=== PATIENT | male | born 1955 | race Caucasian/White ===

== ENCOUNTER → 2017-06-19 08:24 | Outpatient (CLI) | payer MEDICAID, SELFPAY ==
--- NOTE | 2017-06-17 08:45 | LES_PTH ---
PATIENT: KATHY MEEK LOC: [facility] U#:[id number] AGE/SX: 69/M ROOM: RE06/19/[address]: Dr. Shakir Orozco MD : [id number] BED: DIS: SPEC #: [id number] RECD: 06/19/17 10:25 STATUS: UMA EVERARDO #: [id number] MATTY: 06/17/17 08:[address]: Shakir Orozco DEPT: SURGICAL PATHOLOGY RECD BY: Cesar Fiore Tissues: Skin of forearm, NOS Procedures: Surgery Specimen Level IV HEADER OPERATION: Excision of left forearm, skin lesion PRE-OP DIAGNOSIS: Neoplasm of uncertain behavior of skin of forearm, D48.5 TISSUE SUBMITTED: Left forearm lesion MICROSCOPIC DIAGNOSIS Left forearm lesion, excisional biopsy: Invasive well differentiated squamous cell carcinoma, keratoacanthomatous type, completely excised in the planes of sections examined. Perineural invasion is not seen. Actinic keratosis and solar elastosis. SJ:ishaan 06/20/17 COMMENT Case has been reviewed in consultation with Dr. Hull who concurs with the above diagnosis. IDC:AM MICROSCOPIC DESCRIPTION Slides are reviewed. GROSS DESCRIPTION Received in fixative is one container labeled with the patient's name and designated left forearm lesion. The specimen consists of a piece of santiago-white skin measuring 2.5 x 2 cm and 0.6 cm in thickness. The skin surface shows an indurated lesion occupying the entire surface. The specimen is inked, serially sectioned and submitted entirely in two cassettes. The tips of the ellipse are inked blue and submitted in cassette #1. / ALTAF:ishaan 06/19/17 TC:0 CPT: 15702
== END ==
PROVIDERS: Visit Provider Surgery
DX: D48.5 Neoplasm of uncertain behavior of skin (principal)
CPT/HCPCS: 88305

== ENCOUNTER 2018-01-15 09:25 | Inpatient (IN) | payer OTHER, SELFPAY ==
[2018-01-15] VITALS (37 sets, daily range): BP systolic 102–166; BP diastolic 43–94; PULSE 101–160; RESP 12–42; TEMP 36.5–39.3; O2SAT 87–100; BMI 30.4; BMI 29.7
--- NOTE | 2018-01-15 09:36 | EKG12_ITS ---
Test Reason : Blood Pressure : / mmHG Vent. Rate : 163 BPM Atrial Rate : 234 BPM P-R Int : 000 ms QRS Dur : 070 ms QT Int : 300 ms P-R-T Axes : 000 098 057 degrees QTc Int : 494 ms Supraventricular tachycardia Nonspecific ST abnormality Poor R wave progression Abnormal ECG Confirmed by RAY HARRISON, CARMENCITA ([id number]), assistant editor JAISON SEBASTIAN ([id number]) on 01/18/2018 1:45:40 PM Referred By: YESENIA Confirmed By:CARMENCITA BELL MD
--- NOTE | 2018-01-15 09:42 | ED.DCSUM_ITS ---
- ER Visit Summary Date of Service: 01/15/18 Chief Complaint: Nausea, vomiting, weakness History of Present Illness: The patient is a 62 M with a 4 or 5-day history of nausea and dry heaves. He reports having some head congestion with minimal cough. He is been taking Afrin. He reports subjective fever and chills. Patient states he had multiple falls at home due to generalized weakness. He denies known history of COPD. He has been a longtime smoker. He has a history of hypertension and high cholesterol. Physical Examination: Blood pressure is 102/44, temperature 101, heart rate 129, respiratory rate 42, pulse ox 87% on room air. Patient is sitting upright in bed. He is very weak transferring from wheelchair to bed. Head neck examination was moist mucous membranes. Heart is tachycardic. Lung sounds with mild expiratory wheezes. He is tachypneic. Abdomen is soft nontender. Neuro exam reveals no focal deficits, but he does have generalized weakness. Test Results: EKG is sinus tach at 163. Portal chest x-ray shows a large left- sided infiltrate. CBC was a white count of 15.7 with 85% neutrophils. Platelet count is 137,000. Chemistry studies reveal a sodium of 128 and potassium 3.2. BUN is 23 and creatinine is 1.53. LFTs are significant for an AST of 207, direct bili 0.56, total bili 1.20. Lipase is normal. Troponin is 0.613. Lactate is elevated at 3.1. Emergency Department Course and Treatment: Patient is given IV fluids and Tylenol for fever. He was given a DuoNeb treatment. Following this he had improved air movement throughout, but wheezes were noted significantly. Repeat vital signs include a temperature of 102.8 orally, heart rate 132, respiratory rate 32, pulse ox 90% on 6 L nasal cannula. 2 additional albuterol aerosols were given. With the aerosols heart rate did go up at 160, but is now back down to 130s. Respiratory rate is in the mid to upper 30s and pulse ox is 92% on simple mask. Patient has been given Rocephin and Zithromax. 30 cc/kg IV fluid bolus has been ordered. Patient will be admitted to the ICU. Treatment Plan: [] Disposition: Admit Impression: 1. Pneumonia 2. Sepsis This note was generated with [employer] dictation software. It may contain incorrect words, spelling, and punctuation that were not noted in review of the chart prior to signing ED Disposition - Plan for ED Patient: Chief Complaint: General Illness Referrals: NOT,DEFINED [NON-STAFF] -
--- NOTE | 2018-01-15 09:45 | RAD_ITS ---
STUDY: X-RAY CHEST REASON FOR EXAM: Male, 62 years old. Fever, cough and dehydration. TECHNIQUE: AP upright portable single view. COMPARISON: No prior chest imaging available. FINDINGS: EKG wires and oxygen tubing project over the chest mildly appearing underlying details. Lungs appear fairly well ventilated mild elevation right diaphragm. However, near complete opacification is noted of the left mid and basal lung with sparing of the upper lobe above the aortic knob. Right lung appears well ventilated and clear except minimal hazy ill-defined opacities in the right lung base most suggestive subsegmental atelectasis with elevated right diaphragm. Heart is obscured by above left lung opacities left mediastinum and left hilar obscured by above. Right mediastinum appears within normal limits. Moderate increased right hilar density noted due to mild rotation Normal visualized right pulmonary arteries given rotation. Moderate aortic knob calcification. Descending thoracic aorta is obscured by above. Normal visualized thoracic spine. Normal visualized ribs, clavicles and shoulders. There is no demonstrated abnormality of the visualized soft tissue structures of the upper abdomen. No subdiaphragmatic free air seen grossly. RAD/Chest 1 View (Portable) IMPRESSION: Near complete opacification left lung machuca sparing only the upper lobe at the level of the aortic knob and above. Differential considerations include pleural fluid, atelectasis/scarring, pneumonia or underlying mass. Clinical correlation follow-up recommended. Results discussed with Attending Physician 01/15/2018 approximate 1235 hours. If clinically indicated, recommend follow-up chest study after treatment to demonstrate complete clearing if clinically indicated. Electronically Signed: Montrell Cardenas, at 12:39 EDT Tel , Service support ,
[2018-01-15] MEDS: Ipratropium/Albuterol Sulfate 3 ML AMPUL.NEB INHALATION ×4 (09:47→22:29)
[2018-01-15] MEDS: 0.9% Normal Saline 1,000 ML 150 ML IV ×2 (10:02→21:00)
[2018-01-15] MEDS: Acetaminophen 500 MG Tablet 1000 MG PO (10:02)
[2018-01-15] MEDS: Albuterol 2.5 MG/3 ML VIAL.NEB. INHALATION ×2 (10:03)
[2018-01-15 10:04] LABS: Hematocrit 44.9 % (40-54); Hemoglobin 16.3 g/dl (13.0-16.5); Mean Corp Hgb Conc 36.3 g/gl (32-36); Mean Corpuscular Volume 85.4 fL (80-94); Mean Platelet Vol. 11.5 fl (6.2-12.0); Platelet Count 137 K/mm3 (150-450); RBC Distribution Width CV 12.7 % (11.6-14.6); RBC Distribution Width SD 39.8 fl (35.1-43.9); Red Blood Count 5.26 M/mm3 (4.6-6.2); White Blood Count 15.7 K/mm3 (4.4-11.0)
[2018-01-15 10:05] LABS: Differential Indicated MANUAL DIFF; POSITIVE COUNT YES; POSITIVE DIFFERENTIAL YES; POSITIVE MORPHOLOGY YES
[2018-01-15] MEDS: Ceftriaxone 1 GM/50 ML BAG IV (10:16)
[2018-01-15 10:22] LABS: Lymphocyte 5 % (19-41); Monocyte 8 % (0-10); Neutrophil-Band 2 % (0-5); Neutrophil-Segmented 85 % (47-70); Total Cells Counted 100 (MANUAL DIFF)
[2018-01-15 10:23] LABS: Platelet Estimate SLT (ADEQ); Red Cell Morphology NORM C+C NORMAL (NORM C&C); Vacuolated Cells 1+
[2018-01-15 10:24] LABS: Absolute Lymphocyte Count 0.79 X10^3/ul (0.83-4.51); Absolute Neutrophil Count 13.7 X10^3/uL (2.0-7.7)
[2018-01-15 10:26] LABS: AST(SGOT) 207 U/L (15-37); Alanine Aminotransfer ALT/SGPT 46 U/L (16-61); Albumin, Serum 2.6 g/dL (3.2-5.0); Alkaline Phosphatase 67 U/L (45-117); Anion Gap 13 (5-15); BUN 23 mg/dL (7-18); Bilirubin, Direct 0.56 mg/dL (0.00-0.30); Calcium,Total 8.3 mg/dL (8.5-10.1); Chloride 90 mmol/L (98-107); Creatinine, Serum 1.53 mg/dL (0.70-1.30); EST Glomerular Filtration Rate 49 mL/min (>60); Est Glom Filt Rate - Afr Amer 59 mL/min (>60); Estimated Creatinine Clearance 47.81 ml/min; Glucose 152 mg/dL (74-106); Lactic Acid 3.1 mmol/L (0.4-2.0); Lipase 94 U/L (73-393); Potassium 3.2 mmol/L (3.5-5.1); Protein, Total 7.6 g/dL (6.4-8.2); Sodium Level 128 mmol/L (136-145)
--- NOTE | 2018-01-15 10:26 | ED.RN ---
LACTIC 3.1 AND TROP 0.613 CALLED FROM THE LAB. DR PATTERSON AWARE
[2018-01-15] MEDS: MethylPREDNISolone 125 MG/2 ML Vial IV (10:59)
[2018-01-15 11:05] LABS: Allen Test POS; Base Excess -2 mmol/L (-2 to +2); Bicarbonate 21.2 mmol/L (22-26); Blood Gas Specimen Type ART; O2 Delivery Device Nasal Can; PO2 51 mmHG (75-100); SITE L Radial; SO2 90 % (95-99); Time Given 1050; Total Carbon Dioxide 22 mmol/L; pCO2 26.7 mmHg (35-45); pH 7.51 (7.35-7.45)
--- NOTE | 2018-01-15 11:25 | CON.PCM_ITS ---
Reason for Consult Date of Consultation: 01/15/18 Reason for Consultation: Respiratory failure History of Present Illness: The patient is a 62-year-old male, with a history as outlined below, who presented to the emergency department on January 15 with complaints of nausea and generalized weakness. The patient does have an extensive smoking history of 2 packs/day but does not utilize supplemental oxygen at his baseline. He is not currently on any inhalers at his baseline. The patient reports that he has not had any issues with emesis or diarrhea. He denies the presence of abdominal pain at the present time. 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 He does report the presence of shortness of breath along with fevers and chills. He also reportedly fell yesterday. He currently denies the presence of a cough. He denies a history of venous thromboembolic disease or underlying cardiac disease. On presentation to the emergency department, the patient was noted to be febrile, tachycardic, tachypneic and hypoxic. Laboratory evaluation revealed elevated white blood cell count. Chemistry profile revealed a sodium of 128, chloride of 90, potassium of 3.2 and evidence of acute kidney injury with a creatinine of 1.53. Serum lactate was elevated to 3.1. AST was increased to 207. Troponin was increased to 0.613. Lipase was within normal limits at 94. The patient received supplemental IV fluids along with antibiotics. He was subsequently admitted to the medical intensive care unit for ongoing management. Past Medical History Past Medical History (Chronic Problems): Chronic Problems (Last Reviewed 06/17/17 @ 09:09 by Antionette Lua) HLD (hyperlipidemia) (Chronic) Hypertension (Chronic) Medical History: Medical History (Last Reviewed 06/17/17 @ 09:09 by Antionette Lua) Hypertension (Chronic) I10 Erectile dysfunction (Acute) N52.9 Diabetes type 2, controlled (Acute) E11.9 Testicular hypofunction (Acute) E29.1 Allergies No Known Allergies Allergy (Verified 01/15/18 09:30) Home Medications: Ambulatory Orders Medication Instructions Recorded atorvastatin 40 mg tablet 40 mg PO QDAY 06/05/17 citalopram 40 mg tablet 40 mg PO QDAY tab 06/05/17 coenzyme Q10 100 mg capsule 100 mg PO QDAY 06/05/17 metoprolol tartrate 100 mg tablet 150 mg PO BID 06/05/17 omega-3 fatty acids 1,000 mg 1,000 mg PO QDAY 06/05/17 capsule Gabapentin [Neurontin] 100 mg PO DAILY 01/15/18 Smoking Status: Current every day smoker - *Family History Maternal Family History: Family History (Last Reviewed 06/17/17 @ 09:09 by Antionette Lua) Sister Hypertension Brother Hypertension History Items: No pertinent history Paternal Family History: Family History (Last Reviewed 06/17/17 @ 09:09 by Antionette Lua) Sister Hypertension Brother Hypertension History Items: No pertinent history Review of Systems Constitutional: Reports: Chills, Fever, Malaise, Weakness Eyes: Denies: Blurred vision, Double vision Cardiovascular: Denies: Chest Pain, Palpitations Respiratory: Reports: Shortness of Breath, Wheezing Gastrointestinal: Reports: Nausea. Denies: Abdominal Pain, Diarrhea, Vomiting Genitourinary: Denies: Dysuria Musculoskeletal: Denies: Joint Pain, Joint Tenderness Skin: Denies: Rash, Wounds Neurological: Reports: Balance problems Psychiatric: Denies: Anxiety, Depression, Homicidal Ideations, Suicidal Ideations Hematologic/ Lymphatic: Denies: Easy Bruising, Easy Bleeding, Hx of blood clot Patient Problems: Active and Suspected Problems (Last Reviewed 06/17/17 @ 09:09 by Antionette Lua) Severe sepsis (Acute) PNA (pneumonia) (Acute) COPD (chronic obstructive pulmonary disease) (Acute) BRENDA (acute kidney injury) (Acute) NSTEMI (non-ST elevated myocardial infarction) (Acute) Objective: The patient's most recent lab work, culture data and imaging studies have all been personally reviewed. - Physical Exam General: Alert, Cooperative, - - Mildly distressed wearing a nonrebreather HEENT: Atraumatic, PERRLA, Normocephalic Oral: Dry Mucosa Neck: Supple, No Nodes, Trachea Midline Lungs: No rhonchi, No rales, Diminished, Short of Breath, Wheezes Cardiovascular: Normal S1, Normal S2, No murmurs, Irregular Rate, Tachycardic Abdomen: Bowel Sounds Present, Soft, Non Tender Extremities: No clubbing, No cyanosis, No edema Skin: No breakdown Musculoskeletal: No Tenderness to Palpation of Joints or Extremities, No Muscle Wasting Lymphatic: No Cervical, Supraclavicular, or Inguinal Adenopathy Neurological: Neuro grossly intact Psych/Mental Status: Normal Affect, Appropriate Vital Signs Temp Pulse Resp BP Pulse Ox 102.6 F H 130 H 31 H 151/64 H 94 01/15/18 10:27 01/15/18 11:03 01/15/18 11:03 01/15/18 11:03 01/15/18 11:03 Oxygen Flow Rate (L/min) 15 Oxygen Delivery Method Non-Rebreather Weight: 200 lb Body Mass Index (BMI) 30.4 Laboratory Tests Past 24 Hrs 01/15/18 01/15/18 01/15/18 09:45 09:45 09:45 WBC 15.7 H RBC 5.26 Hgb 16.3 Hct 44.9 MCV 85.4 MCH 31.0 MCHC 36.3 H RDW 12.7 RDW Differential 39.8 Plt Count 137 L MPV 11.5 Neut % (Auto) Not Reportable Absolute Neuts (auto) 13.7 H Absolute Lymphs (auto) 0.79 L Total Counted 100 Neutrophils % (Manual) 85 H Band Neutrophils % 2 Lymphocytes % (Manual) 5 L Monocytes % (Manual) 8 Differential Comment 1+ Diff Path Review May foll Platelet Estimate SLT RBC Morphology NORM C+C Specimen Type Sample Site pH Bicarbonate Actual POC Total CO2 Base Excess O2 Saturation ABG pCO2 ABG pO2 Jaylen Test O2 Delivery Device Liter Flow Blood Gas Notified Whom Blood Gas Notified Time Sodium 128 L Potassium 3.2 L Chloride 90 L Carbon Dioxide 25.0 Anion Gap 13 BUN 23 H Creatinine 1.53 H Estim Creat Clear Calc 47.81 Est GFR (MDRD) Af Amer 59 L Est GFR (MDRD) Non-Af 49 L BUN/Creatinine Ratio 15.0 Glucose 152 H Lactic Acid 3.1 H Calcium 8.3 L Total Bilirubin 1.20 H Direct Bilirubin 0.56 H AST 207 H ALT 46 Alkaline Phosphatase 67 Troponin I 0.613 H* Total Protein 7.6 Albumin 2.6 L Globulin 5.0 H Lipase 94 01/15/18 11:00 WBC RBC Hgb Hct MCV MCH MCHC RDW RDW Differential Plt Count MPV Neut % (Auto) Absolute Neuts (auto) Absolute Lymphs (auto) Total Counted Neutrophils % (Manual) Band Neutrophils % Lymphocytes % (Manual) Monocytes % (Manual) Differential Comment Diff Path Review Platelet Estimate RBC Morphology Specimen Type ART Sample Site L Radial pH 7.51 H Bicarbonate Actual 21.2 L POC Total CO2 22 Base Excess -2 O2 Saturation 90 L ABG pCO2 26.7 L ABG pO2 51 L Jaylen Test POS O2 Delivery Device Nasal Can Liter Flow 6.0 Blood Gas Notified Whom ED MD Blood Gas Notified Time 1050 Sodium Potassium Chloride Carbon Dioxide Anion Gap BUN Creatinine Estim Creat Clear Calc Est GFR (MDRD) Af Amer Est GFR (MDRD) Non-Af BUN/Creatinine Ratio Glucose Lactic Acid Calcium Total Bilirubin Direct Bilirubin AST ALT Alkaline Phosphatase Troponin I Total Protein Albumin Globulin Lipase Clinical Impression(s) from Imaging Studies Chest X-Ray 01/15/18 09:45 IMPRESSION: Near complete opacification left lung machuca sparing only the upper lobe at the level of the aortic knob and above. Differential considerations include pleural fluid, atelectasis/scarring, pneumonia or underlying mass. Clinical correlation follow-up recommended. Results discussed with Attending Physician 01/15/2018 approximate 1235 hours. If clinically indicated, recommend follow-up chest study after treatment to demonstrate complete clearing if clinically indicated. Electronically Signed: Montrell Cardenas, at 12:39 EDT Tel , Service support , Assessment/Plan Active and Suspected Problems (Last Reviewed 06/17/17 @ 09:09 by Antionette Lua) Severe sepsis (Acute) PNA (pneumonia) (Acute) COPD (chronic obstructive pulmonary disease) (Acute) BRENDA (acute kidney injury) (Acute) NSTEMI (non-ST elevated myocardial infarction) (Acute) RECOMMENDATIONS: 1. Obtain EKG and trend troponins 2. Obtain echocardiogram 3. Given abnormality noted in left mid lung field on chest imaging, recommend noncontrasted chest CT 4. Continue supplemental IV fluid hydration. Recheck serum lactate level. 5. Given tenuous respiratory status, broaden antibiotics to include Zosyn. Check MRSA screen and if positive start vancomycin. 6. Check strep and urine Legionella antigens. Obtain and send sputum for culture. Check respiratory viral panel. 7. Potassium repletion. Check magnesium and phosphorus levels as well. 8. Patient to remain n.p.o. for now. Start Accu-Cheks and sliding scale insulin coverage. 9. Continue scheduled bronchodilators and IV steroids. IMPRESSIONS: 1. Acute hypoxic respiratory failure secondary to severe community-acquired pneumonia leading to presumptive COPD exacerbation While the patient does have an extensive smoking history, he has never had pulmonary function testing done to confirm or refute a diagnosis of COPD. However, he does have an extreme amount of wheezing noted on examination. In addition, he has radiographic abnormalities that involve his left mid and lower lung machuca. Given the abnormal appearance and triangular-shaped atelectasis noted in his left mid lung field, and going to pursue obtaining a CT chest for further evaluation. In the interim, the patient's antibiotics have been broadened to include Zosyn. MRSA screen will be checked and if positive he will be started on vancomycin. He will be continued on scheduled bronchodilators and IV steroids. I have also recommended that he be placed on BiPAP empirically with a pressure support of 14/8 centimeters of water with humidification as a starting point. We will plan to check strep and urine Legionella antigens, along with a full respiratory viral panel. If the patient does develop a productive cough, sputum can be sent for culture. 2. Severe sepsis secondary to community-acquired pneumonia The patient is currently receiving his 30 cc/kg ideal body weight fluid bolus. He is currently hemodynamically stable. Recommend following up with a recheck of his lactate. Continue broad-spectrum antibiotics as noted above. 3. History of tobacco dependence The patient does have an extensive smoking history and we are currently working under the assumption that he has obstructive lung disease. However, smoking cessation is strongly advisable. Nicotine replacement therapy can be offered while he is admitted to the hospital. The patient should ideally follow up in the pulmonary medicine clinic so that baseline PFTs can be obtained. 4. Sinus arrhythmia/troponin elevation The patient appears to be experiencing a sinus arrhythmia, potentially multifocal atrial tachycardia. He is not in atrial fibrillation at the current time. Recommend repleting potassium to greater than 4. Check serum magnesium level. Continue to trend troponins and obtain echocardiogram. 5. Hyponatremia/hypochloremia/hypokalemia Likely secondary to intravascular volume depletion. The patient is currently being volume resuscitated. Electrolyte repletion is underway. 6. Acute kidney injury Likely prerenal in etiology. Anticipate improvement with volume expansion. Continue to monitor urine output. No current indication for renal replacement therapy. 7. Hypertension/hyperlipidemia/neuropathy Complicates care, management, recovery and prognosis. TIME: 45 minutes of critical care time, independent of procedures, was spent addressing the patient's acute hypoxic respiratory failure, severe sepsis secondary to community-acquired pneumonia, tobacco dependency, sinus arrhythmia, troponin elevation, hypokalemia, acute kidney injury, review of all data and collaboration with the care team. ([id number]) Code Visit 9xxxx: [id number] Critical care first hour
--- NOTE | 2018-01-15 12:04 | PCM.HP.STD ---
Problem List (1) Severe sepsis Status: Acute (2) PNA (pneumonia) Status: Acute Qualifiers: Laterality: left Lung location: lower lobe of lung (3) COPD (chronic obstructive pulmonary disease) Status: Acute (4) NSTEMI (non-ST elevated myocardial infarction) Status: Acute (5) BRENDA (acute kidney injury) Status: Acute (6) HLD (hyperlipidemia) Status: Chronic (7) Hypertension Status: Chronic History of Present Illness Date of Admission: 01/15/18 Chief Complaint: SOB The patient is a 62 year old M with a heavy smoking hx, no formal dx of copd/asthma, no sick contacts, hx htn, hld, who presents to the ER with c/o SOB x 3 days. Pt states he started feeling unwell after working under his RV. He started becoming progressively SOB and developed fevers and chills. He became more and more unsteady on his feet, falling chest first onto a coffee table yesterday. He was very weak today and came to the ER. He only has a rare cough with no sputum production. He had fevers and chills at home. He is incontinent of urine x 2 days. He is tremulous. He was hypoxic at 87% requiring up to NRB supplementation to maintain good sats. He was running a fever as well 102.8 and had pulse into the 160s with elevated troponin. He denies a hx of heart dz or CHF. [] Past Medical History Past Medical History (Chronic Problems): Chronic Problems (Last Reviewed 06/17/17 @ 09:09 by Antionette Lua) HLD (hyperlipidemia) (Chronic) Hypertension (Chronic) Medical History: Medical History (Last Reviewed 06/17/17 @ 09:09 by Antionette Lua) Hypertension (Chronic) I10 Erectile dysfunction (Acute) N52.9 Diabetes type 2, controlled (Acute) E11.9 Testicular hypofunction (Acute) E29.1 Allergies No Known Allergies Allergy (Verified 01/15/18 09:30) Home Medications: Ambulatory Orders Medication Instructions Recorded atorvastatin 40 mg tablet 40 mg PO QDAY 06/05/17 citalopram 40 mg tablet 40 mg PO QDAY tab 06/05/17 coenzyme Q10 100 mg capsule 100 mg PO QDAY 06/05/17 metoprolol tartrate 100 mg tablet 150 mg PO BID 06/05/17 omega-3 fatty acids 1,000 mg 1,000 mg PO QDAY 06/05/17 capsule Gabapentin [Neurontin] 100 mg PO DAILY 01/15/18 Surgical History: - - hernia Psychiatric History: No pertinent psych hx Lives: Spouse/ Significant Other Smoking Status: Heavy Smoker (>10/day) Tobacco Use: Cigarettes Alcohol: Occasional Drugs: None - *Family History Maternal Family History: Family History (Last Reviewed 06/17/17 @ 09:09 by Antionette Lua) Sister Hypertension Brother Hypertension History Items: No pertinent history Paternal Family History: Family History (Last Reviewed 06/17/17 @ 09:09 by Antionette Lua) Sister Hypertension Brother Hypertension History Items: No pertinent history Review of Systems Constitutional: Reports: Chills, Fever, Weakness. Denies: Weight Change HEENT: Denies: Head Aches, Sinus Congestion, Sinus Drainage Cardiovascular: Reports: Chest Pain - left shoulder area 2/2 fall. Denies: Palpitations Respiratory: Reports: Cough, Shortness of Breath, Shortness of breath at rest, Shortness of breath upon exertion. Denies: Sputum production Gastrointestinal: Denies: Abdominal Pain, Nausea, Vomiting Genitourinary: Reports: Incontinence. Denies: Dysuria Musculoskeletal: Denies: Joint Pain, Joint Tenderness Skin: Denies: Rash, Wounds Neurological: Denies: Numbness, Tingling, Focal weakness Psychiatric: Denies: Anxiety, Depression, Homicidal Ideations, Suicidal Ideations Hematologic/ Lymphatic: Denies: Easy Bruising, Easy Bleeding VTE Information - Inpt Only VTE Present on Admission: No VTE Mechan Device Prophylaxis: None VTE Pharm Prophylaxis ordered?: Yes Patient Problems: Active and Suspected Problems (Last Reviewed 06/17/17 @ 09:09 by Antionette Lua) Severe sepsis (Acute) PNA (pneumonia) (Acute) COPD (chronic obstructive pulmonary disease) (Acute) BRENDA (acute kidney injury) (Acute) NSTEMI (non-ST elevated myocardial infarction) (Acute) - Physical Exam General: Alert, Oriented x3, Cooperative, - - tremulous HEENT: Atraumatic, PERRLA, EOMI, Normocephalic Neck: Supple, No JVD, Negative Carotid Bruits Lungs: Wheezes - left>R Cardiovascular: Irregular Rate, Tachycardic Abdomen: Bowel Sounds Present, Soft, Non Tender Extremities: No edema, Capillary Refill Less than 3 Seconds Skin: No rashes, No breakdown Musculoskeletal: No Tenderness to Palpation of Joints or Extremities Neurological: Cranial nerves II-XII grossly intact Psych/Mental Status: Normal Affect, Appropriate Vital Signs Temp Pulse Resp BP Pulse Ox 102.6 F H 130 H 31 H 151/64 H 94 01/15/18 10:27 01/15/18 11:03 01/15/18 11:03 01/15/18 11:03 01/15/18 11:03 Oxygen Flow Rate (L/min) 15 Oxygen Delivery Method Non-Rebreather Weight: 200 lb Body Mass Index (BMI) 30.4 Laboratory Tests Past 24 Hrs 01/15/18 01/15/18 01/15/18 09:45 09:45 09:45 WBC 15.7 H RBC 5.26 Hgb 16.3 Hct 44.9 MCV 85.4 MCH 31.0 MCHC 36.3 H RDW 12.7 RDW Differential 39.8 Plt Count 137 L MPV 11.5 Neut % (Auto) Not Reportable Absolute Neuts (auto) 13.7 H Absolute Lymphs (auto) 0.79 L Total Counted 100 Neutrophils % (Manual) 85 H Band Neutrophils % 2 Lymphocytes % (Manual) 5 L Monocytes % (Manual) 8 Differential Comment 1+ Diff Path Review May foll Platelet Estimate SLT RBC Morphology NORM C+C Specimen Type Sample Site pH Bicarbonate Actual POC Total CO2 Base Excess O2 Saturation ABG pCO2 ABG pO2 Jaylen Test O2 Delivery Device Liter Flow Blood Gas Notified Whom Blood Gas Notified Time Sodium 128 L Potassium 3.2 L Chloride 90 L Carbon Dioxide 25.0 Anion Gap 13 BUN 23 H Creatinine 1.53 H Estim Creat Clear Calc 47.81 Est GFR (MDRD) Af Amer 59 L Est GFR (MDRD) Non-Af 49 L BUN/Creatinine Ratio 15.0 Glucose 152 H Lactic Acid 3.1 H Calcium 8.3 L Total Bilirubin 1.20 H Direct Bilirubin 0.56 H AST 207 H ALT 46 Alkaline Phosphatase 67 Troponin I 0.613 H* Total Protein 7.6 Albumin 2.6 L Globulin 5.0 H Lipase 94 01/15/18 11:00 WBC RBC Hgb Hct MCV MCH MCHC RDW RDW Differential Plt Count MPV Neut % (Auto) Absolute Neuts (auto) Absolute Lymphs (auto) Total Counted Neutrophils % (Manual) Band Neutrophils % Lymphocytes % (Manual) Monocytes % (Manual) Differential Comment Diff Path Review Platelet Estimate RBC Morphology Specimen Type ART Sample Site L Radial pH 7.51 H Bicarbonate Actual 21.2 L POC Total CO2 22 Base Excess -2 O2 Saturation 90 L ABG pCO2 26.7 L ABG pO2 51 L Jaylen Test POS O2 Delivery Device Nasal Can Liter Flow 6.0 Blood Gas Notified Whom ED Blood Gas Notified Time 1050 Sodium Potassium Chloride Carbon Dioxide Anion Gap BUN Creatinine Estim Creat Clear Calc Est GFR (MDRD) Af Amer Est GFR (MDRD) Non-Af BUN/Creatinine Ratio Glucose Lactic Acid Calcium Total Bilirubin Direct Bilirubin AST ALT Alkaline Phosphatase Troponin I Total Protein Albumin Globulin Lipase Assessment/Plan All Active Problems (Last Reviewed 06/17/17 @ 09:09 by Antionette Lua) Severe sepsis (Acute) PNA (pneumonia) (Acute) COPD (chronic obstructive pulmonary disease) (Acute) BRENDA (acute kidney injury) (Acute) NSTEMI (non-ST elevated myocardial infarction) (Acute) Erectile dysfunction (Acute) Diabetes type 2, controlled (Acute) Testicular hypofunction (Acute) 1. Acute hypoxic respiratory failure 2/2 Acute severe sepsis 2/2 LLL CAP - + fever tmax 102.8, tachy, tachypnea, lactic acidosis, leukocytosis, LLL pna on cxr presumed streptococcaly. Check sputum if able to provide, blood cultures, respiratory panel. Rocephin and Azithromycin. Continue NRB for O2 supplementation and wean as tolerated. pH 7.51, Co2 21.2, pO2 51, pCO2 26.7 2. Suspected underlying COPD with acute exacerbation - steroids + aerosols. 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 No formal dx. 3. NSTEMI - No hx of heart disease. cycle enzymes. Cardiology consulted. Start heparin. Atypical CP (c/w fall onto table). Obtain EKG. Other historical risk factors - htn, hld, smoking, obesity. Rhythm is tachy/irreg. Check Mag and TSH. 4. BRENDA 2/2 sepsis - IV fluids. hyponatremic and hypokalemic. Replete with IV fluids. 5. Urinary incontinence - schwartz for accurate I/O + UA/Cx 6. HTN - restart home meds. 7. HLD - on statin 8. Hyperglycemia - denies hx of DMt2 - check A1C. start sliding scale insulin. 9. Debility with falls likely 2/2 sepsis - ptot. 10. Mild thrombocytopenia - monitor platelets with heparin therapy. DVT ppx: Heparin This patient was seen by Ap Johnson PA-C under the supervision of Doctor Reyes.
--- NOTE | 2018-01-15 12:12 | ECHOCS_ITS ---
Reason For Study: CAD/ASHD Procedure This was a 2D Doppler, Color Flow transthoracic echocardiogram. Technically difficult study, patient on BIPAP. Exam performed portable in ICU/CCU. Left Ventricle Normal LV size. Left ventricular systolic function is normal. The estimated ejection fraction is 60 %. Stage 1 diastolic dysfunction. No regional wall motion abnormalities noted. Right Ventricle Normal RV size. Normal systolic function. Atria The left atrium is mildly enlarged. The right atrium is mildly enlarged. Mitral Valve Normal mitral valve. Tricuspid Valve Normal tricuspid valve. Aortic Valve The aortic valve is not well visualized. Pulmonic Valve Normal pulmonic valve. Great Vessels Normal aortic root. The pulmonary artery is normal size. Normal inferior vena cava. Pericardium/Pleural No pericardial effusion. Medication Diluted definity 3ml given slow IV push to enhance endocardial definition. MMode/2D Measurements & Calculations LVIDd: 4.6 cm IVSd: 1.2 cm LVOT diam: 2.0 cm LVIDs: 2.9 cm LVPWd: 1.1 cm LVOT area: 3.3 cm2 FS: 37.6 % Ao root diam: 3.4 cm LA dimension: 3.6 cm Time Measurements MV dec time: 0.18 sec Doppler Measurements & Calculations MV E max tre: 87.2 cm/sec Lat Peak E' Tre: 9.7 cm/sec Med Peak E' Tre: 10.3 cm/sec MV A max tre: 75.7 cm/sec E/E' lat: 9.0 E/E' med: 8.4 MV E/A: 1.2 MV V2 max: 112.7 cm/sec MV P1/2t max tre: 107.9 cm/sec Ao V2 max: 178.0 cm/sec MV max P.1 mmHg MV P1/2t: 50.6 msec Ao max P.7 mmHg MV V2 mean: 63.7 cm/sec MV dec slope: 623.9 cm/sec2 Ao V2 mean: 105.4 cm/sec MV mean P.9 mmHg MVA(P1/2t): 4.3 cm2 Ao mean P.5 mmHg MV V2 VTI: 23.6 cm Ao V2 VTI: 27.0 cm MVA(VTI): 2.7 cm2 ADE(I,D): 2.3 cm2 ADE(V,D): 2.1 cm2 LV V1 max: 115.3 cm/sec SV(LVOT): 62.5 ml PA V2 max: 121.8 cm/sec LV V1 max P.5 mmHg LV V1 mean P.5 mmHg LV V1 mean: 70.0 cm/sec LV V1 VTI: 19.1 cm Interpretation Summary Normal LV size. Left ventricular systolic function is normal. The estimated ejection fraction is 60 %. Stage 1 diastolic dysfunction. The left atrium is mildly enlarged. The right atrium is mildly enlarged. Contrast injection was performed. Ordering Physician: Namita Reyes Referring Physician: Donny Johnson Performed By: Yuriy Francisco RCS
[2018-01-15 12:25] LABS: International Normalized Ratio 1.1; Prothrombin Time (Protime)PT. 13.8 SECONDS (11.7-14.9)
[2018-01-15 12:26] LABS: Partial Thromboplast Time 33.7 Seconds (24.1-36.2)
[2018-01-15 12:38] LABS: Magnesium 2.9 mg/dL (1.6-2.6)
[2018-01-15 12:40] LABS: Phosphorus 2.3 mg/dL (2.5-4.9)
[2018-01-15 12:40] LABS: Bedside Glucose 267 mg/dL (70-110)
--- NOTE | 2018-01-15 12:44 | CT_ITS ---
STUDY: CT CHEST WITHOUT CONTRAST REASON FOR EXAM: Male, 62 years old. Using pneumonia left lower lobe sepsis RADIATION DOSAGE (If Supplied By Facility): CTDIvol = ( 19.55 ) mGy, DLP = ( 674.08 ) mGycm TECHNIQUE: Transaxial imaging was performed without the administration of intravenous contrast material. Multiplanar coronal and sagittal images were reformatted. Individualized dose optimization techniques were used for this CT. COMPARISON: Chest x-ray January 15, 2018 FINDINGS: There is a pattern of emphysematous change throughout the lungs. There is a large consolidation in the left upper lobe, lingula and to lesser degree the far left lower lobe. There is a trace left effusion with lower lobe atelectasis. There are bronchograms in the dense component within the left hilum. There is mild cardiac enlargement there is calcification of the left anterior descending coronary artery. There are numerous mediastinal lymph nodes. There is AP window lymph node measuring 1.1 cm left to midline paratracheal lymph node measuring 1.5 cm. Prevascular lymph nodes measuring up to 1.1 cm. Subcarinal lymphadenopathy measuring 1.6 cm. Normal hilar regions. The left pulmonary artery appears relatively encased in either consolidation and/or potentially underlying mass. There is partial calcification of the aorta. There are multi-level degenerative changes of the thoracic spine. The liver is enlarged. There is a minimal hiatal hernia. There is a mildly thickened appearance of the left greater than right adrenal gland. The liver appears mildly inhomogeneous which may represent fatty liver infiltration with sparing. There is a vaguely visualized cystic structure measuring 7.[address]/Chest without Contrast IMPRESSION: There is a large amount of consolidation in the left upper lobe and lingula which is centrally dense with an air bronchograms. Although this may represent an infiltrate. An underlying left hilar mass with surrounding consolidated lung should be excluded. Recommend consideration for bronchoscopy. Small left effusion lower lobe atelectasis. Cardiomegaly cardiac artery disease Reactive and/or metastatic lymphadenopathy. Hyperinflated appearance of the right lung overall pattern of underlying chronic obstructive pulmonary disease. Inhomogeneous appearance of the liver which may represent fatty infiltration of the liver with sparing however further evaluation is recommended with an ultrasound or contrasted study of the abdomen and pelvis when possible. Electronically Signed: Mickie Saldivar MD at 15:10 EDT Tel , Service support ,
[2018-01-15] MEDS: Insulin Lispro 100 UNIT/ML INSULN.PEN SC ×2 (12:45→18:44)
[2018-01-15 12:59] LABS: Mucous, Urine 0 SEEN /hpf (<or=2+); Red Blood Cells-Urine 0 SEEN /hpf (0-5)
[2018-01-15 13:00] LABS: Color, Urine Yellow (Yellow); Glucose, Dipstick Normal (Normal); Ketone-Dipstick 50 mg/dl (Negative); Leukocyte Esterase-Dipstick 25 /ul (Negative); Nitrite-Dipstick Negative (Negative); Occult Blood-Urine 250 /ul (Negative); Protein-Dipstick 100 mg/dl (Negative); Urine Bilirubin Dipstick Negative (Negative); Urine Clarity Cloudy (Clear); Urine Urobilinogen 4 mg/dl (Normal)
[2018-01-15 13:08] LABS: Amorphous Sediment 4+; Bacteria 4+ /hpf (None Seen); Fine Granular Cast- Urine 5-10 SEEN /lpf (0-5); Squamous Epithelial Cells - UA 0-5 SEEN /hpf (0-5); White Blood Cells 0-5 SEEN /hpf (0-5)
[2018-01-15 13:13] LABS: Hemoglobin A1c 6.5 % (4.2-6.3)
[2018-01-15 13:16] LABS: Allen Test POS; Base Excess -4 mmol/L (-2 to +2); Bicarbonate 20.4 mmol/L (22-26); Blood Gas Specimen Type ART; O2 Delivery Device NRB Mask; PO2 80 mmHG (75-100); SITE R Radial; SO2 96 % (95-99); Time Given 1313; Total Carbon Dioxide 21 mmol/L; pCO2 31.2 mmHg (35-45); pH 7.42 (7.35-7.45)
[2018-01-15 13:52] LABS: Reflex Lactate? Y
--- NOTE | 2018-01-15 14:44 | CON.PCM_ITS ---
Reason for Consult Date of Consultation: 01/15/18 Reason for Consultation: Abnormal cardiac enzymes History of Present Illness: The patient is a 62-year-old male, with a history of severe obstructive lung disease and possible hypertension , who presented to the emergency department on January 15 with complaints of nausea and generalized weakness. The patient does have an extensive smoking history of 2 packs/day but does not utilize supplemental oxygen at his baseline. He is not currently on any inhalers at his baseline. The patient reports that he has not had any issues with chest pain or paroxysmal nocturnal dyspnea. He denies the presence of abdominal pain at the present time. He does report the presence of shortness of breath along with fevers and chills. He also reportedly fell yesterday. He currently denies the presence of a cough. He denies a history of venous thromboembolic disease or underlying cardiac disease. On presentation to the emergency department, the patient was noted to be febrile, tachycardic, tachypneic and hypoxic. Laboratory evaluation revealed e levated white blood cell count. Chemistry profile revealed a sodium of 128, chloride of 90, potassium of 3.2 and evidence of acute kidney injury with a creatinine of 1.53. Serum lactate was elevated to 3.1. AST was increased to 207. Troponin was increased to 0.613. Lipase was within normal limits at 94. The patient received supplemental IV fluids along with antibiotics. He was subsequently admitted to the medical intensive care unit for ongoing management. Due to the above cardiology was consulted for further evaluation and management. Past Medical History Allergies/Adverse Reactions: Allergies No Known Allergies Allergy (Verified 01/15/18 09:30) Home Medications: Ambulatory Orders Medication Instructions Recorded atorvastatin 40 mg tablet 40 mg PO QDAY 06/05/17 citalopram 40 mg tablet 40 mg PO QDAY tab 06/05/17 coenzyme Q10 100 mg capsule 100 mg PO QDAY 06/05/17 metoprolol tartrate 100 mg tablet 150 mg PO BID 06/05/17 omega-3 fatty acids 1,000 mg 1,000 mg PO QDAY 06/05/17 capsule Gabapentin [Neurontin] 100 mg PO DAILY 01/15/18 Past Medical History (Chronic Problems): Chronic Problems (Last Reviewed 06/17/17 @ 09:09 by Antionette Lua) HLD (hyperlipidemia) (Chronic) Hypertension (Chronic) Surgical History: - - hernia Psychiatric History: No pertinent psych hx - *Family History Maternal Family History: Family History (Last Reviewed 06/17/17 @ 09:09 by Antionette Lua) Sister Hypertension Brother Hypertension History Items: No pertinent history Paternal Family History: Family History (Last Reviewed 06/17/17 @ 09:09 by Antionette Lua) Sister Hypertension Brother Hypertension History Items: No pertinent history Lives: Spouse/ Significant Other Smoking Status: Current every day smoker Tobacco Use: Cigarettes Alcohol: Occasional Drugs: None Review of Systems - Review of Systems General: Denies: Fever, Night Sweats, Fatigue Cardiovascular: Reports: Shortness of Breath, Shortness of Breath at Rest. Denies: Chest Discomfort, Orthopnea, PND, Peripheral Edema, Palpitations, Lightheadedness, Dizziness, Near Syncope, Syncope Respiratory: Denies: Cough, Sputum Production, Hemoptysis Gastrointestinal: Denies: Hematemesis, Hematochezia, Melena Genitourinary: Denies: Dysuria, Hematuria Skin: Denies: Rash Subjectve: Middle-aged man looking older than his stated age in mild respiratory distress Objective: Vital Signs Temp Pulse Resp BP Pulse Ox 102.6 F H 144 H 27 H 151/64 H 99 01/15/18 10:27 01/15/18 13:26 01/15/18 13:30 01/15/18 11:03 01/15/18 13:35 Oxygen Flow Rate (L/min) 15 Oxygen Delivery Method Non-Rebreather Weight: 199 lb 15.983 oz Body Mass Index (BMI) 30.4 General: Awake, Alert, Oriented x 3 HEENT: PERRL, EOMI, Sclera Non Icteric Neck: Supple, Good ROM, No Lymph Node Enlargement Lungs: Clear to auscultation Cardiovascular: Regular Rhythm, Normal S1, Normal S2, No Murmurs, No Rubs, No Gallops Vascular: No Carotid Bruits, Normal Femoral Pulses, Normal Radial Pulses, Normal Dorsalis Pedal Pulse, Normal Posterior Tibial Pulses Abdomen: Bowel Sounds Present, Soft, Non Tender, No HSM, No Organomegaly Extremities: No Cyanosis, No Clubbing, No edema Neurological: No Focal Motor or Sensory Deficit 01/15/18 09:45: WBC 15.7 H, RBC 5.26, Hgb 16.3, Hct 44.9, MCV 85.4, MCH 31.0, MCHC 36.3 H, RDW 12.7, RDW Differential 39.8, Plt Count 137 L, MPV 11.5, Neut % (Auto) Not Reportable, Absolute Neuts (auto) 13.7 H, Total Counted 100, Neutrophils % (Manual) 85 H, Band Neutrophils % 2, Lymphocytes % (Manual) 5 L, Monocytes % (Manual) 8 01/15/18 09:45: Sodium 128 L, Potassium 3.2 L, Chloride 90 L, Carbon Dioxide 25.0, Anion Gap 13, BUN 23 H, Creatinine 1.53 H, Est GFR (MDRD) Af Amer 59 L, Est GFR (MDRD) Non-Af 49 L, BUN/Creatinine Ratio 15.0, Glucose 152 H, Calcium 8.3 L, Total Bilirubin 1.20 H, Direct Bilirubin 0.56 H, Troponin I 0.613 H* 01/15/18 09:45: Lactic Acid 3.1 H 01/15/18 09:45: PT 13.8, INR 1.1, APTT 33.7 01/15/18 09:45: Magnesium 2.9 H 01/15/18 09:45: Hemoglobin A1c 6.5 H 01/15/18 09:45: Phosphorus 2.3 L 01/15/18 11:00: pH 7.51 H, Bicarbonate Actual 21.2 L, POC Total CO2 22, Base Excess -2, O2 Saturation 90 L, ABG pCO2 26.7 L, ABG pO2 51 L, Jaylen Test POS 01/15/18 12:30: Urine Color Yellow, Urine Clarity Cloudy, Urine pH 6.0, Ur Specific [place] 1.020, Urine Protein 100 H, Urine Glucose (UA) Normal, Urine Ketones 50 H, Urine Occult Blood 250 H, Urine Nitrite Negative, Urine Bilirubin Negative, Urine Urobilinogen 4 H, Ur Leukocyte Esterase 25 H, Urine RBC 0 SEEN, Urine WBC 0-5 SEEN 01/15/18 13:05: Lactic Acid 2.0 01/15/18 13:05: Troponin I 0.525 H 01/15/18 13:12: pH 7.42, Bicarbonate Actual 20.4 L, POC Total CO2 21, Base Excess -4 L, O2 Saturation 96, ABG pCO2 31.2 L, ABG pO2 80, Jaylen Test POS Rhythm: EKG: Multifocal atrial tachycardia with a rate of 122 bpm ECHO: Stress Test: Cardiac Cath: PCI: CT Surgery: Holter monitor: EPS: PPM: CXR: Chest CT Scan: Assessment/Plan 1. Abnormal cardiac enzymes Patient is noted to have abnormal cardiac enzymes which is likely secondary to demand ischemia. My recommendation is to continue observing him for now and treat the underlying cause. Depending on the final level of the cardiac enzymes as well as his echocardiographic evaluation further recommendations will be made. * Will schedule an echocardiogram to assess his left ventricular function. 2. Multifocal atrial tachycardia Patient is noted to have multifocal atrial tachycardia which is likely secondary to his pulmonary disease. Once again treating the underlying cause would help elucidate and correct some of this. He is asymptomatic at this particular time anyway. Will recommend treating underlying potassium and magnesium. Thank you for allowing me to participate in the care of your patient. Please don't hesitate to call if any issues arise
[2018-01-15 15:20] LABS: Allen Test POS; Base Excess -3 mmol/L (-2 to +2); Blood Gas Specimen Type ART; EPAP 8; FI02 60; IPAP 12; PO2 107 mmHG (75-100); RR 12; SITE R Radial; SO2 98 % (95-99); Time Given 1516; Total Carbon Dioxide 23 mmol/L; pCO2 36.4 mmHg (35-45); pH 7.39 (7.35-7.45)
[2018-01-15] MEDS: levoFLOXacin IV 750 MG/150 ML BAG 100 MG IV (15:29)
[2018-01-15] MEDS: HEPARIN/D5w 25,000 UNITS 25,000 UNITS/250 ML IV.SOLN. 12 UNITS IV (15:36)
[2018-01-15] MEDS: Heparin Injection (Vial) 5,000 UNIT/ML VIAL IV (15:37)
[2018-01-15 17:16] LABS: Reflex Lactate? Y
[2018-01-15 18:50] LABS: Bedside Glucose 270 mg/dL (70-110)
[2018-01-15 19:07] LABS: M R Staph aureus DNA By PCR Negative (Negative); Probe Check PASS; Specimen Processing Control PASS
[2018-01-15] MEDS: guaiFENesin 1,200 MG Tablet 1200 MG PO (21:37)
[2018-01-15] MEDS: Metoprolol Tartrate 50 MG Tablet PO (21:37)
[2018-01-15] MEDS: Atorvastatin Calcium 40 MG Tablet PO (21:37)
[2018-01-15] MEDS: Aspirin 81 MG TAB.CHEW PO (21:38)
[2018-01-15 21:59] LABS: Partial Thromboplast Time 70.3 Seconds (24.1-36.2)
[2018-01-16] VITALS (42 sets, daily range): BP systolic 112–152; BP diastolic 58–91; PULSE 80–128; RESP 12–32; TEMP 37.6–39.2; O2SAT 90–99
[2018-01-16] MEDS: Insulin Lispro 100 UNIT/ML INSULN.PEN SC ×6 (00:11→21:07)
[2018-01-16 00:26] LABS: Bedside Glucose 235 mg/dL (70-110)
[2018-01-16] MEDS: Ipratropium/Albuterol Sulfate 3 ML AMPUL.NEB INHALATION ×6 (02:15→22:55)
[2018-01-16] MEDS: Acetaminophen 325 MG Tablet 650 MG PO ×4 (03:16→22:59)
[2018-01-16 03:59] LABS: Partial Thromboplast Time 44.5 Seconds (24.1-36.2)
[2018-01-16 04:09] LABS: Cholesterol 60 mg/dL (200); High Density Lipoprotein 14 mg/dL; Triglycerides 99 mg/dL; Very Low Density Lipoprotein 20 mg/dL (5-40)
[2018-01-16] MEDS: 0.9% Normal Saline 1,000 ML 150 ML IV (04:11)
[2018-01-16] MEDS: Heparin Injection (Vial) 5,000 UNIT/ML VIAL IV (04:45)
[2018-01-16 05:11] LABS: Bedside Glucose 195 mg/dL (70-110)
--- NOTE | 2018-01-16 05:55 | EKG12_ITS ---
Test Reason : AM EKG Blood Pressure : / mmHG Vent. Rate : 148 BPM Atrial Rate : 070 BPM P-R Int : 000 ms QRS Dur : 094 ms QT Int : 338 ms P-R-T Axes : 000 080 023 degrees QTc Int : 530 ms Supraventricular tachycardia Poor R wave progression Confirmed by RAY HARRISON, CARMENCITA ([id number]), assistant editor JAISON SEBASTIAN ([id number] on 01/18/2018 2:29:14 PM Referred By: ANDREAS Confirmed By:CARMENCITA BELL MD
--- NOTE | 2018-01-16 06:47 | PCM.PN.HOSP ---
Patient Problems: Active and Suspected Problems (Last Reviewed 06/17/17 @ 09:09 by Antionette Lua) Severe sepsis (Acute) PNA (pneumonia) (Acute) COPD (chronic obstructive pulmonary disease) (Acute) BRENDA (acute kidney injury) (Acute) NSTEMI (non-ST elevated myocardial infarction) (Acute) Subjective: Patient overnight clinically improved and off BiPAP now with plan for diet start as well as transition off heparin drip to chemoprophylaxis subcu only which was discussed with patient. Patient states as though his respiratory status has improved since initial presentation with less shortness of breath. Given ongoing increased respiratory rate and accessory muscle usage discussed with ICU staff and patient will remain in the ICU today with possible transition tomorrow if continues to improve. Patient transition to the day prior from IV Zosyn to Levaquin given positive Legionella antigen. [place] Patient denies fevers, chills, nausea, emesis, abdominal pain, chest pain. Objective: Physical Examination: General: awake, alert, oriented x 3 and cooperative, seated upright in the ICU bed in no apparent distress, off BiPAP but still some accessory muscle usage and increased respiratory rate. Skin: normal color, turgor, no icterus, cyanosis. HEENT: AT/NC, EOMI, PERRLA, proved less dry MM. Lungs: Diffusely coarse, diminished L sided, rales, wheezing still noted, improved but still increased work of breathing, increased RR and some accessory muscle usage, off BIPAP currently. Heart: Mildly tachycardic with regular rhythm; no gallop, rub audible. Abdomen: soft, obese, NTTP, ND, normal BS. Extremities: no cyanosis, clubbing, BL LE ankle mild edema. Neurological: patient awake, alert, oriented x 3; cognitive function intact; pupils equally reactive to light and accomodation; cranial nerves II-XII grossly normal, moving all 4 extremities, no focal deficits, strength severely globally decreased secondary to acute presentation. Psychiatric: affect appears less ill, less fatigued, no acute evidence of depressive or anxiety feelings. Vitals/I&O's: Vital Signs Temp Pulse Resp BP Pulse Ox 100.8 F H 90 32 H 139/58 H 90 01/16/18 06:00 01/16/18 06:00 01/16/18 06:00 01/16/18 06:00 01/16/18 06:00 Oxygen Flow Rate (L/min) 5 Oxygen Delivery Method Nasal Cannula Weight: 207 lb 14.334 oz Body Mass Index (BMI) 29.7 Intake and Output for Last 24 Hours 01/14/18 01/15/18 01/16/18 23:59 23:59 23:59 Intake Total 3172.3 / 3172.3 2177.8 / 2177.8 Output Total 850 / 850 850 / 850 Balance 2322.3 / 2322.3 1327.8 / 1327.8 Microbiology Past 72 Hours 01/15/18 12:30 Urine Catheter - Catheter Streptococcus pneumoniae Antigen (M - Final 01/15/18 12:30 Urine Catheter - Catheter Legionella Antigen - Final Legionella Antigen Laboratory Results 01/15/18 09:45: WBC 15.7 H, RBC 5.26, Hgb 16.3, Hct 44.9, MCV 85.4, MCH 31.0, MCHC 36.3 H, RDW 12.7, RDW Differential 39.8, Plt Count 137 L, MPV 11.5, Neut % (Auto) Not Reportable, Absolute Neuts (auto) 13.7 H, Absolute Lymphs (auto) 0.79 L, Total Counted 100, Neutrophils % (Manual) 85 H, Band Neutrophils % 2, Lymphocytes % (Manual) 5 L, Monocytes % (Manual) 8, Differential Comment 1+, Diff Path Review August, Platelet Estimate SLT, RBC Morphology NORM C+C 01/15/18 09:45: Sodium 128 L, Potassium 3.2 L, Chloride 90 L, Carbon Dioxide 25.0, Anion Gap 13, BUN 23 H, Creatinine 1.53 H, Estim Creat Clear Calc 47.81, Est GFR (MDRD) Af Amer 59 L, Est GFR (MDRD) Non-Af 49 L, BUN/Creatinine Ratio 15.0, Glucose 152 H, Calcium 8.3 L, Total Bilirubin 1.20 H, Direct Bilirubin 0.56 H, AST 207 H, ALT 46, Alkaline Phosphatase 67, Troponin I 0.613 H*, Total Protein 7.6, Albumin 2.6 L, Globulin 5.0 H, Lipase 94 01/15/18 09:45: Lactic Acid 3.1 H 01/15/18 09:45: PT 13.8, INR 1.1, APTT 33.7 01/15/18 09:45: Magnesium 2.9 H 01/15/18 09:45: Hemoglobin A1c 6.5 H 01/15/18 09:45: Phosphorus 2.3 L 01/15/18 11:00: Specimen Type ART, Sample Site L Radial, pH 7.51 H, Bicarbonate Actual 21.2 L, POC Total CO2 22, Base Excess -2, O2 Saturation 90 L, ABG pCO2 26.7 L, ABG pO2 51 L, Jaylen Test POS, O2 Delivery Device Nasal Can, Liter Flow 6.0, Blood Gas Notified Whom ED , Blood Gas Notified Time 1050 01/15/18 12:30: Urine Color Yellow, Urine Clarity Cloudy, Urine pH 6.0, Ur Specific [place] 1.020, Urine Protein 100 H, Urine Glucose (UA) Normal, Urine Ketones 50 H, Urine Occult Blood 250 H, Urine Nitrite Negative, Urine Bilirubin Negative, Urine Urobilinogen 4 H, Ur Leukocyte Esterase 25 H, Urine RBC 0 SEEN, Urine WBC 0-5 SEEN, Ur Squamous Epith Cells 0-5 SEEN, Amorphous Sediment 4+, Urine Bacteria 4+, Fine Granular Casts 5-10 SEEN, Urine Mucus 0 SEEN 01/15/18 12:36: POC Glucose 267 H 01/15/18 13:05: Lactic Acid 2.0 01/15/18 13:05: Troponin I 0.525 H 01/15/18 13:12: Specimen Type ART, Sample Site R Radial, pH 7.42, Bicarbonate Actual 20.4 L, POC Total CO2 21, Base Excess -4 L, O2 Saturation 96, ABG pCO2 31.2 L, ABG pO2 80, Jaylen Test POS, O2 Delivery Device NRB Mask, Liter Flow 15.0, Blood Gas Notified Whom ICU , Blood Gas Notified Time 1313 01/15/18 15:15: Specimen Type ART, Sample Site R Radial, pH 7.39, Bicarbonate Actual 22.0, POC Total CO2 23, Base Excess -3 L, O2 Saturation 98, O2 % 60, ABG pCO2 36.4, ABG pO2 107 H, Jaylen Test POS, Respiration Rate 12, O2 Delivery Device Bi / C PAP, EPAP 8, IPAP 12, Blood Gas Notified Whom ICU , Blood Gas Notified Time 1516 01/15/18 16:25: MRSA (PCR) Negative 01/15/18 16:30: Troponin I 0.313 H 01/15/18 18:42: POC Glucose 270 H 01/15/18 18:53: Troponin I 0.252 H 01/15/18 21:30: APTT 70.3 H 01/16/18 00:07: POC Glucose 235 H 01/16/18 03:30: Triglycerides 99, Cholesterol 60, LDL Cholesterol 26, VLDL Cholesterol 20, HDL Cholesterol 14 L 01/16/18 03:30: APTT 44.5 H 01/16/18 03:30: WBC Pending, RBC Pending, Hgb Pending, Hct Pending, MCV Pending, MCH Pending, MCHC Pending, RDW Pending, RDW Differential Pending, Plt Count Pending, Neut % (Auto) Pending, Absolute Neuts (auto) Pending, Total Counted Pending 01/16/18 03:30: Sodium Pending, Potassium Pending, Chloride Pending, Carbon Dioxide Pending, Anion Gap Pending, BUN Pending, Creatinine Pending, Est GFR (MDRD) Af Amer Pending, Est GFR (MDRD) Non-Af Pending, BUN/Creatinine Ratio Pending, Glucose Pending, Calcium Pending, Phosphorus Pending, Magnesium Pending, Total Bilirubin Pending, AST Pending, ALT Pending, Alkaline Phosphatase Pending, Total Protein Pending, Albumin Pending 01/16/18 04:51: POC Glucose 195 H Current Medications Acetaminophen (Tylenol) 650 mg PO Q4H PRN PRN PRN Reason: FEVER Last Admin: 01/16/18 03:16 Dose: 650 mg Acetaminophen (Tylenol) 650 mg PO Q6H PRN PRN PRN Reason: Mild Pain (scale 0-3)/T>100.7 Al Hydroxide/Mg Hydroxide (Mylanta Ii) 30 ml PO Q6H PRN PRN PRN Reason: Gastric burning Albuterol Sulfate (Ventolin Aerosols) 2.5 mg INHALATION Q2H PRN PRN PRN Reason: SHORTNESS OF BREATH Albuterol/Ipratropium (Duoneb) 3 ml INHALATION Q4H.RT MARGARET Last Admin: 01/16/18 05:15 Dose: 3 ml Aspirin (Aspirin, Baby) 81 mg PO DAILY@0800 [facility] Last Admin: 01/15/18 21:38 Dose: 81 mg Atorvastatin Calcium (Lipitor) 40 mg PO HS [facility], [facility]1983 Last Admin: 01/15/18 21:37 Dose: 40 mg Citalopram Hydrobromide (Celexa) 40 mg PO DAILY [facility]1983 Last Admin: 01/15/18 15:04 Dose: Not Given [facility]ap[facility]in) [facility] Guaifenesin (Mucinex) 1,200 mg PO BID [facility]1983 Last Admin: 01/15/18 21:37 Dose: 1,200 mg Heparin Sodium (Porcine) (Heparin Na) 5,000 unit SC Q8 [facility], [facility]1983 Sodium Chloride () 1,000 mls @ 150 mls/hr IV .[id number] [facility] Last Admin: 01/16/18 04:11 Dose: 150 mls/hr Sodium Chloride () 250 mls @ 15 mls/hr IV .[id number] PRN PRN Reason: SALINE FLUSH Sodium Chloride () 250 mls @ 15 mls/hr IV .[id number] PRN PRN Reason: SALINE FLUSH Pantoprazole Sodium 40 mg/ (Sodium Chloride) 110 mls @ 330 mls/hr IV Q12 [facility] Last Admin: 01/15/18 21:38 Dose: 330 mls/hr Levofloxacin (Levaquin Iv) 750 mg in 150 mls @ 100 mls/hr IV Q24 [facility] Last Admin: 01/15/18 15:29 Dose: 100 mls/hr Insulin Human Lispro (Humalog Kwikpen (Bkc)) 0 unit SC Q6 [facility], [facility]; Protocol Last Admin: 01/16/18 05:03 Dose: 2 u Magnesium Hydroxide (Milk Of Magnesia) 30 ml PO DAILY PRN PRN PRN Reason: Constipation Methylprednisolone (Solu-Medrol) 40 mg IV Q8 [facility] Last Admin: 01/16/18 05:03 Dose: 40 mg Metoprolol Tartrate (Lopressor (Beta Femi)) 50 mg PO BID [facility] Last Admin: 01/15/18 21:37 Dose: 50 mg Ondansetron HCl (Zofran) 4 mg IV Q8H PRN PRN PRN Reason: NAUSEA Promethazine HCl (Phenergan) 12.5 mg IV Q6H PRN PRN PRN Reason: NAUSEA/VOMITING Sodium Chloride () 5 - 30 ml IV UD PRN PRN Reason: SALINE FLUSH Medical Necessity - Tobacco Use Smoking Status: Current every day smoker Tobacco Use: Cigarettes Assessment/Plan All Active Problems (Last Reviewed 06/17/17 @ 09:09 by Antionette Lua) Severe sepsis (Acute) PNA (pneumonia) (Acute) COPD (chronic obstructive pulmonary disease) (Acute) BRENDA (acute kidney injury) (Acute) NSTEMI (non-ST elevated myocardial infarction) (Acute) Erectile dysfunction (Acute) Diabetes type 2, controlled (Acute) Testicular hypofunction (Acute) The patient is a 62 y/o M w/ PMHx: HTN, HLD, Obesity, Heavy 2 ppd tobacco use history, Suspected underlying Chronic COPD who presents to the [facility] ED on 01/15/18 w/ history of ongoing malaise, weakness and nausea in addition to fevers and chills with dyspnea progressively worsening for the last several days with no market cough and fall the day prior secondary to severity of his weakness. (1) Acute Hypoxic Respiratory Failure secondary to Acute Severe Sepsis secondary to Legionella Pneumonia and Suspected Acute on Chronic COPD Exacerbation: T102.8, heart rate 129, BP 102/44, respiratory rate 42, 87% on room air, CBC with WBC 15.7, hemoglobin 16.3, platelet 137 with left shift, unremarkable coags, requested ED to perform ABG with pH 7.51, bicarb 21.2, O2 saturation 90%, PCO2 26.7, PO2 51 on 6 L nasal cannula, CMP with sodium 128, potassium 3.2, chloride 90, BUN/Cr 23/1.53, glucose 152, lactic acid 3.1, T bili 1.2, D bili 0.56, AST/ALT 207/46, troponin 0.613, lipase 94, blood cultures obtained per ED and pending chest x-ray with near complete opacification left lung field sparing only the upper lobe at the level of the aortic knob and above.. Will admit to ICU, ABG pending, place on BIPAP and repeat ABG in 1 hour, transition to oxygen supplementation as able, continue IV solumedrol, continue ATC duonebs, PRN albuterol, maintained on IV Levaquin, HOB, IS parameters w/ pending sputum cultures, + legionella urine antigen, negative strep antigen, pending respiratory viral panel. Bld cx x [address] chest w/ large amount consolidation left upper lobe and lingula which is centrally dense with an air bronchogram possibly representing an infiltrate although an underlying left hilar mass the surrounding consolidation lung cannot be excluded with recommended bronchoscopy, small left effusion lower lobe atelectasis, cardiomegaly with cardiac artery disease, reactive and or metastatic lymphadenopathy, hyperinflated appearance right lung overall pattern of underlying chronic obstructive pulmonary disease, fatty infiltration of the liver with sparing. Discussed with Pulmonary and noted planned bronchoscopy outpatient. (2) Acute NSTEMI, Type II, Secondary to Demand Ischemia w/ Acute presentation: EKG in ED w/ sinus tachycardia, CXR w/ notable L sided PNA. Trop elevated, 0.613. Will maintain on a monitored bed, continued serial cardiac enzymes w/ improved trend. EKGs unchanged. Mag level obtained. Heparin drip initiated upon presentation given unclear trending, decreased, will discontinue 01/16/18 and transition to chemoprophylaxis only. Continue medical management w/ asa, BB, statin w/ AM FLP. Cardiology consulted. ASA, NG, morphine. ECHO obtained w/ normal LV size, normal LV systolic function, EF 60%, stage I diastolic dysfunction, mildly enlarged LA, mildly enlarged RA. (3) Acute kidney injury: Secondary to acute presentation, sepsis, pneumonia, COPD exacerbation, and NSTEMI. Admission BUN/Cr 23/1.53, prior baseline creatinine noted to be 0.9. Hydrating, holding nephrotoxic medications, trending BMP. 01/16/18 BUN/Cr 19/1.26, improving. (4) Hyperglycemia with New Onset Diabetes mellitus type II: Admission glucose 152, HgbA1c obtained and elevated 6.5% consistent with Diabetes. Will hold on oral additions given current presentation, will need upon discharge, given improvement initiate ADA diet, accu checks w/ ISS. Nutrition consulted for education and teaching. (5) Hyponatremia, Hypovolemic: Admission Na 128, likely hypovolemic, secondary to acute presentation, aggressively hydrating, trend BMP. 01/16/18 Na pending. (6) Hypokalemia: Admission K+ 3.2, supplementation given, trending. 01/16/18 K 3.2, supplemented additional w/ phos IV. Repeat in AM. (7) Tobacco Abuse: Encouraged cessation, inpatient consultation per RT, NR if desired. (8) Hypertension: Continue home regimen including metoprolol with hold parameters given acute presentation. (9) Hyperlipidemia: Continue home statin regimen. AM FLP w/ TG 99, TChol 60, LDL 26, VLDL 20, HDL 14. (10) Obesity: Weight loss and lifestyle changes encouraged, nutrition consulted for education and teaching. (11) Anxiety and Depression: Continue home citalopram regimen. (12) GERD: Change to oral PPI. (13) DVT Prophylaxis: SCDs, heparin drip-->chemoprophylaxis only given decreased enzyme trending. Code Visit Inpatient E&M: 81936 Subs Hosp L3
--- NOTE | 2018-01-16 06:53 | PN_ITS ---
Patient Problems: Active and Suspected Problems (Last Reviewed 06/17/17 @ 09:09 by Antionette Lua) Severe sepsis (Acute) PNA (pneumonia) (Acute) COPD (chronic obstructive pulmonary disease) (Acute) BRENDA (acute kidney injury) (Acute) NSTEMI (non-ST elevated myocardial infarction) (Acute) Subjective: Patient overnight clinically improved and off BiPAP now with plan for diet start as well as transition off heparin drip to chemoprophylaxis subcu only which was discussed with patient. Patient states as though his respiratory status has improved since initial presentation with less shortness of breath. Given ongoing increased respiratory rate and accessory muscle usage discussed with ICU staff and patient will remain in the ICU today with possible transition tomorrow if continues to improve. Patient transition to the day prior from IV Zosyn to Levaquin given positive Legionella antigen. [place] Patient denies fevers, chills, nausea, emesis, abdominal pain, chest pain. Objective: Physical Examination: General: awake, alert, oriented x 3 and cooperative, seated upright in the ICU bed in no apparent distress, off BiPAP but still some accessory muscle usage and increased respiratory rate. Skin: normal color, turgor, no icterus, cyanosis. HEENT: AT/NC, EOMI, PERRLA, proved less dry MM. Lungs: Diffusely coarse, diminished L sided, rales, wheezing still noted, improved but still increased work of breathing, increased RR and some accessory muscle usage, off BIPAP currently. Heart: Mildly tachycardic with regular rhythm; no gallop, rub audible. Abdomen: soft, obese, NTTP, ND, normal BS. Extremities: no cyanosis, clubbing, BL LE ankle mild edema. Neurological: patient awake, alert, oriented x 3; cognitive function intact; pupils equally reactive to light and accomodation; cranial nerves II-XII grossly normal, moving all 4 extremities, no focal deficits, strength severely globally decreased secondary to acute presentation. Psychiatric: affect appears less ill, less fatigued, no acute evidence of depressive or anxiety feelings. Vitals/I&O's: Vital Signs Temp Pulse Resp BP Pulse Ox 100.8 F H 90 32 H 139/58 H 90 01/16/18 06:00 01/16/18 06:00 01/16/18 06:00 01/16/18 06:00 01/16/18 06:00 Oxygen Flow Rate (L/min) 5 Oxygen Delivery Method Nasal Cannula Weight: 207 lb 14.334 oz Body Mass Index (BMI) 29.7 Intake and Output for Last 24 Hours 01/14/18 01/15/18 01/16/18 23:59 23:59 23:59 Intake Total 3172.3 / 3172.3 2177.8 / 2177.8 Output Total 850 / 850 850 / 850 Balance 2322.3 / 2322.3 1327.8 / 1327.8 Microbiology Past 72 Hours 01/15/18 12:30 Urine Catheter - Catheter Streptococcus pneumoniae Antigen (M - Final 01/15/18 12:30 Urine Catheter - Catheter Legionella Antigen - Final Legionella Antigen Laboratory Results 01/15/18 09:45: WBC 15.7 H, RBC 5.26, Hgb 16.3, Hct 44.9, MCV 85.4, MCH 31.0, MCHC 36.3 H, RDW 12.7, RDW Differential 39.8, Plt Count 137 L, MPV 11.5, Neut % (Auto) Not Reportable, Absolute Neuts (auto) 13.7 H, Absolute Lymphs (auto) 0.79 L, Total Counted 100, Neutrophils % (Manual) 85 H, Band Neutrophils % 2, Lymphocytes % (Manual) 5 L, Monocytes % (Manual) 8, Differential Comment 1+, Diff Path Review August, Platelet Estimate SLT, RBC Morphology NORM C+C 01/15/18 09:45: Sodium 128 L, Potassium 3.2 L, Chloride 90 L, Carbon Dioxide 25.0, Anion Gap 13, BUN 23 H, Creatinine 1.53 H, Estim Creat Clear Calc 47.81, Est GFR (MDRD) Af Amer 59 L, Est GFR (MDRD) Non-Af 49 L, BUN/Creatinine Ratio 15.0, Glucose 152 H, Calcium 8.3 L, Total Bilirubin 1.20 H, Direct Bilirubin 0.56 H, AST 207 H, ALT 46, Alkaline Phosphatase 67, Troponin I 0.613 H*, Total Protein 7.6, Albumin 2.6 L, Globulin 5.0 H, Lipase 94 01/15/18 09:45: Lactic Acid 3.1 H 01/15/18 09:45: PT 13.8, INR 1.1, APTT 33.7 01/15/18 09:45: Magnesium 2.9 H 01/15/18 09:45: Hemoglobin A1c 6.5 H 01/15/18 09:45: Phosphorus 2.3 L 01/15/18 11:00: Specimen Type ART, Sample Site L Radial, pH 7.51 H, Bicarbonate Actual 21.2 L, POC Total CO2 22, Base Excess -2, O2 Saturation 90 L, ABG pCO2 26.7 L, ABG pO2 51 L, Jaylen Test POS, O2 Delivery Device Nasal Can, Liter Flow 6.0, Blood Gas Notified Whom ED , Blood Gas Notified Time 1050 01/15/18 12:30: Urine Color Yellow, Urine Clarity Cloudy, Urine pH 6.0, Ur Specific [place] 1.020, Urine Protein 100 H, Urine Glucose (UA) Normal, Urine Ketones 50 H, Urine Occult Blood 250 H, Urine Nitrite Negative, Urine Bilirubin Negative, Urine Urobilinogen 4 H, Ur Leukocyte Esterase 25 H, Urine RBC 0 SEEN, Urine WBC 0-5 SEEN, Ur Squamous Epith Cells 0-5 SEEN, Amorphous Sediment 4+, Urine Bacteria 4+, Fine Granular Casts 5-10 SEEN, Urine Mucus 0 SEEN 01/15/18 12:36: POC Glucose 267 H 01/15/18 13:05: Lactic Acid 2.0 01/15/18 13:05: Troponin I 0.525 H 01/15/18 13:12: Specimen Type ART, Sample Site R Radial, pH 7.42, Bicarbonate Actual 20.4 L, POC Total CO2 21, Base Excess -4 L, O2 Saturation 96, ABG pCO2 31.2 L, ABG pO2 80, Jaylen Test POS, O2 Delivery Device NRB Mask, Liter Flow 15.0, Blood Gas Notified Whom ICU , Blood Gas Notified Time 1313 01/15/18 15:15: Specimen Type ART, Sample Site R Radial, pH 7.39, Bicarbonate Actual 22.0, POC Total CO2 23, Base Excess -3 L, O2 Saturation 98, O2 % 60, ABG pCO2 36.4, ABG pO2 107 H, Jaylen Test POS, Respiration Rate 12, O2 Delivery Device Bi / C PAP, EPAP 8, IPAP 12, Blood Gas Notified Whom ICU , Blood Gas Notified Time 1516 01/15/18 16:25: MRSA (PCR) Negative 01/15/18 16:30: Troponin I 0.313 H 01/15/18 18:42: POC Glucose 270 H 01/15/18 18:53: Troponin I 0.252 H 01/15/18 21:30: APTT 70.3 H 01/16/18 00:07: POC Glucose 235 H 01/16/18 03:30: Triglycerides 99, Cholesterol 60, LDL Cholesterol 26, VLDL Cholesterol 20, HDL Cholesterol 14 L 01/16/18 03:30: APTT 44.5 H 01/16/18 03:30: WBC Pending, RBC Pending, Hgb Pending, Hct Pending, MCV Pending, MCH Pending, MCHC Pending, RDW Pending, RDW Differential Pending, Plt Count Pending, Neut % (Auto) Pending, Absolute Neuts (auto) Pending, Total Counted Pending 01/16/18 03:30: Sodium Pending, Potassium Pending, Chloride Pending, Carbon Dioxide Pending, Anion Gap Pending, BUN Pending, Creatinine Pending, Est GFR (MDRD) Af Amer Pending, Est GFR (MDRD) Non-Af Pending, BUN/Creatinine Ratio Pending, Glucose Pending, Calcium Pending, Phosphorus Pending, Magnesium Pending, Total Bilirubin Pending, AST Pending, ALT Pending, Alkaline Phosphatase Pending, Total Protein Pending, Albumin Pending 01/16/18 04:51: POC Glucose 195 H Current Medications Acetaminophen (Tylenol) 650 mg PO Q4H PRN PRN PRN Reason: FEVER Last Admin: 01/16/18 03:16 Dose: 650 mg Acetaminophen (Tylenol) 650 mg PO Q6H PRN PRN PRN Reason: Mild Pain (scale 0-3)/T>100.7 Al Hydroxide/Mg Hydroxide (Mylanta Ii) 30 ml PO Q6H PRN PRN PRN Reason: Gastric burning Albuterol Sulfate (Ventolin Aerosols) 2.5 mg INHALATION Q2H PRN PRN PRN Reason: SHORTNESS OF BREATH Albuterol/Ipratropium (Duoneb) 3 ml INHALATION Q4H.RT MARGARET Last Admin: 01/16/18 05:15 Dose: 3 ml Aspirin (Aspirin, Baby) 81 mg PO DAILY@0800 [facility] Last Admin: 01/15/18 21:38 Dose: 81 mg Atorvastatin Calcium (Lipitor) 40 mg PO HS [facility] Last Admin: 01/15/18 21:37 Dose: 40 mg Citalopram Hydrobromide (Celexa) 40 mg PO DAILY [facility] Last Admin: 01/15/18 15:04 Dose: Not Given [facility] Guaifenesin (Mucinex) 1,200 mg PO BID [facility] Last Admin: 01/15/18 21:37 Dose: 1,200 mg Heparin Sodium (Porcine) (Heparin Na) 5,000 unit SC Q8 [facility] Sodium Chloride () 1,000 mls @ 150 mls/hr IV .[id number] [facility] Last Admin: 01/16/18 04:11 Dose: 150 mls/hr Sodium Chloride () 250 mls @ 15 mls/hr IV .[id number] PRN PRN Reason: SALINE FLUSH Sodium Chloride () 250 mls @ 15 mls/hr IV .[id number] PRN PRN Reason: SALINE FLUSH Pantoprazole Sodium 40 mg/ (Sodium Chloride) 110 mls @ 330 mls/hr IV Q12 [facility] Last Admin: 01/15/18 21:38 Dose: 330 mls/hr Levofloxacin (Levaquin Iv) 750 mg in 150 mls @ 100 mls/hr IV Q24 [facility] Last Admin: 01/15/18 15:29 Dose: 100 mls/hr Insulin Human Lispro (Humalog Kwikpen (Bkc)) 0 unit SC Q6 [facility]; Protocol Last Admin: 01/16/18 05:03 Dose: 2 u Magnesium Hydroxide (Milk Of Magnesia) 30 ml PO DAILY PRN PRN PRN Reason: Constipation Methylprednisolone (Solu-Medrol) 40 mg IV Q8 [facility] Last Admin: 01/16/18 05:03 Dose: 40 mg Metoprolol Tartrate (Lopressor (Beta Femi)) 50 mg PO BID [facility] Last Admin: 01/15/18 21:37 Dose: 50 mg Ondansetron HCl (Zofran) 4 mg IV Q8H PRN PRN PRN Reason: NAUSEA Promethazine HCl (Phenergan) 12.5 mg IV Q6H PRN PRN PRN Reason: NAUSEA/VOMITING Sodium Chloride () 5 - 30 ml IV UD PRN PRN Reason: SALINE FLUSH Medical Necessity - Tobacco Use Smoking Status: Current every day smoker Tobacco Use: Cigarettes Assessment/Plan All Active Problems (Last Reviewed 06/17/17 @ 09:09 by Antionette Lua) Severe sepsis (Acute) PNA (pneumonia) (Acute) COPD (chronic obstructive pulmonary disease) (Acute) BRENDA (acute kidney injury) (Acute) NSTEMI (non-ST elevated myocardial infarction) (Acute) Erectile dysfunction (Acute) Diabetes type 2, controlled (Acute) Testicular hypofunction (Acute) The patient is a 62 y/o M w/ PMHx: HTN, HLD, Obesity, Heavy 2 ppd tobacco use history, Suspected underlying Chronic COPD who presents to the [facility] ED on 01/15/18 w/ history of ongoing malaise, weakness and nausea in addition to fevers and chills with dyspnea progressively worsening for the last several days with no market cough and fall the day prior secondary to severity of his weakness. (1) Acute Hypoxic Respiratory Failure secondary to Acute Severe Sepsis secondary to Legionella Pneumonia and Suspected Acute on Chronic COPD Exacerbation: T102.8, heart rate 129, BP 102/44, respiratory rate 42, 87% on room air, CBC with WBC 15.7, hemoglobin 16.3, platelet 137 with left shift, unremarkable coags, requested ED to perform ABG with pH 7.51, bicarb 21.2, O2 saturation 90%, PCO2 26.7, PO2 51 on 6 L nasal cannula, CMP with sodium 128, potassium 3.2, chloride 90, BUN/Cr 23/1.53, glucose 152, lactic acid 3.1, T bili 1.2, D bili 0.56, AST/ALT 207/46, troponin 0.613, lipase 94, blood cultures obtained per ED and pending chest x-ray with near complete opacification left lung field sparing only the upper lobe at the level of the aortic knob and above.. Will admit to ICU, ABG pending, place on BIPAP and repeat ABG in 1 hour, transition to oxygen supplementation as able, continue IV solumedrol, continue ATC duonebs, PRN albuterol, maintained on IV Levaquin, HOB, IS parameters w/ pending sputum cultures, + legionella urine antigen, negative strep antigen, pending respiratory viral panel. Bld cx x [address] CT chest w/ large amount consolidation left upper lobe and lingula which is centrally dense with an air bronchogram possibly representing an infiltrate although an underlying left hilar mass the surrounding consolidation lung cannot be excluded with recommended bronchoscopy, small left effusion lower lobe atelectasis, cardiomegaly with cardiac artery disease, reactive and or metastatic lymphadenopathy, hyperinflated appearance right lung overall pattern of underlying chronic obstructive pulmonary disease, fatty infiltration of the liver with sparing. Discussed with Pulmonary and noted planned bronchoscopy outpatient. (2) Acute NSTEMI, Type II, Secondary to Demand Ischemia w/ Acute presentation: EKG in ED w/ sinus tachycardia, CXR w/ notable L sided PNA. Trop elevated, 0.613. Will maintain on a monitored bed, continued serial cardiac enzymes w/ imp roved trend. EKGs unchanged. Mag level obtained. Heparin drip initiated upon presentation given unclear trending, decreased, will discontinue 01/16/18 and transition to chemoprophylaxis only. Continue medical management w/ asa, BB, statin w/ AM FLP. Cardiology consulted. ASA, NG, morphine. ECHO obtained w/ normal LV size, normal LV systolic function, EF 60%, stage I diastolic dysfunction, mildly enlarged LA, mildly enlarged RA. (3) Acute kidney injury: Secondary to acute presentation, sepsis, pneumonia, COPD exacerbation, and NSTEMI. Admission BUN/Cr 23/1.53, prior baseline creatinine noted to be 0.9. Hydrating, holding nephrotoxic medications, trending BMP. 01/16/18 BUN/Cr 19/1.26, improving. (4) Hyperglycemia with New Onset Diabetes mellitus type II: Admission glucose 152, HgbA1c obtained and elevated 6.5% consistent with Diabetes. Will hold on oral additions given current presentation, will need upon discharge, given improvement initiate ADA diet, accu checks w/ ISS. Nutrition consulted for education and teaching. (5) Hyponatremia, Hypovolemic: Admission Na 128, likely hypovolemic, secondary to acute presentation, aggressively hydrating, trend BMP. 01/16/18 Na pending. (6) Hypokalemia: Admission K+ 3.2, supplementation given, trending. 01/16/18 K 3.2, supplemented additional w/ phos IV. Repeat in AM. (7) Tobacco Abuse: Encouraged cessation, inpatient consultation per RT, NR if desired. (8) Hypertension: Continue home regimen including metoprolol with hold parameters given acute presentation. (9) Hyperlipidemia: Continue home statin regimen. AM FLP w/ TG 99, TChol 60, LDL 26, VLDL 20, HDL 14. (10) Obesity: Weight loss and lifestyle changes encouraged, nutrition consulted for education and teaching. (11) Anxiety and Depression: Continue home citalopram regimen. (12) GERD: Change to oral PPI. (13) DVT Prophylaxis: SCDs, heparin drip-->chemoprophylaxis only given decreased enzyme trending. Code Visit Inpatient E&M: 10731 Subs Hosp L3
--- NOTE | 2018-01-16 06:57 | PCM.PN.INT ---
Subjective: The patient was seen and examined at the bedside this morning. Events from the last 24 hours have been reviewed. The patient is currently febrile with a T-max over the last 24 hours of 102.8 ?F. The patient did require the transient utilization of BiPAP yesterday. However, as of this morning, he is currently maintaining appropriate oxygen saturations on 4-5 L/min via nasal cannula. His tachycardia has improved. Nevertheless, the patient remains tachypneic. He does report ongoing shortness of breath. Objective: The patient's most recent lab work, culture data and imaging studies have all been personally reviewed. CT chest without contrast obtained yesterday revealed bilateral emphysematous changes along with evidence of consolidation in the left upper lobe and lingula with corresponding groundglass changes extending into the left lower lobe. There was extensive mediastinal lymphadenopathy noted. It was noted that the left pulmonary artery was encased in either consolidation or a possible underlying lung mass. Urine Legionella antigen was noted to be positive. Streptococcus antigen was negative. Blood and urine cultures are pending. Expectorated sputum culture is pending. Respiratory viral panel is pending. Surface echocardiogram revealed normal LV size and function with evidence of stage I diastolic dysfunction. General: Alert, Cooperative, - - Resting comfortably in bed but still appears to be in mild respiratory distress. HEENT: Atraumatic, PERRLA, Normocephalic Oral: Dry Mucosa Neck: Supple, No Nodes, Trachea Midline Lungs: - - Diminished air movement bilaterally with extensive rales noted throughout the left hemithorax and profound expiratory wheezing bilaterally. The patient remains tachypneic. Cardiovascular: Normal S1, Normal S2, No murmurs, Tachycardic Abdomen: Bowel Sounds Present, Soft, Non Tender Extremities: No clubbing, No cyanosis, No edema Skin: No breakdown Musculoskeletal: No Tenderness to Palpation of Joints or Extremities, No Muscle Wasting Lymphatic: No Cervical, Supraclavicular, or Inguinal Adenopathy Neurological: Cranial nerves II-XII grossly intact, Neuro grossly intact Psych/Mental Status: Normal Affect, Appropriate Vital Signs Temp Pulse Resp BP Pulse Ox 100.8 F H 90 32 H 139/58 H 90 01/16/18 06:00 01/16/18 06:00 01/16/18 06:00 01/16/18 06:00 01/16/18 06:00 Oxygen Flow Rate (L/min) 5 Oxygen Delivery Method Nasal Cannula Weight: 207 lb 14.334 oz Body Mass Index (BMI) 29.7 Intake and Output for Last 24 Hours 01/14/18 01/15/18 01/16/18 23:59 23:59 23:59 Intake Total 3172.3 / 3172.3 2177.8 / 2177.8 Output Total 850 / 850 850 / 850 Balance 2322.3 / 2322.3 1327.8 / 1327.8 Labs (Last 48 Hours) 01/15/18 01/15/18 01/15/18 09:45 09:45 09:45 WBC 15.7 H RBC 5.26 Hgb 16.3 Hct 44.9 MCV 85.4 MCH 31.0 MCHC 36.3 H RDW 12.7 RDW Differential 39.8 Plt Count 137 L MPV 11.5 Neut % (Auto) Not Reportable Absolute Neuts (auto) 13.7 H Absolute Lymphs (auto) 0.79 L Total Counted 100 Neutrophils % (Manual) 85 H Band Neutrophils % 2 Lymphocytes % (Manual) 5 L Monocytes % (Manual) 8 Differential Comment 1+ Diff Path Review May foll Platelet Estimate SLT RBC Morphology NORM C+C PT INR APTT Specimen Type Sample Site pH Bicarbonate Actual POC Total CO2 Base Excess O2 Saturation O2 % ABG pCO2 ABG pO2 Jaylen Test Respiration Rate O2 Delivery Device Liter Flow EPAP IPAP Blood Gas Notified Whom Blood Gas Notified Time Sodium 128 L Potassium 3.2 L Chloride 90 L Carbon Dioxide 25.0 Anion Gap 13 BUN 23 H Creatinine 1.53 H Estim Creat Clear Calc 47.81 Est GFR (MDRD) Af Amer 59 L Est GFR (MDRD) Non-Af 49 L BUN/Creatinine Ratio 15.0 Glucose 152 H Hemoglobin A1c Lactic Acid 3.1 H Calcium 8.3 L Phosphorus Magnesium Total Bilirubin 1.20 H Direct Bilirubin 0.56 H AST 207 H ALT 46 Alkaline Phosphatase 67 Troponin I 0.613 H* Total Protein 7.6 Albumin 2.6 L Globulin 5.0 H Triglycerides Cholesterol LDL Cholesterol VLDL Cholesterol HDL Cholesterol Lipase 94 Urine Color Urine Clarity Urine pH Ur Specific [place] Urine Protein Urine Glucose (UA) Urine Ketones Urine Occult Blood Urine Nitrite Urine Bilirubin Urine Urobilinogen Ur Leukocyte Esterase Urine RBC Urine WBC Ur Squamous Epith Cells Amorphous Sediment Urine Bacteria Fine Granular Casts Urine Mucus MRSA (PCR) POC Glucose 01/15/18 01/15/18 01/15/18 09:45 09:45 09:45 WBC RBC Hgb Hct MCV MCH MCHC RDW RDW Differential Plt Count MPV Neut % (Auto) Absolute Neuts (auto) Absolute Lymphs (auto) Total Counted Neutrophils % (Manual) Band Neutrophils % Lymphocytes % (Manual) Monocytes % (Manual) Differential Comment Diff Path Review Platelet Estimate RBC Morphology PT 13.8 INR 1.1 APTT 33.7 Specimen Type Sample Site pH Bicarbonate Actual POC Total CO2 Base Excess O2 Saturation O2 % ABG pCO2 ABG pO2 Jaylen Test Respiration Rate O2 Delivery Device Liter Flow EPAP IPAP Blood Gas Notified Whom Blood Gas Notified Time Sodium Potassium Chloride Carbon Dioxide Anion Gap BUN Creatinine Estim Creat Clear Calc Est GFR (MDRD) Af Amer Est GFR (MDRD) Non-Af BUN/Creatinine Ratio Glucose Hemoglobin A1c 6.5 H Lactic Acid Calcium Phosphorus Magnesium 2.9 H Total Bilirubin Direct Bilirubin AST ALT Alkaline Phosphatase Troponin I Total Protein Albumin Globulin Triglycerides Cholesterol LDL Cholesterol VLDL Cholesterol HDL Cholesterol Lipase Urine Color Urine Clarity Urine pH Ur Specific [place] Urine Protein Urine Glucose (UA) Urine Ketones Urine Occult Blood Urine Nitrite Urine Bilirubin Urine Urobilinogen Ur Leukocyte Esterase Urine RBC Urine WBC Ur Squamous Epith Cells Amorphous Sediment Urine Bacteria Fine Granular Casts Urine Mucus MRSA (PCR) POC Glucose 01/15/18 01/15/18 01/15/18 09:45 11:00 12:30 WBC RBC Hgb Hct MCV MCH MCHC RDW RDW Differential Plt Count MPV Neut % (Auto) Absolute Neuts (auto) Absolute Lymphs (auto) Total Counted Neutrophils % (Manual) Band Neutrophils % Lymphocytes % (Manual) Monocytes % (Manual) Differential Comment Diff Path Review Platelet Estimate RBC Morphology PT INR APTT Specimen Type ART Sample Site L Radial pH 7.51 H Bicarbonate Actual 21.2 L POC Total CO2 22 Base Excess -2 O2 Saturation 90 L O2 % ABG pCO2 26.7 L ABG pO2 51 L Jaylen Test POS Respiration Rate O2 Delivery Device Nasal Can Liter Flow 6.0 EPAP IPAP Blood Gas Notified Whom ED MD Blood Gas Notified Time 1050 Sodium Potassium Chloride Carbon Dioxide Anion Gap BUN Creatinine Estim Creat Clear Calc Est GFR (MDRD) Af Amer Est GFR (MDRD) Non-Af BUN/Creatinine Ratio Glucose Hemoglobin A1c Lactic Acid Calcium Phosphorus 2.3 L Magnesium Total Bilirubin Direct Bilirubin AST ALT Alkaline Phosphatase Troponin I Total Protein Albumin Globulin Triglycerides Cholesterol LDL Cholesterol VLDL Cholesterol HDL Cholesterol Lipase Urine Color Yellow Urine Clarity Cloudy Urine pH 6.0 Ur Specific [place] 1.020 Urine Protein 100 H Urine Glucose (UA) Normal Urine Ketones 50 H Urine Occult Blood 250 H Urine Nitrite Negative Urine Bilirubin Negative Urine Urobilinogen 4 H Ur Leukocyte Esterase 25 H Urine RBC 0 SEEN Urine WBC 0-5 SEEN Ur Squamous Epith Cells 0-5 SEEN Amorphous Sediment 4+ Urine Bacteria 4+ Fine Granular Casts 5-10 SEEN Urine Mucus 0 SEEN MRSA (PCR) POC Glucose 01/15/18 01/15/18 01/15/18 12:36 13:05 13:05 WBC RBC Hgb Hct MCV MCH MCHC RDW RDW Differential Plt Count MPV Neut % (Auto) Absolute Neuts (auto) Absolute Lymphs (auto) Total Counted Neutrophils % (Manual) Band Neutrophils % Lymphocytes % (Manual) Monocytes % (Manual) Differential Comment Diff Path Review Platelet Estimate RBC Morphology PT INR APTT Specimen Type Sample Site pH Bicarbonate Actual POC Total CO2 Base Excess O2 Saturation O2 % ABG pCO2 ABG pO2 Jaylen Test Respiration Rate O2 Delivery Device Liter Flow EPAP IPAP Blood Gas Notified Whom Blood Gas Notified Time Sodium Potassium Chloride Carbon Dioxide Anion Gap BUN Creatinine Estim Creat Clear Calc Est GFR (MDRD) Af Amer Est GFR (MDRD) Non-Af BUN/Creatinine Ratio Glucose Hemoglobin A1c Lactic Acid 2.0 Calcium Phosphorus Magnesium Total Bilirubin Direct Bilirubin AST ALT Alkaline Phosphatase Troponin I 0.525 H Total Protein Albumin Globulin Triglycerides Cholesterol LDL Cholesterol VLDL Cholesterol HDL Cholesterol Lipase Urine Color Urine Clarity Urine pH Ur Specific [place] Urine Protein Urine Glucose (UA) Urine Ketones Urine Occult Blood Urine Nitrite Urine Bilirubin Urine Urobilinogen Ur Leukocyte Esterase Urine RBC Urine WBC Ur Squamous Epith Cells Amorphous Sediment Urine Bacteria Fine Granular Casts Urine Mucus MRSA (PCR) POC Glucose 267 H 01/15/18 01/15/18 01/15/18 13:12 15:15 16:25 WBC RBC Hgb Hct MCV MCH MCHC RDW RDW Differential Plt Count MPV Neut % (Auto) Absolute Neuts (auto) Absolute Lymphs (auto) Total Counted Neutrophils % (Manual) Band Neutrophils % Lymphocytes % (Manual) Monocytes % (Manual) Differential Comment Diff Path Review Platelet Estimate RBC Morphology PT INR APTT Specimen Type ART ART Sample Site R Radial R Radial pH 7.42 7.39 Bicarbonate Actual 20.4 L 22.0 POC Total CO2 21 23 Base Excess -4 L -3 L O2 Saturation 96 98 O2 % 60 ABG pCO2 31.2 L 36.4 ABG pO2 80 107 H Jaylen Test POS POS Respiration Rate 12 O2 Delivery Device NRB Mask Bi / C PAP Liter Flow 15.0 EPAP 8 IPAP 12 Blood Gas Notified Whom ICU MD ICU MD Blood Gas Notified Time 1313 1516 Sodium Potassium Chloride Carbon Dioxide Anion Gap BUN Creatinine Estim Creat Clear Calc Est GFR (MDRD) Af Amer Est GFR (MDRD) Non-Af BUN/Creatinine Ratio Glucose Hemoglobin A1c Lactic Acid Calcium Phosphorus Magnesium Total Bilirubin Direct Bilirubin AST ALT Alkaline Phosphatase Troponin I Total Protein Albumin Globulin Triglycerides Cholesterol LDL Cholesterol VLDL Cholesterol HDL Cholesterol Lipase Urine Color Urine Clarity Urine pH Ur Specific [place] Urine Protein Urine Glucose (UA) Urine Ketones Urine Occult Blood Urine Nitrite Urine Bilirubin Urine Urobilinogen Ur Leukocyte Esterase Urine RBC Urine WBC Ur Squamous Epith Cells Amorphous Sediment Urine Bacteria Fine Granular Casts Urine Mucus MRSA (PCR) Negative POC Glucose 01/15/18 01/15/18 01/15/18 16:30 18:42 18:53 WBC RBC Hgb Hct MCV MCH MCHC RDW RDW Differential Plt Count MPV Neut % (Auto) Absolute Neuts (auto) Absolute Lymphs (auto) Total Counted Neutrophils % (Manual) Band Neutrophils % Lymphocytes % (Manual) Monocytes % (Manual) Differential Comment Diff Path Review Platelet Estimate RBC Morphology PT INR APTT Specimen Type Sample Site pH Bicarbonate Actual POC Total CO2 Base Excess O2 Saturation O2 % ABG pCO2 ABG pO2 Jaylen Test Respiration Rate O2 Delivery Device Liter Flow EPAP IPAP Blood Gas Notified Whom Blood Gas Notified Time Sodium Potassium Chloride Carbon Dioxide Anion Gap BUN Creatinine Estim Creat Clear Calc Est GFR (MDRD) Af Amer Est GFR (MDRD) Non-Af BUN/Creatinine Ratio Glucose Hemoglobin A1c Lactic Acid Calcium Phosphorus Magnesium Total Bilirubin Direct Bilirubin AST ALT Alkaline Phosphatase Troponin I 0.313 H 0.252 H Total Protein Albumin Globulin Triglycerides Cholesterol LDL Cholesterol VLDL Cholesterol HDL Cholesterol Lipase Urine Color Urine Clarity Urine pH Ur Specific [place] Urine Protein Urine Glucose (UA) Urine Ketones Urine Occult Blood Urine Nitrite Urine Bilirubin Urine Urobilinogen Ur Leukocyte Esterase Urine RBC Urine WBC Ur Squamous Epith Cells Amorphous Sediment Urine Bacteria Fine Granular Casts Urine Mucus MRSA (PCR) POC Glucose 270 H 01/15/18 01/16/18 01/16/18 21:30 00:07 03:30 WBC RBC Hgb Hct MCV MCH MCHC RDW RDW Differential Plt Count MPV Neut % (Auto) Absolute Neuts (auto) Absolute Lymphs (auto) Total Counted Neutrophils % (Manual) Band Neutrophils % Lymphocytes % (Manual) Monocytes % (Manual) Differential Comment Diff Path Review Platelet Estimate RBC Morphology PT INR APTT 70.3 H Specimen Type Sample Site pH Bicarbonate Actual POC Total CO2 Base Excess O2 Saturation O2 % ABG pCO2 ABG pO2 Jaylen Test Respiration Rate O2 Delivery Device Liter Flow EPAP IPAP Blood Gas Notified Whom Blood Gas Notified Time Sodium Potassium Chloride Carbon Dioxide Anion Gap BUN Creatinine Estim Creat Clear Calc Est GFR (MDRD) Af Amer Est GFR (MDRD) Non-Af BUN/Creatinine Ratio Glucose Hemoglobin A1c Lactic Acid Calcium Phosphorus Magnesium Total Bilirubin Direct Bilirubin AST ALT Alkaline Phosphatase Troponin I Total Protein Albumin Globulin Triglycerides 99 Cholesterol 60 LDL Cholesterol 26 VLDL Cholesterol 20 HDL Cholesterol 14 L Lipase Urine Color Urine Clarity Urine pH Ur Specific [place] Urine Protein Urine Glucose (UA) Urine Ketones Urine Occult Blood Urine Nitrite Urine Bilirubin Urine Urobilinogen Ur Leukocyte Esterase Urine RBC Urine WBC Ur Squamous Epith Cells Amorphous Sediment Urine Bacteria Fine Granular Casts Urine Mucus MRSA (PCR) POC Glucose 235 H 01/16/18 01/16/18 01/16/18 03:30 03:30 03:30 WBC Pending RBC Pending Hgb Pending Hct Pending MCV Pending MCH Pending MCHC Pending RDW Pending RDW Differential Pending Plt Count Pending MPV Neut % (Auto) Pending Absolute Neuts (auto) Pending Absolute Lymphs (auto) Total Counted Pending Neutrophils % (Manual) Band Neutrophils % Lymphocytes % (Manual) Monocytes % (Manual) Differential Comment Diff Path Review Platelet Estimate RBC Morphology PT INR APTT 44.5 H Specimen Type Sample Site pH Bicarbonate Actual POC Total CO2 Base Excess O2 Saturation O2 % ABG pCO2 ABG pO2 Jaylen Test Respiration Rate O2 Delivery Device Liter Flow EPAP IPAP Blood Gas Notified Whom Blood Gas Notified Time Sodium Pending Potassium Pending Chloride Pending Carbon Dioxide Pending Anion Gap Pending BUN Pending Creatinine Pending Estim Creat Clear Calc Est GFR (MDRD) Af Amer Pending Est GFR (MDRD) Non-Af Pending BUN/Creatinine Ratio Pending Glucose Pending Hemoglobin A1c Lactic Acid Calcium Pending Phosphorus Pending Magnesium Pending Total Bilirubin Pending Direct Bilirubin AST Pending ALT Pending Alkaline Phosphatase Pending Troponin I Total Protein Pending Albumin Pending Globulin Triglycerides Cholesterol LDL Cholesterol VLDL Cholesterol HDL Cholesterol Lipase Urine Color Urine Clarity Urine pH Ur Specific [place] Urine Protein Urine Glucose (UA) Urine Ketones Urine Occult Blood Urine Nitrite Urine Bilirubin Urine Urobilinogen Ur Leukocyte Esterase Urine RBC Urine WBC Ur Squamous Epith Cells Amorphous Sediment Urine Bacteria Fine Granular Casts Urine Mucus MRSA (PCR) POC Glucose 01/16/18 04:51 WBC RBC Hgb Hct MCV MCH MCHC RDW RDW Differential Plt Count MPV Neut % (Auto) Absolute Neuts (auto) Absolute Lymphs (auto) Total Counted Neutrophils % (Manual) Band Neutrophils % Lymphocytes % (Manual) Monocytes % (Manual) Differential Comment Diff Path Review Platelet Estimate RBC Morphology PT INR APTT Specimen Type Sample Site pH Bicarbonate Actual POC Total CO2 Base Excess O2 Saturation O2 % ABG pCO2 ABG pO2 Jaylen Test Respiration Rate O2 Delivery Device Liter Flow EPAP IPAP Blood Gas Notified Whom Blood Gas Notified Time Sodium Potassium Chloride Carbon Dioxide Anion Gap BUN Creatinine Estim Creat Clear Calc Est GFR (MDRD) Af Amer Est GFR (MDRD) Non-Af BUN/Creatinine Ratio Glucose Hemoglobin A1c Lactic Acid Calcium Phosphorus Magnesium Total Bilirubin Direct Bilirubin AST ALT Alkaline Phosphatase Troponin I Total Protein Albumin Globulin Triglycerides Cholesterol LDL Cholesterol VLDL Cholesterol HDL Cholesterol Lipase Urine Color Urine Clarity Urine pH Ur Specific [place] Urine Protein Urine Glucose (UA) Urine Ketones Urine Occult Blood Urine Nitrite Urine Bilirubin Urine Urobilinogen Ur Leukocyte Esterase Urine RBC Urine WBC Ur Squamous Epith Cells Amorphous Sediment Urine Bacteria Fine Granular Casts Urine Mucus MRSA (PCR) POC Glucose 195 H Microbiology 01/15/18 12:30 Urine Catheter - Catheter Streptococcus pneumoniae Antigen (M - Final 01/15/18 12:30 Urine Catheter - Catheter Legionella Antigen - Final Legionella Antigen Clinical Impression(s) from Imaging Studies Chest X-Ray 01/15/18 09:45 IMPRESSION: Near complete opacification left lung mach[place] sparing only the upper lobe at the level of the aortic knob and above. Differential considerations include pleural fluid, atelectasis/scarring, pneumonia or underlying mass. Clinical correlation follow-up recommended. Results discussed with Attending Physician 01/15/2018 approximate 1235 hours. If clinically indicated, recommend follow-up chest study after treatment to demonstrate complete clearing if clinically indicated. Electronically Signed: Montrell Cardenas, at 12:39 EDT Tel , Service support , Chest CT 01/15/18 12:44 IMPRESSION: There is a large amount of consolidation in the left upper lobe and lingula which is centrally dense with an air bronchograms. Although this may represent an infiltrate. An underlying left hilar mass with surrounding consolidated lung should be excluded. Recommend consideration for bronchoscopy. Small left effusion lower lobe atelectasis. Cardiomegaly cardiac artery disease Reactive and/or metastatic lymphadenopathy. Hyperinflated appearance of the right lung overall pattern of underlying chronic obstructive pulmonary disease. Inhomogeneous appearance of the liver which may represent fatty infiltration of the liver with sparing however further evaluation is recommended with an ultrasound or contrasted study of the abdomen and pelvis when possible. Electronically Signed: Mickie Saldivar MD at 15:10 EDT Tel , Service support , Medical Necessity - Tobacco Use Smoking Status: Current every day smoker Tobacco Use: Cigarettes Assessment/Plan All Active Problems (Last Reviewed 06/17/17 @ 09:09 by Antionette Lua) Severe sepsis (Acute) PNA (pneumonia) (Acute) COPD (chronic obstructive pulmonary disease) (Acute) BRENDA (acute kidney injury) (Acute) NSTEMI (non-ST elevated myocardial infarction) (Acute) Erectile dysfunction (Acute) Diabetes type 2, controlled (Acute) Testicular hypofunction (Acute) RECOMMENDATIONS: 1. Antibiotics have been de-escalated and targeted to address the patient's Legionella pneumonia. 2. Continue scheduled bronchodilators along with IV steroids. 3. Continue Accu-Cheks and sliding scale insulin coverage. 4. Discontinue supplemental IV fluids, once the patient is tolerating p.o. intake. 5. The patient will need to have a repeat CT chest completed in 6-8 weeks. There is no indication for bronchoscopy at this time. IMPRESSIONS: 1. Acute hypoxic respiratory failure secondary to severe Legionella pneumonia leading to presumptive COPD exacerbation While the patient does have an extensive smoking history, he has never had pulmonary function testing done to confirm or refute a diagnosis of COPD. However, he does have an extreme amount of wheezing noted on examination. The patient CT chest did reveal significant left upper and lingula consolidation with groundglass extending into the left lower lobe. There was also extensive mediastinal lymphadenopathy with possible encasement of the left pulmonary artery by consolidation and/or lung mass. The patient's Legionella antigen was noted to be positive. He is currently on treatment with appropriate antibiotics, along with scheduled bronchodilators and IV steroids. The patient will need to follow-up in the pulmonary medicine clinic so that a repeat CT chest can be completed in 6-8 weeks for further evaluation of the patient's left hilum. If there is concern for an underlying lung mass, will proceed with setting the patient up for bronchoscopy and specifically EBUS. However, at this time, he will be treated with antibiotics. BiPAP can be utilized as needed. 2. Severe sepsis secondary to Legionella pneumonia The patient has been adequately volume resuscitated and is currently hemodynamically stable. Supplemental IV fluids can be discontinued once the patient is tolerating p.o. intake. Continue Levaquin accordingly. 3. History of tobacco dependence The patient does have an extensive smoking history and we are currently working under the assumption that he has obstructive lung disease. However, smoking cessation is strongly advisable. Nicotine replacement therapy can be offered while he is admitted to the hospital. The patient should ideally follow up in the pulmonary medicine clinic so that baseline PFTs can be obtained. 4. Sinus arrhythmia/troponin elevation/heart failure with preserved ejection fraction The patient appears to be experiencing a sinus arrhythmia, potentially multifocal atrial tachycardia. He is not in atrial fibrillation at the current time. Recommend repleting potassium to greater than 4. The patient's echocardiogram did reveal evidence of stage I diastolic dysfunction with preserved ejection fraction. 5. Hypokalemia/hypophosphatemia Electrolyte repletion is underway. Recheck levels in the morning. 6. Acute kidney injury Improved. Likely prerenal in etiology. Anticipate improvement with volume expansion. Continue to monitor urine output. No current indication for renal replacement therapy. 7. Hypertension/hyperlipidemia/neuropathy Complicates care, management, recovery and prognosis. Okay to continue home medications from my perspective. This note was generated with [employer] software. It may contain incorrect words, spelling, and punctuation that were not noted in checking the note before signing. Code Visit Inpatient E&M: 61738 [facility]
[2018-01-16 07:05] LABS: ALB/GLOB Ratio 0.6 RATIO (0.9-2.4); AST(SGOT) 157 U/L (15-37); Alanine Aminotransfer ALT/SGPT 48 U/L (16-61); Albumin, Serum 2.1 g/dL (3.2-5.0); Alkaline Phosphatase 58 U/L (45-117); Anion Gap 12 (5-15); BUN 19 mg/dL (7-18); BUN/Creat Ratio 15.1 RATIO (10-20); Calcium,Total 6.9 mg/dL (8.5-10.1); Chloride 101 mmol/L (98-107); Creatinine, Serum 1.26 mg/dL (0.70-1.30); EST Glomerular Filtration Rate 61 mL/min (>60); Est Glom Filt Rate - Afr Amer 74 mL/min (>60); Estimated Creatinine Clearance 58.06 ml/min; Globulin 3.7 g/dL (2.2-4.2); Glucose 188 mg/dL (74-106); Magnesium 2.6 mg/dL (1.6-2.6); Phosphorus 1.7 mg/dL (2.5-4.9); Potassium 3.2 mmol/L (3.5-5.1); Protein, Total 5.8 g/dL (6.4-8.2); Sodium Level 135 mmol/L (136-145)
[2018-01-16 07:23] LABS: Hematocrit 41.4 % (40-54); Hemoglobin 14.4 g/dl (13.0-16.5); Mean Corp Hgb Conc 34.8 g/gl (32-36); Mean Corpuscular Hgb 30.5 pg (27.0-32.0); Mean Corpuscular Volume 87.7 fL (80-94); Mean Platelet Vol. 11.8 fl (6.2-12.0); Platelet Count 131 K/mm3 (150-450); RBC Distribution Width CV 13.2 % (11.6-14.6); RBC Distribution Width SD 42.7 fl (35.1-43.9); Red Blood Count 4.72 M/mm3 (4.6-6.2); White Blood Count 22.2 K/mm3 (4.4-11.0)
[2018-01-16 07:24] LABS: Differential Indicated MANUAL DIFF; POSITIVE COUNT NO; POSITIVE DIFFERENTIAL NO; POSITIVE MORPHOLOGY YES
[2018-01-16] MEDS: Gabapentin 100 MG Capsule PO (07:46)
[2018-01-16] MEDS: Aspirin 81 MG TAB.CHEW PO (07:46)
[2018-01-16 07:54] LABS: Lymphocyte 1 % (19-41); Neutrophil-Band 12 % (0-5); Neutrophil-Segmented 87 % (47-70); Total Cells Counted 100 (MANUAL DIFF)
[2018-01-16 07:55] LABS: Platelet Estimate ADEQUATE (ADEQ); Red Cell Morphology NORM C+C NORMAL (NORM C&C)
[2018-01-16 07:56] LABS: Absolute Lymphocyte Count 0.22 X10^3/ul (0.83-4.51); Absolute Neutrophil Count 21.9 X10^3/uL (2.0-7.7); Lymphocyte # 0.22 X10^3/ul (4.0)
[2018-01-16 08:05] LABS: Bedside Glucose 192 mg/dL (70-110)
--- NOTE | 2018-01-16 08:14 | PCM.PN.CARD ---
Subjectve: Patient seen and evaluated. Appears to be doing fair this morning. Objective: Vital Signs Temp Pulse Resp BP Pulse Ox 101 F H 108 H 32 H 141/69 H 93 01/16/18 08:00 01/16/18 08:00 01/16/18 08:00 01/16/18 08:00 01/16/18 08:00 Oxygen Flow Rate (L/min) 5 Oxygen Delivery Method Nasal Cannula Weight: 207 lb 14.334 oz Body Mass Index (BMI) 29.7 Intake and Output for Last 24 Hours 01/14/18 01/15/18 01/16/18 23:59 23:59 23:59 Intake Total 3172.3 / 3172.3 2177.8 / 2177.8 Output Total 850 / 850 850 / 850 Balance 2322.3 / 2322.3 1327.8 / 1327.8 General: Awake, Alert, Oriented x 3, Ill Appearing HEENT: PERRL, EOMI, Sclera Non Icteric Neck: Supple, Good ROM, No Lymph Node Enlargement Lungs: Clear to auscultation Cardiovascular: Regular Rhythm, Normal S1, Normal S2, No Murmurs, No Rubs, No Gallops Vascular: No Carotid Bruits, Normal Femoral Pulses, Normal Radial Pulses, Normal Dorsalis Pedal Pulse, Normal Posterior Tibial Pulses Abdomen: Bowel Sounds Present, Soft, Non Tender, No HSM, No Organomegaly Extremities: No Cyanosis, No Clubbing, No edema Neurological: No Focal Motor or Sensory Deficit 01/15/18 09:45: WBC 15.7 H, RBC 5.26, Hgb 16.3, Hct 44.9, MCV 85.4, MCH 31.0, MCHC 36.3 H, RDW 12.7, RDW Differential 39.8, Plt Count 137 L, MPV 11.5, Neut % (Auto) Not Reportable, Absolute Neuts (auto) 13.7 H, Total Counted 100, Neutrophils % (Manual) 85 H, Band Neutrophils % 2, Lymphocytes % (Manual) 5 L, Monocytes % (Manual) 8 01/15/18 09:45: Sodium 128 L, Potassium 3.2 L, Chloride 90 L, Carbon Dioxide 25.0, Anion Gap 13, BUN 23 H, Creatinine 1.53 H, Est GFR (MDRD) Af Amer 59 L, Est GFR (MDRD) Non-Af 49 L, BUN/Creatinine Ratio 15.0, Glucose 152 H, Calcium 8.3 L, Total Bilirubin 1.20 H, Direct Bilirubin 0.56 H, Troponin I 0.613 H* 01/15/18 09:45: Lactic Acid 3.1 H 01/15/18 09:45: PT 13.8, INR 1.1, APTT 33.7 01/15/18 09:45: Magnesium 2.9 H 01/15/18 09:45: Hemoglobin A1c 6.5 H 01/15/18 09:45: Phosphorus 2.3 L 01/15/18 11:00: pH 7.51 H, Bicarbonate Actual 21.2 L, POC Total CO2 22, Base Excess -2, O2 Saturation 90 L, ABG pCO2 26.7 L, ABG pO2 51 L, Jaylen Test POS 01/15/18 12:30: Urine Color Yellow, Urine Clarity Cloudy, Urine pH 6.0, Ur Specific [place] 1.020, Urine Protein 100 H, Urine Glucose (UA) Normal, Urine Ketones 50 H, Urine Occult Blood 250 H, Urine Nitrite Negative, Urine Bilirubin Negative, Urine Urobilinogen 4 H, Ur Leukocyte Esterase 25 H, Urine RBC 0 SEEN, Urine WBC 0-5 SEEN 01/15/18 13:05: Lactic Acid 2.0 01/15/18 13:05: Troponin I 0.525 H 01/15/18 13:12: pH 7.42, Bicarbonate Actual 20.4 L, POC Total CO2 21, Base Excess -4 L, O2 Saturation 96, ABG pCO2 31.2 L, ABG pO2 80, Jaylen Test POS 01/15/18 15:15: pH 7.39, Bicarbonate Actual 22.0, POC Total CO2 23, Base Excess -3 L, O2 Saturation 98, ABG pCO2 36.4, ABG pO2 107 H, Jaylen Test POS 01/15/18 16:30: Troponin I 0.313 H 01/15/18 18:53: Troponin I 0.252 H 01/15/18 21:30: APTT 70.3 H 01/16/18 03:30: Triglycerides 99, Cholesterol 60, LDL Cholesterol 26, VLDL Cholesterol 20, HDL Cholesterol 14 L 01/16/18 03:30: APTT 44.5 H 01/16/18 03:30: WBC 22.2 H, RBC 4.72, Hgb 14.4, Hct 41.4, MCV 87.7, MCH 30.5, MCHC 34.8, RDW 13.2, RDW Differential 42.7, Plt Count 131 L, MPV 11.8, Neut % (Auto) Not Reportable, Absolute Neuts (auto) 21.9 H, Total Counted 100, Neutrophils % (Manual) 87 H, Band Neutrophils % 12 H, Lymphocytes % (Manual) 1 L 01/16/18 03:30: Sodium 135 L, Potassium 3.2 L, Chloride 101, Carbon Dioxide 22.0, Anion Gap 12, BUN 19 H, Creatinine 1.26, Est GFR (MDRD) Af Amer 74, Est GFR (MDRD) Non-Af 61, BUN/Creatinine Ratio 15.1, Glucose 188 H, Calcium 6.9 L, Phosphorus 1.7 L, Magnesium 2.6, Total Bilirubin 0.70 Rhythm: EKG: ECHO: Stress Test: Cardiac Cath: PCI: CT Surgery: Holter monitor: EPS: PPM: CXR: Chest CT Scan: Medical Necessity - Tobacco Use Smoking Status: Current every day smoker Tobacco Use: Cigarettes Assessment/Plan 1. Abnormal cardiac enzymes Patient is noted to have abnormal cardiac enzymes which is likely secondary to demand ischemia. My recommendation is to continue observing him for now and treat the underlying cause. Depending on the final level of the cardiac enzymes as well as his echocardiographic evaluation further recommendations will be made. Echocardiogram demonstrated preserved left ventricular systolic function. I would recommend discontinuing the continuous heparin Will start Plavix 75 mg once a day Lipid-lowering 2. Multifocal atrial tachycardia Patient is noted to have multifocal atrial tachycardia which is likely secondary to his pulmonary disease. Once again treating the underlying cause would help elucidate and correct some of this. He is asymptomatic at this particular time anyway. Will recommend treating underlying potassium and magnesium. Will recommend resuming his beta-salinas. He was on a very high dose of beta-salinas but I will suggest that we restart him at 100 mg of metoprolol twice a day. Thank you for allowing me to participate in the care of your patient. Please don't hesitate to call if any issues arise
--- NOTE | 2018-01-16 08:17 | PN.CARD_ITS ---
Subjectve: Patient seen and evaluated. Appears to be doing fair this morning. Objective: Vital Signs Temp Pulse Resp BP Pulse Ox 101 F H 108 H 32 H 141/69 H 93 01/16/18 08:00 01/16/18 08:00 01/16/18 08:00 01/16/18 08:00 01/16/18 08:00 Oxygen Flow Rate (L/min) 5 Oxygen Delivery Method Nasal Cannula Weight: 207 lb 14.334 oz Body Mass Index (BMI) 29.7 Intake and Output for Last 24 Hours 01/14/18 01/15/18 01/16/18 23:59 23:59 23:59 Intake Total 3172.3 / 3172.3 2177.8 / 2177.8 Output Total 850 / 850 850 / 850 Balance 2322.3 / 2322.3 1327.8 / 1327.8 General: Awake, Alert, Oriented x 3, Ill Appearing HEENT: PERRL, EOMI, Sclera Non Icteric Neck: Supple, Good ROM, No Lymph Node Enlargement Lungs: Clear to auscultation Cardiovascular: Regular Rhythm, Normal S1, Normal S2, No Murmurs, No Rubs, No Gallops Vascular: No Carotid Bruits, Normal Femoral Pulses, Normal Radial Pulses, Normal Dorsalis Pedal Pulse, Normal Posterior Tibial Pulses Abdomen: Bowel Sounds Present, Soft, Non Tender, No HSM, No Organomegaly Extremities: No Cyanosis, No Clubbing, No edema Neurological: No Focal Motor or Sensory Deficit 01/15/18 09:45: WBC 15.7 H, RBC 5.26, Hgb 16.3, Hct 44.9, MCV 85.4, MCH 31.0, MCHC 36.3 H, RDW 12.7, RDW Differential 39.8, Plt Count 137 L, MPV 11.5, Neut % (Auto) Not Reportable, Absolute Neuts (auto) 13.7 H, Total Counted 100, Neutrophils % (Manual) 85 H, Band Neutrophils % 2, Lymphocytes % (Manual) 5 L, Monocytes % (Manual) 8 01/15/18 09:45: Sodium 128 L, Potassium 3.2 L, Chloride 90 L, Carbon Dioxide 25.0, Anion Gap 13, BUN 23 H, Creatinine 1.53 H, Est GFR (MDRD) Af Amer 59 L, Est GFR (MDRD) Non-Af 49 L, BUN/Creatinine Ratio 15.0, Glucose 152 H, Calcium 8.3 L, Total Bilirubin 1.20 H, Direct Bilirubin 0.56 H, Troponin I 0.613 H* 01/15/18 09:45: Lactic Acid 3.1 H 01/15/18 09:45: PT 13.8, INR 1.1, APTT 33.7 01/15/18 09:45: Magnesium 2.9 H 01/15/18 09:45: Hemoglobin A1c 6.5 H 01/15/18 09:45: Phosphorus 2.3 L 01/15/18 11:00: pH 7.51 H, Bicarbonate Actual 21.2 L, POC Total CO2 22, Base Excess -2, O2 Saturation 90 L, ABG pCO2 26.7 L, ABG pO2 51 L, Jaylen Test POS 01/15/18 12:30: Urine Color Yellow, Urine Clarity Cloudy, Urine pH 6.0, Ur Specific [place] 1.020, Urine Protein 100 H, Urine Glucose (UA) Normal, Urine Ketones 50 H, Urine Occult Blood 250 H, Urine Nitrite Negative, Urine Bilirubin Negative, Urine Urobilinogen 4 H, Ur Leukocyte Esterase 25 H, Urine RBC 0 SEEN, Urine WBC 0-5 SEEN 01/15/18 13:05: Lactic Acid 2.0 01/15/18 13:05: Troponin I 0.525 H 01/15/18 13:12: pH 7.42, Bicarbonate Actual 20.4 L, POC Total CO2 21, Base Excess -4 L, O2 Saturation 96, ABG pCO2 31.2 L, ABG pO2 80, Jaylen Test POS 01/15/18 15:15: pH 7.39, Bicarbonate Actual 22.0, POC Total CO2 23, Base Excess -3 L, O2 Saturation 98, ABG pCO2 36.4, ABG pO2 107 H, Jaylen Test POS 01/15/18 16:30: Troponin I 0.313 H 01/15/18 18:53: Troponin I 0.252 H 01/15/18 21:30: APTT 70.3 H 01/16/18 03:30: Triglycerides 99, Cholesterol 60, LDL Cholesterol 26, VLDL Cholesterol 20, HDL Cholesterol 14 L 01/16/18 03:30: APTT 44.5 H 01/16/18 03:30: WBC 22.2 H, RBC 4.72, Hgb 14.4, Hct 41.4, MCV 87.7, MCH 30.5, MCHC 34.8, RDW 13.2, RDW Differential 42.7, Plt Count 131 L, MPV 11.8, Neut % (Auto) Not Reportable, Absolute Neuts (auto) 21.9 H, Total Counted 100, Neutrophils % (Manual) 87 H, Band Neutrophils % 12 H, Lymphocytes % (Manual) 1 L 01/16/18 03:30: Sodium 135 L, Potassium 3.2 L, Chloride 101, Carbon Dioxide 22.0, Anion Gap 12, BUN 19 H, Creatinine 1.26, Est GFR (MDRD) Af Amer 74, Est GFR (MDRD) Non-Af 61, BUN/Creatinine Ratio 15.1, Glucose 188 H, Calcium 6.9 L, Phosphorus 1.7 L, Magnesium 2.6, Total Bilirubin 0.70 Rhythm: EKG: ECHO: Stress Test: Cardiac Cath: PCI: CT Surgery: Holter monitor: EPS: PPM: CXR: Chest CT Scan: Medical Necessity - Tobacco Use Smoking Status: Current every day smoker Tobacco Use: Cigarettes Assessment/Plan 1. Abnormal cardiac enzymes Patient is noted to have abnormal cardiac enzymes which is likely secondary to demand ischemia. My recommendation is to continue observing him for now and treat the underlying cause. Depending on the final level of the cardiac enzymes as well as his echocardiographic evaluation further recommendations will be made. * Echocardiogram demonstrated preserved left ventricular systolic function. * I would recommend discontinuing the continuous heparin * Will start Plavix 75 mg once a day * Lipid-lowering 2. Multifocal atrial tachycardia Patient is noted to have multifocal atrial tachycardia which is likely secondary to his pulmonary disease. Once again treating the underlying cause would help elucidate and correct some of this. He is asymptomatic at this particular time anyway. Will recommend treating underlying potassium and magnesium. * Will recommend resuming his beta-salinas. He was on a very high dose of beta- [place] but I will suggest that we restart him at 100 mg of metoprolol twice a day. Thank you for allowing me to participate in the care of your patient. Please don't hesitate to call if any issues arise
--- NOTE | 2018-01-16 09:16 | CASEMGMT ---
RN CM Assessment PCP: Dr. Johnson Specialists: Will f/u with Dr. Walton on dc Pharmacy: [facility] Prescription coverage: yes Living Arrangements: with DME: none Social Work Consult: no Intro role of CM to patient and his in room. States he was very independent, drives or can have family drive him if needed. PT/OT evaluations pending. DC PLAN: undetermined
[2018-01-16] MEDS: levoFLOXacin IV 750 MG/150 ML BAG 100 MG IV (10:00)
[2018-01-16] MEDS: guaiFENesin 1,200 MG Tablet 1200 MG PO ×2 (10:00→21:09)
[2018-01-16] MEDS: Citalopram 40 MG TABLET PO (10:00)
[2018-01-16] MEDS: Pantoprazole Sodium 20 MG Tablet PO ×2 (10:00→21:09)
[2018-01-16] MEDS: Metoprolol Tartrate 100 MG Tablet PO ×2 (10:00→21:08)
--- NOTE | 2018-01-16 10:17 | CON.PCM_ITS ---
Reason for Consult: legionella Consulted by: Dr. Reyes History of Present Illness: The patient is a 62 year old M who presented 01/15 with 4-5 days of not feeling well, c/o severe fatigue, weakness, falls at home, SOB, dry cough. He took off work 01/10 and 01/11. Developed fever and chills, some nausea. Taken to ED by family, given ceftriaxone/azithro/solumedrol, legionella was (+), admitted to icu on levaquin. Did not require pressors or intubation. Febrile on admit to 102.8. Denies any unusual water exposures, no hot tubs, saunas, travel, hotels, humidifiers, etc. Full ROS performed and neg except as noted above. - Medical History Past Medical History (Chronic Problems): Chronic Problems (Last Reviewed 06/17/17 @ 09:09 by Antionette Lua) HLD (hyperlipidemia) (Chronic) Hypertension (Chronic) Allergies/Adverse Reactions: Allergies No Known Allergies Allergy (Verified 01/15/18 09:30) Home Medications: Ambulatory Orders Medication Instructions Recorded atorvastatin 40 mg tablet 40 mg PO QDAY 06/05/17 citalopram 40 mg tablet 40 mg PO QDAY tab 06/05/17 coenzyme Q10 100 mg capsule 100 mg PO QDAY 06/05/17 metoprolol tartrate 100 mg tablet 150 mg PO BID 06/05/17 omega-3 fatty acids 1,000 mg 1,000 mg PO QDAY 06/05/17 capsule Gabapentin [Neurontin] 100 mg PO DAILY 01/15/18 - Social History Tobacco Use: cigarettes Vital Signs Temp Pulse Resp BP Pulse Ox 101 F H 128 H 32 H 146/85 H 93 01/16/18 08:00 01/16/18 10:00 01/16/18 08:00 01/16/18 10:00 01/16/18 08:00 Oxygen Flow Rate (L/min) 5 Oxygen Delivery Method Nasal Cannula Weight: 94.3 kg Body Mass Index (BMI) 29.7 Microbiology Past 72 Hours 01/15/18 12:55 Respiratory Panel (PCR) - Final Mucosa - Nose 01/15/18 21:50 Gram Stain - Final Sputum, Expectorated/Coughed 01/15/18 12:30 Streptococcus pneumoniae Antigen (M - Final Urine Catheter - Catheter 01/15/18 12:30 Legionella Antigen - Final Urine Catheter - Catheter Legionella Antigen Laboratory Tests Past 24 Hrs 01/15/18 01/15/18 01/15/18 09:45 09:45 09:45 WBC RBC Hgb Hct MCV MCH MCHC RDW RDW Differential Plt Count MPV Neut % (Auto) Absolute Neuts (auto) 13.7 H Absolute Lymphs (auto) 0.79 L Total Counted 100 Neutrophils % (Manual) 85 H Band Neutrophils % 2 Lymphocytes % (Manual) 5 L Monocytes % (Manual) 8 Differential Comment 1+ Diff Path Review May foll Platelet Estimate SLT RBC Morphology NORM C+C PT INR APTT Specimen Type Sample Site pH Bicarbonate Actual POC Total CO2 Base Excess O2 Saturation O2 % ABG pCO2 ABG pO2 Jaylen Test Respiration Rate O2 Delivery Device Liter Flow EPAP IPAP Blood Gas Notified Whom Blood Gas Notified Time Sodium 128 L Potassium 3.2 L Chloride 90 L Carbon Dioxide 25.0 Anion Gap 13 BUN 23 H Creatinine 1.53 H Estim Creat Clear Calc 47.81 Est GFR (MDRD) Af Amer 59 L Est GFR (MDRD) Non-Af 49 L BUN/Creatinine Ratio 15.0 Glucose 152 H Hemoglobin A1c Lactic Acid 3.1 H Calcium 8.3 L Phosphorus Magnesium Total Bilirubin 1.20 H Direct Bilirubin 0.56 H AST 207 H ALT 46 Alkaline Phosphatase 67 Troponin I 0.613 H* Total Protein 7.6 Albumin 2.6 L Globulin 5.0 H Albumin/Globulin Ratio Triglycerides Cholesterol LDL Cholesterol VLDL Cholesterol HDL Cholesterol Lipase 94 Urine Color Urine Clarity Urine pH Ur Specific [place] Urine Protein Urine Glucose (UA) Urine Ketones Urine Occult Blood Urine Nitrite Urine Bilirubin Urine Urobilinogen Ur Leukocyte Esterase Urine RBC Urine WBC Ur Squamous Epith Cells Amorphous Sediment Urine Bacteria Fine Granular Casts Urine Mucus MRSA (PCR) 01/15/18 01/15/18 01/15/18 09:45 09:45 09:45 WBC RBC Hgb Hct MCV MCH MCHC RDW RDW Differential Plt Count MPV Neut % (Auto) Absolute Neuts (auto) Absolute Lymphs (auto) Total Counted Neutrophils % (Manual) Band Neutrophils % Lymphocytes % (Manual) Monocytes % (Manual) Differential Comment Diff Path Review Platelet Estimate RBC Morphology PT 13.8 INR 1.1 APTT 33.7 Specimen Type Sample Site pH Bicarbonate Actual POC Total CO2 Base Excess O2 Saturation O2 % ABG pCO2 ABG pO2 Jaylen Test Respiration Rate O2 Delivery Device Liter Flow EPAP IPAP Blood Gas Notified Whom Blood Gas Notified Time Sodium Potassium Chloride Carbon Dioxide Anion Gap BUN Creatinine Estim Creat Clear Calc Est GFR (MDRD) Af Amer Est GFR (MDRD) Non-Af BUN/Creatinine Ratio Glucose Hemoglobin A1c 6.5 H Lactic Acid Calcium Phosphorus Magnesium 2.9 H Total Bilirubin Direct Bilirubin AST ALT Alkaline Phosphatase Troponin I Total Protein Albumin Globulin Albumin/Globulin Ratio Triglycerides Cholesterol LDL Cholesterol VLDL Cholesterol HDL Cholesterol Lipase Urine Color Urine Clarity Urine pH Ur Specific [place] Urine Protein Urine Glucose (UA) Urine Ketones Urine Occult Blood Urine Nitrite Urine Bilirubin Urine Urobilinogen Ur Leukocyte Esterase Urine RBC Urine WBC Ur Squamous Epith Cells Amorphous Sediment Urine Bacteria Fine Granular Casts Urine Mucus MRSA (PCR) 01/15/18 01/15/18 01/15/18 09:45 11:00 12:30 WBC RBC Hgb Hct MCV MCH MCHC RDW RDW Differential Plt Count MPV Neut % (Auto) Absolute Neuts (auto) Absolute Lymphs (auto) Total Counted Neutrophils % (Manual) Band Neutrophils % Lymphocytes % (Manual) Monocytes % (Manual) Differential Comment Diff Path Review Platelet Estimate RBC Morphology PT INR APTT Specimen Type ART Sample Site L Radial pH 7.51 H Bicarbonate Actual 21.2 L POC Total CO2 22 Base Excess -2 O2 Saturation 90 L O2 % ABG pCO2 26.7 L ABG pO2 51 L Jaylen Test POS Respiration Rate O2 Delivery Device Nasal Can Liter Flow 6.0 EPAP IPAP Blood Gas Notified Whom ED MD Blood Gas Notified Time 1050 Sodium Potassium Chloride Carbon Dioxide Anion Gap BUN Creatinine Estim Creat Clear Calc Est GFR (MDRD) Af Amer Est GFR (MDRD) Non-Af BUN/Creatinine Ratio Glucose Hemoglobin A1c Lactic Acid Calcium Phosphorus 2.3 L Magnesium Total Bilirubin Direct Bilirubin AST ALT Alkaline Phosphatase Troponin I Total Protein Albumin Globulin Albumin/Globulin Ratio Triglycerides Cholesterol LDL Cholesterol VLDL Cholesterol HDL Cholesterol Lipase Urine Color Yellow Urine Clarity Cloudy Urine pH 6.0 Ur Specific [place] 1.020 Urine Protein 100 H Urine Glucose (UA) Normal Urine Ketones 50 H Urine Occult Blood 250 H Urine Nitrite Negative Urine Bilirubin Negative Urine Urobilinogen 4 H Ur Leukocyte Esterase 25 H Urine RBC 0 SEEN Urine WBC 0-5 SEEN Ur Squamous Epith Cells 0-5 SEEN Amorphous Sediment 4+ Urine Bacteria 4+ Fine Granular Casts 5-10 SEEN Urine Mucus 0 SEEN MRSA (PCR) 01/15/18 01/15/18 01/15/18 13:05 13:05 13:12 WBC RBC Hgb Hct MCV MCH MCHC RDW RDW Differential Plt Count MPV Neut % (Auto) Absolute Neuts (auto) Absolute Lymphs (auto) Total Counted Neutrophils % (Manual) Band Neutrophils % Lymphocytes % (Manual) Monocytes % (Manual) Differential Comment Diff Path Review Platelet Estimate RBC Morphology PT INR APTT Specimen Type ART Sample Site R Radial pH 7.42 Bicarbonate Actual 20.4 L POC Total CO2 21 Base Excess -4 L O2 Saturation 96 O2 % ABG pCO2 31.2 L ABG pO2 80 Jaylen Test POS Respiration Rate O2 Delivery Device NRB Mask Liter Flow 15.0 EPAP IPAP Blood Gas Notified Whom ICU MD Blood Gas Notified Time 1313 Sodium Potassium Chloride Carbon Dioxide Anion Gap BUN Creatinine Estim Creat Clear Calc Est GFR (MDRD) Af Amer Est GFR (MDRD) Non-Af BUN/Creatinine Ratio Glucose Hemoglobin A1c Lactic Acid 2.0 Calcium Phosphorus Magnesium Total Bilirubin Direct Bilirubin AST ALT Alkaline Phosphatase Troponin I 0.525 H Total Protein Albumin Globulin Albumin/Globulin Ratio Triglycerides Cholesterol LDL Cholesterol VLDL Cholesterol HDL Cholesterol Lipase Urine Color Urine Clarity Urine pH Ur Specific [place] Urine Protein Urine Glucose (UA) Urine Ketones Urine Occult Blood Urine Nitrite Urine Bilirubin Urine Urobilinogen Ur Leukocyte Esterase Urine RBC Urine WBC Ur Squamous Epith Cells Amorphous Sediment Urine Bacteria Fine Granular Casts Urine Mucus MRSA (PCR) 01/15/18 01/15/18 01/15/18 15:15 16:25 16:30 WBC RBC Hgb Hct MCV MCH MCHC RDW RDW Differential Plt Count MPV Neut % (Auto) Absolute Neuts (auto) Absolute Lymphs (auto) Total Counted Neutrophils % (Manual) Band Neutrophils % Lymphocytes % (Manual) Monocytes % (Manual) Differential Comment Diff Path Review Platelet Estimate RBC Morphology PT INR APTT Specimen Type ART Sample Site R Radial pH 7.39 Bicarbonate Actual 22.0 POC Total CO2 23 Base Excess -3 L O2 Saturation 98 O2 % 60 ABG pCO2 36.4 ABG pO2 107 H Jaylen Test POS Respiration Rate 12 O2 Delivery Device Bi / C PAP Liter Flow EPAP 8 IPAP 12 Blood Gas Notified Whom ICU MD Blood Gas Notified Time 1516 Sodium Potassium Chloride Carbon Dioxide Anion Gap BUN Creatinine Estim Creat Clear Calc Est GFR (MDRD) Af Amer Est GFR (MDRD) Non-Af BUN/Creatinine Ratio Glucose Hemoglobin A1c Lactic Acid Calcium Phosphorus Magnesium Total Bilirubin Direct Bilirubin AST ALT Alkaline Phosphatase Troponin I 0.313 H Total Protein Albumin Globulin Albumin/Globulin Ratio Triglycerides Cholesterol LDL Cholesterol VLDL Cholesterol HDL Cholesterol Lipase Urine Color Urine Clarity Urine pH Ur Specific [place] Urine Protein Urine Glucose (UA) Urine Ketones Urine Occult Blood Urine Nitrite Urine Bilirubin Urine Urobilinogen Ur Leukocyte Esterase Urine RBC Urine WBC Ur Squamous Epith Cells Amorphous Sediment Urine Bacteria Fine Granular Casts Urine Mucus MRSA (PCR) Negative 01/15/18 01/15/18 01/16/18 18:53 21:30 03:30 WBC RBC Hgb Hct MCV MCH MCHC RDW RDW Differential Plt Count MPV Neut % (Auto) Absolute Neuts (auto) Absolute Lymphs (auto) Total Counted Neutrophils % (Manual) Band Neutrophils % Lymphocytes % (Manual) Monocytes % (Manual) Differential Comment Diff Path Review Platelet Estimate RBC Morphology PT INR APTT 70.3 H Specimen Type Sample Site pH Bicarbonate Actual POC Total CO2 Base Excess O2 Saturation O2 % ABG pCO2 ABG pO2 Jaylen Test Respiration Rate O2 Delivery Device Liter Flow EPAP IPAP Blood Gas Notified Whom Blood Gas Notified Time Sodium Potassium Chloride Carbon Dioxide Anion Gap BUN Creatinine Estim Creat Clear Calc Est GFR (MDRD) Af Amer Est GFR (MDRD) Non-Af BUN/Creatinine Ratio Glucose Hemoglobin A1c Lactic Acid Calcium Phosphorus Magnesium Total Bilirubin Direct Bilirubin AST ALT Alkaline Phosphatase Troponin I 0.252 H Total Protein Albumin Globulin Albumin/Globulin Ratio Triglycerides 99 Cholesterol 60 LDL Cholesterol 26 VLDL Cholesterol 20 HDL Cholesterol 14 L Lipase Urine Color Urine Clarity Urine pH Ur Specific [place] Urine Protein Urine Glucose (UA) Urine Ketones Urine Occult Blood Urine Nitrite Urine Bilirubin Urine Urobilinogen Ur Leukocyte Esterase Urine RBC Urine WBC Ur Squamous Epith Cells Amorphous Sediment Urine Bacteria Fine Granular Casts Urine Mucus MRSA (PCR) 01/16/18 01/16/18 01/16/18 03:30 03:30 03:30 WBC 22.2 H RBC 4.72 Hgb 14.4 Hct 41.4 MCV 87.7 MCH 30.5 MCHC 34.8 RDW 13.2 RDW Differential 42.7 Plt Count 131 L MPV 11.8 Neut % (Auto) Not Reportable Absolute Neuts (auto) 21.9 H Absolute Lymphs (auto) 0.22 L Total Counted 100 Neutrophils % (Manual) 87 H Band Neutrophils % 12 H Lymphocytes % (Manual) 1 L Monocytes % (Manual) Differential Comment Diff Path Review Platelet Estimate ADEQUATE RBC Morphology NORM C+C PT INR APTT 44.5 H Specimen Type Sample Site pH Bicarbonate Actual POC Total CO2 Base Excess O2 Saturation O2 % ABG pCO2 ABG pO2 Jaylen Test Respiration Rate O2 Delivery Device Liter Flow EPAP IPAP Blood Gas Notified Whom Blood Gas Notified Time Sodium 135 L Potassium 3.2 L Chloride 101 Carbon Dioxide 22.0 Anion Gap 12 BUN 19 H Creatinine 1.26 Estim Creat Clear Calc 58.06 Est GFR (MDRD) Af Amer 74 Est GFR (MDRD) Non-Af 61 BUN/Creatinine Ratio 15.1 Glucose 188 H Hemoglobin A1c Lactic Acid Calcium 6.9 L Phosphorus 1.7 L Magnesium 2.6 Total Bilirubin 0.70 Direct Bilirubin AST 157 H ALT 48 Alkaline Phosphatase 58 Troponin I Total Protein 5.8 L Albumin 2.1 L Globulin 3.7 Albumin/Globulin Ratio 0.6 L Triglycerides Cholesterol LDL Cholesterol VLDL Cholesterol HDL Cholesterol Lipase Urine Color Urine Clarity Urine pH Ur Specific [place] Urine Protein Urine Glucose (UA) Urine Ketones Urine Occult Blood Urine Nitrite Urine Bilirubin Urine Urobilinogen Ur Leukocyte Esterase Urine RBC Urine WBC Ur Squamous Epith Cells Amorphous Sediment Urine Bacteria Fine Granular Casts Urine Mucus MRSA (PCR) - Other Studies Radiology: [] reviewed Other Studies: [] Route of nutrition/ use of supplements: [] Nutritional Intake: [] IV Site: [] Reyes Catheter: [] - Physical Exam General: Alert, Oriented x3, Cooperative, No apparent distress HEENT: Atraumatic, PERRLA, EOMI Neck: Supple, No Nodes Lungs: Diminished Cardiovascular: Tachycardic Abdomen: Soft, Non Tender, Non-Distended Extremities: No edema Skin: No rashes IV Site: Peripheral, without redness Musculoskeletal: No Tenderness to Palpation of Joints or Extremities Neurological: Cranial nerves II-XII grossly intact - Assessment/Plan Antibiotics: [] Assessment/Plan: [] Active and Suspected Problems (Last Reviewed 06/17/17 @ 09:09 by Antionette Lua) Severe sepsis (Acute) PNA (pneumonia) (Acute) COPD (chronic obstructive pulmonary disease) (Acute) BRENDA (acute kidney injury) (Acute) NSTEMI (non-ST elevated myocardial infarction) (Acute) severe sepsis due to legionella pneumonia - associated with falls, nausea, and hyponatremia. On levaquin, fever improved. Lactate improved. Cr improved. Na improved. Wbc worse, but he was given solumedrol. CT showed ? mass, will need outpt follow-up once pneumonia resolves. Will follow, thank you.
[2018-01-16 11:55] LABS: Bedside Glucose 276 mg/dL (70-110)
[2018-01-16] MEDS: Heparin Injection (Vial) 5,000 UNIT/ML VIAL 5000 UNIT SC ×2 (13:44→21:07)
[2018-01-16 17:00] LABS: Bedside Glucose 223 mg/dL (70-110)
[2018-01-16] MEDS: Atorvastatin Calcium 40 MG Tablet PO (21:08)
[2018-01-16 21:31] LABS: Bedside Glucose 252 mg/dL (70-110)
[2018-01-17] VITALS (74 sets, daily range): BP systolic 77–228; BP diastolic 44–164; PULSE 77–184; RESP 12–31; TEMP 36.9–39; O2SAT 45–99
[2018-01-17] MEDS: Ipratropium/Albuterol Sulfate 3 ML AMPUL.NEB INHALATION ×2 (02:52→06:44)
[2018-01-17] MEDS: Heparin Injection (Vial) 5,000 UNIT/ML VIAL 5000 UNIT SC ×3 (05:08→21:14)
[2018-01-17 05:16] LABS: Allen Test POS; Base Excess -1 mmol/L (-2 to +2); Bicarbonate 22.6 mmol/L (22-26); Blood Gas Specimen Type ART; O2 Delivery Device Nasal Can; PO2 48 mmHG (75-100); SITE R Radial; SO2 87 % (95-99); Time Given 505; Total Carbon Dioxide 24 mmol/L; pCO2 30.5 mmHg (35-45); pH 7.48 (7.35-7.45)
[2018-01-17 05:33] LABS: ALB/GLOB Ratio 0.5 RATIO (0.9-2.4); AST(SGOT) 118 U/L (15-37); Alanine Aminotransfer ALT/SGPT 52 U/L (16-61); Alkaline Phosphatase 65 U/L (45-117); Anion Gap 9 (5-15); BUN 23 mg/dL (7-18); BUN/Creat Ratio 18.3 RATIO (10-20); Chloride 99 mmol/L (98-107); Creatinine, Serum 1.26 mg/dL (0.70-1.30); EST Glomerular Filtration Rate 61 mL/min (>60); Est Glom Filt Rate - Afr Amer 74 mL/min (>60); Estimated Creatinine Clearance 58.06 ml/min; Glucose 188 mg/dL (74-106); Magnesium 2.4 mg/dL (1.6-2.6); Phosphorus 2.2 mg/dL (2.5-4.9); Potassium 3.1 mmol/L (3.5-5.1); Sodium Level 134 mmol/L (136-145)
[2018-01-17 06:02] LABS: Hematocrit 37.6 % (40-54); Hemoglobin 13.3 g/dl (13.0-16.5); Mean Corp Hgb Conc 35.4 g/gl (32-36); Mean Corpuscular Hgb 30.4 pg (27.0-32.0); Mean Corpuscular Volume 85.8 fL (80-94); Mean Platelet Vol. 11.5 fl (6.2-12.0); Platelet Count 205 K/mm3 (150-450); RBC Distribution Width CV 13.3 % (11.6-14.6); RBC Distribution Width SD 41.3 fl (35.1-43.9); Red Blood Count 4.38 M/mm3 (4.6-6.2); White Blood Count 25.2 K/mm3 (4.4-11.0)
[2018-01-17 06:03] LABS: Differential Indicated MANUAL DIFF; POSITIVE COUNT YES; POSITIVE DIFFERENTIAL YES; POSITIVE MORPHOLOGY YES
[2018-01-17] MEDS: Acetaminophen 325 MG Tablet 650 MG PO (06:18)
[2018-01-17 06:31] LABS: Bedside Glucose 184 mg/dL (70-110)
--- NOTE | 2018-01-17 06:38 | PCM.PN.HOSP ---
Patient Problems: Active and Suspected Problems (Last Reviewed 06/17/17 @ 09:09 by Antionette Lua) Severe sepsis (Acute) PNA (pneumonia) (Acute) COPD (chronic obstructive pulmonary disease) (Acute) BRENDA (acute kidney injury) (Acute) NSTEMI (non-ST elevated myocardial infarction) (Acute) Subjective: The patient is a 62 y/o M w/ PMHx: HTN, HLD, Obesity, Heavy 2 ppd tobacco use history, Suspected underlying Chronic COPD who presents to the [facility] ED on 01/15/18 w/ history of ongoing malaise, weakness and nausea in addition to fevers and chills with dyspnea progressively worsening for the last several days with no market cough and fall the day prior secondary to severity of his weakness. ED T102.8, heart rate 129, BP 102/44, respiratory rate 42, 87% on room air, CBC with WBC 15.7, hemoglobin 16.3, platelet 137 with left shift, unremarkable coags, requested ED to perform ABG with pH 7.51, bicarb 21.2, O2 saturation 90%, PCO2 26.7, PO2 51 on 6 L nasal cannula, CMP with sodium 128, potassium 3.2, chloride 90, BUN/Cr 23/1.53, glucose 152, lactic acid 3.1, T bili 1.2, D bili 0.56, AST/ALT 207/46, troponin 0.613, lipase 94, blood cultures obtained per ED and pending chest x-ray with near complete opacification left lung field sparing only the upper lobe at the level of the aortic knob and above.. Admitted to ICU, placed on BIPAP, still intermittent BIPAP needs and q HS, continued on IV solumedrol, continue ATC duonebs, PRN albuterol, maintained on IV Levaquin secondary to Legionella antigen +, [place] of town with well water otherwise no atypical H20 sources, HOB, IS parameters w/ pending sputum cultures, + legionella urine antigen, negative strep antigen, negative respiratory viral panel. Bld cx x 2 obtained in the ED pending. CT chest w/ large amount consolidation left upper lobe and lingula which is centrally dense with an air bronchogram possibly representing an infiltrate although an underlying left hilar mass the surrounding consolidation lung cannot be excluded with recommended bronchoscopy, small left effusion lower lobe atelectasis, cardiomegaly with cardiac artery disease, reactive and or metastatic lymphadenopathy, hyperinflated appearance right lung overall pattern of underlying chronic obstructive pulmonary disease, fatty infiltration of the liver with sparing. Discussed with Pulmonary and noted planned bronchoscopy outpatient. ID consulted and also following. 01/16/10 ongoing increased fevers, increased work of breathing, accessory muscle usage, conversational dyspnea, discussed w/ patient and ICU staff, at this time would benefit from intubation. ICU intention to discuss with spouse, repeat CXR similar w/ persistent L lung infiltrate without improvement, also consideration for broadening of his abx regimen from levaquin-->levaquin, zosyn and vanc but will defer to ICU physician. EKG in ED w/ sinus tachycardia, CXR w/ notable L sided PNA. Trop elevated, 0.613. Will maintain on a monitored bed, serial enzymes trended down, EKGs unchanged. Mag level obtained. Heparin drip initiated upon presentation given unclear trending, decreased enzymes, discontinued 01/16/18 and transition to chemoprophylaxis only. Continue medical management w/ asa, added plavix per Cardiology recommendation, continued BB (reduced dose from his home prior), statin w/ AM FLP w/ TG 99, TChol 60, LDL 26, VLDL 20, HDL 14. ECHO obtained w/ normal LV size, normal LV systolic function, EF 60%, stage I diastolic dysfunction, mildly enlarged LA, mildly enlarged RA. 01/17/18 Cardiology consideration of addition Cardizem; however, suspect would improve merely with intubation, will continue to evaluate and if remains elevated despite intubation, may necessitate agent addition, if hypotension may need to consider amiodarone short-term. FULL CODE. Patient with ongoing now increased work of breathing, increased respiratory rate, more fatigued appearance as well as ongoing tachycardia although had been on decreased beta-femi from his home regimen prior in addition to elevated temperatures. Discussed with pulmonary medicine and concern for ability to continue given worsening fatigue. Discussed intubation with patient and he is amenable. 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 Per nursing staff patient more confused overnight as well. Patient with fevers, chills, dyspnea. No nausea, emesis, abdominal pain, chest pain. Objective: Physical Examination: General: awake, alert, oriented x 3, appropriate, was confused overnight per staff, cooperative, seated upright in the ICU bed, increased work of breathing, increased RR, more fatigued appearance. Skin: normal color, turgor, no icterus, cyanosis. HEENT: AT/NC, EOMI, PERRLA, mildly dry MM. Lungs: Improved from initial but still diffusely diminished, > L sided, coarse, rales, wheezing inspiratory and expiratory, increased work of breathing, accessory muscle usage evidence, respiratory distress evident. Heart: Ongoing tachycardic, increased with regular rhythm; no gallop, rub audible. Abdomen: soft, obese, NTTP, appears mildly to moderately distended, decreased BS. Extremities: no cyanosis, clubbing, BL LE ankle mild edema. Neurological: patient awake, alert, oriented x 3; cognitive function intact; pupils equally reactive to light and accomodation; cranial nerves II-XII grossly normal, moving all 4 extremities, no focal deficits, strength severely globally decreased secondary to acute presentation. Psychiatric: affect appears more fatigued, no acute evidence of depressive or anxiety feelings. Vitals/I&O's: Vital Signs Temp Pulse Resp BP Pulse Ox 101.9 F H 104 H 31 H 157/91 H 45 01/17/18 06:00 01/17/18 06:00 01/17/18 06:00 01/17/18 06:00 01/17/18 06:00 Oxygen Flow Rate (L/min) 5 Oxygen Delivery Method Bi-pap Weight: 205 lb 4.006 oz Body Mass Index (BMI) 29.7 Intake and Output for Last 24 Hours 01/15/18 01/16/18 01/17/18 23:59 23:59 23:59 Intake Total 3172.3 / 3172.3 4593.8 / 4593.8 100 / 100 Output Total 850 / 850 2150 / 2150 450 / 450 Balance 2322.3 / 2322.3 2443.8 / 2443.8 -350 / -350 Microbiology Past 72 Hours 01/15/18 12:30 Urine Catheter - Catheter Urine Culture - Preliminary Culture exhibits no growth. 01/15/18 12:55 Mucosa - Nose Respiratory Panel (PCR) - Final 01/15/18 21:50 Sputum, Expectorated/Coughed Gram Stain - Final 01/15/18 12:30 Urine Catheter - Catheter Streptococcus pneumoniae Antigen (M - Final 01/15/18 12:30 Urine Catheter - Catheter Legionella Antigen - Final Legionella Antigen Laboratory Results 01/16/18 03:30: WBC 22.2 H, RBC 4.72, Hgb 14.4, Hct 41.4, MCV 87.7, MCH 30.5, MCHC 34.8, RDW 13.2, RDW Differential 42.7, Plt Count 131 L, MPV 11.8, Neut % (Auto) Not Reportable, Absolute Neuts (auto) 21.9 H, Absolute Lymphs (auto) 0.22 L, Total Counted 100, Neutrophils % (Manual) 87 H, Band Neutrophils % 12 H, Lymphocytes % (Manual) 1 L, Platelet Estimate ADEQUATE, RBC Morphology NORM C+C 01/16/18 03:30: Sodium 135 L, Potassium 3.2 L, Chloride 101, Carbon Dioxide 22.0, Anion Gap 12, BUN 19 H, Creatinine 1.26, Estim Creat Clear Calc 58.06, Est GFR (MDRD) Af Amer 74, Est GFR (MDRD) Non-Af 61, BUN/Creatinine Ratio 15.1, Glucose 188 H, Calcium 6.9 L, Phosphorus 1.7 L, Magnesium 2.6, Total Bilirubin 0.70, AST 157 H, ALT 48, Alkaline Phosphatase 58, Total Protein 5.8 L, Albumin 2.1 L, Globulin 3.7, Albumin/Globulin Ratio 0.6 L 01/16/18 07:43: POC Glucose 192 H 01/16/18 11:44: POC Glucose 276 H 01/16/18 16:46: POC Glucose 223 H 01/16/18 21:06: POC Glucose 252 H 01/17/18 05:00: WBC 25.2 H, RBC 4.38 L, Hgb 13.3, Hct 37.6 L, MCV 85.8, MCH 30.4, MCHC 35.4, RDW 13.3, RDW Differential 41.3, Plt Count 205, MPV 11.5, Neut % (Auto) Not Reportable, Absolute Neuts (auto) Not Reportable, Total Counted Pending 01/17/18 05:00: Sodium 134 L, Potassium 3.1 L, Chloride 99, Carbon Dioxide 26.0, Anion Gap 9, BUN 23 H, Creatinine 1.26, Estim Creat Clear Calc 58.06, Est GFR (MDRD) Af Amer 74, Est GFR (MDRD) Non-Af 61, BUN/Creatinine Ratio 18.3, Glucose 188 H, Calcium 8.0 L, Phosphorus 2.2 L, Magnesium 2.4, Total Bilirubin 0.80, AST 118 H, ALT 52, Alkaline Phosphatase 65, Total Protein 6.0 L, Albumin 2.0 L, Globulin 4.0, Albumin/Globulin Ratio 0.5 L 01/17/18 05:12: Specimen Type ART, Sample Site R Radial, pH 7.48 H, Bicarbonate Actual 22.6, POC Total CO2 24, Base Excess -1, O2 Saturation 87 L, ABG pCO2 30.5 L, ABG pO2 48 L, Jaylen Test POS, O2 Delivery Device Nasal Can, Liter Flow 5.0, Blood Gas Notified Whom ICU MD, Blood Gas Notified Time 505 01/17/18 06:16: POC Glucose 184 H Current Medications Acetaminophen (Tylenol) 650 mg PO Q4H PRN PRN PRN Reason: FEVER Last Admin: 01/17/18 06:18 Dose: 650 mg Al Hydroxide/Mg Hydroxide (Mylanta Ii) 30 ml PO Q6H PRN PRN PRN Reason: Gastric burning Albuterol Sulfate (Ventolin Aerosols) 2.5 mg INHALATION Q2H PRN PRN PRN Reason: SHORTNESS OF BREATH Albuterol/Ipratropium (Duoneb) 3 ml INHALATION Q4H.RT [facility] Last Admin: 01/17/18 02:52 Dose: 3 ml Aspirin (Aspirin, Baby) 81 mg PO DAILY@0800 [facility] Last Admin: 01/16/18 07:46 Dose: 81 mg Atorvastatin Calcium (Lipitor) 40 mg PO HS [facility] Last Admin: 01/16/18 21:08 Dose: 40 mg Chlorhexidine Gluconate () 1 each TOPICAL DAILY [facility] Citalopram Hydrobromide (Celexa) 40 mg PO DAILY [facility] Last Admin: 01/16/18 10:00 Dose: 40 mg Clopidogrel Bisulfate (Plavix) 75 mg PO DAILY [facility] Gabapentin (Neurontin) 100 mg PO DAILYCM [facility] Last Admin: 01/16/18 07:46 Dose: 100 mg Guaifenesin (Mucinex) 1,200 mg PO BID [facility] Last Admin: 01/16/18 21:09 Dose: 1,200 mg Heparin Sodium (Porcine) (Heparin Na) 5,000 unit SC Q8 [facility] Last Admin: 01/17/18 05:08 Dose: 5,000 unit Sodium Chloride () 250 mls @ 15 mls/hr IV .[id number] PRN PRN Reason: SALINE FLUSH Sodium Chloride () 250 mls @ 15 mls/hr IV .[id number] PRN PRN Reason: SALINE FLUSH Levofloxacin (Levaquin Iv) 750 mg in 150 mls @ 100 mls/hr IV Q24 [facility] Last Admin: 01/16/18 10:00 Dose: 100 mls/hr Insulin Human Lispro (Humalog Kwikpen (Bkc)) 0 unit SC ACHS [facility]; Protocol Last Admin: 01/16/18 21:07 Dose: 3 u Magnesium Hydroxide (Milk Of Magnesia) 30 ml PO DAILY PRN PRN PRN Reason: Constipation Methylprednisolone (Solu-Medrol) 40 mg IV Q8 [facility] Last Admin: 01/17/18 05:08 Dose: 40 mg Metoprolol Tartrate (Lopressor (Beta Femi)) 100 mg PO BID [facility] Last Admin: 01/16/18 21:08 Dose: 100 mg Nutritional Formula (Lactose Free) (Ensure Clear) 120 ml PO 4X/DAY [facility] Last Admin: 01/16/18 21:06 Dose: 120 ml Ondansetron HCl (Zofran) 4 mg IV Q8H PRN PRN PRN Reason: NAUSEA Pantoprazole Sodium (Protonix) 20 mg PO BID [facility] Last Admin: 01/16/18 21:09 Dose: 20 mg Promethazine HCl (Phenergan) 12.5 mg IV Q6H PRN PRN PRN Reason: NAUSEA/VOMITING Sodium Chloride () 5 - 30 ml IV UD PRN PRN Reason: SALINE FLUSH Medical Necessity - Tobacco Use Smoking Status: Current every day smoker Tobacco Use: Cigarettes Assessment/Plan All Active Problems (Last Reviewed 06/17/17 @ 09:09 by Antionette Lua) Severe sepsis (Acute) PNA (pneumonia) (Acute) COPD (chronic obstructive pulmonary disease) (Acute) BRENDA (acute kidney injury) (Acute) NSTEMI (non-ST elevated myocardial infarction) (Acute) Erectile dysfunction (Acute) Diabetes type 2, controlled (Acute) Testicular hypofunction (Acute) The patient is a 62 y/o M w/ PMHx: HTN, HLD, Obesity, Heavy 2 ppd tobacco use history, Suspected underlying Chronic COPD who presents to the [facility] ED on 01/15/18 w/ history of ongoing malaise, weakness and nausea in addition to fevers and chills with dyspnea progressively worsening for the last several days with no market cough and fall the day prior secondary to severity of his weakness. (1) Acute Hypoxic Respiratory Failure secondary to Acute Severe Sepsis secondary to Legionella Pneumonia and Suspected Acute on Chronic COPD Exacerbation: T102.8, heart rate 129, BP 102/44, respiratory rate 42, 87% on room air, CBC with WBC 15.7, hemoglobin 16.3, platelet 137 with left shift, unremarkable coags, requested ED to perform ABG with pH 7.51, bicarb 21.2, O2 saturation 90%, PCO2 26.7, PO2 51 on 6 L nasal cannula, CMP with sodium 128, potassium 3.2, chloride 90, BUN/Cr 23/1.53, glucose 152, lactic acid 3.1, T bili 1.2, D bili 0.56, AST/ALT 207/46, troponin 0.613, lipase 94, blood cultures obtained per ED and pending chest x-ray with near complete opacification left lung field sparing only the upper lobe at the level of the aortic knob and above.. Admitted to ICU, placed on BIPAP, still intermittent BIPAP needs and q HS, continued on IV solumedrol, continue ATC duonebs, PRN albuterol, maintained on IV Levaquin secondary to Legionella antigen +, [place] of town [place] well water otherwise no atypical H20 sources, HOB, IS parameters w/ pending sputum cultures, + legionella urine antigen, negative strep antigen, negative respiratory viral panel. Bld cx x 2 obtained in the ED pending. CT chest w/ large amount consolidation left upper lobe and lingula which is centrally dense with an air bronchogram possibly representing an infiltrate although an underlying left hilar mass the surrounding consolidation lung cannot be excluded with recommended bronchoscopy, small left effusion lower lobe atelectasis, cardiomegaly with cardiac artery disease, reactive and or metastatic lymphadenopathy, hyperinflated appearance right lung overall pattern of underlying chronic obstructive pulmonary disease, fatty infiltration of the liver with sparing. Discussed with Pulmonary and noted planned bronchoscopy outpatient. ID consulted and also following. 01/16/10 ongoing increased fevers, increased work of breathing, accessory muscle usage, conversational dyspnea, discussed w/ patient and ICU staff, at this time would benefit from intubation. ICU intention to discuss with spouse, repeat CXR similar w/ persistent L lung infiltrate without improvement, also consideration for broadening of his abx regimen from levaquin-->levaquin, zosyn and vanc but will defer to ICU physician. (2) Acute NSTEMI, Type II, Secondary to Demand Ischemia w/ Acute presentation w/ Multifocal Atrial Tachycardia: EKG in ED w/ sinus tachycardia, CXR w/ notable L sided PNA. Trop elevated, 0.613. Will maintain on a monitored bed, serial enzymes trended down, EKGs unchanged. Mag level obtained. Heparin drip initiated upon presentation given unclear trending, decreased enzymes, discontinued 01/16/18 and transition to chemoprophylaxis only. Continue medical management w/ asa, added plavix per Cardiology recommendation, continued BB (reduced dose from his home prior), statin w/ AM FLP w/ TG 99, TChol 60, LDL 26, VLDL 20, HDL 14. ECHO obtained w/ normal LV size, normal LV systolic function, EF 60%, stage I diastolic dysfunction, mildly enlarged LA, mildly enlarged RA. 01/17/18 Cardiology consideration of addition Cardizem; however, suspect would improve merely with intubation, will continue to evaluate and if remains elevated despite intubation, may necessitate agent addition, if hypotension may need to consider amiodarone short-term. (3) Acute kidney injury: Secondary to acute presentation, sepsis, pneumonia, COPD exacerbation, and NSTEMI. Admission BUN/Cr 23/1.53, prior baseline creatinine noted to be 0.9. Hydrating, holding nephrotoxic medications, trending BMP. 01/16/18 BUN/Cr 19/1.26-->01/17 BUN/Cr 23/1.26, improving. (4) Hyperglycemia with New Onset Diabetes mellitus type II: Admission glucose 152, HgbA1c obtained and elevated 6.5% consistent with Diabetes. Will hold on oral additions given current presentation, will need upon discharge, given improvement initiate ADA diet, accu checks w/ ISS. Nutrition consulted for education and teaching. (5) Hyponatremia, Hypovolemic: Admission Na 128, likely hypovolemic, secondary to acute presentation, aggressively hydrating, trend BMP. 01/17/18 Na 134. (6) Hypokalemia: Admission K+ 3.2, supplementation given, trending. 01/16/18 K 3.2, supplemented additional w/ phos IV. 01/17/18 K 3.1, Phos 2.2, additional supplementation administered. (7) Tobacco Abuse: Encouraged cessation, inpatient consultation per RT, NR if desired. (8) Hypertension: Continue home regimen including metoprolol with hold parameters given acute presentation. (9) Hyperlipidemia: Continue home statin regimen. AM FLP w/ TG 99, TChol 60, LDL 26, VLDL 20, HDL 14. (10) Obesity: Weight loss and lifestyle changes encouraged, nutrition consulted for education and teaching. (11) Anxiety and Depression: Continue home citalopram regimen. (12) GERD: PPI. (13) DVT Prophylaxis: SCDs, heparin. (14) CODE status: Remains full code status. Confirmed again is HCPOA. Discussed need for intubation and patient amenable. Also amenable to discussion of his status and intubation need with his spouse. Pulmonary also discussed intubation with him and conveyed that given his underlying pulmonary disease it is always a possibility than extubation may be difficult. Advanced Care Planning Face to Face Time: 16 minutes. Code Visit Inpatient E&M: 08809 Subs Hosp L3 Procedures: 98682 Advncd Care Plan 30 Min
[2018-01-17 06:39] LABS: Lymphocyte 1 % (19-41); Monocyte 1 % (0-10); Neutrophil-Band 11 % (0-5); Neutrophil-Segmented 87 % (47-70); Red Cell Morphology NORM C+C NORMAL (NORM C&C); Total Cells Counted 100 (MANUAL DIFF)
[2018-01-17 06:40] LABS: Platelet Estimate ADEQUATE (ADEQ); Platelet Morphology LARGE
[2018-01-17 06:41] LABS: Absolute Lymphocyte Count 0.25 X10^3/ul (0.83-4.51); Absolute Neutrophil Count 24.7 X10^3/uL (2.0-7.7)
--- NOTE | 2018-01-17 06:43 | PN_ITS ---
Patient Problems: Active and Suspected Problems (Last Reviewed 06/17/17 @ 09:09 by Antionette Lua) Severe sepsis (Acute) PNA (pneumonia) (Acute) COPD (chronic obstructive pulmonary disease) (Acute) BRENDA (acute kidney injury) (Acute) NSTEMI (non-ST elevated myocardial infarction) (Acute) Subjective: The patient is a 62 y/o M w/ PMHx: HTN, HLD, Obesity, Heavy 2 ppd tobacco use history, Suspected underlying Chronic COPD who presents to the [facility] ED on 01/15/18 w/ history of ongoing malaise, weakness and nausea in addition to fevers and chills with dyspnea progressively worsening for the last several days with no market cough and fall the day prior secondary to severity of his weakness. ED T102.8, heart rate 129, BP 102/44, respiratory rate 42, 87% on room air, CBC with WBC 15.7, hemoglobin 16.3, platelet 137 with left shift, unremarkable coags, requested ED to perform ABG with pH 7.51, bicarb 21.2, O2 saturation 90%, PCO2 26.7, PO2 51 on 6 L nasal cannula, CMP with sodium 128, potassium 3.2, chloride 90, BUN/Cr 23/1.53, glucose 152, lactic acid 3.1, T bili 1.2, D bili 0.56, AST/ALT 207/46, troponin 0.613, lipase 94, blood cultures obtained per ED and pending chest x-ray with near complete opacification left lung field sparing only the upper lobe at the level of the aortic knob and above.. Admitted to ICU, placed on BIPAP, still intermittent BIPAP needs and q HS, continued on IV solumedrol, continue ATC duonebs, PRN albuterol, maintained on IV Levaquin secondary to Legionella antigen +, [place] of town [place] water otherwise no atypical H20 sources, HOB, IS parameters w/ pending sputum cultures, + legionella urine antigen, negative strep antigen, negative respiratory viral panel. Bld cx x 2 obtained in the ED pending. CT chest w/ large amount consolidation left upper lobe and lingula which is centrally dense with an air bronchogram possibly representing an infiltrate although an underlying left hilar mass the surrounding consolidation lung cannot be excluded with recommended bronchoscopy, small left effusion lower lobe atelectasis, cardiomegaly with cardiac artery disease, reactive and or metastatic lymphadenopathy, hyperinflated appearance right lung overall pattern of underlying chronic obstructive pulmonary disease, fatty infiltration of the liver with sparing. Discussed with Pulmonary and noted planned bronchoscopy outpatient. ID consulted and also following. 01/16/10 ongoing increased fevers, increased work of breathing, accessory muscle usage, conversational dyspnea, discussed w/ patient and ICU staff, at this time would benefit from intubation. ICU intention to discuss with spouse, repeat CXR similar w/ persistent L lung infiltrate without improvement, also consideration for broadening of his abx regimen from levaquin-->levaquin, zosyn and vanc but will defer to ICU physician. EKG in ED w/ sinus tachycardia, CXR w/ notable L sided PNA. Trop elevated, 0.613. Will maintain on a monitored bed, serial enzymes trended down, EKGs unchanged. Mag level obtained. Heparin drip initiated upon presentation given unclear trending, decreased enzymes, discontinued 01/16/18 and transition to chemoprophylaxis only. Continue medical management w/ asa, added plavix per Cardiology recommendation, continued BB (reduced dose from his home prior), statin w/ AM FLP w/ TG 99, TChol 60, LDL 26, VLDL 20, HDL 14. ECHO obtained w/ normal LV size, normal LV systolic function, EF 60%, stage I diastolic dysfunction, mildly enlarged LA, mildly enlarged RA. 01/17/18 Cardiology consideration of addition Cardizem; however, suspect would improve merely with intubation, will continue to evaluate and if remains elevated despite intubation, may necessitate agent addition, if hypotension may need to consider amiodarone short-term. FULL CODE. Patient with ongoing now increased work of breathing, increased respiratory rate, more fatigued appearance as well as ongoing tachycardia although had been on decreased beta-femi from his home regimen prior in addition to elevated temperatures. Discussed with pulmonary medicine and concern for ability to continue given worsening fatigue. Discussed intubation with patient and he is amenable. 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 Per nursing staff patient more confused overnight as well. Patient with fevers, chills, dyspnea. No nausea, emesis, abdominal pain, chest pain. Objective: Physical Examination: General: awake, alert, oriented x 3, appropriate, was confused overnight per sta ff, cooperative, seated upright in the ICU bed, increased work of breathing, increased RR, more fatigued appearance. Skin: normal color, turgor, no icterus, cyanosis. HEENT: AT/NC, EOMI, PERRLA, mildly dry MM. Lungs: Improved from initial but still diffusely diminished, > L sided, coarse, rales, wheezing inspiratory and expiratory, increased work of breathing, accessory muscle usage evidence, respiratory distress evident. Heart: Ongoing tachycardic, increased with regular rhythm; no gallop, rub audible. Abdomen: soft, obese, NTTP, appears mildly to moderately distended, decreased BS. Extremities: no cyanosis, clubbing, BL LE ankle mild edema. Neurological: patient awake, alert, oriented x 3; cognitive function intact; pupils equally reactive to light and accomodation; cranial nerves II-XII grossly normal, moving all 4 extremities, no focal deficits, strength severely globally decreased secondary to acute presentation. Psychiatric: affect appears more fatigued, no acute evidence of depressive or anxiety feelings. Vitals/I&O's: Vital Signs Temp Pulse Resp BP Pulse Ox 101.9 F H 104 H 31 H 157/91 H 45 01/17/18 06:00 01/17/18 06:00 01/17/18 06:00 01/17/18 06:00 01/17/18 06:00 Oxygen Flow Rate (L/min) 5 Oxygen Delivery Method Bi-pap Weight: 205 lb 4.006 oz Body Mass Index (BMI) 29.7 Intake and Output for Last 24 Hours 01/15/18 01/16/18 01/17/18 23:59 23:59 23:59 Intake Total 3172.3 / 3172.3 4593.8 / 4593.8 100 / 100 Output Total 850 / 850 2150 / 2150 450 / 450 Balance 2322.3 / 2322.3 2443.8 / 2443.8 -350 / -350 Microbiology Past 72 Hours 01/15/18 12:30 Urine Catheter - Catheter Urine Culture - Preliminary Culture exhibits no growth. 01/15/18 12:55 Mucosa - Nose Respiratory Panel (PCR) - Final 01/15/18 21:50 Sputum, Expectorated/Coughed Gram Stain - Final 01/15/18 12:30 Urine Catheter - Catheter Streptococcus pneumoniae Antigen (M - Final 01/15/18 12:30 Urine Catheter - Catheter Legionella Antigen - Final Legionella Antigen Laboratory Results 01/16/18 03:30: WBC 22.2 H, RBC 4.72, Hgb 14.4, Hct 41.4, MCV 87.7, MCH 30.5, MCHC 34.8, RDW 13.2, RDW Differential 42.7, Plt Count 131 L, MPV 11.8, Neut % (Auto) Not Reportable, Absolute Neuts (auto) 21.9 H, Absolute Lymphs (auto) 0.22 L, Total Counted 100, Neutrophils % (Manual) 87 H, Band Neutrophils % 12 H, Lymphocytes % (Manual) 1 L, Platelet Estimate ADEQUATE, RBC Morphology NORM C+C 01/16/18 03:30: Sodium 135 L, Potassium 3.2 L, Chloride 101, Carbon Dioxide 22.0, Anion Gap 12, BUN 19 H, Creatinine 1.26, Estim Creat Clear Calc 58.06, Est GFR (MDRD) Af Amer 74, Est GFR (MDRD) Non-Af 61, BUN/Creatinine Ratio 15.1, Glucose 188 H, Calcium 6.9 L, Phosphorus 1.7 L, Magnesium 2.6, Total Bilirubin 0.70, AST 157 H, ALT 48, Alkaline Phosphatase 58, Total Protein 5.8 L, Albumin 2.1 L, Globulin 3.7, Albumin/Globulin Ratio 0.6 L 01/16/18 07:43: POC Glucose 192 H 01/16/18 11:44: POC Glucose 276 H 01/16/18 16:46: POC Glucose 223 H 01/16/18 21:06: POC Glucose 252 H 01/17/18 05:00: WBC 25.2 H, RBC 4.38 L, Hgb 13.3, Hct 37.6 L, MCV 85.8, MCH 30.4, MCHC 35.4, RDW 13.3, RDW Differential 41.3, Plt Count 205, MPV 11.5, Neut % (Auto) Not Reportable, Absolute Neuts (auto) Not Reportable, Total Counted Pending 01/17/18 05:00: Sodium 134 L, Potassium 3.1 L, Chloride 99, Carbon Dioxide 26.0, Anion Gap 9, BUN 23 H, Creatinine 1.26, Estim Creat Clear Calc 58.06, Est GFR (MDRD) Af Amer 74, Est GFR (MDRD) Non-Af 61, BUN/Creatinine Ratio 18.3, Glucose 188 H, Calcium 8.0 L, Phosphorus 2.2 L, Magnesium 2.4, Total Bilirubin 0.80, AST 118 H, ALT 52, Alkaline Phosphatase 65, Total Protein 6.0 L, Albumin 2.0 L, Globulin 4.0, Albumin/Globulin Ratio 0.5 L 01/17/18 05:12: Specimen Type ART, Sample Site R Radial, pH 7.48 H, Bicarbonate Actual 22.6, POC Total CO2 24, Base Excess -1, O2 Saturation 87 L, ABG pCO2 30.5 L, ABG pO2 48 L, Jaylen Test POS, O2 Delivery Device Nasal Can, Liter Flow 5.0, Blood Gas Notified Whom ICU MD, Blood Gas Notified Time 505 01/17/18 06:16: POC Glucose 184 H Current Medications Acetaminophen (Tylenol) 650 mg PO Q4H PRN PRN PRN Reason: FEVER Last Admin: 01/17/18 06:18 Dose: 650 mg Al Hydroxide/Mg Hydroxide (Mylanta Ii) 30 ml PO Q6H PRN PRN PRN Reason: Gastric burning Albuterol Sulfate (Ventolin Aerosols) 2.5 mg INHALATION Q2H PRN PRN PRN Reason: SHORTNESS OF BREATH Albuterol/Ipratropium (Duoneb) 3 ml INHALATION Q4H.RT [facility] Last Admin: 01/17/18 02:52 Dose: 3 ml Aspirin (Aspirin, Baby) 81 mg PO DAILY@0800 [facility] Last Admin: 01/16/18 07:46 Dose: 81 mg Atorvastatin Calcium (Lipitor) 40 mg PO HS [facility] Last Admin: 01/16/18 21:08 Dose: 40 mg Chlorhexidine Gluconate () 1 each TOPICAL DAILY [facility] Citalopram Hydrobromide (Celexa) 40 mg PO DAILY [facility] Last Admin: 01/16/18 10:00 Dose: 40 mg Clopidogrel Bisulfate (Plavix) 75 mg PO DAILY [facility] Gabapentin (Neurontin) 100 mg PO DAILYCM [facility] Last Admin: 01/16/18 07:46 Dose: 100 mg Guaifenesin (Mucinex) 1,200 mg PO BID [facility] Last Admin: 01/16/18 21:09 Dose: 1,200 mg Heparin Sodium (Porcine) (Heparin Na) 5,000 unit SC Q8 [facility] Last Admin: 01/17/18 05:08 Dose: 5,000 unit Sodium Chloride () 250 mls @ 15 mls/hr IV .[id number] PRN PRN Reason: SALINE FLUSH Sodium Chloride () 250 mls @ 15 mls/hr IV .[id number] PRN PRN Reason: SALINE FLUSH Levofloxacin (Levaquin Iv) 750 mg in 150 mls @ 100 mls/hr IV Q24 [facility] Last Admin: 01/16/18 10:00 Dose: 100 mls/hr Insulin Human Lispro (Humalog Kwikpen (Bkc)) 0 unit SC ACHS [facility]; Protocol Last Admin: 01/16/18 21:07 Dose: 3 u Magnesium Hydroxide (Milk Of Magnesia) 30 ml PO DAILY PRN PRN PRN Reason: Constipation Methylprednisolone (Solu-Medrol) 40 mg IV Q8 [facility] Last Admin: 01/17/18 05:08 Dose: 40 mg Metoprolol Tartrate (Lopressor (Beta Femi)) 100 mg PO BID [facility] Last Admin: 01/16/18 21:08 Dose: 100 mg Nutritional Formula (Lactose Free) (Ensure Clear) 120 ml PO 4X/DAY [facility] Last Admin: 01/16/18 21:06 Dose: 120 ml Ondansetron HCl (Zofran) 4 mg IV Q8H PRN PRN PRN Reason: NAUSEA Pantoprazole Sodium (Protonix) 20 mg PO BID [facility] Last Admin: 01/16/18 21:09 Dose: 20 mg Promethazine HCl (Phenergan) 12.5 mg IV Q6H PRN PRN PRN Reason: NAUSEA/VOMITING Sodium Chloride () 5 - 30 ml IV UD PRN PRN Reason: SALINE FLUSH Medical Necessity - Tobacco Use Smoking Status: Current every day smoker Tobacco Use: Cigarettes Assessment/Plan All Active Problems (Last Reviewed 06/17/17 @ 09:09 by Antionette Lua) Severe sepsis (Acute) PNA (pneumonia) (Acute) COPD (chronic obstructive pulmonary disease) (Acute) BRENDA (acute kidney injury) (Acute) NSTEMI (non-ST elevated myocardial infarction) (Acute) Erectile dysfunction (Acute) Diabetes type 2, controlled (Acute) Testicular hypofunction (Acute) The patient is a 62 y/o M w/ PMHx: HTN, HLD, Obesity, Heavy 2 ppd tobacco use history, Suspected underlying Chronic COPD who presents to the [facility] ED on 01/15/18 w/ history of ongoing malaise, weakness and nausea in addition to fevers and chills with dyspnea progressively worsening for the last several days with no market cough and fall the day prior secondary to severity of his weakness. (1) Acute Hypoxic Respiratory Failure secondary to Acute Severe Sepsis secondary to Legionella Pneumonia and Suspected Acute on Chronic COPD Exacerbation: T102.8, heart rate 129, BP 102/44, respiratory rate 42, 87% on room air, CBC with WBC 15.7, hemoglobin 16.3, platelet 137 with left shift, unremarkable coags, requested ED to perform ABG with pH 7.51, bicarb 21.2, O2 saturation 90%, PCO2 26.7, PO2 51 on 6 L nasal cannula, CMP with sodium 128, potassium 3.2, chloride 90, BUN/Cr 23/1.53, glucose 152, lactic acid 3.1, T bili 1.2, D bili 0.56, AST/ALT 207/46, troponin 0.613, lipase 94, blood cultures obtained per ED and pending chest x-ray with near complete opacification left lung field sparing only the upper lobe at the level of the aortic knob and above.. Admitted to ICU, placed on BIPAP, still intermittent BIPAP needs and q HS, continued on IV solumedrol, continue ATC duonebs, PRN albuterol, maintained on IV Levaquin secondary to Legionella antigen +, [place] of [place] water otherwise no atypical H20 sources, HOB, IS parameters w/ pending sputum cultures, + legionella urine antigen, negative strep antigen, negative respiratory viral panel. Bld cx x 2 obtained in the ED pending. CT chest w/ large amount consolidation left upper lobe and lingula which is centrally dense with an air bronchogram possibly representing an infiltrate although an underlying left hilar mass the surrounding consolidation lung cannot be excluded with recommended bronchoscopy, small left effusion lower lobe atelectasis, cardiomegaly with cardiac artery disease, reactive and or metastatic lymphade nopathy, hyperinflated appearance right lung overall pattern of underlying chronic obstructive pulmonary disease, fatty infiltration of the liver with sparing. Discussed with Pulmonary and noted planned bronchoscopy outpatient. ID consulted and also following. 01/16/10 ongoing increased fevers, increased work of breathing, accessory muscle usage, conversational dyspnea, discussed w/ patient and ICU staff, at this time would benefit from intubation. ICU intention to discuss with spouse, repeat CXR similar w/ persistent L lung infiltrate without improvement, also consideration for broadening of his abx regimen from levaquin-->levaquin, zosyn and vanc but will defer to ICU physician. (2) Acute NSTEMI, Type II, Secondary to Demand Ischemia w/ Acute presentation w/ Multifocal Atrial Tachycardia: EKG in ED w/ sinus tachycardia, CXR w/ notable L sided PNA. Trop elevated, 0.613. Will maintain on a monitored bed, serial enzymes trended down, EKGs unchanged. Mag level obtained. Heparin drip initiated upon presentation given unclear trending, decreased enzymes, discontinued 01/16/18 and transition to chemoprophylaxis only. Continue medical management w/ asa, added plavix per Cardiology recommendation, continued BB (reduced dose from his home prior), statin w/ AM FLP w/ TG 99, TChol 60, LDL 26, VLDL 20, HDL 14. ECHO obtained w/ normal LV size, normal LV systolic function, EF 60%, stage I d iastolic dysfunction, mildly enlarged LA, mildly enlarged RA. 01/17/18 Cardiology consideration of addition Cardizem; however, suspect would improve merely with intubation, will continue to evaluate and if remains elevated despite intubation, may necessitate agent addition, if hypotension may need to consider amiodarone short-term. (3) Acute kidney injury: Secondary to acute presentation, sepsis, pneumonia, COPD exacerbation, and NSTEMI. Admission BUN/Cr 23/1.53, prior baseline creatinine noted to be 0.9. Hydrating, holding nephrotoxic medications, trending BMP. 01/16/18 BUN/Cr 19/1.26-->01/17 BUN/Cr 23/1.26, improving. (4) Hyperglycemia with New Onset Diabetes mellitus type II: Admission glucose 152, HgbA1c obtained and elevated 6.5% consistent with Diabetes. Will hold on oral additions given current presentation, will need upon discharge, given improvement initiate ADA diet, accu checks w/ ISS. Nutrition consulted for education and teaching. (5) Hyponatremia, Hypovolemic: Admission Na 128, likely hypovolemic, secondary to acute presentation, aggressively hydrating, trend BMP. 01/17/18 Na 134. (6) Hypokalemia: Admission K+ 3.2, supplementation given, trending. 01/16/18 K 3.2, supplemented additional w/ phos IV. 01/17/18 K 3.1, Phos 2.2, additional supplementation administered. (7) Tobacco Abuse: Encouraged cessation, inpatient consultation per RT, NR if desired. (8) Hypertension: Continue home regimen including metoprolol with hold parameters given acute presentation. (9) Hyperlipidemia: Continue home statin regimen. AM FLP w/ TG 99, TChol 60, LDL 26, VLDL 20, HDL 14. (10) Obesity: Weight loss and lifestyle changes encouraged, nutrition consulted for education and teaching. (11) Anxiety and Depression: Continue home citalopram regimen. (12) GERD: PPI. (13) DVT Prophylaxis: SCDs, heparin. (14) CODE status: Remains full code status. Confirmed again is HCPOA. Discussed need for intubation and patient amenable. Also amenable to discussion of his status and intubation need with his spouse. Pulmonary also discussed intubation with him and conveyed that given his underlying pulmonary disease it is always a possibility than extubation may be difficult. Advanced Care Planning Face to Face Time: 16 minutes. Code Visit Inpatient E&M: 78950 Subs Hosp L3 Procedures: 92670 Advncd Care Plan 30 Min
--- NOTE | 2018-01-17 06:53 | RAD_ITS ---
STUDY: X-RAY CHEST REASON FOR EXAM: Male, 62 years old. Short of breath TECHNIQUE: Single AP portable view of the chest. COMPARISON: Chest x-ray and chest CT January 15, 2018 FINDINGS: Cardiac monitoring leads are present. There remains pulmonary parenchymal infiltrate in association with the superior segment of the left lower lobe and the inferior aspect of the left upper lobe similar to that seen previously. No progression or improvement. There is no demonstrated pleural abnormality. Normal size heart. Normal mediastinum and ora. Normal visualized pulmonary arteries. Mild atherosclerosis of the aortic arch noted. Normal visualized thoracic spine. Normal visualized ribs, clavicles, and shoulders. There is no demonstrated abnormality of the visualized soft tissue structures of the upper abdomen. RAD/Chest 1 View (Portable) IMPRESSION: Persistent left lung infiltrate no change or improvement. Follow-up to clearing recommended. Electronically Signed: Karen Howard MD at 8:16 EDT , Service support ,
--- NOTE | 2018-01-17 06:58 | PCM.PN.INT ---
Subjective: The patient was seen and examined at the bedside this morning. Events from the last 24 hours have been reviewed. The patient is currently febrile with a T-max overnight of 102.5 ?F. The patient remains tachycardic and tachypneic. Repeat arterial blood gas from this morning revealed significant hypoxia on 5 L/min with a PO2 of 48. The patient continues to report resting dyspnea but denies the presence of a cough. He is currently overall net +4.4 L for the admission. Nursing staff did report that the patient was experiencing delirium overnight. Objective: The patient's most recent lab work, culture data and imaging studies have all been personally reviewed. CT chest without contrast obtained yesterday revealed bilateral emphysematous changes along with evidence of consolidation in the left upper lobe and lingula with corresponding groundglass changes extending into the left lower lobe. There was extensive mediastinal lymphadenopathy noted. It was noted that the left pulmonary artery was encased in either consolidation or a possible underlying lung mass. Urine Legionella antigen was noted to be positive. Streptococcus antigen was negative. Blood and urine cultures are pending. Expectorated sputum culture is pending. Respiratory viral panel is pending. Surface echocardiogram revealed normal LV size and function with evidence of stage I diastolic dysfunction. General: - - The patient is currently alert and appropriately interactive. He is quite ill in appearance. HEENT: Atraumatic, PERRLA, Normocephalic Oral: Dry Mucosa Neck: Supple, No Nodes, Trachea Midline Lungs: - - Globally diminished air movement bilaterally with associated rales and expiratory wheezes. The patient remains tachypneic and has difficulty in speaking in complete sentences. Cardiovascular: Normal S1, Normal S2, No murmurs, Tachycardic, - Abdomen: Bowel Sounds Present, Soft, Non Tender Extremities: No clubbing, No cyanosis, No edema Skin: No breakdown Musculoskeletal: No Tenderness to Palpation of Joints or Extremities Lymphatic: No Cervical, Supraclavicular, or Inguinal Adenopathy Neurological: - - No focal neurological deficits. Vital Signs Temp Pulse Resp BP Pulse Ox 101.9 F H 108 H 27 H 157/91 H 92 01/17/18 06:00 01/17/18 06:44 01/17/18 06:44 01/17/18 06:00 01/17/18 06:48 Oxygen Flow Rate (L/min) 6 Oxygen Delivery Method Nasal Cannula Weight: 205 lb 4.006 oz Body Mass Index (BMI) 29.7 Intake and Output for Last 24 Hours 01/15/18 01/16/18 01/17/18 23:59 23:59 23:59 Intake Total 3172.3 / 3172.3 4593.8 / 4593.8 100 / 100 Output Total 850 / 850 2150 / 2150 450 / 450 Balance 2322.3 / 2322.3 2443.8 / 2443.8 -350 / -350 Labs (Last 48 Hours) 01/15/18 01/15/18 01/15/18 09:45 09:45 09:45 WBC 15.7 H RBC 5.26 Hgb 16.3 Hct 44.9 MCV 85.4 MCH 31.0 MCHC 36.3 H RDW 12.7 RDW Differential 39.8 Plt Count 137 L MPV 11.5 Neut % (Auto) Not Reportable Absolute Neuts (auto) 13.7 H Absolute Lymphs (auto) 0.79 L Total Counted 100 Neutrophils % (Manual) 85 H Band Neutrophils % 2 Lymphocytes % (Manual) 5 L Monocytes % (Manual) 8 Differential Comment 1+ Diff Path Review May foll Platelet Estimate SLT Plt Morphology Comment RBC Morphology NORM C+C PT INR APTT Specimen Type Sample Site pH Bicarbonate Actual POC Total CO2 Base Excess O2 Saturation O2 % ABG pCO2 ABG pO2 Jaylen Test Respiration Rate O2 Delivery Device Liter Flow EPAP IPAP Blood Gas Notified Whom Blood Gas Notified Time Sodium 128 L Potassium 3.2 L Chloride 90 L Carbon Dioxide 25.0 Anion Gap 13 BUN 23 H Creatinine 1.53 H Estim Creat Clear Calc 47.81 Est GFR (MDRD) Af Amer 59 L Est GFR (MDRD) Non-Af 49 L BUN/Creatinine Ratio 15.0 Glucose 152 H Hemoglobin A1c Lactic Acid 3.1 H Calcium 8.3 L Phosphorus Magnesium Total Bilirubin 1.20 H Direct Bilirubin 0.56 H AST 207 H ALT 46 Alkaline Phosphatase 67 Troponin I 0.613 H* Total Protein 7.6 Albumin 2.6 L Globulin 5.0 H Albumin/Globulin Ratio Triglycerides Cholesterol LDL Cholesterol VLDL Cholesterol HDL Cholesterol Lipase 94 Urine Color Urine Clarity Urine pH Ur Specific [place] Urine Protein Urine Glucose (UA) Urine Ketones Urine Occult Blood Urine Nitrite Urine Bilirubin Urine Urobilinogen Ur Leukocyte Esterase Urine RBC Urine WBC Ur Squamous Epith Cells Amorphous Sediment Urine Bacteria Fine Granular Casts Urine Mucus MRSA (PCR) POC Glucose 01/15/18 01/15/18 01/15/18 09:45 09:45 09:45 WBC RBC Hgb Hct MCV MCH MCHC RDW RDW Differential Plt Count MPV Neut % (Auto) Absolute Neuts (auto) Absolute Lymphs (auto) Total Counted Neutrophils % (Manual) Band Neutrophils % Lymphocytes % (Manual) Monocytes % (Manual) Differential Comment Diff Path Review Platelet Estimate Plt Morphology Comment RBC Morphology PT 13.8 INR 1.1 APTT 33.7 Specimen Type Sample Site pH Bicarbonate Actual POC Total CO2 Base Excess O2 Saturation O2 % ABG pCO2 ABG pO2 Jaylen Test Respiration Rate O2 Delivery Device Liter Flow EPAP IPAP Blood Gas Notified Whom Blood Gas Notified Time Sodium Potassium Chloride Carbon Dioxide Anion Gap BUN Creatinine Estim Creat Clear Calc Est GFR (MDRD) Af Amer Est GFR (MDRD) Non-Af BUN/Creatinine Ratio Glucose Hemoglobin A1c 6.5 H Lactic Acid Calcium Phosphorus Magnesium 2.9 H Total Bilirubin Direct Bilirubin AST ALT Alkaline Phosphatase Troponin I Total Protein Albumin Globulin Albumin/Globulin Ratio Triglycerides Cholesterol LDL Cholesterol VLDL Cholesterol HDL Cholesterol Lipase Urine Color Urine Clarity Urine pH Ur Specific [place] Urine Protein Urine Glucose (UA) Urine Ketones Urine Occult Blood Urine Nitrite Urine Bilirubin Urine Urobilinogen Ur Leukocyte Esterase Urine RBC Urine WBC Ur Squamous Epith Cells Amorphous Sediment Urine Bacteria Fine Granular Casts Urine Mucus MRSA (PCR) POC Glucose 01/15/18 01/15/18 01/15/18 09:45 11:00 12:30 WBC RBC Hgb Hct MCV MCH MCHC RDW RDW Differential Plt Count MPV Neut % (Auto) Absolute Neuts (auto) Absolute Lymphs (auto) Total Counted Neutrophils % (Manual) Band Neutrophils % Lymphocytes % (Manual) Monocytes % (Manual) Differential Comment Diff Path Review Platelet Estimate Plt Morphology Comment RBC Morphology PT INR APTT Specimen Type ART Sample Site L Radial pH 7.51 H Bicarbonate Actual 21.2 L POC Total CO2 22 Base Excess -2 O2 Saturation 90 L O2 % ABG pCO2 26.7 L ABG pO2 51 L Jaylen Test POS Respiration Rate O2 Delivery Device Nasal Can Liter Flow 6.0 EPAP IPAP Blood Gas Notified Whom ED MD Blood Gas Notified Time 1050 Sodium Potassium Chloride Carbon Dioxide Anion Gap BUN Creatinine Estim Creat Clear Calc Est GFR (MDRD) Af Amer Est GFR (MDRD) Non-Af BUN/Creatinine Ratio Glucose Hemoglobin A1c Lactic Acid Calcium Phosphorus 2.3 L Magnesium Total Bilirubin Direct Bilirubin AST ALT Alkaline Phosphatase Troponin I Total Protein Albumin Globulin Albumin/Globulin Ratio Triglycerides Cholesterol LDL Cholesterol VLDL Cholesterol HDL Cholesterol Lipase Urine Color Yellow Urine Clarity Cloudy Urine pH 6.0 Ur Specific [place] 1.020 Urine Protein 100 H Urine Glucose (UA) Normal Urine Ketones 50 H Urine Occult Blood 250 H Urine Nitrite Negative Urine Bilirubin Negative Urine Urobilinogen 4 H Ur Leukocyte Esterase 25 H Urine RBC 0 SEEN Urine WBC 0-5 SEEN Ur Squamous Epith Cells 0-5 SEEN Amorphous Sediment 4+ Urine Bacteria 4+ Fine Granular Casts 5-10 SEEN Urine Mucus 0 SEEN MRSA (PCR) POC Glucose 01/15/18 01/15/18 01/15/18 12:36 13:05 13:05 WBC RBC Hgb Hct MCV MCH MCHC RDW RDW Differential Plt Count MPV Neut % (Auto) Absolute Neuts (auto) Absolute Lymphs (auto) Total Counted Neutrophils % (Manual) Band Neutrophils % Lymphocytes % (Manual) Monocytes % (Manual) Differential Comment Diff Path Review Platelet Estimate Plt Morphology Comment RBC Morphology PT INR APTT Specimen Type Sample Site pH Bicarbonate Actual POC Total CO2 Base Excess O2 Saturation O2 % ABG pCO2 ABG pO2 Jaylen Test Respiration Rate O2 Delivery Device Liter Flow EPAP IPAP Blood Gas Notified Whom Blood Gas Notified Time Sodium Potassium Chloride Carbon Dioxide Anion Gap BUN Creatinine Estim Creat Clear Calc Est GFR (MDRD) Af Amer Est GFR (MDRD) Non-Af BUN/Creatinine Ratio Glucose Hemoglobin A1c Lactic Acid 2.0 Calcium Phosphorus Magnesium Total Bilirubin Direct Bilirubin AST ALT Alkaline Phosphatase Troponin I 0.525 H Total Protein Albumin Globulin Albumin/Globulin Ratio Triglycerides Cholesterol LDL Cholesterol VLDL Cholesterol HDL Cholesterol Lipase Urine Color Urine Clarity Urine pH Ur Specific [place] Urine Protein Urine Glucose (UA) Urine Ketones Urine Occult Blood Urine Nitrite Urine Bilirubin Urine Urobilinogen Ur Leukocyte Esterase Urine RBC Urine WBC Ur Squamous Epith Cells Amorphous Sediment Urine Bacteria Fine Granular Casts Urine Mucus MRSA (PCR) POC Glucose 267 H 01/15/18 01/15/18 01/15/18 13:12 15:15 16:25 WBC RBC Hgb Hct MCV MCH MCHC RDW RDW Differential Plt Count MPV Neut % (Auto) Absolute Neuts (auto) Absolute Lymphs (auto) Total Counted Neutrophils % (Manual) Band Neutrophils % Lymphocytes % (Manual) Monocytes % (Manual) Differential Comment Diff Path Review Platelet Estimate Plt Morphology Comment RBC Morphology PT INR APTT Specimen Type ART ART Sample Site R Radial R Radial pH 7.42 7.39 Bicarbonate Actual 20.4 L 22.0 POC Total CO2 21 23 Base Excess -4 L -3 L O2 Saturation 96 98 O2 % 60 ABG pCO2 31.2 L 36.4 ABG pO2 80 107 H Jaylen Test POS POS Respiration Rate 12 O2 Delivery Device NRB Mask Bi / C PAP Liter Flow 15.0 EPAP 8 IPAP 12 Blood Gas Notified Whom ICU MD ICU MD Blood Gas Notified Time 1313 1516 Sodium Potassium Chloride Carbon Dioxide Anion Gap BUN Creatinine Estim Creat Clear Calc Est GFR (MDRD) Af Amer Est GFR (MDRD) Non-Af BUN/Creatinine Ratio Glucose Hemoglobin A1c Lactic Acid Calcium Phosphorus Magnesium Total Bilirubin Direct Bilirubin AST ALT Alkaline Phosphatase Troponin I Total Protein Albumin Globulin Albumin/Globulin Ratio Triglycerides Cholesterol LDL Cholesterol VLDL Cholesterol HDL Cholesterol Lipase Urine Color Urine Clarity Urine pH Ur Specific [place] Urine Protein Urine Glucose (UA) Urine Ketones Urine Occult Blood Urine Nitrite Urine Bilirubin Urine Urobilinogen Ur Leukocyte Esterase Urine RBC Urine WBC Ur Squamous Epith Cells Amorphous Sediment Urine Bacteria Fine Granular Casts Urine Mucus MRSA (PCR) Negative POC Glucose 01/15/18 01/15/18 01/15/18 16:30 18:42 18:53 WBC RBC Hgb Hct MCV MCH MCHC RDW RDW Differential Plt Count MPV Neut % (Auto) Absolute Neuts (auto) Absolute Lymphs (auto) Total Counted Neutrophils % (Manual) Band Neutrophils % Lymphocytes % (Manual) Monocytes % (Manual) Differential Comment Diff Path Review Platelet Estimate Plt Morphology Comment RBC Morphology PT INR APTT Specimen Type Sample Site pH Bicarbonate Actual POC Total CO2 Base Excess O2 Saturation O2 % ABG pCO2 ABG pO2 Jaylen Test Respiration Rate O2 Delivery Device Liter Flow EPAP IPAP Blood Gas Notified Whom Blood Gas Notified Time Sodium Potassium Chloride Carbon Dioxide Anion Gap BUN Creatinine Estim Creat Clear Calc Est GFR (MDRD) Af Amer Est GFR (MDRD) Non-Af BUN/Creatinine Ratio Glucose Hemoglobin A1c Lactic Acid Calcium Phosphorus Magnesium Total Bilirubin Direct Bilirubin AST ALT Alkaline Phosphatase Troponin I 0.313 H 0.252 H Total Protein Albumin Globulin Albumin/Globulin Ratio Triglycerides Cholesterol LDL Cholesterol VLDL Cholesterol HDL Cholesterol Lipase Urine Color Urine Clarity Urine pH Ur Specific [place] Urine Protein Urine Glucose (UA) Urine Ketones Urine Occult Blood Urine Nitrite Urine Bilirubin Urine Urobilinogen Ur Leukocyte Esterase Urine RBC Urine WBC Ur Squamous Epith Cells Amorphous Sediment Urine Bacteria Fine Granular Casts Urine Mucus MRSA (PCR) POC Glucose 270 H 01/15/18 01/16/18 01/16/18 21:30 00:07 03:30 WBC RBC Hgb Hct MCV MCH MCHC RDW RDW Differential Plt Count MPV Neut % (Auto) Absolute Neuts (auto) Absolute Lymphs (auto) Total Counted Neutrophils % (Manual) Band Neutrophils % Lymphocytes % (Manual) Monocytes % (Manual) Differential Comment Diff Path Review Platelet Estimate Plt Morphology Comment RBC Morphology PT INR APTT 70.3 H Specimen Type Sample Site pH Bicarbonate Actual POC Total CO2 Base Excess O2 Saturation O2 % ABG pCO2 ABG pO2 Jaylen Test Respiration Rate O2 Delivery Device Liter Flow EPAP IPAP Blood Gas Notified Whom Blood Gas Notified Time Sodium Potassium Chloride Carbon Dioxide Anion Gap BUN Creatinine Estim Creat Clear Calc Est GFR (MDRD) Af Amer Est GFR (MDRD) Non-Af BUN/Creatinine Ratio Glucose Hemoglobin A1c Lactic Acid Calcium Phosphorus Magnesium Total Bilirubin Direct Bilirubin AST ALT Alkaline Phosphatase Troponin I Total Protein Albumin Globulin Albumin/Globulin Ratio Triglycerides 99 Cholesterol 60 LDL Cholesterol 26 VLDL Cholesterol 20 HDL Cholesterol 14 L Lipase Urine Color Urine Clarity Urine pH Ur Specific [place] Urine Protein Urine Glucose (UA) Urine Ketones Urine Occult Blood Urine Nitrite Urine Bilirubin Urine Urobilinogen Ur Leukocyte Esterase Urine RBC Urine WBC Ur Squamous Epith Cells Amorphous Sediment Urine Bacteria Fine Granular Casts Urine Mucus MRSA (PCR) POC Glucose 235 H 01/16/18 01/16/18 01/16/18 03:30 03:30 03:30 WBC 22.2 H RBC 4.72 Hgb 14.4 Hct 41.4 MCV 87.7 MCH 30.5 MCHC 34.8 RDW 13.2 RDW Differential 42.7 Plt Count 131 L MPV 11.8 Neut % (Auto) Not Reportable Absolute Neuts (auto) 21.9 H Absolute Lymphs (auto) 0.22 L Total Counted 100 Neutrophils % (Manual) 87 H Band Neutrophils % 12 H Lymphocytes % (Manual) 1 L Monocytes % (Manual) Differential Comment Diff Path Review Platelet Estimate ADEQUATE Plt Morphology Comment RBC Morphology NORM C+C PT INR APTT 44.5 H Specimen Type Sample Site pH Bicarbonate Actual POC Total CO2 Base Excess O2 Saturation O2 % ABG pCO2 ABG pO2 Jaylen Test Respiration Rate O2 Delivery Device Liter Flow EPAP IPAP Blood Gas Notified Whom Blood Gas Notified Time Sodium 135 L Potassium 3.2 L Chloride 101 Carbon Dioxide 22.0 Anion Gap 12 BUN 19 H Creatinine 1.26 Estim Creat Clear Calc 58.06 Est GFR (MDRD) Af Amer 74 Est GFR (MDRD) Non-Af 61 BUN/Creatinine Ratio 15.1 Glucose 188 H Hemoglobin A1c Lactic Acid Calcium 6.9 L Phosphorus 1.7 L Magnesium 2.6 Total Bilirubin 0.70 Direct Bilirubin AST 157 H ALT 48 Alkaline Phosphatase 58 Troponin I Total Protein 5.8 L Albumin 2.1 L Globulin 3.7 Albumin/Globulin Ratio 0.6 L Triglycerides Cholesterol LDL Cholesterol VLDL Cholesterol HDL Cholesterol Lipase Urine Color Urine Clarity Urine pH Ur Specific [place] Urine Protein Urine Glucose (UA) Urine Ketones Urine Occult Blood Urine Nitrite Urine Bilirubin Urine Urobilinogen Ur Leukocyte Esterase Urine RBC Urine WBC Ur Squamous Epith Cells Amorphous Sediment Urine Bacteria Fine Granular Casts Urine Mucus MRSA (PCR) POC Glucose 01/16/18 01/16/18 01/16/18 04:51 07:43 11:44 WBC RBC Hgb Hct MCV MCH MCHC RDW RDW Differential Plt Count MPV Neut % (Auto) Absolute Neuts (auto) Absolute Lymphs (auto) Total Counted Neutrophils % (Manual) Band Neutrophils % Lymphocytes % (Manual) Monocytes % (Manual) Differential Comment Diff Path Review Platelet Estimate Plt Morphology Comment RBC Morphology PT INR APTT Specimen Type Sample Site pH Bicarbonate Actual POC Total CO2 Base Excess O2 Saturation O2 % ABG pCO2 ABG pO2 Jaylen Test Respiration Rate O2 Delivery Device Liter Flow EPAP IPAP Blood Gas Notified Whom Blood Gas Notified Time Sodium Potassium Chloride Carbon Dioxide Anion Gap BUN Creatinine Estim Creat Clear Calc Est GFR (MDRD) Af Amer Est GFR (MDRD) Non-Af BUN/Creatinine Ratio Glucose Hemoglobin A1c Lactic Acid Calcium Phosphorus Magnesium Total Bilirubin Direct Bilirubin AST ALT Alkaline Phosphatase Troponin I Total Protein Albumin Globulin Albumin/Globulin Ratio Triglycerides Cholesterol LDL Cholesterol VLDL Cholesterol HDL Cholesterol Lipase Urine Color Urine Clarity Urine pH Ur Specific [place] Urine Protein Urine Glucose (UA) Urine Ketones Urine Occult Blood Urine Nitrite Urine Bilirubin Urine Urobilinogen Ur Leukocyte Esterase Urine RBC Urine WBC Ur Squamous Epith Cells Amorphous Sediment Urine Bacteria Fine Granular Casts Urine Mucus MRSA (PCR) POC Glucose 195 H 192 H 276 H 01/16/18 01/16/18 01/17/18 16:46 21:06 05:00 WBC 25.2 H RBC 4.38 L Hgb 13.3 Hct 37.6 L MCV 85.8 MCH 30.4 MCHC 35.4 RDW 13.3 RDW Differential 41.3 Plt Count 205 MPV 11.5 Neut % (Auto) Not Reportable Absolute Neuts (auto) 24.7 H Absolute Lymphs (auto) 0.25 L Total Counted 100 Neutrophils % (Manual) 87 H Band Neutrophils % 11 H Lymphocytes % (Manual) 1 L Monocytes % (Manual) 1 Differential Comment Diff Path Review May foll Platelet Estimate ADEQUATE Plt Morphology Comment LARGE RBC Morphology NORM C+C PT INR APTT Specimen Type Sample Site pH Bicarbonate Actual POC Total CO2 Base Excess O2 Saturation O2 % ABG pCO2 ABG pO2 Jaylen Test Respiration Rate O2 Delivery Device Liter Flow EPAP IPAP Blood Gas Notified Whom Blood Gas Notified Time Sodium Potassium Chloride Carbon Dioxide Anion Gap BUN Creatinine Estim Creat Clear Calc Est GFR (MDRD) Af Amer Est GFR (MDRD) Non-Af BUN/Creatinine Ratio Glucose Hemoglobin A1c Lactic Acid Calcium Phosphorus Magnesium Total Bilirubin Direct Bilirubin AST ALT Alkaline Phosphatase Troponin I Total Protein Albumin Globulin Albumin/Globulin Ratio Triglycerides Cholesterol LDL Cholesterol VLDL Cholesterol HDL Cholesterol Lipase Urine Color Urine Clarity Urine pH Ur Specific [place] Urine Protein Urine Glucose (UA) Urine Ketones Urine Occult Blood Urine Nitrite Urine Bilirubin Urine Urobilinogen Ur Leukocyte Esterase Urine RBC Urine WBC Ur Squamous Epith Cells Amorphous Sediment Urine Bacteria Fine Granular Casts Urine Mucus MRSA (PCR) POC Glucose 223 H 252 H 01/17/18 01/17/18 01/17/18 05:00 05:12 06:16 WBC RBC Hgb Hct MCV MCH MCHC RDW RDW Differential Plt Count MPV Neut % (Auto) Absolute Neuts (auto) Absolute Lymphs (auto) Total Counted Neutrophils % (Manual) Band Neutrophils % Lymphocytes % (Manual) Monocytes % (Manual) Differential Comment Diff Path Review Platelet Estimate Plt Morphology Comment RBC Morphology PT INR APTT Specimen Type ART Sample Site R Radial pH 7.48 H Bicarbonate Actual 22.6 POC Total CO2 24 Base Excess -1 O2 Saturation 87 L O2 % ABG pCO2 30.5 L ABG pO2 48 L Jaylen Test POS Respiration Rate O2 Delivery Device Nasal Can Liter Flow 5.0 EPAP IPAP Blood Gas Notified Whom ICU MD Blood Gas Notified Time 505 Sodium 134 L Potassium 3.1 L Chloride 99 Carbon Dioxide 26.0 Anion Gap 9 BUN 23 H Creatinine 1.26 Estim Creat Clear Calc 58.06 Est GFR (MDRD) Af Amer 74 Est GFR (MDRD) Non-Af 61 BUN/Creatinine Ratio 18.3 Glucose 188 H Hemoglobin A1c Lactic Acid Calcium 8.0 L Phosphorus 2.2 L Magnesium 2.4 Total Bilirubin 0.80 Direct Bilirubin AST 118 H ALT 52 Alkaline Phosphatase 65 Troponin I Total Protein 6.0 L Albumin 2.0 L Globulin 4.0 Albumin/Globulin Ratio 0.5 L Triglycerides Cholesterol LDL Cholesterol VLDL Cholesterol HDL Cholesterol Lipase Urine Color Urine Clarity Urine pH Ur Specific [place] Urine Protein Urine Glucose (UA) Urine Ketones Urine Occult Blood Urine Nitrite Urine Bilirubin Urine Urobilinogen Ur Leukocyte Esterase Urine RBC Urine WBC Ur Squamous Epith Cells Amorphous Sediment Urine Bacteria Fine Granular Casts Urine Mucus MRSA (PCR) POC Glucose 184 H Microbiology 01/15/18 12:30 Urine Catheter - Catheter Urine Culture - Preliminary Culture exhibits no growth. 01/15/18 12:55 Mucosa - Nose Respiratory Panel (PCR) - Final 01/15/18 21:50 Sputum, Expectorated/Coughed Gram Stain - Final 01/15/18 12:30 Urine Catheter - Catheter Streptococcus pneumoniae Antigen (M - Final 01/15/18 12:30 Urine Catheter - Catheter Legionella Antigen - Final Legionella Antigen Clinical Impression(s) from Imaging Studies Chest X-Ray 01/15/18 09:45 IMPRESSION: Near complete opacification left lung [place] sparing only the upper lobe at the level of the aortic knob and above. Differential considerations include pleural fluid, atelectasis/scarring, pneumonia or underlying mass. Clinical correlation follow-up recommended. Results discussed with Attending Physician 01/15/2018 approximate 1235 hours. If clinically indicated, recommend follow-up chest study after treatment to demonstrate complete clearing if clinically indicated. Electronically Signed: Montrell Cardenas, at 12:39 EDT Tel , Service support , Chest CT 01/15/18 12:44 IMPRESSION: There is a large amount of consolidation in the left upper lobe and lingula which is centrally dense with an air bronchograms. Although this may represent an infiltrate. An underlying left hilar mass with surrounding consolidated lung should be excluded. Recommend consideration for bronchoscopy. Small left effusion lower lobe atelectasis. Cardiomegaly cardiac artery disease Reactive and/or metastatic lymphadenopathy. Hyperinflated appearance of the right lung overall pattern of underlying chronic obstructive pulmonary disease. Inhomogeneous appearance of the liver which may represent fatty infiltration of the liver with sparing however further evaluation is recommended with an ultrasound or contrasted study of the abdomen and pelvis when possible. Electronically Signed: Mickie Saldivar MD at 15:10 EDT Tel , Service support , Medical Necessity - Tobacco Use Smoking Status: Current every day smoker Tobacco Use: Cigarettes Assessment/Plan All Active Problems (Last Reviewed 06/17/17 @ 09:09 by Antionette Lua) Severe sepsis (Acute) PNA (pneumonia) (Acute) COPD (chronic obstructive pulmonary disease) (Acute) BRENDA (acute kidney injury) (Acute) NSTEMI (non-ST elevated myocardial infarction) (Acute) Erectile dysfunction (Acute) Diabetes type 2, controlled (Acute) Testicular hypofunction (Acute) RECOMMENDATIONS: 1. Continue antibiotics per ID recommendations. Consider broadening, given worsening fever curve. 2. Obtain repeat blood cultures and plain film chest x-ray. 3. We will make patient n.p.o. once again given tenuous respiratory status. 4. Aggressive electrolyte repletion as ordered. 5. Continue scheduled bronchodilators along with IV steroids. 6. Continue Accu-Cheks and sliding scale insulin coverage. 7. The patient will need to have a repeat CT chest completed in 6-8 weeks. There is no indication for bronchoscopy at this time. IMPRESSIONS: 1. Acute hypoxic respiratory failure secondary to severe Legionella pneumonia leading to presumptive COPD exacerbation While the patient does have an extensive smoking history, he has never had pulmonary function testing done to confirm or refute a diagnosis of COPD. However, he does have an extreme amount of wheezing noted on examination. The patient CT chest did reveal significant left upper and lingula consolidation with groundglass extending into the left lower lobe. There was also extensive mediastinal lymphadenopathy with possible encasement of the left pulmonary artery by consolidation and/or lung mass. The patient's Legionella antigen was noted to be positive. He is currently on treatment with appropriate antibiotics, along with scheduled bronchodilators and IV steroids. Despite all of the aforementioned, the patient's respiratory status has continued to decline. I did speak with both the patient and his family at length this morning regarding the possible need for intubation, which they are agreeable to. Will discuss with infectious diseases about the possibility of broadening the patient's antibiotics, given his overall fever curve. The patient will need to follow-up in the pulmonary medicine clinic so that a repeat CT chest can be completed in 6-8 weeks for further evaluation of the patient's left hilum. If there is concern for an underlying lung mass, will proceed with setting the patient up for bronchoscopy and specifically EBUS. However, at this time, he will be treated with antibiotics. 2. Severe sepsis secondary to Legionella pneumonia The patient has been adequately volume resuscitated and is currently hemodynamically stable. The patient is currently on Levaquin, but has had high-grade fevers overnight. Will discuss with infectious diseases regarding the need to broaden his antibiotics at this time. Recommend repeating blood cultures at this time as well. 3. History of tobacco dependence The patient does have an extensive smoking history and we are currently working under the assumption that he has obstructive lung disease. However, smoking cessation is strongly advisable. Nicotine replacement therapy can be offered while he is admitted to the hospital. The patient should ideally follow up in the pulmonary medicine clinic so that baseline PFTs can be obtained. 4. Sinus arrhythmia/troponin elevation/heart failure with preserved ejection fraction The patient appears to be experiencing a sinus arrhythmia, potentially multifocal atrial tachycardia. He is not in atrial fibrillation at the current time. Recommend repleting potassium to greater than 4. The patient's echocardiogram did reveal evidence of stage I diastolic dysfunction with preserved ejection fraction. 5. Hypokalemia/hypophosphatemia Electrolyte repletion is underway. Recheck levels in the morning. 6. Acute kidney injury Improved. Likely prerenal in etiology. Anticipate improvement with volume expansion. Continue to monitor urine output. No current indication for renal replacement therapy. 7. Hypertension/hyperlipidemia/neuropathy Complicates care, management, recovery and prognosis. Okay to continue home medications from my perspective. UPDATE: The patient continued to have increased work of breathing over the morning hours. I therefore recommended to the patient and his family to proceed with elective intubation over concerns for impending respiratory failure. They are in agreement. I did discuss the case with the infectious disease specialist, who is in agreement to broaden the patient's antibiotics. However, prior to doing so, I would first like to proceed with a bedside bronchoscopy for airway evaluation and to obtain a bronchoalveolar lavage from the patient's lingula. Following this, his antibiotics can be broadened accordingly. BEDSIDE INTUBATION NOTE: The patient was placed in appropriate sniffing position. He was premedicated with 4 mg of IV Versed. Following this, the patient received 20 mg of etomidate, which I personally self administered. He was preoxygenated via bag valve mask with PEEP valve in place. An oral airway was also placed. After achieving appropriate preoxygenation status, video laryngoscopy was performed and a #8 endotracheal tube was placed without complication. TIME: 80 minutes of critical care time, independent of procedures, was spent addressing the patient's acute hypoxemic respiratory failure, Legionella pneumonia, severe sepsis, history of tobacco dependence, sinus arrhythmia, troponin elevation, electrolyte disturbances, acute kidney injury, review of all data and collaboration with the care team. ([id number], [id number]) Code Visit Procedures: 66353 Critial Care Addl 30 Min 9xxxx: [id number] Critical care first hour
--- NOTE | 2018-01-17 07:04 | CPS ---
Patient placed on HFNC.
[2018-01-17 08:11] LABS: BNP,B-Type NATRIURETIC PEPTIDE 318.6 pg/mL (0-100)
[2018-01-17] MEDS: Insulin Lispro 100 UNIT/ML INSULN.PEN SC ×3 (08:16→17:02)
--- NOTE | 2018-01-17 08:29 | PN.CARD_ITS ---
Subjectve: Patient was seen and evaluated. Appears to be in some respiratory distress. Still tachycardic through the night with occasional bursts of supraventricular tachyarrhythmia Objective: Vital Signs Temp Pulse Resp BP Pulse Ox 101.2 F H 140 H 30 H 136/92 H 89 01/17/18 08:00 01/17/18 08:00 01/17/18 08:00 01/17/18 08:00 01/17/18 08:00 Oxygen Flow Rate (L/min) 6 Oxygen Delivery Method Nasal Cannula Weight: 205 lb 4.006 oz Body Mass Index (BMI) 29.7 Intake and Output for Last 24 Hours 01/15/18 01/16/18 01/17/18 23:59 23:59 23:59 Intake Total 3172.3 / 3172.3 4593.8 / 4593.8 100 / 100 Output Total 850 / 850 2150 / 2150 450 / 450 Balance 2322.3 / 2322.3 2443.8 / 2443.8 -350 / -350 General: Awake, Alert, Oriented x 3 HEENT: PERRL, EOMI, Sclera Non Icteric Neck: Supple, Good ROM, No Lymph Node Enlargement Lungs: Clear to auscultation Cardiovascular: Regular Rhythm, Normal S1, Normal S2, No Murmurs, No Rubs, No Gallops Vascular: No Carotid Bruits, Normal Femoral Pulses, Normal Radial Pulses, Normal Dorsalis Pedal Pulse, Normal Posterior Tibial Pulses Abdomen: Bowel Sounds Present, Soft, Non Tender, No HSM, No Organomegaly Extremities: No Cyanosis, No Clubbing, No edema Neurological: No Focal Motor or Sensory Deficit 01/17/18 05:00: WBC 25.2 H, RBC 4.38 L, Hgb 13.3, Hct 37.6 L, MCV 85.8, MCH 30.4, MCHC 35.4, RDW 13.3, RDW Differential 41.3, Plt Count 205, MPV 11.5, Neut % (Auto) Not Reportable, Absolute Neuts (auto) 24.7 H, Total Counted 100, Neutrophils % (Manual) 87 H, Band Neutrophils % 11 H, Lymphocytes % (Manual) 1 L , Monocytes % (Manual) 1 01/17/18 05:00: Sodium 134 L, Potassium 3.1 L, Chloride 99, Carbon Dioxide 26.0, Anion Gap 9, BUN 23 H, Creatinine 1.26, Est GFR (MDRD) Af Amer 74, Est GFR (MDRD) Non-Af 61, BUN/Creatinine Ratio 18.3, Glucose 188 H, Calcium 8.0 L, Phosphorus 2.2 L, Magnesium 2.4, Total Bilirubin 0.80 01/17/18 05:00: Troponin I 0.114 H 01/17/18 05:00: B-Natriuretic Peptide 318.6 H 01/17/18 05:12: pH 7.48 H, Bicarbonate Actual 22.6, POC Total CO2 24, Base Excess -1, O2 Saturation 87 L, ABG pCO2 30.5 L, ABG pO2 48 L, Jaylen Test POS Rhythm: EKG: ECHO: Stress Test: Cardiac Cath: PCI: CT Surgery: Holter monitor: EPS: PPM: CXR: Chest CT Scan: Medical Necessity - Tobacco Use Smoking Status: Current every day smoker Tobacco Use: Cigarettes Assessment/Plan 1. Abnormal cardiac enzymes Patient is noted to have abnormal cardiac enzymes which is likely secondary to demand ischemia. My recommendation is to continue observing him for now and treat the underlying cause. Depending on the final level of the cardiac enzymes as well as his echocardiographic evaluation further recommendations will be made. * Echocardiogram demonstrated preserved left ventricular systolic function. * I would recommend discontinuing the continuous heparin * Will start Plavix 75 mg once a day * Lipid-lowering 2. Multifocal atrial tachycardia Patient is noted to have multifocal atrial tachycardia which is likely secondary to his pulmonary disease. Once again treating the underlying cause would help elucidate and correct some of this. He is asymptomatic at this particular time anyway. Will recommend treating underlying potassium and magnesium. * Will recommend resuming his beta-salinas. He was on a very high dose of beta- [place] but I will suggest that we restart him at 100 mg of metoprolol twice a day. * Will recommend adding Cardizem 120 mg a day. * * If patient is intubated and cannot take p.o. then will start Cardizem IV. Thank you for allowing me to participate in the care of your patient. Please don't hesitate to call if any issues arise
[2018-01-17 09:11] LABS: Pathologist Review Reviewed
[2018-01-17] MEDS: Midazolam 2 MG/2 ML Syringe 4 MG IV (09:58)
--- NOTE | 2018-01-17 09:58 | NURSING ---
0958-4mg versed given by Vanessa, RN 0959-20mg Etomidate given by Dr. Walton 1001-bagging per RT, SPO2 70% and increasing. Dr. Walton at bedside 1005-additional 2mg versed gi 1005-#8ETT, 22 at lip, Positive color change, bilat breath sounds. PT biting down on tube 1006-100mg succinylcholine given by Vanessa per Dr. Walton 1008-RT securing tube. Propofol drip initiated at 10mcg/kg/min 1012-OGT inserted by Kristen RN 1013-Radiology called for stat CXR 1014-Fentanyl drip initiated at 50 mcg/hr
[2018-01-17] MEDS: Etomidate 20 MG/10 ML Vial IV (09:59)
[2018-01-17] MEDS: Midazolam 2 MG/2 ML Syringe IV (10:05)
[2018-01-17] MEDS: Succinylcholine Chloride 200 MG/10 ML Vial 100 MG IV (10:06)
[2018-01-17] MEDS: Propofol 10MG/Ml 1,000 MG/100 ML Bottle 2.793 MG CONT INF (10:08)
[2018-01-17] MEDS: fentaNYL drip 100 ML 5 MCG IV ×2 (10:14→19:22)
--- NOTE | 2018-01-17 10:14 | RAD_ITS ---
STUDY: X-RAY CHEST 11:03 AM REASON FOR EXAM: Male, 62 years old. ET, OG PLACEMENT TECHNIQUE: Single AP portable view of the chest. COMPARISON: January 17, 2018 at 8:15 AM FINDINGS: Cardiac monitoring leads remain. In the interval since prior study there is been placement of a GI tube which extends through the gastroesophageal junction enters into the region of the fundus the stomach and terminates in the region of the body of the stomach. Persistent pulmonary parenchymal opacity occupies approximately three quarters of the left lung. There is no demonstrated pleural abnormality. Heart size appears stable. Normal mediastinum and ora. Normal visualized pulmonary arteries. Normal visualized aortic arch and descending thoracic aorta. There are diffuse degenerative changes of the visualized thoracic spine. Normal visualized ribs, clavicles, and shoulders. There is no demonstrated abnormality of the visualized soft tissue structures of the upper abdomen. RAD/Chest 1 View (Portable) IMPRESSION: In the interval since prior study there is been placement of a GI tube which extends through the gastroesophageal junction enters into the region of the fundus the stomach and terminates in the region of the body of the stomach. Unchanged left lung opacity. Electronically Signed: Karen Howard MD at 11:18 EDT , Service support ,
[2018-01-17] MEDS: CHLORHEXIDINE GLUC 2% CLOTH 1 EACH TOWELETTE TOPICAL (10:25)
--- NOTE | 2018-01-17 10:37 | CASEMGMT ---
Copies of POA and LW are on the paper chart. SAL Wagner, GEAR HOBBER SET UP OPERATOR
--- NOTE | 2018-01-17 10:50 | PCM.PN.ID ---
Patient Problems: Active and Suspected Problems (Last Reviewed 06/17/17 @ 09:09 by Antionette Lua) Severe sepsis (Acute) PNA (pneumonia) (Acute) COPD (chronic obstructive pulmonary disease) (Acute) BRENDA (acute kidney injury) (Acute) NSTEMI (non-ST elevated myocardial infarction) (Acute) Subjective: Ongoing fever and resp difficulty, intubation planned for this AM. Denies abd pain. No sputum. - Physical Exam General: Alert, Cooperative Lungs: Diminished Cardiovascular: Tachycardic Abdomen: Soft, Non Tender, Non-Distended Skin: No rashes Vital Signs Temp Pulse Resp BP Pulse Ox 101.2 F H 184 H 16 136/92 H 93 01/17/18 08:00 01/17/18 10:20 01/17/18 10:20 01/17/18 08:00 01/17/18 10:20 Oxygen Flow Rate (L/min) 6 Oxygen Delivery Method Nasal Cannula Weight: 93.1 kg Body Mass Index (BMI) 29.7 Intake and Output for Last 24 Hours 01/15/18 01/16/18 01/17/18 23:59 23:59 23:59 Intake Total 3172.3 / 3172.3 4593.8 / 4593.8 100 / 100 Output Total 850 / 850 2150 / 2150 450 / 450 Balance 2322.3 / 2322.3 2443.8 / 2443.8 -350 / -350 Microbiology Past 72 Hours 01/15/18 21:50 Gram Stain - Final Sputum, Expectorated/Coughed Respiratory Culture - Preliminary Appears to be normal respiratory harry. Further studies to follow. 01/15/18 09:46 Blood Culture - Preliminary Blood Culture (Wb) - Left Hand No growth in 48 hours. 01/15/18 09:45 Blood Culture - Preliminary Blood Culture (Wb) - Anticubital Right No growth in 48 hours. 01/15/18 12:30 Urine Culture - Final Urine Catheter - Catheter Culture exhibits no growth. 01/15/18 12:55 Respiratory Panel (PCR) - Final Mucosa - Nose 01/15/18 12:30 Streptococcus pneumoniae Antigen (M - Final Urine Catheter - Catheter 01/15/18 12:30 Legionella Antigen - Final Urine Catheter - Catheter Legionella Antigen Laboratory Tests Past 24 Hrs 01/15/18 01/17/18 01/17/18 09:45 05:00 05:00 WBC 25.2 H RBC 4.38 L Hgb 13.3 Hct 37.6 L MCV 85.8 MCH 30.4 MCHC 35.4 RDW 13.3 RDW Differential 41.3 Plt Count 205 MPV 11.5 Neut % (Auto) Not Reportable Absolute Neuts (auto) 24.7 H Absolute Lymphs (auto) 0.25 L Total Counted 100 Neutrophils % (Manual) 87 H Band Neutrophils % 11 H Lymphocytes % (Manual) 1 L Monocytes % (Manual) 1 Diff Path Review Reviewed May foll Platelet Estimate ADEQUATE Plt Morphology Comment LARGE RBC Morphology NORM C+C Specimen Type Sample Site pH Bicarbonate Actual POC Total CO2 Base Excess O2 Saturation ABG pCO2 ABG pO2 Jaylen Test O2 Delivery Device Liter Flow Blood Gas Notified Whom Blood Gas Notified Time Sodium 134 L Potassium 3.1 L Chloride 99 Carbon Dioxide 26.0 Anion Gap 9 BUN 23 H Creatinine 1.26 Estim Creat Clear Calc 58.06 Est GFR (MDRD) Af Amer 74 Est GFR (MDRD) Non-Af 61 BUN/Creatinine Ratio 18.3 Glucose 188 H Calcium 8.0 L Phosphorus 2.2 L Magnesium 2.4 Total Bilirubin 0.80 AST 118 H ALT 52 Alkaline Phosphatase 65 Troponin I B-Natriuretic Peptide Total Protein 6.0 L Albumin 2.0 L Globulin 4.0 Albumin/Globulin Ratio 0.5 L 01/17/18 01/17/18 01/17/18 05:00 05:00 05:12 WBC RBC Hgb Hct MCV MCH MCHC RDW RDW Differential Plt Count MPV Neut % (Auto) Absolute Neuts (auto) Absolute Lymphs (auto) Total Counted Neutrophils % (Manual) Band Neutrophils % Lymphocytes % (Manual) Monocytes % (Manual) Diff Path Review Platelet Estimate Plt Morphology Comment RBC Morphology Specimen Type ART Sample Site R Radial pH 7.48 H Bicarbonate Actual 22.6 POC Total CO2 24 Base Excess -1 O2 Saturation 87 L ABG pCO2 30.5 L ABG pO2 48 L Jaylen Test POS O2 Delivery Device Nasal Can Liter Flow 5.0 Blood Gas Notified Whom ICU MD Blood Gas Notified Time 505 Sodium Potassium Chloride Carbon Dioxide Anion Gap BUN Creatinine Estim Creat Clear Calc Est GFR (MDRD) Af Amer Est GFR (MDRD) Non-Af BUN/Creatinine Ratio Glucose Calcium Phosphorus Magnesium Total Bilirubin AST ALT Alkaline Phosphatase Troponin I 0.114 H B-Natriuretic Peptide 318.6 H Total Protein Albumin Globulin Albumin/Globulin Ratio POC Glucose 01/17/18 01/16/18 01/16/18 06:16 21:06 16:46 POC Glucose 184 H 252 H 223 H 01/16/18 11:44 POC Glucose 276 H Medical Necessity - Tobacco Use Smoking Status: Current every day smoker Tobacco Use: Cigarettes Route of nutrition/ use of supplements: [] Nutritional Intake: [] IV Site: [] Reyes Catheter: [] - Assessment/Plan Antibiotics: [] Assessment/Plan: [] Active and Suspected Problems (Last Reviewed 06/17/17 @ 09:09 by Antionette Lua) Severe sepsis (Acute) PNA (pneumonia) (Acute) COPD (chronic obstructive pulmonary disease) (Acute) BRENDA (acute kidney injury) (Acute) NSTEMI (non-ST elevated myocardial infarction) (Acute) severe sepsis due to legionella pneumonia - associated with falls, nausea, and hyponatremia. On levaquin, fever persists. Lactate improved. Cr improved. Na improved. Wbc remains elevated, but he was given solumedrol. CT showed ? mass. Due to worsening respiratory status and continued fever, intubation today, would recommend bronch and then add zosyn. Will follow, d/w Dr. Walton and Dr. Reyes.
[2018-01-17] MEDS: levoFLOXacin IV 750 MG/150 ML BAG 100 MG IV (11:06)
[2018-01-17] MEDS: 0.9% NaCl IVPB Med Flush (250 mL) 15 ML IV ×2 (11:07→16:57)
[2018-01-17] MEDS: 0.9% NaCl Peripheral Flush Adult/Peds IV ×2 (11:08→20:17)
[2018-01-17 11:41] LABS: Base Excess -1 mmol/L (-2 to +2); Bicarbonate 24.2 mmol/L (22-26); Blood Gas Specimen Type ART; FI02 100; Mode A-C; O2 Delivery Device Vent; PEEP 5; PO2 78 mmHG (75-100); RR 16; SITE L Radial; SO2 95 % (95-99); Time Given 1128; Total Carbon Dioxide 25 mmol/L; Vt 500; pCO2 39.9 mmHg (35-45); pH 7.39 (7.35-7.45)
[2018-01-17 12:15] LABS: Bedside Glucose 223 mg/dL (70-110)
--- NOTE | 2018-01-17 14:05 | CPS ---
ETT repositioned during bedside bronchoscopy with Dr Walton.
--- NOTE | 2018-01-17 14:08 | OP.ENDO_ITS ---
Patient Name: Emerson Otoole Procedure Date: 01/17/2018 1:34 PM Date of : 1955 Age: 62 Procedure: Bronchoscopy Indications: Left upper lobe bacterial pneumonia Providers: Naresh Walton MD Medicines: Propofol and Fentanyl Drips Complications: No immediate complications Procedure: Pre-Anesthesia Assessment: - [place] Protocol: - Pre-procedure Verification: Prior to the procedure, the patient's identity was verified by full name and date of . The patient's identity was verified on all pertinent medical records. Also prior to the procedure, a History and Physical was performed, and patient medications, allergies and sensitivities were reviewed. The patient's tolerance of previous anesthesia was reviewed. The risks and benefits of the procedure and the sedation options and risks were discussed with the patient's . All questions were answered and informed consent was obtained. - Time-Out: Prior to the start of the procedure, the patient's identification, proposed procedure, accurate signed consent, correctly labeled images and records, and need for prophylactic antibiotics were verified by the physician and the nurse in the procedure room. - A History and Physical has been performed. The patient's medications, allergies and sensitivities have been reviewed. - The patient is unable to give consent secondary to the patient's altered mental status. The risks and benefits of the procedure and the sedation options and risks were discussed with the patient's spouse. All questions were answered and informed consent was obtained. After I obtained informed consent, the scope was passed under direct vision. Throughout the procedure, the patient's blood pressure, pulse, and oxygen saturations were monitored continuously. The bronchoscope was introduced through the mouth, via the endotracheal tube and advanced to the tracheobronchial tree. The procedure was accomplished without difficulty. The patient tolerated the procedure well. Findings: The nasopharynx/oropharynx appears normal. The larynx appears normal. The vocal cords appear normal. The subglottic space is normal. The trachea is of normal caliber. The dheeraj is sharp. The tracheobronchial tree of the right lung was examined to at least the first subsegmental level. Bronchial mucosa and anatomy in the right lung are normal; there are no endobronchial lesions, and no secretions. Left Lung Abnormalities: Tenacious, thick secretions were found throughout the left tracheobronchial tree. BAL was performed in the lingula of the lung and sent for cell count and bacterial culture. The return was cellular and mucoid. Impression: - Left upper lobe bacterial pneumonia - The airway examination of the right lung was normal. - Tenacious, thick secretions were found throughout the tracheobronchial tree. - Bronchoalveolar lavage was performed. Recommendation: - Await culture results. Procedure Code(s): --- Professional --- 68871, Bronchoscopy, rigid or flexible, including fluoroscopic guidance, when performed; with bronchial alveolar lavage Diagnosis Code(s): --- Professional --- J15.9, Unspecified bacterial pneumonia R09.89, Other specified symptoms and signs involving the circulatory and respiratory systems CPT copyright 2017 [employer]. All rights reserved. The codes documented in this report are preliminary and upon efficiency expert review may be revised to meet current compliance requirements. DO Naresh Arceo MD 01/17/2018 2:08:14 PM This report has been signed electronically. Number of Addenda: 0 Note Initiated On: 01/17/2018 1:34 PM
[2018-01-17] MEDS: Acetaminophen 650 MG/20 ML UDC GT (14:36)
[2018-01-17] MEDS: Famotidine 20 MG Tablet GT ×2 (14:36→21:14)
[2018-01-17] MEDS: Metoprolol Tartrate 50 MG Tablet GT (14:38)
[2018-01-17] MEDS: Ipratropium 0.5 MG/2.5 ML SOLUTION INHALATION (15:31)
[2018-01-17 17:16] LABS: Bedside Glucose 226 mg/dL (70-110)
--- NOTE | 2018-01-17 17:29 | EKG12_ITS ---
Test Reason : ST Blood Pressure : / mmHG Vent. Rate : 122 BPM Atrial Rate : 122 BPM P-R Int : 142 ms QRS Dur : 094 ms QT Int : 384 ms P-R-T Axes : 060 078 036 degrees QTc Int : 547 ms Sinus tachycardia with Premature supraventricular complexes and with occasional Premature ventricular complexes Nonspecific ST abnormality Poor R wave progression Abnormal ECG Confirmed by RAY HARRISON, CARMENCITA ([id number]), online content editor JAISON SEBASTIAN ([id number]) on 01/18/2018 2:31:49 PM Referred By: ANDREAS Confirmed By:CARMENCITA BELL MD
[2018-01-17] MEDS: Propofol 10MG/Ml 1,000 MG/100 ML Bottle 16.758 MG CONT INF (18:05)
--- NOTE | 2018-01-17 19:11 | EKG12_ITS ---
Test Reason : Blood Pressure : / mmHG Vent. Rate : 082 BPM Atrial Rate : 082 BPM P-R Int : 162 ms QRS Dur : 088 ms QT Int : 388 ms P-R-T Axes : 062 074 047 degrees QTc Int : 453 ms Normal sinus rhythm Poor R wave progression Confirmed by RAY HARRISON, CARMENCITA ([id number]), video effects editor JAISON SEBASTIAN ([id number]) on 01/25/2018 12:03:12 PM Referred By: REBECCA Confirmed By:CARMENCITA BELL MD
--- NOTE | 2018-01-17 19:20 | NURSING ---
Converted to NSR during shift report. Resting comfortably, HR 81 and regular, BP 104/62 A-line, Pulse ox 96%, and afebrile. EKG ordered for change in rhythm.
[2018-01-17] MEDS: Chlorhexidine 15 ML PO (20:18)
[2018-01-17] MEDS: Atorvastatin Calcium 40 MG Tablet GT (21:14)
[2018-01-17] MEDS: Piperacil/Tazobactam 3.375 GM/50 ML ML IV (21:15)
[2018-01-17 21:16] LABS: Bedside Glucose 219 mg/dL (70-110)
--- NOTE | 2018-01-17 23:15 | NURSING ---
Called lab to discuss the status of the specimen from the bronchoscopy and the cancelled orders by Je Sims in lab. There is no record of a call to the floor to report the status of the clotted specimen. Cultures were run, as ordered, but have not resulted as of yet.
[2018-01-18] VITALS (45 sets, daily range): BP systolic 94–149; BP diastolic 52–78; PULSE 71–90; RESP 16–24; TEMP 36.9–37.8; O2SAT 90–96
[2018-01-18] MEDS: Insulin Lispro 100 UNIT/ML INSULN.PEN SC ×5 (00:27→23:48)
[2018-01-18 00:46] LABS: Bedside Glucose 230 mg/dL (70-110)
[2018-01-18] MEDS: CHLORHEXIDINE GLUC 2% CLOTH 1 EACH TOWELETTE TOPICAL (03:52)
[2018-01-18 04:15] LABS: Absolute Lymphocyte Count 1.26 X10^3/ul (0.83-4.51); Absolute Neutrophil Count 28.1 X10^3/uL (2.0-7.7); Basophil# 0.02 X10^3/uL; Basophil% 0.1 % (0-1); Differential Indicated SCAN CRITERIA MET; Hematocrit 36.7 % (40-54); Hemoglobin 12.7 g/dl (13.0-16.5); Lymphocyte # 1.26 X10^3/ul (4.0); Lymphocyte % 4.2 % (19-41); Mean Corp Hgb Conc 34.6 g/gl (32-36); Mean Corpuscular Hgb 30.4 pg (27.0-32.0); Mean Corpuscular Volume 87.8 fL (80-94); Mean Platelet Vol. 10.8 fl (6.2-12.0); Monocyte# 0.43 X10^3/uL; Monocyte% 1.4 % (0-10); Neutrophil # 28.12 X10^3/uL (2.7-7.7); Neutrophil % 93.9 % (47-70); POSITIVE COUNT NO; POSITIVE DIFFERENTIAL YES; POSITIVE MORPHOLOGY NO; Platelet Count 246 K/mm3 (150-450); RBC Distribution Width SD 44.8 fl (35.1-43.9); Red Blood Count 4.18 M/mm3 (4.6-6.2); White Blood Count 29.9 K/mm3 (4.4-11.0)
[2018-01-18 04:22] LABS: ALB/GLOB Ratio 0.4 RATIO (0.9-2.4); AST(SGOT) 73 U/L (15-37); Alanine Aminotransfer ALT/SGPT 51 U/L (16-61); Albumin, Serum 1.7 g/dL (3.2-5.0); Alkaline Phosphatase 61 U/L (45-117); Anion Gap 8 (5-15); BUN 31 mg/dL (7-18); BUN/Creat Ratio 28.2 RATIO (10-20); Calcium,Total 8.1 mg/dL (8.5-10.1); Chloride 105 mmol/L (98-107); EST Glomerular Filtration Rate 72 mL/min (>60); Est Glom Filt Rate - Afr Amer 87 mL/min (>60); Globulin 3.9 g/dL (2.2-4.2); Glucose 202 mg/dL (74-106); Magnesium 2.6 mg/dL (1.6-2.6); Phosphorus 2.6 mg/dL (2.5-4.9); Protein, Total 5.6 g/dL (6.4-8.2); Sodium Level 140 mmol/L (136-145)
[2018-01-18] MEDS: fentaNYL drip 100 ML 5 MCG IV ×2 (05:58→16:54)
[2018-01-18] MEDS: Propofol 10MG/Ml 1,000 MG/100 ML Bottle 16.758 MG CONT INF ×3 (05:58→22:22)
[2018-01-18] MEDS: Piperacil/Tazobactam 3.375 GM/50 ML ML IV ×3 (06:03→21:13)
[2018-01-18] MEDS: Heparin Injection (Vial) 5,000 UNIT/ML VIAL 5000 UNIT SC ×3 (06:04→21:14)
[2018-01-18 06:06] LABS: Bedside Glucose 175 mg/dL (70-110)
[2018-01-18] MEDS: 0.9% NaCl Peripheral Flush Adult/Peds IV ×2 (06:08→21:16)
[2018-01-18] MEDS: Ipratropium 0.5 MG/2.5 ML SOLUTION INHALATION ×5 (06:45→22:32)
--- NOTE | 2018-01-18 06:47 | PCM.PN.INT ---
Subjective: The patient was seen and examined at the bedside this morning. Events from the last 24 hours have been reviewed. The patient currently has a low-grade fever. However, the patient's overall fever curve is improving. The patient remains hemodynamically stable. The patient did undergo a bedside bronchoscopy yesterday with a bronchial alveolar lavage obtained from the patient's lingula. Thick, tenacious secretions were noted throughout the left tracheobronchial tree. Once the patient's bronchoscopy was completed, Zosyn was added to his antibiotic regimen. Following the patient's intubation yesterday his heart rates remain significantly elevated. A repeat EKG obtained last evening revealed atrial flutter. The patient was subsequently started on amiodarone and has since converted to normal sinus rhythm. His heart rates are now within normal limits. Objective: The patient's most recent lab work, culture data and imaging studies have all been personally reviewed. CT chest without contrast obtained yesterday revealed bilateral emphysematous changes along with evidence of consolidation in the left upper lobe and lingula with corresponding groundglass changes extending into the left lower lobe. There was extensive mediastinal lymphadenopathy noted. It was noted that the left pulmonary artery was encased in either consolidation or a possible underlying lung mass. Urine Legionella antigen was noted to be positive. Streptococcus antigen was negative. Blood and urine cultures have shown no growth to date. Respiratory cultures are pending. Surface echocardiogram revealed normal LV size and function with evidence of stage I diastolic dysfunction. General: - - Intubated, sedated and mechanically ventilated. Currently tolerating AC VC+ without distinct hernia noted. Plateau pressures are acceptable. HEENT: Atraumatic, PERRLA, Normocephalic Oral: No Gingival or Mucosal Lesions/ Ulcerations, - - Endotracheal and OG tubes in place. Neck: Supple, No Nodes, Trachea Midline Lungs: - - Significantly reduced air exchange throughout the left hemithorax, unchanged from previous. No appreciable wheezes, rales or rhonchi. Cardiovascular: Regular rate, Regular Rhythm, Normal S1, Normal S2, No murmurs Abdomen: Bowel Sounds Present, Soft, Non Tender Extremities: No clubbing, No cyanosis, No edema Skin: No breakdown Musculoskeletal: No Tenderness to Palpation of Joints or Extremities, No Muscle Wasting Lymphatic: No Cervical, Supraclavicular, or Inguinal Adenopathy Neurological: - - No focal neurological deficits. Patient is currently sedated with a RASS of -1. Vital Signs Temp Pulse Resp BP Pulse Ox 99.9 F H 90 24 H 139/73 H 95 01/18/18 06:00 01/18/18 06:00 01/18/18 06:00 01/18/18 06:00 01/18/18 06:00 Oxygen Flow Rate (L/min) 7 Oxygen Delivery Method Mechanical Ventilator Weight: 207 lb 7.28 oz Body Mass Index (BMI) 29.7 Intake and Output for Last 24 Hours 01/16/18 01/17/18 01/18/18 23:59 23:59 23:59 Intake Total 4593.8 / 4593.8 1686 / 1686 734.6 / 734.6 Output Total 2150 / 2150 1175 / 1175 925 / 925 Balance 2443.8 / 2443.8 511 / 511 -190.4 / -190.4 Labs (Last 48 Hours) 01/15/18 01/16/18 01/16/18 09:45 03:30 03:30 WBC 22.2 H RBC 4.72 Hgb 14.4 Hct 41.4 MCV 87.7 MCH 30.5 MCHC 34.8 RDW 13.2 RDW Differential 42.7 Plt Count 131 L MPV 11.8 Immature Gran % (Auto) Neut % (Auto) Not Reportable Lymph % (Auto) Cherry % (Auto) Eos % (Auto) Baso % (Auto) Absolute Neuts (auto) 21.9 H Absolute Lymphs (auto) 0.22 L Total Counted 100 Neutrophils % (Manual) 87 H Band Neutrophils % 12 H Lymphocytes % (Manual) 1 L Monocytes % (Manual) Diff Path Review Reviewed Platelet Estimate ADEQUATE Plt Morphology Comment RBC Morphology NORM C+C Specimen Type Sample Site pH Bicarbonate Actual POC Total CO2 Base Excess O2 Saturation O2 % ABG pCO2 ABG pO2 Jaylen Test Respiration Rate O2 Delivery Device Liter Flow Minute Volume Vent Mode Tidal Volume POC PEEP Blood Gas Notified Whom Blood Gas Notified Time Sodium 135 L Potassium 3.2 L Chloride 101 Carbon Dioxide 22.0 Anion Gap 12 BUN 19 H Creatinine 1.26 Estim Creat Clear Calc 58.06 Est GFR (MDRD) Af Amer 74 Est GFR (MDRD) Non-Af 61 BUN/Creatinine Ratio 15.1 Glucose 188 H Calcium 6.9 L Phosphorus 1.7 L Magnesium 2.6 Total Bilirubin 0.70 AST 157 H ALT 48 Alkaline Phosphatase 58 Troponin I B-Natriuretic Peptide Total Protein 5.8 L Albumin 2.1 L Globulin 3.7 Albumin/Globulin Ratio 0.6 L Fluid Source Fluid Color Fluid Appearance Fluid WBC Fluid RBC Fluid Tot Cell Count Fld Polynuclear WBCs # Fld Polynuclear WBCs % Fluid Mononuclear WBCs Fld Mononuclear WBCs % Fluid Neutrophils Fluid Lymphocytes Fluid Monocytes Fluid Plasma Cells Fluid Macrophages Fld Mesothelial Cells Fluid Other Cells Fl Pathologist Comment Fluid Comment 2 POC Glucose 01/16/18 01/16/18 01/16/18 07:43 11:44 16:46 WBC RBC Hgb Hct MCV MCH MCHC RDW RDW Differential Plt Count MPV Immature Gran % (Auto) Neut % (Auto) Lymph % (Auto) Cherry % (Auto) Eos % (Auto) Baso % (Auto) Absolute Neuts (auto) Absolute Lymphs (auto) Total Counted Neutrophils % (Manual) Band Neutrophils % Lymphocytes % (Manual) Monocytes % (Manual) Diff Path Review Platelet Estimate Plt Morphology Comment RBC Morphology Specimen Type Sample Site pH Bicarbonate Actual POC Total CO2 Base Excess O2 Saturation O2 % ABG pCO2 ABG pO2 Jaylen Test Respiration Rate O2 Delivery Device Liter Flow Minute Volume Vent Mode Tidal Volume POC PEEP Blood Gas Notified Whom Blood Gas Notified Time Sodium Potassium Chloride Carbon Dioxide Anion Gap BUN Creatinine Estim Creat Clear Calc Est GFR (MDRD) Af Amer Est GFR (MDRD) Non-Af BUN/Creatinine Ratio Glucose Calcium Phosphorus Magnesium Total Bilirubin AST ALT Alkaline Phosphatase Troponin I B-Natriuretic Peptide Total Protein Albumin Globulin Albumin/Globulin Ratio Fluid Source Fluid Color Fluid Appearance Fluid WBC Fluid RBC Fluid Tot Cell Count Fld Polynuclear WBCs # Fld Polynuclear WBCs % Fluid Mononuclear WBCs Fld Mononuclear WBCs % Fluid Neutrophils Fluid Lymphocytes Fluid Monocytes Fluid Plasma Cells Fluid Macrophages Fld Mesothelial Cells Fluid Other Cells Fl Pathologist Comment Fluid Comment 2 POC Glucose 192 H 276 H 223 H 01/16/18 01/17/18 01/17/18 21:06 05:00 05:00 WBC 25.2 H RBC 4.38 L Hgb 13.3 Hct 37.6 L MCV 85.8 MCH 30.4 MCHC 35.4 RDW 13.3 RDW Differential 41.3 Plt Count 205 MPV 11.5 Immature Gran % (Auto) Neut % (Auto) Not Reportable Lymph % (Auto) Cherry % (Auto) Eos % (Auto) Baso % (Auto) Absolute Neuts (auto) 24.7 H Absolute Lymphs (auto) 0.25 L Total Counted 100 Neutrophils % (Manual) 87 H Band Neutrophils % 11 H Lymphocytes % (Manual) 1 L Monocytes % (Manual) 1 Diff Path Review May foll Platelet Estimate ADEQUATE Plt Morphology Comment LARGE RBC Morphology NORM C+C Specimen Type Sample Site pH Bicarbonate Actual POC Total CO2 Base Excess O2 Saturation O2 % ABG pCO2 ABG pO2 Jaylen Test Respiration Rate O2 Delivery Device Liter Flow Minute Volume Vent Mode Tidal Volume POC PEEP Blood Gas Notified Whom Blood Gas Notified Time Sodium 134 L Potassium 3.1 L Chloride 99 Carbon Dioxide 26.0 Anion Gap 9 BUN 23 H Creatinine 1.26 Estim Creat Clear Calc 58.06 Est GFR (MDRD) Af Amer 74 Est GFR (MDRD) Non-Af 61 BUN/Creatinine Ratio 18.3 Glucose 188 H Calcium 8.0 L Phosphorus 2.2 L Magnesium 2.4 Total Bilirubin 0.80 AST 118 H ALT 52 Alkaline Phosphatase 65 Troponin I B-Natriuretic Peptide Total Protein 6.0 L Albumin 2.0 L Globulin 4.0 Albumin/Globulin Ratio 0.5 L Fluid Source Fluid Color Fluid Appearance Fluid WBC Fluid RBC Fluid Tot Cell Count Fld Polynuclear WBCs # Fld Polynuclear WBCs % Fluid Mononuclear WBCs Fld Mononuclear WBCs % Fluid Neutrophils Fluid Lymphocytes Fluid Monocytes Fluid Plasma Cells Fluid Macrophages Fld Mesothelial Cells Fluid Other Cells Fl Pathologist Comment Fluid Comment 2 POC Glucose 252 H 01/17/18 01/17/18 01/17/18 05:00 05:00 05:12 WBC RBC Hgb Hct MCV MCH MCHC RDW RDW Differential Plt Count MPV Immature Gran % (Auto) Neut % (Auto) Lymph % (Auto) Cherry % (Auto) Eos % (Auto) Baso % (Auto) Absolute Neuts (auto) Absolute Lymphs (auto) Total Counted Neutrophils % (Manual) Band Neutrophils % Lymphocytes % (Manual) Monocytes % (Manual) Diff Path Review Platelet Estimate Plt Morphology Comment RBC Morphology Specimen Type ART Sample Site R Radial pH 7.48 H Bicarbonate Actual 22.6 POC Total CO2 24 Base Excess -1 O2 Saturation 87 L O2 % ABG pCO2 30.5 L ABG pO2 48 L Jaylen Test POS Respiration Rate O2 Delivery Device Nasal Can Liter Flow 5.0 Minute Volume Vent Mode Tidal Volume POC PEEP Blood Gas Notified Whom ICU MD Blood Gas Notified Time 505 Sodium Potassium Chloride Carbon Dioxide Anion Gap BUN Creatinine Estim Creat Clear Calc Est GFR (MDRD) Af Amer Est GFR (MDRD) Non-Af BUN/Creatinine Ratio Glucose Calcium Phosphorus Magnesium Total Bilirubin AST ALT Alkaline Phosphatase Troponin I 0.114 H B-Natriuretic Peptide 318.6 H Total Protein Albumin Globulin Albumin/Globulin Ratio Fluid Source Fluid Color Fluid Appearance Fluid WBC Fluid RBC Fluid Tot Cell Count Fld Polynuclear WBCs # Fld Polynuclear WBCs % Fluid Mononuclear WBCs Fld Mononuclear WBCs % Fluid Neutrophils Fluid Lymphocytes Fluid Monocytes Fluid Plasma Cells Fluid Macrophages Fld Mesothelial Cells Fluid Other Cells Fl Pathologist Comment Fluid Comment 2 POC Glucose 01/17/18 01/17/18 01/17/18 06:16 11:36 12:12 WBC RBC Hgb Hct MCV MCH MCHC RDW RDW Differential Plt Count MPV Immature Gran % (Auto) Neut % (Auto) Lymph % (Auto) Cherry % (Auto) Eos % (Auto) Baso % (Auto) Absolute Neuts (auto) Absolute Lymphs (auto) Total Counted Neutrophils % (Manual) Band Neutrophils % Lymphocytes % (Manual) Monocytes % (Manual) Diff Path Review Platelet Estimate Plt Morphology Comment RBC Morphology Specimen Type ART Sample Site L Radial pH 7.39 Bicarbonate Actual 24.2 POC Total CO2 25 Base Excess -1 O2 Saturation 95 O2 % 100 ABG pCO2 39.9 ABG pO2 78 Jaylen Test NA Respiration Rate 16 O2 Delivery Device Vent Liter Flow Minute Volume 13.00 Vent Mode A-C Tidal Volume 500 POC PEEP 5 Blood Gas Notified Whom ICU MD Blood Gas Notified Time 1128 Sodium Potassium Chloride Carbon Dioxide Anion Gap BUN Creatinine Estim Creat Clear Calc Est GFR (MDRD) Af Amer Est GFR (MDRD) Non-Af BUN/Creatinine Ratio Glucose Calcium Phosphorus Magnesium Total Bilirubin AST ALT Alkaline Phosphatase Troponin I B-Natriuretic Peptide Total Protein Albumin Globulin Albumin/Globulin Ratio Fluid Source Fluid Color Fluid Appearance Fluid WBC Fluid RBC Fluid Tot Cell Count Fld Polynuclear WBCs # Fld Polynuclear WBCs % Fluid Mononuclear WBCs Fld Mononuclear WBCs % Fluid Neutrophils Fluid Lymphocytes Fluid Monocytes Fluid Plasma Cells Fluid Macrophages Fld Mesothelial Cells Fluid Other Cells Fl Pathologist Comment Fluid Comment 2 POC Glucose 184 H 223 H 01/17/18 01/17/18 01/17/18 17:01 21:10 Unknown WBC RBC Hgb Hct MCV MCH MCHC RDW RDW Differential Plt Count MPV Immature Gran % (Auto) Neut % (Auto) Lymph % (Auto) Cherry % (Auto) Eos % (Auto) Baso % (Auto) Absolute Neuts (auto) Absolute Lymphs (auto) Total Counted Neutrophils % (Manual) Band Neutrophils % Lymphocytes % (Manual) Monocytes % (Manual) Diff Path Review Platelet Estimate Plt Morphology Comment RBC Morphology Specimen Type Sample Site pH Bicarbonate Actual POC Total CO2 Base Excess O2 Saturation O2 % ABG pCO2 ABG pO2 Jaylen Test Respiration Rate O2 Delivery Device Liter Flow Minute Volume Vent Mode Tidal Volume POC PEEP Blood Gas Notified Whom Blood Gas Notified Time Sodium Potassium Chloride Carbon Dioxide Anion Gap BUN Creatinine Estim Creat Clear Calc Est GFR (MDRD) Af Amer Est GFR (MDRD) Non-Af BUN/Creatinine Ratio Glucose Calcium Phosphorus Magnesium Total Bilirubin AST ALT Alkaline Phosphatase Troponin I B-Natriuretic Peptide Total Protein Albumin Globulin Albumin/Globulin Ratio Fluid Source Cancelled Fluid Color Cancelled Fluid Appearance Cancelled Fluid WBC Cancelled Fluid RBC Cancelled Fluid Tot Cell Count Cancelled Fld Polynuclear WBCs # Cancelled Fld Polynuclear WBCs % Cancelled Fluid Mononuclear WBCs Cancelled Fld Mononuclear WBCs % Cancelled Fluid Neutrophils Cancelled Fluid Lymphocytes Cancelled Fluid Monocytes Cancelled Fluid Plasma Cells Cancelled Fluid Macrophages Cancelled Fld Mesothelial Cells Cancelled Fluid Other Cells Cancelled Fl Pathologist Comment Cancelled Fluid Comment 2 Cancelled POC Glucose 226 H 219 H 01/18/18 01/18/18 01/18/18 00:17 04:00 04:00 WBC 29.9 H RBC 4.18 L Hgb 12.7 L Hct 36.7 L MCV 87.8 MCH 30.4 MCHC 34.6 RDW 14.0 RDW Differential 44.8 H Plt Count 246 MPV 10.8 Immature Gran % (Auto) 0.400 Neut % (Auto) 93.9 H Lymph % (Auto) 4.2 L Cherry % (Auto) 1.4 Eos % (Auto) 0.0 Baso % (Auto) 0.1 Absolute Neuts (auto) 28.1 H Absolute Lymphs (auto) 1.26 Total Counted Not Reportable Neutrophils % (Manual) Band Neutrophils % Lymphocytes % (Manual) Monocytes % (Manual) Diff Path Review Platelet Estimate Plt Morphology Comment RBC Morphology Specimen Type Sample Site pH Bicarbonate Actual POC Total CO2 Base Excess O2 Saturation O2 % ABG pCO2 ABG pO2 Jaylen Test Respiration Rate O2 Delivery Device Liter Flow Minute Volume Vent Mode Tidal Volume POC PEEP Blood Gas Notified Whom Blood Gas Notified Time Sodium 140 Potassium 4.0 Chloride 105 Carbon Dioxide 27.0 Anion Gap 8 BUN 31 H Creatinine 1.10 Estim Creat Clear Calc 66.50 Est GFR (MDRD) Af Amer 87 Est GFR (MDRD) Non-Af 72 BUN/Creatinine Ratio 28.2 H Glucose 202 H Calcium 8.1 L Phosphorus 2.6 Magnesium 2.6 Total Bilirubin 0.70 AST 73 H ALT 51 Alkaline Phosphatase 61 Troponin I B-Natriuretic Peptide Total Protein 5.6 L Albumin 1.7 L Globulin 3.9 Albumin/Globulin Ratio 0.4 L Fluid Source Fluid Color Fluid Appearance Fluid WBC Fluid RBC Fluid Tot Cell Count Fld Polynuclear WBCs # Fld Polynuclear WBCs % Fluid Mononuclear WBCs Fld Mononuclear WBCs % Fluid Neutrophils Fluid Lymphocytes Fluid Monocytes Fluid Plasma Cells Fluid Macrophages Fld Mesothelial Cells Fluid Other Cells Fl Pathologist Comment Fluid Comment 2 POC Glucose 230 H 01/18/18 06:01 WBC RBC Hgb Hct MCV MCH MCHC RDW RDW Differential Plt Count MPV Immature Gran % (Auto) Neut % (Auto) Lymph % (Auto) Cherry % (Auto) Eos % (Auto) Baso % (Auto) Absolute Neuts (auto) Absolute Lymphs (auto) Total Counted Neutrophils % (Manual) Band Neutrophils % Lymphocytes % (Manual) Monocytes % (Manual) Diff Path Review Platelet Estimate Plt Morphology Comment RBC Morphology Specimen Type Sample Site pH Bicarbonate Actual POC Total CO2 Base Excess O2 Saturation O2 % ABG pCO2 ABG pO2 Jaylen Test Respiration Rate O2 Delivery Device Liter Flow Minute Volume Vent Mode Tidal Volume POC PEEP Blood Gas Notified Whom Blood Gas Notified Time Sodium Potassium Chloride Carbon Dioxide Anion Gap BUN Creatinine Estim Creat Clear Calc Est GFR (MDRD) Af Amer Est GFR (MDRD) Non-Af BUN/Creatinine Ratio Glucose Calcium Phosphorus Magnesium Total Bilirubin AST ALT Alkaline Phosphatase Troponin I B-Natriuretic Peptide Total Protein Albumin Globulin Albumin/Globulin Ratio Fluid Source Fluid Color Fluid Appearance Fluid WBC Fluid RBC Fluid Tot Cell Count Fld Polynuclear WBCs # Fld Polynuclear WBCs % Fluid Mononuclear WBCs Fld Mononuclear WBCs % Fluid Neutrophils Fluid Lymphocytes Fluid Monocytes Fluid Plasma Cells Fluid Macrophages Fld Mesothelial Cells Fluid Other Cells Fl Pathologist Comment Fluid Comment 2 POC Glucose 175 H Microbiology 01/15/18 21:50 Sputum, Expectorated/Coughed Gram Stain - Final 01/15/18 21:50 Sputum, Expectorated/Coughed Respiratory Culture - Preliminary Appears to be normal respiratory harry. Further studies to follow. 01/15/18 09:46 Blood Culture (Wb) - Left Hand Blood Culture - Preliminary No growth in 48 hours. 01/15/18 09:45 Blood Culture (Wb) - Anticubital Right Blood Culture - Preliminary No growth in 48 hours. 01/15/18 12:30 Urine Catheter - Catheter Urine Culture - Final Culture exhibits no growth. 01/15/18 12:55 Mucosa - Nose Respiratory Panel (PCR) - Final Clinical Impression(s) from Imaging Studies Chest X-Ray 01/15/18 09:45 IMPRESSION: Near complete opacification left lung machuca sparing only the upper lobe at the level of the aortic knob and above. Differential considerations include pleural fluid, atelectasis/scarring, pneumonia or underlying mass. Clinical correlation follow-up recommended. Results discussed with Attending Physician 01/15/2018 approximate 1235 hours. If clinically indicated, recommend follow-up chest study after treatment to demonstrate complete clearing if clinically indicated. Electronically Signed: Montrell Cardenas at 12:39 EDT Tel , Service support , Chest CT 01/15/18 12:44 IMPRESSION: There is a large amount of consolidation in the left upper lobe and lingula which is centrally dense with an air bronchograms. Although this may represent an infiltrate. An underlying left hilar mass with surrounding consolidated lung should be excluded. Recommend consideration for bronchoscopy. Small left effusion lower lobe atelectasis. Cardiomegaly cardiac artery disease Reactive and/or metastatic lymphadenopathy. Hyperinflated appearance of the right lung overall pattern of underlying chronic obstructive pulmonary disease. Inhomogeneous appearance of the liver which may represent fatty infiltration of the liver with sparing however further evaluation is recommended with an ultrasound or contrasted study of the abdomen and pelvis when possible. Electronically Signed: Mickie Saldivar MD at 15:10 EDT Tel , Service support , Chest X-Ray 10/10/18 06:53 IMPRESSION: Persistent left lung infiltrate no change or improvement. Follow-up to clearing recommended. Electronically Signed: Karen Howard MD at 8:16 EDT , Service support , Chest X-Ray 01/17/18 10:14 IMPRESSION: In the interval since prior study there is been placement of a GI tube which extends through the gastroesophageal junction enters into the region of the fundus the stomach and terminates in the region of the body of the stomach. Unchanged left lung opacity. Electronically Signed: Karen Howard MD at 11:18 EDT , Service support , Medical Necessity - Tobacco Use Smoking Status: Current every day smoker Tobacco Use: Cigarettes Assessment/Plan All Active Problems (Last Reviewed 06/17/17 @ 09:09 by Antionette Lua) Severe sepsis (Acute) PNA (pneumonia) (Acute) COPD (chronic obstructive pulmonary disease) (Acute) BRENDA (acute kidney injury) (Acute) NSTEMI (non-ST elevated myocardial infarction) (Acute) Erectile dysfunction (Acute) Diabetes type 2, controlled (Acute) Testicular hypofunction (Acute) RECOMMENDATIONS: 1. Continue antibiotics per ID recommendations. 2. Wean FiO2 to maintain oxygen saturations above 90%. 3. Continue amiodarone. 4. Start tube feeds today. 5. Continue scheduled bronchodilators along with IV steroids. 6. Continue Accu-Cheks and sliding scale insulin coverage. 7. Change duo nebs to Atrovent aerosols. 8. The patient will need to have a repeat CT chest completed in 6-8 weeks. There is no indication for bronchoscopy at this time. IMPRESSIONS: 1. Acute hypoxic respiratory failure secondary to severe Legionella pneumonia leading to presumptive COPD exacerbation While the patient does have an extensive smoking history, he has never had pulmonary function testing done to confirm or refute a diagnosis of COPD. However, he does have an extreme amount of wheezing noted on examination. The patient CT chest did reveal significant left upper and lingula consolidation with groundglass extending into the left lower lobe. There was also extensive mediastinal lymphadenopathy with possible encasement of the left pulmonary artery by consolidation and/or lung mass. The patient's Legionella antigen was noted to be positive. He is currently on treatment with appropriate antibiotics, along with scheduled bronchodilators and IV steroids. Despite all of the aforementioned, the patient's respiratory status continued to decline and he was subsequently intubated on January 17. A post intubation bronchoscopy was also performed. Antibiotics will be continued, pending finalized culture results. Wean FiO2 as tolerated to maintain an oxygen saturation at or above 90%. The patient will need to follow-up in the pulmonary medicine clinic so that a repeat CT chest can be completed in 6-8 weeks for further evaluation of the patient's left hilum. If there is concern for an underlying lung mass, will proceed with setting the patient up for bronchoscopy and specifically EBUS. However, at this time, he will be treated with antibiotics. 2. Severe sepsis secondary to Legionella pneumonia The patient has been adequately volume resuscitated and is currently hemodynamically stable. The patient is currently on Levaquin and Zosyn, pending finalized BAL culture results. Fever curve is improving. 3. Atrial fibrillation/flutter The patient was noted to be in atrial flutter with an elevated heart rate on January 17. He was placed on amiodarone and subsequently converted back to normal sinus rhythm. 4. History of tobacco dependence The patient does have an extensive smoking history and we are currently working under the assumption that he has obstructive lung disease. However, smoking cessation is strongly advisable. Nicotine replacement therapy can be offered while he is admitted to the hospital. The patient should ideally follow up in the pulmonary medicine clinic so that baseline PFTs can be obtained. 5. Troponin elevation/heart failure with preserved ejection fraction The patient's echocardiogram did reveal evidence of stage I diastolic dysfunction with preserved ejection fraction. Troponin elevation is likely secondary to demand ischemia in the setting of #1/2. 6. Acute kidney injury Improved. Likely prerenal in etiology. Anticipate improvement with volume expansion. Continue to monitor urine output. No current indication for renal replacement therapy. 7. Hypertension/hyperlipidemia/neuropathy Complicates care, management, recovery and prognosis. Okay to continue home medications from my perspective. TIME: 40 minutes of critical care time, independent of procedures, was spent addressing the patient's acute hypoxemic respiratory failure, Legionella pneumonia, severe sepsis, history of tobacco dependence, sinus arrhythmia, troponin elevation, electrolyte disturbances, acute kidney injury, review of all data and collaboration with the care team. ([id number]) Code Visit [id number]: [id number] Critical care first hour
--- NOTE | 2018-01-18 06:56 | RAD_ITS ---
STUDY: X-RAY CHEST REASON FOR EXAM: Male, 62 years old. SOB, ETT POSITIONING CONFIRMATION TECHNIQUE: Single AP portable view of the chest. COMPARISON: January 17, 2018 chest x-ray and chest CT January 15, 2018 FINDINGS: There is a GI tube that extends to the mid body of the stomach. There appears to be an endotracheal tube present. It is high in position above the thoracic inlet. It could be advanced by approximately 8 cm. There is now complete opacity of left hemithorax. No significant air bronchograms. It does appear that there is an abruption of the left mainstem bronchus which may be filled with debris. Cannot exclude an underlying pleural effusion on the left. No evidence of a right-sided effusion. The heart is shifted to the left. The right heart border is stable. The left heart border cannot be discerned. The aortic arch is obscured. There are diffuse degenerative changes of the visualized thoracic spine. Normal visualized ribs, clavicles, and shoulders. There is no demonstrated abnormality of the visualized soft tissue structures of the upper abdomen. RAD/Chest 1 View (Portable) IMPRESSION: The endotracheal tube is high in position. It should be advanced by approximately 8 cm. The left hemithorax is now completely opacified. N.B. : The above information has been verbally conveyed by Karen Howard MD to Nurse Kevin Mckeon NP, on 01/18/2018 08:39:15 (ET). Electronically Signed: Karen Howard MD at 8:26 EDT , Service support ,
--- NOTE | 2018-01-18 07:18 | PN.CARD_ITS ---
Subjectve: Patient seen and evaluated. Events of yesterday noted. Objective: Vital Signs Temp Pulse Resp BP Pulse Ox 100.1 F H 85 21 H 119/64 93 01/18/18 07:00 01/18/18 07:00 01/18/18 07:00 01/18/18 07:00 01/18/18 07:00 Oxygen Flow Rate (L/min) 7 Oxygen Delivery Method Mechanical Ventilator Weight: 207 lb 7.28 oz Body Mass Index (BMI) 29.7 Intake and Output for Last 24 Hours 01/16/18 01/17/18 01/18/18 23:59 23:59 23:59 Intake Total 4593.8 / 4593.8 1686 / 1686 734.6 / 734.6 Output Total 2150 / 2150 1175 / 1175 925 / 925 Balance 2443.8 / 2443.8 511 / 511 -190.4 / -190.4 General: Ill Appearing, Non-Cooperative HEENT: PERRL, EOMI, Sclera Non Icteric Neck: Supple, Good ROM, No Lymph Node Enlargement Lungs: Clear to auscultation Cardiovascular: Regular Rhythm, Normal S1, Normal S2, No Murmurs, No Rubs, No Gallops Vascular: No Carotid Bruits, Normal Femoral Pulses, Normal Radial Pulses, Normal Dorsalis Pedal Pulse, Normal Posterior Tibial Pulses Abdomen: Bowel Sounds Present, Soft, Non Tender, No HSM, No Organomegaly Extremities: No Cyanosis, No Clubbing, No edema Neurological: No Focal Motor or Sensory Deficit 01/17/18 05:00: Troponin I 0.114 H 01/17/18 05:00: B-Natriuretic Peptide 318.6 H 01/17/18 11:36: pH 7.39, Bicarbonate Actual 24.2, POC Total CO2 25, Base Excess -1, O2 Saturation 95, ABG pCO2 39.9, ABG pO2 78, Jaylen Test NA 01/18/18 04:00: WBC 29.9 H, RBC 4.18 L, Hgb 12.7 L, Hct 36.7 L, MCV 87.8, MCH 30.4, MCHC 34.6, RDW 14.0, RDW Differential 44.8 H, Plt Count 246, MPV 10.8, Immature Gran % (Auto) 0.400, Neut % (Auto) 93.9 H, Lymph % (Auto) 4.2 L, [place] % (Auto) 1.4, Eos % (Auto) 0.0, Baso % (Auto) 0.1, Absolute Neuts (auto) 28.1 H, Total Counted Not Reportable 01/18/18 04:00: Sodium 140, Potassium 4.0, Chloride 105, Carbon Dioxide 27.0, Anion Gap 8, BUN 31 H, Creatinine 1.10, Est GFR (MDRD) Af Amer 87, Est GFR (MDRD) Non-Af 72, BUN/Creatinine Ratio 28.2 H, Glucose 202 H, Calcium 8.1 L, Phosphorus 2.6, Magnesium 2.6, Total Bilirubin 0.70 Rhythm: EKG: ECHO: Stress Test: Cardiac Cath: PCI: CT Surgery: Holter monitor: EPS: PPM: CXR: Chest CT Scan: Medical Necessity - Tobacco Use Smoking Status: Current every day smoker Tobacco Use: Cigarettes Assessment/Plan 1. Abnormal cardiac enzymes Patient is noted to have abnormal cardiac enzymes which is likely secondary to demand ischemia. My recommendation is to continue observing him for now and treat the underlying cause. Depending on the final level of the cardiac enzymes as well as his echocardiographic evaluation further recommendations will be made. * Echocardiogram demonstrated preserved left ventricular systolic function. * I would recommend discontinuing the continuous heparin * Will start Plavix 75 mg once a day * Lipid-lowering 2. Cardiac dysrhythmias Patient is noted to have multifocal atrial tachycardia which is likely secondary to his pulmonary disease. Once again treating the underlying cause would help elucidate and correct some of this. He is asymptomatic at this particular time anyway. Was noted yesterday to be in a regular tachycardia. It turned out to be atrial flutter with a 2 1. It responded to intravenous amiodarone and he is continuing on intravenous amiodarone for now. We will keep on the IV amiodarone while he is intubated. Thank you for allowing me to participate in the care of your patient. Please don't hesitate to call if any issues arise
--- NOTE | 2018-01-18 08:29 | PCM.PN.HOSP ---
Patient Problems: Active and Suspected Problems (Last Reviewed 06/17/17 @ 09:09 by Antionette Lua) Severe sepsis (Acute) PNA (pneumonia) (Acute) COPD (chronic obstructive pulmonary disease) (Acute) BRENDA (acute kidney injury) (Acute) NSTEMI (non-ST elevated myocardial infarction) (Acute) Subjective: Patient seen and examined. Remains intubated on mechanical ventilator. On fentanyl and propofol. In normal sinus rhythm, on amiodarone IV drip. Patient alert, opens eyes to commands Vitals/I&O's: Vital Signs Temp Pulse Resp BP Pulse Ox 100.1 F H 79 21 H 119/64 93 01/18/18 07:00 01/18/18 08:00 01/18/18 07:00 01/18/18 07:00 01/18/18 07:00 Oxygen Flow Rate (L/min) 7 Oxygen Delivery Method Mechanical Ventilator Weight: 94.1 kg Body Mass Index (BMI) 29.7 Intake and Output for Last 24 Hours 01/16/18 01/17/18 01/18/18 23:59 23:59 23:59 Intake Total 4593.8 / 4593.8 1686 / 1686 734.6 / 734.6 Output Total 2150 / 2150 1175 / 1175 925 / 925 Balance 2443.8 / 2443.8 511 / 511 -190.4 / -190.4 General: Alert, Cooperative, No apparent distress, - - Intubated, on mechanical ventilator, easily arousable, HEENT: Atraumatic, PERRLA, EOMI, Normocephalic Oral: Moist Mucosa Neck: Supple, No JVD, Negative Carotid Bruits Lungs: Clear to auscultation - Anteriorly, Normal air movement Cardiovascular: Regular rate, Regular Rhythm, Normal S1, Normal S2, No murmurs Abdomen: Bowel Sounds Present, Soft, Non Tender, Non-Distended, No Hepato-splenomegaly, Hypoactive Bowel Sounds Extremities: No edema, Capillary Refill Less than 3 Seconds Skin: No rashes, No breakdown Musculoskeletal: No Tenderness to Palpation of Joints or Extremities Lymphatic: No Cervical, Supraclavicular, or Inguinal Adenopathy Neurological: Cranial nerves II-XII grossly intact Psych/Mental Status: Normal Affect, Appropriate Microbiology Past 72 Hours 01/15/18 21:50 Sputum, Expectorated/Coughed Gram Stain - Final 01/15/18 21:50 Sputum, Expectorated/Coughed Respiratory Culture - Preliminary Appears to be normal respiratory harry. Further studies to follow. 01/15/18 09:46 Blood Culture (Wb) - Left Hand Blood Culture - Preliminary No growth in 48 hours. 01/15/18 09:45 Blood Culture (Wb) - Anticubital Right Blood Culture - Preliminary No growth in 48 hours. 01/15/18 12:30 Urine Catheter - Catheter Urine Culture - Final Culture exhibits no growth. 01/15/18 12:55 Mucosa - Nose Respiratory Panel (PCR) - Final 01/15/18 12:30 Urine Catheter - Catheter Streptococcus pneumoniae Antigen (M - Final 01/15/18 12:30 Urine Catheter - Catheter Legionella Antigen - Final Legionella Antigen Laboratory Results 01/15/18 09:45: Diff Path Review Reviewed 01/17/18 11:36: Specimen Type ART, Sample Site L Radial, pH 7.39, Bicarbonate Actual 24.2, POC Total CO2 25, Base Excess -1, O2 Saturation 95, O2 % 100, ABG pCO2 39.9, ABG pO2 78, Jaylen Test NA, Respiration Rate 16, O2 Delivery Device Vent, Minute Volume 13.00, Vent Mode A-C, Tidal Volume 500, POC PEEP 5, Blood Gas Notified Whom ICU MD, Blood Gas Notified Time 1128 01/17/18 12:12: POC Glucose 223 H 01/17/18 17:01: POC Glucose 226 H 01/17/18 21:10: POC Glucose 219 H 01/17/18 : Fluid Source Cancelled, Fluid Color Cancelled, Fluid Appearance Cancelled, Fluid WBC Cancelled, Fluid RBC Cancelled, Fluid Tot Cell Count Cancelled, Fld Polynuclear WBCs # Cancelled, Fld Polynuclear WBCs % Cancelled, Fluid Mononuclear WBCs Cancelled, Fld Mononuclear WBCs % Cancelled, Fluid Neutrophils Cancelled, Fluid Lymphocytes Cancelled, Fluid Monocytes Cancelled, Fluid Plasma Cells Cancelled, Fluid Macrophages Cancelled, Fld Mesothelial Cells Cancelled, Fluid Other Cells Cancelled, Fl Pathologist Comment Cancelled, Fluid Comment 2 Cancelled 01/18/18 00:17: POC Glucose 230 H 01/18/18 04:00: WBC 29.9 H, RBC 4.18 L, Hgb 12.7 L, Hct 36.7 L, MCV 87.8, MCH 30.4, MCHC 34.6, RDW 14.0, RDW Differential 44.8 H, Plt Count 246, MPV 10.8, Immature Gran % (Auto) 0.400, Neut % (Auto) 93.9 H, Lymph % (Auto) 4.2 L, [place] % (Auto) 1.4, Eos % (Auto) 0.0, Baso % (Auto) 0.1, Absolute Neuts (auto) 28.1 H, Absolute Lymphs (auto) 1.26, Total Counted Not Reportable 01/18/18 04:00: Sodium 140, Potassium 4.0, Chloride 105, Carbon Dioxide 27.0, Anion Gap 8, BUN 31 H, Creatinine 1.10, Estim Creat Clear Calc 66.50, Est GFR (MDRD) Af Amer 87, Est GFR (MDRD) Non-Af 72, BUN/Creatinine Ratio 28.2 H, Glucose 202 H, Calcium 8.1 L, Phosphorus 2.6, Magnesium 2.6, Total Bilirubin 0.70, AST 73 H, ALT 51, Alkaline Phosphatase 61, Total Protein 5.6 L, Albumin 1.7 L, Globulin 3.9, Albumin/Globulin Ratio 0.4 L 01/18/18 06:01: POC Glucose 175 H Current Medications Acetaminophen (Tylenol Liquid) 650 mg GT Q4H PRN PRN PRN Reason: FEVER Last Admin: 01/17/18 14:36 Dose: 650 mg Al Hydroxide/Mg Hydroxide (Mylanta Ii) 30 ml GT Q6H PRN PRN PRN Reason: Gastric burning Albuterol Sulfate (Ventolin Aerosols) 2.5 mg INHALATION Q2H PRN PRN PRN Reason: SHORTNESS OF BREATH Aspirin (Aspirin, Baby) 81 mg GT DAILY@0800 [facility] Atorvastatin Calcium (Lipitor) 40 mg GT HS [facility] Last Admin: 01/17/18 21:14 Dose: 40 mg Chlorhexidine Gluconate () 1 each TOPICAL DAILY [facility] Last Admin: 01/18/18 03:52 Dose: 1 each Chlorhexidine Gluconate () 15 ml PO BID [facility] Last Admin: 01/17/18 20:18 Dose: 15 ml Citalopram Hydrobromide (Celexa) 40 mg GT DAILY [facility] Clopidogrel Bisulfate (Plavix) 75 mg GT DAILY [facility] Famotidine (Pepcid) 20 mg GT BID [facility] Last Admin: 01/17/18 21:14 Dose: 20 mg [facility]) [facility] Heparin Sodium (Porcine) (Heparin Na) 5,000 unit SC Q8 [facility] Last Admin: 01/18/18 06:04 Dose: 5,000 unit Sodium Chloride () 250 mls @ 15 mls/hr IV .[id number] PRN PRN Reason: SALINE FLUSH Last Admin: 01/17/18 16:57 Dose: 15 mls/hr Sodium Chloride () 250 mls @ 15 mls/hr IV .[id number] PRN PRN Reason: SALINE FLUSH Levofloxacin (Levaquin Iv) 750 mg in 150 mls @ 100 mls/hr IV Q24 [facility] Last Admin: 01/17/18 11:06 Dose: 100 mls/hr Fentanyl () 100 mls @ 5 mls/hr IV .Q20H [facility]; Protocol Last Admin: 01/18/18 05:58 Dose: 5 mls/hr Propofol (Diprivan) 1,000 mg in 100 mls @ 16.758 mls/hr CONT INF .Q5H59M [facility]; Protocol Last Admin: 01/18/18 05:58 Dose: 16.758 mls/hr Piperacillin Sod/Tazobactam Sod (Zosyn) 3.375 gm in 50 mls @ 12.5 mls/hr IV Q8 [facility] Last Admin: 01/18/18 06:03 Dose: 12.5 mls/hr Amiodarone HCl 360 mg/ (Dextrose) 200 mls @ 16.67 mls/hr CONT INF .Q12H1M [facility] Stop: 01/18/18 18:59 Last Admin: 01/18/18 01:01 Dose: 16.67 mls/hr Insulin Human Lispro (Humalog Kwikpen (Bkc)) 0 unit SC Q6 [facility]; Protocol Last Admin: 01/18/18 06:03 Dose: 1 units Ipratropium [place] (Atrovent) 0.5 mg INHALATION Q4H.RT [facility] Last Admin: 01/17/18 15:31 Dose: 0.5 mg Magnesium Hydroxide (Milk Of Magnesia) 30 ml GT DAILY PRN PRN PRN Reason: Constipation Methylprednisolone (Solu-Medrol) 40 mg IV Q8 [facility] Last Admin: 01/18/18 06:03 Dose: 40 mg Ondansetron HCl (Zofran) 4 mg IV Q8H PRN PRN PRN Reason: NAUSEA Promethazine HCl (Phenergan) 12.5 mg IV Q6H PRN PRN PRN Reason: NAUSEA/VOMITING Sodium Chloride () 5 - 30 ml IV UD PRN PRN Reason: SALINE FLUSH Last Admin: 01/18/18 06:08 Dose: 10 ml Medical Necessity - Tobacco Use Smoking Status: Current every day smoker Tobacco Use: Cigarettes Assessment/Plan All Active Problems (Last Reviewed 06/17/17 @ 09:09 by Antionette Lua) Severe sepsis (Acute) PNA (pneumonia) (Acute) COPD (chronic obstructive pulmonary disease) (Acute) BRENDA (acute kidney injury) (Acute) NSTEMI (non-ST elevated myocardial infarction) (Acute) Erectile dysfunction (Acute) Diabetes type 2, controlled (Acute) Testicular hypofunction (Acute) 67-year-old male with past medical history of hypertension, hyperlipidemia, obesity, chronic nicotine dependency, suspect underlying COPD admitted on 01/15/2018 with fever, chills, worsening weakness. Managed in ICU initially on BiPAP and finally intubated. 1. Acute hypoxic respiratory failure secondary to acute severe sepsis secondary to Legionella pneumonia/acute on chronic COPD exacerbation, remains intubated 2. Severe sepsis secondary to Legionella pneumonia, WBCs count slightly worsening, on IV Zosyn and Levaquin 3. Acute on chronic COPD exacerbation, remains intubated, on IV Solu-Medrol, IV antibiotics, scheduled breathing treatments 4. Acute NSTEMI, type II secondary to demand ischemia, on aspirin, statin, Plavix 5. Episode of Atrial flutter, converted, now in normal sinus rhythm, remains on amiodarone drip, cardiology consulted and following 6. BRENDA secondary to severe sepsis/dehydration, improving, creatinine currently at 1.1 from 1.53, will continue to monitor strict I's and O 7. Type II DM, blood sugars fairly controlled, on Lantus as well as insulin sliding scale with Accu-Cheks 8. Acute hypovolemic hyponatremia, resolved with hydration, trend BMP 9. Hypokalemia, resolved 10. Chronic nicotine dependency, on nicotine patch 11. Hypertension, controlled, on any medications, will continue to monitor 12. Hyperlipidemia, on statin 13. Anxiety/depression, on citalopram 14. Obesity, BMI 31.5, would address weight loss and lifestyle changes when patient improves and prior to discharge 15. DVT prophylaxis -heparin subcu 16. GI prophylaxis -on famotidine Code Visit Inpatient E&M: [id number] [facility] Hosp L3
--- NOTE | 2018-01-18 08:40 | RAD_ITS ---
STUDY: X-RAY CHEST REASON FOR EXAM: Male, 62 years old. Endotracheal tube placement. TECHNIQUE: AP upright portable single view. COMPARISON: None. FINDINGS: Endotracheal tube appears slightly lower in position just above the mid clavicular level with the inferior tip approximate 9 cm above the inferior dheeraj. Increased rounded lucency is associated with the endotracheal tube posterior and inferior to the mandible suggesting increased air within the larynx region. Since last chest study same date 01/18/2018 at 0739 hours, moderate improved aeration is seen in the left upper lobe but partial opacification is again seen throughout the remaining left lung with minimal air bronchograms seen in the left hilar region also suggesting improved aeration. Right lung, bones and mediastinum appear relatively unchanged with right lung base medial heterogeneous opacity again seen, may represent atelectasis or pneumonia. Heart shadow is obscured by left lung opacification. No change feeding tube identified where comparable. No large gross pneumothorax suggested. No subdiaphragmatic free air seen grossly. RAD/Chest 1 View (Portable) IMPRESSION: Endotracheal tube appears slightly lower in position with the inferior tip just above the midclavicular level which should be repositions and rechecked radiographically. Increased air within the larynx region. Clinical correlation recommended. Moderate improved aeration left upper lobe. No change right lung base medial heterogeneous opacity, may represent atelectasis or pneumonia. Electronically Signed: Montrell Cardenas, at 10:41 EDT Tel , Service support ,
--- NOTE | 2018-01-18 09:20 | CASEMGMT ---
SW participated in ICU rounds this morning, pt's , brother and sister in law present. Pt remains on the ventilator at this time. SW spoke w/family after rounds, offered support. SW also asked to bring the LW/POA forms back in, as half of the pages were not copied. She will do so. SW remains available for support to family. SAL Wagner, [employer]
[2018-01-18] MEDS: levoFLOXacin IV 750 MG/150 ML BAG 100 MG IV (09:22)
[2018-01-18] MEDS: Chlorhexidine 15 ML PO ×2 (09:23→21:14)
[2018-01-18] MEDS: Aspirin 81 MG TAB.CHEW GT (09:23)
[2018-01-18] MEDS: Gabapentin 100 MG Capsule GT (09:23)
[2018-01-18] MEDS: Citalopram 40 MG TABLET GT (09:24)
[2018-01-18] MEDS: Clopidogrel Bisulfate 75 MG Tablet GT (09:24)
[2018-01-18] MEDS: Famotidine 20 MG Tablet GT ×2 (09:24→21:14)
[2018-01-18] MEDS: Polyethylene Glycol 3350 17 GM PACKET GT ×2 (09:30→21:13)
[2018-01-18] MEDS: Senna/Docusate Sodium 1 Tablet 2 TABLET GT ×2 (09:30→21:13)
[2018-01-18 10:12] LABS: Pathologist Review Reviewed
--- NOTE | 2018-01-18 10:30 | PCM.PN.ID ---
Patient Problems: Active and Suspected Problems (Last Reviewed 06/17/17 @ 09:09 by Antionette Lua) Severe sepsis (Acute) PNA (pneumonia) (Acute) COPD (chronic obstructive pulmonary disease) (Acute) BRENDA (acute kidney injury) (Acute) NSTEMI (non-ST elevated myocardial infarction) (Acute) Subjective: Bronch done, zosyn added, fever resolved. On vent. - Physical Exam General: No apparent distress Lungs: Diminished Cardiovascular: Regular rate, Regular Rhythm Abdomen: Soft, Non Tender, Non-Distended Skin: No rashes Vital Signs Temp Pulse Resp BP Pulse Ox 99.5 F H 88 21 H 130/68 H 92 01/18/18 09:30 01/18/18 09:30 01/18/18 09:30 01/18/18 09:30 01/18/18 09:30 Oxygen Flow Rate (L/min) 7 Oxygen Delivery Method Mechanical Ventilator Weight: 94.1 kg Body Mass Index (BMI) 29.7 Intake and Output for Last 24 Hours 01/16/18 01/17/18 01/18/18 23:59 23:59 23:59 Intake Total 4593.8 / 4593.8 1686 / 1686 864.6 / 864.6 Output Total 2150 / 2150 1175 / 1175 925 / 925 Balance 2443.8 / 2443.8 511 / 511 -60.4 / -60.4 Microbiology Past 72 Hours 01/17/18 Unknown Gram Stain - Final Bronchial Lavage - Left Middle Lobe 01/15/18 21:50 Gram Stain - Final Sputum, Expectorated/Coughed Respiratory Culture - Final 01/15/18 09:46 Blood Culture - Preliminary Blood Culture (Wb) - Left Hand No growth in 48 hours. 01/15/18 09:45 Blood Culture - Preliminary Blood Culture (Wb) - Anticubital Right No growth in 48 hours. 01/15/18 12:30 Urine Culture - Final Urine Catheter - Catheter Culture exhibits no growth. 01/15/18 12:55 Respiratory Panel (PCR) - Final Mucosa - Nose 01/15/18 12:30 Streptococcus pneumoniae Antigen (M - Final Urine Catheter - Catheter 01/15/18 12:30 Legionella Antigen - Final Urine Catheter - Catheter Legionella Antigen Laboratory Tests Past 24 Hrs 01/17/18 01/17/18 01/17/18 05:00 11:36 Unknown WBC RBC Hgb Hct MCV MCH MCHC RDW RDW Differential Plt Count MPV Immature Gran % (Auto) Neut % (Auto) Lymph % (Auto) [place] % (Auto) Eos % (Auto) Baso % (Auto) Absolute Neuts (auto) Absolute Lymphs (auto) Total Counted Diff Path Review Reviewed Specimen Type ART Sample Site L Radial pH 7.39 Bicarbonate Actual 24.2 POC Total CO2 25 Base Excess -1 O2 Saturation 95 O2 % 100 ABG pCO2 39.9 ABG pO2 78 Jaylen Test NA Respiration Rate 16 O2 Delivery Device Vent Minute Volume 13.00 Vent Mode A-C Tidal Volume 500 POC PEEP 5 Blood Gas Notified Whom ICU MD Blood Gas Notified Time 1128 Sodium Potassium Chloride Carbon Dioxide Anion Gap BUN Creatinine Estim Creat Clear Calc Est GFR (MDRD) Af Amer Est GFR (MDRD) Non-Af BUN/Creatinine Ratio Glucose Calcium Phosphorus Magnesium Total Bilirubin AST ALT Alkaline Phosphatase Total Protein Albumin Globulin Albumin/Globulin Ratio Fluid Source Cancelled Fluid Color Cancelled Fluid Appearance Cancelled Fluid WBC Cancelled Fluid RBC Cancelled Fluid Tot Cell Count Cancelled Fld Polynuclear WBCs # Cancelled Fld Polynuclear WBCs % Cancelled Fluid Mononuclear WBCs Cancelled Fld Mononuclear WBCs % Cancelled Fluid Neutrophils Cancelled Fluid Lymphocytes Cancelled Fluid Monocytes Cancelled Fluid Plasma Cells Cancelled Fluid Macrophages Cancelled Fld Mesothelial Cells Cancelled Fluid Other Cells Cancelled Fl Pathologist Comment Cancelled Fluid Comment 2 Cancelled 01/18/18 01/18/18 04:00 04:00 WBC 29.9 H RBC 4.18 L Hgb 12.7 L Hct 36.7 L MCV 87.8 MCH 30.4 MCHC 34.6 RDW 14.0 RDW Differential 44.8 H Plt Count 246 MPV 10.8 Immature Gran % (Auto) 0.400 Neut % (Auto) 93.9 H Lymph % (Auto) 4.2 L [place] % (Auto) 1.4 Eos % (Auto) 0.0 Baso % (Auto) 0.1 Absolute Neuts (auto) 28.1 H Absolute Lymphs (auto) 1.26 Total Counted Not Reportable Diff Path Review Specimen Type Sample Site pH Bicarbonate Actual POC Total CO2 Base Excess O2 Saturation O2 % ABG pCO2 ABG pO2 Jaylen Test Respiration Rate O2 Delivery Device Minute Volume Vent Mode Tidal Volume POC PEEP Blood Gas Notified Whom Blood Gas Notified Time Sodium 140 Potassium 4.0 Chloride 105 Carbon Dioxide 27.0 Anion Gap 8 BUN 31 H Creatinine 1.10 Estim Creat Clear Calc 66.50 Est GFR (MDRD) Af Amer 87 Est GFR (MDRD) Non-Af 72 BUN/Creatinine Ratio 28.2 H Glucose 202 H Calcium 8.1 L Phosphorus 2.6 Magnesium 2.6 Total Bilirubin 0.70 AST 73 H ALT 51 Alkaline Phosphatase 61 Total Protein 5.6 L Albumin 1.7 L Globulin 3.9 Albumin/Globulin Ratio 0.4 L Fluid Source Fluid Color Fluid Appearance Fluid WBC Fluid RBC Fluid Tot Cell Count Fld Polynuclear WBCs # Fld Polynuclear WBCs % Fluid Mononuclear WBCs Fld Mononuclear WBCs % Fluid Neutrophils Fluid Lymphocytes Fluid Monocytes Fluid Plasma Cells Fluid Macrophages Fld Mesothelial Cells Fluid Other Cells Fl Pathologist Comment Fluid Comment 2 POC Glucose 01/18/18 01/18/18 01/17/18 06:01 00:17 21:10 POC Glucose 175 H 230 H 219 H 01/17/18 01/17/18 17:01 12:12 POC Glucose 226 H 223 H Medical Necessity - Tobacco Use Smoking Status: Current every day smoker Tobacco Use: Cigarettes Route of nutrition/ use of supplements: [] Nutritional Intake: [] IV Site: [] Reyes Catheter: [] - Assessment/Plan Antibiotics: [] Assessment/Plan: [] Active and Suspected Problems (Last Reviewed 06/17/17 @ 09:09 by Antionette Lua) Severe sepsis (Acute) PNA (pneumonia) (Acute) COPD (chronic obstructive pulmonary disease) (Acute) BRENDA (acute kidney injury) (Acute) NSTEMI (non-ST elevated myocardial infarction) (Acute) severe sepsis due to legionella pneumonia - associated with falls, nausea, and hyponatremia. On levaquin, fever persisted, so zosyn added 01/17. Bronch done, cx pending. Fever now resolved. Will follow
[2018-01-18] MEDS: Vital AF 1.2 Cal Liquid 1,000 ML 60 ML GT (12:19)
[2018-01-18 12:31] LABS: Bedside Glucose 202 mg/dL (70-110)
[2018-01-18 18:11] LABS: Bedside Glucose 189 mg/dL (70-110)
[2018-01-18] MEDS: Atorvastatin Calcium 40 MG Tablet GT (21:15)
[2018-01-18 23:56] LABS: Bedside Glucose 229 mg/dL (70-110)
[2018-01-19] VITALS (38 sets, daily range): BP systolic 89–175; BP diastolic 64–94; PULSE 64–94; RESP 15–29; TEMP 36.6–37.1; O2SAT 89–95
[2018-01-19] MEDS: CHLORHEXIDINE GLUC 2% CLOTH 1 EACH TOWELETTE TOPICAL (01:29)
[2018-01-19] MEDS: Ipratropium 0.5 MG/2.5 ML SOLUTION INHALATION ×6 (02:18→23:30)
--- NOTE | 2018-01-19 02:25 | NURSING ---
Pt arrived from ER on O2 3L NC, hospital monitor, and IV infusing. Moved to bed from cart by staff.
[2018-01-19] MEDS: fentaNYL drip 100 ML 5 MCG IV ×2 (03:30→14:07)
--- NOTE | 2018-01-19 05:13 | NURSING ---
Waveform dampened on A-line. Peripheral and A-line BP's do not sync.
[2018-01-19 05:25] LABS: ALB/GLOB Ratio 0.4 RATIO (0.9-2.4); AST(SGOT) 52 U/L (15-37); Alanine Aminotransfer ALT/SGPT 46 U/L (16-61); Albumin, Serum 1.6 g/dL (3.2-5.0); Alkaline Phosphatase 75 U/L (45-117); Anion Gap 7 (5-15); BUN 39 mg/dL (7-18); Calcium,Total 8.1 mg/dL (8.5-10.1); Chloride 105 mmol/L (98-107); Creatinine, Serum 0.97 mg/dL (0.70-1.30); EST Glomerular Filtration Rate 83 mL/min (>60); Est Glom Filt Rate - Afr Amer 100 mL/min (>60); Estimated Creatinine Clearance 75.41 ml/min; Globulin 3.7 g/dL (2.2-4.2); Glucose 247 mg/dL (74-106); Magnesium 2.4 mg/dL (1.6-2.6); Phosphorus 2.7 mg/dL (2.5-4.9); Protein, Total 5.3 g/dL (6.4-8.2); Sodium Level 140 mmol/L (136-145)
[2018-01-19 05:39] LABS: Absolute Neutrophil Count 26.1 X10^3/uL (2.0-7.7); Basophil# 0.05 X10^3/uL; Basophil% 0.2 % (0-1); Differential Indicated SCAN CRITERIA MET; Hematocrit 37.7 % (40-54); Hemoglobin 12.8 g/dl (13.0-16.5); Lymphocyte % 2.8 % (19-41); Mean Corpuscular Hgb 30.3 pg (27.0-32.0); Mean Corpuscular Volume 89.1 fL (80-94); Mean Platelet Vol. 10.9 fl (6.2-12.0); Monocyte# 1.06 X10^3/uL; Monocyte% 3.8 % (0-10); Neutrophil # 26.09 X10^3/uL (2.7-7.7); Neutrophil % 92.3 % (47-70); POSITIVE COUNT NO; POSITIVE DIFFERENTIAL YES; POSITIVE MORPHOLOGY NO; Platelet Count 302 K/mm3 (150-450); RBC Distribution Width CV 14.2 % (11.6-14.6); RBC Distribution Width SD 46.3 fl (35.1-43.9); Red Blood Count 4.23 M/mm3 (4.6-6.2); White Blood Count 28.3 K/mm3 (4.4-11.0)
--- NOTE | 2018-01-19 05:55 | RAD_ITS ---
STUDY: X-RAY CHEST REASON FOR EXAM: Male, 62 years old. Intubated, shortness of breath TECHNIQUE: Single AP portable view of the chest. COMPARISON: 01/18/2018 920 and 0739 hours. FINDINGS: Endotracheal tube tip approximately 8.5 cm superior to the dheeraj. There are superimposed monitor leads. Enteric tube tip not included on the inferior aspect of the image. This however courses over the left upper abdomen. There is slight decrease of opacification with improved aeration in the left upper lobe with linear opacification along the left perihilar parenchyma and left base with obscuration of the left cardiac contour, diaphragm and left costophrenic angle. There is stable thickening of the medial left apex. There are no right pleural effusions. There is compression of right basilar parenchyma, areas of hyperinflation without focal consolidation. Obscured heart. Normal mediastinum and right ora. Normal visualized pulmonary arteries. There is atherosclerotic calcification of the aortic arch with tortuosity. There are diffuse degenerative changes of the visualized thoracic spine. Normal visualized ribs, clavicles, and shoulders. There is no demonstrated abnormality of the visualized soft tissue structures of the upper abdomen. RAD/Chest 1 View (Portable) IMPRESSION: Endotracheal tube tip as above. Slight improvement in aeration involving the left lung with continued opacification particularly along the left base. Continued compression of parenchyma in the right base with areas of hyperinflation. Electronically Signed: Judy Finley MD at 5:34 EDT , Service support ,
[2018-01-19] MEDS: 0.9% NaCl IVPB Med Flush (250 mL) 15 ML IV ×2 (05:58→14:08)
[2018-01-19] MEDS: Heparin Injection (Vial) 5,000 UNIT/ML VIAL 5000 UNIT SC ×3 (05:59→21:18)
[2018-01-19] MEDS: Piperacil/Tazobactam 3.375 GM/50 ML ML IV ×3 (06:03→21:27)
[2018-01-19 06:05] LABS: Bedside Glucose 243 mg/dL (70-110)
[2018-01-19] MEDS: Insulin Lispro 100 UNIT/ML INSULN.PEN SC ×4 (06:05→23:55)
--- NOTE | 2018-01-19 06:25 | PN_ITS ---
Subjective: The patient was seen and examined at the bedside this morning. Events from the last 24 hours have been reviewed. The patient is currently afebrile and hemodynamically stable. The patient's FiO2 requirement has improved over the last 24 hours. He is currently requiring an FiO2 of 50% to maintain appropriate oxygen saturations. The patient is currently overall net +6.1 L for the admission. The patient is alert and following simple commands this morning. Objective: The patient's most recent lab work, culture data and imaging studies have all been personally reviewed. CT chest without contrast obtained yesterday revealed bilateral emphysematous changes along with evidence of consolidation in the left upper lobe and lingula with corresponding groundglass changes extending into the left lower lobe. There was extensive mediastinal lymphadenopathy noted. It was noted that the left pulmonary artery was encased in either consolidation or a possible underlying lung mass. Urine Legionella antigen was noted to be positive. Streptococcus antigen was negative. Blood and urine cultures have shown no growth to date. Respiratory cultures are pending. Surface echocardiogram revealed normal LV size and function with evidence of stage I diastolic dysfunction. General: Alert, Cooperative, - - Remains intubated, sedated and mechanically ventilated. Tolerating assist control mode currently. HEENT: Atraumatic, PERRLA, Normocephalic Oral: No Gingival or Mucosal Lesions/ Ulcerations, - - Endotracheal and OG tubes remain in place. Neck: Supple, No Nodes, Trachea Midline Lungs: - - Improving aeration in the left upper and left mid lung machuca with continued diminished air movement in the left lower lobe. Cardiovascular: Regular rate, Regular Rhythm, Normal S1, Normal S2, No murmurs Abdomen: Bowel Sounds Present, Soft, Non Tender, - - Tolerating tube feeds without issue. Extremities: No clubbing, No cyanosis, No edema Skin: No breakdown Musculoskeletal: No Tenderness to Palpation of Joints or Extremities, No Muscle Wasting Lymphatic: No Cervical, Supraclavicular, or Inguinal Adenopathy Neurological: Neuro grossly intact, - - Remains minimally sedated with a RASS of 0 to +1 Vital Signs Temp Pulse Resp BP Pulse Ox 98.1 F 72 16 101/81 H 95 01/19/18 06:00 01/19/18 06:00 01/19/18 06:00 01/19/18 06:00 01/19/18 06:00 Oxygen Flow Rate (L/min) 7 Oxygen Delivery Method Mechanical Ventilator Weight: 207 lb 3.752 oz Body Mass Index (BMI) 29.7 Intake and Output for Last 24 Hours 01/17/18 01/18/18 01/19/18 23:59 23:59 23:59 Intake Total 1686 / 1686 2418.0 / 2418.0 1025.6 / 1025.6 Output Total 1175 / 1175 2075 / 2075 450 / 450 Balance 511 / 511 343.0 / 343.0 575.6 / 575.6 Labs (Last 48 Hours) 01/15/18 01/17/18 01/17/18 09:45 05:00 05:00 WBC RBC Hgb Hct MCV MCH MCHC RDW RDW Differential Plt Count MPV Immature Gran % (Auto) Neut % (Auto) Lymph % (Auto) [place] % (Auto) Eos % (Auto) Baso % (Auto) Absolute Neuts (auto) 24.7 H Absolute Lymphs (auto) 0.25 L Total Counted 100 Neutrophils % (Manual) 87 H Band Neutrophils % 11 H Lymphocytes % (Manual) 1 L Monocytes % (Manual) 1 Diff Path Review Reviewed Reviewed Platelet Estimate ADEQUATE Plt Morphology Comment LARGE RBC Morphology NORM C+C Specimen Type Sample Site pH Bicarbonate Actual POC Total CO2 Base Excess O2 Saturation O2 % ABG pCO2 ABG pO2 Jaylen Test Respiration Rate O2 Delivery Device Minute Volume Vent Mode Tidal Volume POC PEEP Blood Gas Notified Whom Blood Gas Notified Time Sodium Potassium Chloride Carbon Dioxide Anion Gap BUN Creatinine Estim Creat Clear Calc Est GFR (MDRD) Af Amer Est GFR (MDRD) Non-Af BUN/Creatinine Ratio Glucose Calcium Phosphorus Magnesium Total Bilirubin AST ALT Alkaline Phosphatase Troponin I 0.114 H B-Natriuretic Peptide Total Protein Albumin Globulin Albumin/Globulin Ratio Fluid Source Fluid Color Fluid Appearance Fluid WBC Fluid RBC Fluid Tot Cell Count Fld Polynuclear WBCs # Fld Polynuclear WBCs % Fluid Mononuclear WBCs Fld Mononuclear WBCs % Fluid Neutrophils Fluid Lymphocytes Fluid Monocytes Fluid Plasma Cells Fluid Macrophages Fld Mesothelial Cells Fluid Other Cells Fl Pathologist Comment Fluid Comment 2 POC Glucose 01/17/18 01/17/18 01/17/18 05:00 06:16 11:36 WBC RBC Hgb Hct MCV MCH MCHC RDW RDW Differential Plt Count MPV Immature Gran % (Auto) Neut % (Auto) Lymph % (Auto) [place] % (Auto) Eos % (Auto) Baso % (Auto) Absolute Neuts (auto) Absolute Lymphs (auto) Total Counted Neutrophils % (Manual) Band Neutrophils % Lymphocytes % (Manual) Monocytes % (Manual) Diff Path Review Platelet Estimate Plt Morphology Comment RBC Morphology Specimen Type ART Sample Site L Radial pH 7.39 Bicarbonate Actual 24.2 POC Total CO2 25 Base Excess -1 O2 Saturation 95 O2 % 100 ABG pCO2 39.9 ABG pO2 78 Jaylen Test NA Respiration Rate 16 O2 Delivery Device Vent Minute Volume 13.00 Vent Mode A-C Tidal Volume 500 POC PEEP 5 Blood Gas Notified Whom ICU MD Blood Gas Notified Time 1128 Sodium Potassium Chloride Carbon Dioxide Anion Gap BUN Creatinine Estim Creat Clear Calc Est GFR (MDRD) Af Amer Est GFR (MDRD) Non-Af BUN/Creatinine Ratio Glucose Calcium Phosphorus Magnesium Total Bilirubin AST ALT Alkaline Phosphatase Troponin I B-Natriuretic Peptide 318.6 H Total Protein Albumin Globulin Albumin/Globulin Ratio Fluid Source Fluid Color Fluid Appearance Fluid WBC Fluid RBC Fluid Tot Cell Count Fld Polynuclear WBCs # Fld Polynuclear WBCs % Fluid Mononuclear WBCs Fld Mononuclear WBCs % Fluid Neutrophils Fluid Lymphocytes Fluid Monocytes Fluid Plasma Cells Fluid Macrophages Fld Mesothelial Cells Fluid Other Cells Fl Pathologist Comment Fluid Comment 2 POC Glucose 184 H 01/17/18 01/17/18 01/17/18 12:12 17:01 21:10 WBC RBC Hgb Hct MCV MCH MCHC RDW RDW Differential Plt Count MPV Immature Gran % (Auto) Neut % (Auto) Lymph % (Auto) [place] % (Auto) Eos % (Auto) Baso % (Auto) Absolute Neuts (auto) Absolute Lymphs (auto) Total Counted Neutrophils % (Manual) Band Neutrophils % Lymphocytes % (Manual) Monocytes % (Manual) Diff Path Review Platelet Estimate Plt Morphology Comment RBC Morphology Specimen Type Sample Site pH Bicarbonate Actual POC Total CO2 Base Excess O2 Saturation O2 % ABG pCO2 ABG pO2 Jaylen Test Respiration Rate O2 Delivery Device Minute Volume Vent Mode Tidal Volume POC PEEP Blood Gas Notified Whom Blood Gas Notified Time Sodium Potassium Chloride Carbon Dioxide Anion Gap BUN Creatinine Estim Creat Clear Calc Est GFR (MDRD) Af Amer Est GFR (MDRD) Non-Af BUN/Creatinine Ratio Glucose Calcium Phosphorus Magnesium Total Bilirubin AST ALT Alkaline Phosphatase Troponin I B-Natriuretic Peptide Total Protein Albumin Globulin Albumin/Globulin Ratio Fluid Source Fluid Color Fluid Appearance Fluid WBC Fluid RBC Fluid Tot Cell Count Fld Polynuclear WBCs # Fld Polynuclear WBCs % Fluid Mononuclear WBCs Fld Mononuclear WBCs % Fluid Neutrophils Fluid Lymphocytes Fluid Monocytes Fluid Plasma Cells Fluid Macrophages Fld Mesothelial Cells Fluid Other Cells Fl Pathologist Comment Fluid Comment 2 POC Glucose 223 H 226 H 219 H 01/17/18 01/18/18 01/18/18 Unknown 00:17 04:00 WBC 29.9 H RBC 4.18 L Hgb 12.7 L Hct 36.7 L MCV 87.8 MCH 30.4 MCHC 34.6 RDW 14.0 RDW Differential 44.8 H Plt Count 246 MPV 10.8 Immature Gran % (Auto) 0.400 Neut % (Auto) 93.9 H Lymph % (Auto) 4.2 L [place] % (Auto) 1.4 Eos % (Auto) 0.0 Baso % (Auto) 0.1 Absolute Neuts (auto) 28.1 H Absolute Lymphs (auto) 1.26 Total Counted Not Reportable Neutrophils % (Manual) Band Neutrophils % Lymphocytes % (Manual) Monocytes % (Manual) Diff Path Review Platelet Estimate Plt Morphology Comment RBC Morphology Specimen Type Sample Site pH Bicarbonate Actual POC Total CO2 Base Excess O2 Saturation O2 % ABG pCO2 ABG pO2 Jaylen Test Respiration Rate O2 Delivery Device Minute Volume Vent Mode Tidal Volume POC PEEP Blood Gas Notified Whom Blood Gas Notified Time Sodium Potassium Chloride Carbon Dioxide Anion Gap BUN Creatinine Estim Creat Clear Calc Est GFR (MDRD) Af Amer Est GFR (MDRD) Non-Af BUN/Creatinine Ratio Glucose Calcium Phosphorus Magnesium Total Bilirubin AST ALT Alkaline Phosphatase Troponin I B-Natriuretic Peptide Total Protein Albumin Globulin Albumin/Globulin Ratio Fluid Source Cancelled Fluid Color Cancelled Fluid Appearance Cancelled Fluid WBC Cancelled Fluid RBC Cancelled Fluid Tot Cell Count Cancelled Fld Polynuclear WBCs # Cancelled Fld Polynuclear WBCs % Cancelled Fluid Mononuclear WBCs Cancelled Fld Mononuclear WBCs % Cancelled Fluid Neutrophils Cancelled Fluid Lymphocytes Cancelled Fluid Monocytes Cancelled Fluid Plasma Cells Cancelled Fluid Macrophages Cancelled Fld Mesothelial Cells Cancelled Fluid Other Cells Cancelled Fl Pathologist Comment Cancelled Fluid Comment 2 Cancelled POC Glucose 230 H 01/18/18 01/18/18 01/18/18 04:00 06:01 12:16 WBC RBC Hgb Hct MCV MCH MCHC RDW RDW Differential Plt Count MPV Immature Gran % (Auto) Neut % (Auto) Lymph % (Auto) [place] % (Auto) Eos % (Auto) Baso % (Auto) Absolute Neuts (auto) Absolute Lymphs (auto) Total Counted Neutrophils % (Manual) Band Neutrophils % Lymphocytes % (Manual) Monocytes % (Manual) Diff Path Review Platelet Estimate Plt Morphology Comment RBC Morphology Specimen Type Sample Site pH Bicarbonate Actual POC Total CO2 Base Excess O2 Saturation O2 % ABG pCO2 ABG pO2 Jaylen Test Respiration Rate O2 Delivery Device Minute Volume Vent Mode Tidal Volume POC PEEP Blood Gas Notified Whom Blood Gas Notified Time Sodium 140 Potassium 4.0 Chloride 105 Carbon Dioxide 27.0 Anion Gap 8 BUN 31 H Creatinine 1.10 Estim Creat Clear Calc 66.50 Est GFR (MDRD) Af Amer 87 Est GFR (MDRD) Non-Af 72 BUN/Creatinine Ratio 28.2 H Glucose 202 H Calcium 8.1 L Phosphorus 2.6 Magnesium 2.6 Total Bilirubin 0.70 AST 73 H ALT 51 Alkaline Phosphatase 61 Troponin I B-Natriuretic Peptide Total Protein 5.6 L Albumin 1.7 L Globulin 3.9 Albumin/Globulin Ratio 0.4 L Fluid Source Fluid Color Fluid Appearance Fluid WBC Fluid RBC Fluid Tot Cell Count Fld Polynuclear WBCs # Fld Polynuclear WBCs % Fluid Mononuclear WBCs Fld Mononuclear WBCs % Fluid Neutrophils Fluid Lymphocytes Fluid Monocytes Fluid Plasma Cells Fluid Macrophages Fld Mesothelial Cells Fluid Other Cells Fl Pathologist Comment Fluid Comment 2 POC Glucose 175 H 202 H 01/18/18 01/18/18 01/19/18 18:05 23:44 05:00 WBC 28.3 H RBC 4.23 L Hgb 12.8 L Hct 37.7 L MCV 89.1 MCH 30.3 MCHC 34.0 RDW 14.2 RDW Differential 46.3 H Plt Count 302 MPV 10.9 Immature Gran % (Auto) 0.900 Neut % (Auto) 92.3 H Lymph % (Auto) 2.8 L [place] % (Auto) 3.8 Eos % (Auto) 0.0 Baso % (Auto) 0.2 Absolute Neuts (auto) 26.1 H Absolute Lymphs (auto) 0.80 L Total Counted Not Reportable Neutrophils % (Manual) Band Neutrophils % Lymphocytes % (Manual) Monocytes % (Manual) Diff Path Review Platelet Estimate Plt Morphology Comment RBC Morphology Specimen Type Sample Site pH Bicarbonate Actual POC Total CO2 Base Excess O2 Saturation O2 % ABG pCO2 ABG pO2 Jaylen Test Respiration Rate O2 Delivery Device Minute Volume Vent Mode Tidal Volume POC PEEP Blood Gas Notified Whom Blood Gas Notified Time Sodium Potassium Chloride Carbon Dioxide Anion Gap BUN Creatinine Estim Creat Clear Calc Est GFR (MDRD) Af Amer Est GFR (MDRD) Non-Af BUN/Creatinine Ratio Glucose Calcium Phosphorus Magnesium Total Bilirubin AST ALT Alkaline Phosphatase Troponin I B-Natriuretic Peptide Total Protein Albumin Globulin Albumin/Globulin Ratio Fluid Source Fluid Color Fluid Appearance Fluid WBC Fluid RBC Fluid Tot Cell Count Fld Polynuclear WBCs # Fld Polynuclear WBCs % Fluid Mononuclear WBCs Fld Mononuclear WBCs % Fluid Neutrophils Fluid Lymphocytes Fluid Monocytes Fluid Plasma Cells Fluid Macrophages Fld Mesothelial Cells Fluid Other Cells Fl Pathologist Comment Fluid Comment 2 POC Glucose 189 H 229 H 01/19/18 01/19/18 05:00 06:01 WBC RBC Hgb Hct MCV MCH MCHC RDW RDW Differential Plt Count MPV Immature Gran % (Auto) Neut % (Auto) Lymph % (Auto) [place] % (Auto) Eos % (Auto) Baso % (Auto) Absolute Neuts (auto) Absolute Lymphs (auto) Total Counted Neutrophils % (Manual) Band Neutrophils % Lymphocytes % (Manual) Monocytes % (Manual) Diff Path Review Platelet Estimate Plt Morphology Comment RBC Morphology Specimen Type Sample Site pH Bicarbonate Actual POC Total CO2 Base Excess O2 Saturation O2 % ABG pCO2 ABG pO2 Jaylen Test Respiration Rate O2 Delivery Device Minute Volume Vent Mode Tidal Volume POC PEEP Blood Gas Notified Whom Blood Gas Notified Time Sodium 140 Potassium 4.0 Chloride 105 Carbon Dioxide 28.0 Anion Gap 7 BUN 39 H Creatinine 0.97 Estim Creat Clear Calc 75.41 Est GFR (MDRD) Af Amer 100 Est GFR (MDRD) Non-Af 83 BUN/Creatinine Ratio 40.0 H Glucose 247 H Calcium 8.1 L Phosphorus 2.7 Magnesium 2.4 Total Bilirubin 0.60 AST 52 H ALT 46 Alkaline Phosphatase 75 Troponin I B-Natriuretic Peptide Total Protein 5.3 L Albumin 1.6 L Globulin 3.7 Albumin/Globulin Ratio 0.4 L Fluid Source Fluid Color Fluid Appearance Fluid WBC Fluid RBC Fluid Tot Cell Count Fld Polynuclear WBCs # Fld Polynuclear WBCs % Fluid Mononuclear WBCs Fld Mononuclear WBCs % Fluid Neutrophils Fluid Lymphocytes Fluid Monocytes Fluid Plasma Cells Fluid Macrophages Fld Mesothelial Cells Fluid Other Cells Fl Pathologist Comment Fluid Comment 2 POC Glucose 243 H Microbiology 01/17/18 Unknown Bronchial Lavage - Left Middle Lobe Gram Stain - Final 01/15/18 21:50 Sputum, Expectorated/Coughed Gram Stain - Final 01/15/18 21:50 Sputum, Expectorated/Coughed Respiratory Culture - Final 01/15/18 09:46 Blood Culture (Wb) - Left Hand Blood Culture - Preliminary No growth in 48 hours. 01/15/18 09:45 Blood Culture (Wb) - Anticubital Right Blood Culture - Preliminary No growth in 48 hours. 01/15/18 12:30 Urine Catheter - Catheter Urine Culture - Final Culture exhibits no growth. Clinical Impression(s) from Imaging Studies Chest X-Ray 01/15/18 09:45 IMPRESSION: Near complete opacification left lung machuca sparing only the upper lobe at the level of the aortic knob and above. Differential considerations include pleural fluid, atelectasis/scarring, pneumonia or underlying mass. Clinical correlation follow-up recommended. Results discussed with Attending Physician 01/15/2018 approximate 1235 hours. If clinically indicated, recommend follow-up chest study after treatment to demonstrate complete clearing if clinically indicated. Electronically Signed: Montrell Cardenas at 12:39 EDT Tel , Service support , Chest CT 01/15/18 12:44 IMPRESSION: There is a large amount of consolidation in the left upper lobe and lingula which is centrally dense with an air bronchograms. Although this may represent an infiltrate. An underlying left hilar mass with surrounding consolidated lung should be excluded. Recommend consideration for bronchoscopy. Small left effusion lower lobe atelectasis. Cardiomegaly cardiac artery disease Reactive and/or metastatic lymphadenopathy. Hyperinflated appearance of the right lung overall pattern of underlying chronic obstructive pulmonary disease. Inhomogeneous appearance of the liver which may represent fatty infiltration of the liver with sparing however further evaluation is recommended with an ultrasound or contrasted study of the abdomen and pelvis when possible. Electronically Signed: Mickie Saldivar MD at 15:10 EDT Tel , Service support , Chest X-Ray 01/17/18 06:53 IMPRESSION: Persistent left lung infiltrate no change or improvement. Follow-up to clearing recommended. Electronically Signed: Karen Howard MD at 8:16 EDT , Service support , Chest X-Ray 01/17/18 10:14 IMPRESSION: In the interval since prior study there is been placement of a GI tube which extends through the gastroesophageal junction enters into the region of the fundus the stomach and terminates in the region of the body of the stomach. Unchanged left lung opacity. Electronically Signed: Karen Howard MD at 11:18 EDT , Service support , Chest X-Ray 01/18/18 06:56 IMPRESSION: The endotracheal tube is high in position. It should be advanced by approximately 8 cm. The left hemithorax is now completely opacified. N.B. : The above information has been verbally conveyed by Karen Howard MD to Nurse Kevin Mckeon NP, on 01/18/2018 08:39:15 (ET). Electronically Signed: Karen Howard MD at 8:26 EDT , Service support , ADDENDUM: 01/18/18 [id number] Chest X-Ray 01/18/18 08:40 IMPRESSION: Endotracheal tube appears slightly lower in position with the inferior tip just above the midclavicular level which should be repositions and rechecked radiographically. Increased air within the larynx region. Clinical correlation recommended. Moderate improved aeration left upper lobe. No change right lung base medial heterogeneous opacity, may represent atelectasis or pneumonia. Electronically Signed: Montrell Cardenas at 10:41 EDT Tel , Service support , ADDENDUM: 01/18/18 1107 Chest X-Ray 01/19/18 05:55 IMPRESSION: Endotracheal tube tip as above. Slight improvement in aeration involving the left lung with continued opacification particularly along the left base. Continued compression of parenchyma in the right base with areas of hyperinflation. Electronically Signed: Judy Finley MD at 5:34 EDT , Service support , Medical Necessity - Tobacco Use Smoking Status: Current every day smoker Tobacco Use: Cigarettes Assessment/Plan All Active Problems (Last Reviewed 06/17/17 @ 09:09 by Antionette Lua) Severe sepsis (Acute) PNA (pneumonia) (Acute) COPD (chronic obstructive pulmonary disease) (Acute) BRENDA (acute kidney injury) (Acute) NSTEMI (non-ST elevated myocardial infarction) (Acute) Erectile dysfunction (Acute) Diabetes type 2, controlled (Acute) Testicular hypofunction (Acute) RECOMMENDATIONS: 1. Continue antibiotics per ID recommendations. 2. Wean FiO2/PEEP to maintain oxygen saturations above 90%. 3. Continue amiodarone. 4. Continue tube feeds. 5. Continue scheduled bronchodilators along with IV steroids. 6. Continue Accu-Cheks and sliding scale insulin coverage. Basal insulin regimen can be increased accordingly. 7. Continue scheduled Atrovent. 8. The patient will need to have a repeat CT chest completed in 6-8 weeks. IMPRESSIONS: 1. Acute hypoxic respiratory failure secondary to severe Legionella pneumonia leading to presumptive COPD exacerbation While the patient does have an extensive smoking history, he has never had pulmonary function testing done to confirm or refute a diagnosis of COPD. However, he does have an extreme amount of wheezing noted on examination. The patient CT chest did reveal significant left upper and lingula consolidation with groundglass extending into the left lower lobe. There was also extensive mediastinal lymphadenopathy with possible encasement of the left pulmonary artery by consolidation and/or lung mass. The patient's Legionella antigen was noted to be positive. He is currently on treatment with appropriate antibiotics, along with scheduled bronchodilators and steroids. Despite all of the aforementioned, the patient's respiratory status continued to decline and he was subsequently intubated on January 17. A post intubation bronchoscopy was also performed. Antibiotics will be continued, per infectious diseases recommendations. Wean FiO2 and PEEP as tolerated to maintain an oxygen saturation at or above 90%. The patient will need to follow-up in the pulmonary medicine clinic so that a repeat CT chest can be completed in 6-8 weeks for further evaluation of the patient's left hilum. If there is concern for an underlying lung mass, will proceed with setting the patient up for bronchoscopy and specifically EBUS. However, at this time, he will be treated with antibiotics. 2. Severe sepsis secondary to Legionella pneumonia The patient has been adequately volume resuscitated and is currently hemodynamically stable. The patient is currently on Levaquin and Zosyn, pending finalized BAL culture results. Fever curve has improved. 3. Atrial fibrillation/flutter The patient was noted to be in atrial flutter with an elevated heart rate on January 17. He was placed on amiodarone and subsequently converted back to normal sinus rhythm. 4. History of tobacco dependence The patient does have an extensive smoking history and we are currently working under the assumption that he has obstructive lung disease. However, smoking cessation is strongly advisable. Nicotine replacement therapy can be offered while he is admitted to the hospital. The patient should ideally follow up in the pulmonary medicine clinic so that baseline PFTs can be obtained. 5. Troponin elevation/heart failure with preserved ejection fraction The patient's echocardiogram did reveal evidence of stage I diastolic dysfunction with preserved ejection fraction. Troponin elevation is likely secondary to demand ischemia in the setting of #1/2. 6. Acute kidney injury Improved. Likely prerenal in etiology. Anticipate improvement with volume expansion. Continue to monitor urine output. No current indication for renal replacement therapy. 7. Hypertension/hyperlipidemia/neuropathy Complicates care, management, recovery and prognosis. Okay to continue home medications from my perspective. TIME: 40 minutes of critical care time, independent of procedures, was spent addressing the patient's acute hypoxemic respiratory failure, Legionella pneumonia, severe sepsis, history of tobacco dependence, sinus arrhythmia, troponin elevation, electrolyte disturbances, acute kidney injury, review of all data and collaboration with the care team. ([id number]) Code Visit [id number]: [id number] Critical care first hour
--- NOTE | 2018-01-19 07:05 | PCM.PN.HOSP ---
Patient Problems: Active and Suspected Problems (Last Reviewed 06/17/17 @ 09:09 by Antionette Lua) Severe sepsis (Acute) PNA (pneumonia) (Acute) COPD (chronic obstructive pulmonary disease) (Acute) BRENDA (acute kidney injury) (Acute) NSTEMI (non-ST elevated myocardial infarction) (Acute) Subjective: Patient was seen and examined. Remains intubated on mechanical ventilator. Remains on fentanyl and propofol. FiO2 reduced to 45%, PEEP remains at 10 No acute events overnight. Objective: Physical exam: General: Alert, Cooperative, No apparent distress, - - Intubated, on mechanical ventilator, easily arousable, HEENT: Atraumatic, PERRLA, EOMI, Normocephalic Oral: Moist Mucosa Neck: Supple, No JVD, Negative Carotid Bruits Lungs: Clear to auscultation - Anteriorly, Normal air movement Cardiovascular: Regular rate, Regular Rhythm, Normal S1, Normal S2, No murmurs Abdomen: Bowel Sounds Present, Soft, Non Tender, Non-Distended, No Hepato-splenomegaly, Hypoactive Bowel Sounds Extremities: No edema, Capillary Refill Less than 3 Seconds Skin: No rashes, No breakdown Musculoskeletal: No Tenderness to Palpation of Joints or Extremities Lymphatic: No Cervical, Supraclavicular, or Inguinal Adenopathy Neurological: Cranial nerves II-XII grossly intact Psych/Mental Status: Normal Affect, Appropriate Vitals/I&O's: Vital Signs Temp Pulse Resp BP Pulse Ox 98.1 F 72 16 101/81 H 94 01/19/18 06:00 01/19/18 06:00 01/19/18 06:00 01/19/18 06:00 01/19/18 06:05 Oxygen Flow Rate (L/min) 7 Oxygen Delivery Method Mechanical Ventilator Weight: 94 kg Body Mass Index (BMI) 29.7 Intake and Output for Last 24 Hours 01/17/18 01/18/18 01/19/18 23:59 23:59 23:59 Intake Total 1686 / 1686 2418.0 / 2418.0 1025.6 / 1025.6 Output Total 1175 / 1175 2075 / 2075 450 / 450 Balance 511 / 511 343.0 / 343.0 575.6 / 575.6 Microbiology Past 72 Hours 01/17/18 Unknown Bronchial Lavage - Left Middle Lobe Gram Stain - Final 01/15/18 21:50 Sputum, Expectorated/Coughed Gram Stain - Final 01/15/18 21:50 Sputum, Expectorated/Coughed Respiratory Culture - Final 01/15/18 09:46 Blood Culture (Wb) - Left Hand Blood Culture - Preliminary No growth in 48 hours. 01/15/18 09:45 Blood Culture (Wb) - Anticubital Right Blood Culture - Preliminary No growth in 48 hours. 01/15/18 12:30 Urine Catheter - Catheter Urine Culture - Final Culture exhibits no growth. 01/15/18 12:55 Mucosa - Nose Respiratory Panel (PCR) - Final Laboratory Results 01/17/18 05:00: Diff Path Review Reviewed 01/18/18 12:16: POC Glucose 202 H 01/18/18 18:05: POC Glucose 189 H 01/18/18 23:44: POC Glucose 229 H 01/19/18 05:00: WBC 28.3 H, RBC 4.23 L, Hgb 12.8 L, Hct 37.7 L, MCV 89.1, MCH 30.3, MCHC 34.0, RDW 14.2, RDW Differential 46.3 H, Plt Count 302, MPV 10.9, Immature Gran % (Auto) 0.900, Neut % (Auto) 92.3 H, Lymph % (Auto) 2.8 L, Lap[place] % (Auto) 3.8, Eos % (Auto) 0.0, Baso % (Auto) 0.2, Absolute Neuts (auto) 26.1 H, Absolute Lymphs (auto) 0.80 L, Total Counted Not Reportable 01/19/18 05:00: Sodium 140, Potassium 4.0, Chloride 105, Carbon Dioxide 28.0, Anion Gap 7, BUN 39 H, Creatinine 0.97, Estim Creat Clear Calc 75.41, Est GFR (MDRD) Af Amer 100, Est GFR (MDRD) Non-Af 83, BUN/Creatinine Ratio 40.0 H, Glucose 247 H, Calcium 8.1 L, Phosphorus 2.7, Magnesium 2.4, Total Bilirubin 0.60, AST 52 H, ALT 46, Alkaline Phosphatase 75, Total Protein 5.3 L, Albumin 1.6 L, Globulin 3.7, Albumin/Globulin Ratio 0.4 L 01/19/18 06:01: POC Glucose 243 H Current Medications Acetaminophen (Tylenol Liquid) 650 mg GT Q4H PRN PRN PRN Reason: FEVER Last Admin: 01/17/18 14:36 Dose: 650 mg Al Hydroxide/Mg Hydroxide (Mylanta Ii) 30 ml GT Q6H PRN PRN PRN Reason: Gastric burning Albuterol Sulfate (Ventolin Aerosols) 2.5 mg INHALATION Q2H PRN PRN PRN Reason: SHORTNESS OF BREATH Aspirin (Aspirin, Baby) 81 mg GT DAILY@0800 [facility] Last Admin: 01/18/18 09:23 Dose: 81 mg Atorvastatin Calcium (Lipitor) 40 mg GT HS [facility] Last Admin: 01/18/18 21:15 Dose: 40 mg Chlorhexidine Gluconate () 1 each TOPICAL DAILY [facility] Last Admin: 01/19/18 01:29 Dose: 1 each Chlorhexidine Gluconate () 15 ml PO BID [facility] Last Admin: 01/18/18 21:14 Dose: 15 ml Citalopram Hydrobromide (Celexa) 40 mg GT DAILY [facility] Last Admin: 01/18/18 09:24 Dose: 40 mg Clopidogrel Bisulfate (Plavix) 75 mg GT DAILY [facility] Last Admin: 01/18/18 09:24 Dose: 75 mg Famotidine (Pepcid) 20 mg GT BID [facility] Last Admin: 01/18/18 21:14 Dose: 20 mg [facility] Admin: 01/18/18 09:23 Dose: 100 mg Heparin Sodium (Porcine) (Heparin Na) 5,000 unit SC Q8 [facility] Last Admin: 01/19/18 05:59 Dose: 5,000 unit Sodium Chloride () 250 mls @ 15 mls/hr IV .[id number] PRN PRN Reason: SALINE FLUSH Last Admin: 01/19/18 05:58 Dose: 15 mls/hr Sodium Chloride () 250 mls @ 15 mls/hr IV .[id number] PRN PRN Reason: SALINE FLUSH Levofloxacin (Levaquin Iv) 750 mg in 150 mls @ 100 mls/hr IV Q24 [facility] Last Admin: 01/18/18 09:22 Dose: 100 mls/hr Fentanyl () 100 mls @ 5 mls/hr IV .Q20H [facility]; Protocol Last Admin: 01/19/18 03:30 Dose: 5 mls/hr Propofol (Diprivan) 1,000 mg in 100 mls @ 16.758 mls/hr CONT INF .Q5H59M [facility]; Protocol Last Admin: 01/19/18 05:59 Dose: Not Given Piperacillin Sod/Tazobactam Sod (Zosyn) 3.375 gm in 50 mls @ 12.5 mls/hr IV Q8 [facility] Last Admin: 01/19/18 06:03 Dose: 12.5 mls/hr Amiodarone HCl 360 mg/ (Dextrose) 200 mls @ 16.67 mls/hr CONT INF .Q12H1M [facility] Last Admin: 01/19/18 01:28 Dose: 16.67 mls/hr Enteral Nutritional Formula (Vital Af 1.2 Andrew Liquid) 1,000 mls @ 60 mls/hr GT .[id number] [facility] Last Admin: 01/19/18 03:34 Dose: Not Given Insulin Glargine (Lantus (Bkc)) 10 units SC [facility] Last Admin: 01/19/18 06:05 Dose: 10 u Insulin Human Lispro (Humalog Kwikpen (Bkc)) 0 unit SC Q6 [facility]; Protocol Last Admin: 01/19/18 06:05 Dose: 3 units Ipratropium Troup (Atrovent) 0.5 mg INHALATION Q4H.RT [facility] Last Admin: 01/19/18 06:49 Dose: 0.5 mg Magnesium Hydroxide (Milk Of Magnesia) 30 ml GT DAILY PRN PRN PRN Reason: Constipation Methylprednisolone (Solu-Medrol) 40 mg IV Q8 [facility] Last Admin: 01/19/18 05:59 Dose: 40 mg Ondansetron HCl (Zofran) 4 mg IV Q8H PRN PRN PRN Reason: NAUSEA Polyethylene Glycol (Miralax) 17 gm GT BID [facility] Last Admin: 01/18/18 21:13 Dose: 17 gm Promethazine HCl (Phenergan) 12.5 mg IV Q6H PRN PRN PRN Reason: NAUSEA/VOMITING Senna/Docusate Sodium (Senokot-S, Komal-Colace) 2 tablet GT BID [facility] Last Admin: 01/18/18 21:13 Dose: 2 tablet Sodium Chloride () 5 - 30 ml IV UD PRN PRN Reason: SALINE FLUSH Last Admin: 01/18/18 21:16 Dose: 10 ml Medical Necessity - Tobacco Use Smoking Status: Current every day smoker Tobacco Use: Cigarettes Assessment/Plan All Active Problems (Last Reviewed 06/17/17 @ 09:09 by Antionette Lua) Severe sepsis (Acute) PNA (pneumonia) (Acute) COPD (chronic obstructive pulmonary disease) (Acute) BRENDA (acute kidney injury) (Acute) NSTEMI (non-ST elevated myocardial infarction) (Acute) Erectile dysfunction (Acute) Diabetes type 2, controlled (Acute) Testicular hypofunction (Acute) 67-year-old male with past medical history of hypertension, hyperlipidemia, obesity, chronic nicotine dependency, suspect underlying COPD admitted on 01/15/2018 with fever, chills, worsening weakness. Managed in ICU initially on BiPAP and finally intubated. 1. Acute hypoxic respiratory failure secondary to Legionella pneumonia/acute on chronic COPD exacerbation, remains intubated, oxygen requirements still high but slowly improving. 2. Severe sepsis secondary to Legionella pneumonia, WBCs count very marginally improved, but no fever, will continue on IV Zosyn(day3) and Levaquin(day 5) 3. Acute on chronic COPD exacerbation, remains intubated, on IV Solu-Medrol, IV antibiotics, as well as scheduled breathing treatments, will continue same. 4. Acute NSTEMI, type II secondary to demand ischemia, on aspirin, statin, Plavix 5. Episode of Atrial flutter, converted, in NSR, remains on amiodarone drip, cardiology consulted and following 6. BRENDA secondary to severe sepsis/dehydration, resolved, creatinine is normal now, will continue to monitor strict I's and O 7. Type II DM, blood sugars fairly controlled, on Lantus as well as insulin sliding scale with Accu-Cheks 8. Acute hypovolemic hyponatremia, resolved with hydration 9. Hypokalemia, resolved 10. Chronic nicotine dependency, on nicotine patch 11. Hypertension, controlled, not on any medications, will continue to monitor. 12. Hyperlipidemia, on statin 13. Anxiety/depression, on citalopram 14. Obesity, BMI 31.5, would address weight loss and lifestyle changes when patient improves and prior to discharge 15. DVT prophylaxis -heparin subcu 16. GI prophylaxis -on famotidine Code Visit Inpatient E&M: [id number] [facility] Hosp L3
[2018-01-19] MEDS: Clopidogrel Bisulfate 75 MG Tablet GT (10:23)
[2018-01-19] MEDS: Famotidine 20 MG Tablet GT ×2 (10:23→21:19)
[2018-01-19] MEDS: Senna/Docusate Sodium 1 Tablet 2 TABLET GT ×2 (10:23→21:19)
[2018-01-19] MEDS: Gabapentin 100 MG Capsule GT (10:23)
[2018-01-19] MEDS: Aspirin 81 MG TAB.CHEW GT (10:25)
[2018-01-19] MEDS: Chlorhexidine 15 ML PO ×2 (10:25→21:17)
[2018-01-19] MEDS: Citalopram 40 MG TABLET GT (10:25)
[2018-01-19] MEDS: levoFLOXacin IV 750 MG/150 ML BAG 100 MG IV (10:25)
[2018-01-19] MEDS: Polyethylene Glycol 3350 17 GM PACKET GT ×2 (10:26→21:18)
[2018-01-19] MEDS: Propofol 10MG/Ml 1,000 MG/100 ML Bottle 16.758 MG CONT INF ×2 (12:27→21:27)
[2018-01-19 12:46] LABS: Bedside Glucose 252 mg/dL (70-110)
--- NOTE | 2018-01-19 13:54 | PN.ID_ITS ---
Patient Problems: Active and Suspected Problems (Last Reviewed 06/17/17 @ 09:09 by Antionette Lua) Severe sepsis (Acute) PNA (pneumonia) (Acute) COPD (chronic obstructive pulmonary disease) (Acute) BRENDA (acute kidney injury) (Acute) NSTEMI (non-ST elevated myocardial infarction) (Acute) Subjective: Remains on vent, no fever. - Physical Exam General: No apparent distress Lungs: Diminished Cardiovascular: Regular rate, Regular Rhythm Abdomen: Soft, Non Tender, Non-Distended Skin: No rashes Vital Signs Temp Pulse Resp BP Pulse Ox 98.2 F 72 20 H 150/87 H 92 01/19/18 07:00 01/19/18 13:15 01/19/18 13:15 01/19/18 07:00 01/19/18 13:15 Oxygen Flow Rate (L/min) 7 Oxygen Delivery Method Mechanical Ventilator Weight: 94 kg Body Mass Index (BMI) 29.7 Intake and Output for Last 24 Hours 01/17/18 01/18/18 01/19/18 23:59 23:59 23:59 Intake Total 1686 / 1686 2418.0 / 2418.0 2255.6 / 2255.6 Output Total 1175 / 1175 2075 / 2075 750 / 750 Balance 511 / 511 343.0 / 343.0 1505.6 / 1505.6 Microbiology Past 72 Hours 01/17/18 08:06 Blood Culture - Preliminary Blood Culture (Wb) - Anticubital Left No growth in 48 hours. 01/17/18 07:15 Blood Culture - Preliminary Blood Culture (Wb) - Right Forearm No growth in 48 hours. 01/17/18 Unknown Gram Stain - Final Bronchial Lavage - Left Middle Lobe Respiratory Culture - Preliminary Yeast Like Organism 01/15/18 21:50 Gram Stain - Final Sputum, Expectorated/Coughed Respiratory Culture - Final 01/15/18 09:46 Blood Culture - Preliminary Blood Culture (Wb) - Left Hand No growth in 48 hours. 01/15/18 09:45 Blood Culture - Preliminary Blood Culture (Wb) - Anticubital Right No growth in 48 hours. 01/15/18 12:30 Urine Culture - Final Urine Catheter - Catheter Culture exhibits no growth. Laboratory Tests Past 24 Hrs 01/19/18 01/19/18 05:00 05:00 WBC 28.3 H RBC 4.23 L Hgb 12.8 L Hct 37.7 L MCV 89.1 MCH 30.3 MCHC 34.0 RDW 14.2 RDW Differential 46.3 H Plt Count 302 MPV 10.9 Immature Gran % (Auto) 0.900 Neut % (Auto) 92.3 H Lymph % (Auto) 2.8 L [place] % (Auto) 3.8 Eos % (Auto) 0.0 Baso % (Auto) 0.2 Absolute Neuts (auto) 26.1 H Absolute Lymphs (auto) 0.80 L Total Counted Not Reportable Sodium 140 Potassium 4.0 Chloride 105 Carbon Dioxide 28.0 Anion Gap 7 BUN 39 H Creatinine 0.97 Estim Creat Clear Calc 75.41 Est GFR (MDRD) Af Amer 100 Est GFR (MDRD) Non-Af 83 BUN/Creatinine Ratio 40.0 H Glucose 247 H Calcium 8.1 L Phosphorus 2.7 Magnesium 2.4 Total Bilirubin 0.60 AST 52 H ALT 46 Alkaline Phosphatase 75 Total Protein 5.3 L Albumin 1.6 L Globulin 3.7 Albumin/Globulin Ratio 0.4 L POC Glucose 01/19/18 01/19/18 01/18/18 12:34 06:01 23:44 POC Glucose 252 H 243 H 229 H 01/18/18 18:05 POC Glucose 189 H Medical Necessity - Tobacco Use Smoking Status: Current every day smoker Tobacco Use: Cigarettes Route of nutrition/ use of supplements: [] Nutritional Intake: [] IV Site: [] Reyes Catheter: [] - Assessment/Plan Antibiotics: [] Assessment/Plan: [] Active and Suspected Problems (Last Reviewed 06/17/17 @ 09:09 by Antionette Lua) Severe sepsis (Acute) PNA (pneumonia) (Acute) COPD (chronic obstructive pulmonary disease) (Acute) BRENDA (acute kidney injury) (Acute) NSTEMI (non-ST elevated myocardial infarction) (Acute) severe sepsis due to legionella pneumonia - associated with falls, nausea, and hyponatremia. On levaquin, fever persisted, so zosyn added 01/17. Bronch done, cx neg except for some yeast. Fever now resolved. Will follow
[2018-01-19] MEDS: Vital AF 1.2 Cal Liquid 1,000 ML 60 ML GT (14:41)
--- NOTE | 2018-01-19 14:49 | CPS ---
Girish. helped w/P.T.A's and RN's to get pt onto side of bed, then stand and walk a few steps. No complications or desats noted during this, bilat breath sounds & return TV were confirmed after getting pt back in bed.
--- NOTE | 2018-01-19 17:00 | NURSING ---
educations re chronic illness deferred till acute illness begins to resolve
[2018-01-19 19:01] LABS: Bedside Glucose 277 mg/dL (70-110)
[2018-01-19] MEDS: Atorvastatin Calcium 40 MG Tablet GT (21:20)
[2018-01-20] VITALS (38 sets, daily range): BP systolic 130–164; BP diastolic 68–113; PULSE 69–89; RESP 15–26; TEMP 36.7–36.8; O2SAT 78–93
[2018-01-20 00:06] LABS: Bedside Glucose 284 mg/dL (70-110)
[2018-01-20] MEDS: fentaNYL drip 100 ML 5 MCG IV ×3 (00:16→21:02)
[2018-01-20] MEDS: Ipratropium 0.5 MG/2.5 ML SOLUTION INHALATION ×5 (02:05→19:34)
[2018-01-20] MEDS: Piperacil/Tazobactam 3.375 GM/50 ML ML IV ×3 (05:51→21:07)
[2018-01-20] MEDS: Vital AF 1.2 Cal Liquid 1,000 ML 60 ML GT (05:52)
[2018-01-20] MEDS: CHLORHEXIDINE GLUC 2% CLOTH 1 EACH TOWELETTE TOPICAL (05:52)
[2018-01-20] MEDS: Heparin Injection (Vial) 5,000 UNIT/ML VIAL 5000 UNIT SC ×3 (05:52→21:06)
[2018-01-20] MEDS: Propofol 10MG/Ml 1,000 MG/100 ML Bottle 16.758 MG CONT INF ×2 (05:54→15:01)
[2018-01-20 06:11] LABS: Bedside Glucose 299 mg/dL (70-110)
[2018-01-20] MEDS: Insulin Lispro 100 UNIT/ML INSULN.PEN SC ×3 (06:15→18:49)
[2018-01-20 06:24] LABS: Absolute Lymphocyte Count 1.16 X10^3/ul (0.83-4.51); Absolute Neutrophil Count 18.3 X10^3/uL (2.0-7.7); Basophil# 0.13 X10^3/uL; Basophil% 0.6 % (0-1); Eosinophil# 0.01 X10^3/uL; Hematocrit 36.7 % (40-54); Hemoglobin 12.7 g/dl (13.0-16.5); Lymphocyte # 1.16 X10^3/ul (4.0); Lymphocyte % 5.3 % (19-41); Mean Corp Hgb Conc 34.6 g/gl (32-36); Mean Corpuscular Hgb 30.8 pg (27.0-32.0); Mean Corpuscular Volume 89.1 fL (80-94); Mean Platelet Vol. 10.8 fl (6.2-12.0); Monocyte# 1.14 X10^3/uL; Monocyte% 5.3 % (0-10); Neutrophil # 18.29 X10^3/uL (2.7-7.7); Neutrophil % 84.4 % (47-70); Platelet Count 354 K/mm3 (150-450); RBC Distribution Width CV 13.8 % (11.6-14.6); RBC Distribution Width SD 44.7 fl (35.1-43.9); Red Blood Count 4.12 M/mm3 (4.6-6.2); White Blood Count 21.7 K/mm3 (4.4-11.0)
[2018-01-20 06:35] LABS: POSITIVE COUNT NO; POSITIVE DIFFERENTIAL NO; POSITIVE MORPHOLOGY NO
[2018-01-20 06:36] LABS: ALB/GLOB Ratio 0.4 RATIO (0.9-2.4); AST(SGOT) 40 U/L (15-37); Alanine Aminotransfer ALT/SGPT 44 U/L (16-61); Albumin, Serum 1.6 g/dL (3.2-5.0); Alkaline Phosphatase 85 U/L (45-117); Anion Gap 8 (5-15); BUN 37 mg/dL (7-18); BUN/Creat Ratio 39.1 RATIO (10-20); Calcium,Total 7.9 mg/dL (8.5-10.1); Chloride 103 mmol/L (98-107); Creatinine, Serum 0.95 mg/dL (0.70-1.30); EST Glomerular Filtration Rate 85 mL/min (>60); Est Glom Filt Rate - Afr Amer 103 mL/min (>60); Globulin 3.7 g/dL (2.2-4.2); Glucose 254 mg/dL (74-106); Magnesium 2.1 mg/dL (1.6-2.6); Phosphorus 2.9 mg/dL (2.5-4.9); Potassium 4.1 mmol/L (3.5-5.1); Protein, Total 5.3 g/dL (6.4-8.2); Sodium Level 141 mmol/L (136-145)
[2018-01-20 06:49] LABS: Lymphocyte 4 % (19-41); Monocyte 1 % (0-10); Neutrophil-Band 2 % (0-5); Neutrophil-Segmented 93 % (47-70); Platelet Estimate ADEQUATE (ADEQ); Polychromasia 1+; Red Cell Morphology N CYTIC NORMAL (NORM C&C); Total Cells Counted 100 (MANUAL DIFF)
--- NOTE | 2018-01-20 07:24 | PCM.PN.INT ---
Subjective: The patient was seen and examined at the bedside this morning. Events from the last 24 hours have been reviewed. The patient is currently afebrile, hemodynamically stable and maintaining appropriate oxygen saturations with an FiO2 of 45%. The patient's PEEP remains at 10. No overnight issues were identified by the nursing staff. The patient remains comfortable on mechanical ventilation. White count is now beginning to come down. The patient is currently overall net +8.6 L for the admission. Objective: The patient's most recent lab work, culture data and imaging studies have all been personally reviewed. CT chest without contrast obtained yesterday revealed bilateral emphysematous changes along with evidence of consolidation in the left upper lobe and lingula with corresponding groundglass changes extending into the left lower lobe. There was extensive mediastinal lymphadenopathy noted. It was noted that the left pulmonary artery was encased in either consolidation or a possible underlying lung mass. Urine Legionella antigen was noted to be positive. Streptococcus antigen was negative. Blood and urine cultures have shown no growth to date. Respiratory cultures are pending. Surface echocardiogram revealed normal LV size and function with evidence of stage I diastolic dysfunction. General: - - Remains intubated, sedated and mechanically ventilated. HEENT: Atraumatic, PERRLA, Normocephalic Oral: No Gingival or Mucosal Lesions/ Ulcerations, - - Endotracheal and OG tubes remain in place. Neck: Supple, No Nodes, Trachea Midline Lungs: No rhonchi, No wheeze, Diminished Cardiovascular: Regular rate, Regular Rhythm, Normal S1, Normal S2, No murmurs Abdomen: Bowel Sounds Present, Soft, Non Tender Extremities: No clubbing, No cyanosis, No edema Skin: No breakdown Musculoskeletal: No Tenderness to Palpation of Joints or Extremities, No Muscle Wasting Lymphatic: No Cervical, Supraclavicular, or Inguinal Adenopathy Neurological: - - No focal neurological deficits. Remains appropriately sedated. Vital Signs Temp Pulse Resp BP Pulse Ox 98.2 F 72 16 149/77 H 90 01/20/18 07:00 01/20/18 07:00 01/20/18 07:00 01/20/18 07:00 01/20/18 07:00 Oxygen Flow Rate (L/min) 7 Oxygen Delivery Method Mechanical Ventilator Weight: 210 lb 12.191 oz Body Mass Index (BMI) 29.7 Intake and Output for Last 24 Hours 1001/19/18 01/20/18 23:59 23:59 23:59 Intake Total 2418.0 / 2418.0 4260.6 / 4260.6 886 / 886 Output Total 2075 / 2075 1600 / 1600 500 / 500 Balance 343.0 / 343.0 2660.6 / 2660.6 386 / 386 Labs (Last 48 Hours) 01/17/18 01/18/18 01/18/18 05:00 12:16 18:05 WBC RBC Hgb Hct MCV MCH MCHC RDW RDW Differential Plt Count MPV Immature Gran % (Auto) Neut % (Auto) Lymph % (Auto) Bowman % (Auto) Eos % (Auto) Baso % (Auto) Absolute Neuts (auto) Absolute Lymphs (auto) Total Counted Neutrophils % (Manual) Band Neutrophils % Lymphocytes % (Manual) Monocytes % (Manual) Diff Path Review Reviewed Platelet Estimate RBC Morphology Polychromasia Sodium Potassium Chloride Carbon Dioxide Anion Gap BUN Creatinine Estim Creat Clear Calc Est GFR (MDRD) Af Amer Est GFR (MDRD) Non-Af BUN/Creatinine Ratio Glucose Calcium Phosphorus Magnesium Total Bilirubin AST ALT Alkaline Phosphatase Total Protein Albumin Globulin Albumin/Globulin Ratio POC Glucose 202 H 189 H 01/18/18 01/19/18 01/19/18 23:44 05:00 05:00 WBC 28.3 H RBC 4.23 L Hgb 12.8 L Hct 37.7 L MCV 89.1 MCH 30.3 MCHC 34.0 RDW 14.2 RDW Differential 46.3 H Plt Count 302 MPV 10.9 Immature Gran % (Auto) 0.900 Neut % (Auto) 92.3 H Lymph % (Auto) 2.8 L Bowman % (Auto) 3.8 Eos % (Auto) 0.0 Baso % (Auto) 0.2 Absolute Neuts (auto) 26.1 H Absolute Lymphs (auto) 0.80 L Total Counted Not Reportable Neutrophils % (Manual) Band Neutrophils % Lymphocytes % (Manual) Monocytes % (Manual) Diff Path Review Platelet Estimate RBC Morphology Polychromasia Sodium 140 Potassium 4.0 Chloride 105 Carbon Dioxide 28.0 Anion Gap 7 BUN 39 H Creatinine 0.97 Estim Creat Clear Calc 75.41 Est GFR (MDRD) Af Amer 100 Est GFR (MDRD) Non-Af 83 BUN/Creatinine Ratio 40.0 H Glucose 247 H Calcium 8.1 L Phosphorus 2.7 Magnesium 2.4 Total Bilirubin 0.60 AST 52 H ALT 46 Alkaline Phosphatase 75 Total Protein 5.3 L Albumin 1.6 L Globulin 3.7 Albumin/Globulin Ratio 0.4 L POC Glucose 229 H 01/19/18 01/19/18 01/19/18 06:01 12:34 18:17 WBC RBC Hgb Hct MCV MCH MCHC RDW RDW Differential Plt Count MPV Immature Gran % (Auto) Neut % (Auto) Lymph % (Auto) Bowman % (Auto) Eos % (Auto) Baso % (Auto) Absolute Neuts (auto) Absolute Lymphs (auto) Total Counted Neutrophils % (Manual) Band Neutrophils % Lymphocytes % (Manual) Monocytes % (Manual) Diff Path Review Platelet Estimate RBC Morphology Polychromasia Sodium Potassium Chloride Carbon Dioxide Anion Gap BUN Creatinine Estim Creat Clear Calc Est GFR (MDRD) Af Amer Est GFR (MDRD) Non-Af BUN/Creatinine Ratio Glucose Calcium Phosphorus Magnesium Total Bilirubin AST ALT Alkaline Phosphatase Total Protein Albumin Globulin Albumin/Globulin Ratio POC Glucose 243 H 252 H 277 H 01/19/18 01/20/18 01/20/18 23:51 06:05 06:05 WBC 21.7 H RBC 4.12 L Hgb 12.7 L Hct 36.7 L MCV 89.1 MCH 30.8 MCHC 34.6 RDW 13.8 RDW Differential 44.7 H Plt Count 354 MPV 10.8 Immature Gran % (Auto) 4.400 H Neut % (Auto) 84.4 H Lymph % (Auto) 5.3 L Bowman % (Auto) 5.3 Eos % (Auto) 0.0 Baso % (Auto) 0.6 Absolute Neuts (auto) 18.3 H Absolute Lymphs (auto) 1.16 Total Counted 100 Neutrophils % (Manual) 93 H Band Neutrophils % 2 Lymphocytes % (Manual) 4 L Monocytes % (Manual) 1 Diff Path Review May foll Platelet Estimate ADEQUATE RBC Morphology N CYTIC Polychromasia 1+ Sodium 141 Potassium 4.1 Chloride 103 Carbon Dioxide 30.0 Anion Gap 8 BUN 37 H Creatinine 0.95 Estim Creat Clear Calc 77.00 Est GFR (MDRD) Af Amer 103 Est GFR (MDRD) Non-Af 85 BUN/Creatinine Ratio 39.1 H Glucose 254 H Calcium 7.9 L Phosphorus 2.9 Magnesium 2.1 Total Bilirubin 0.70 AST 40 H ALT 44 Alkaline Phosphatase 85 Total Protein 5.3 L Albumin 1.6 L Globulin 3.7 Albumin/Globulin Ratio 0.4 L POC Glucose 284 H 01/20/18 06:08 WBC RBC Hgb Hct MCV MCH MCHC RDW RDW Differential Plt Count MPV Immature Gran % (Auto) Neut % (Auto) Lymph % (Auto) Bowman % (Auto) Eos % (Auto) Baso % (Auto) Absolute Neuts (auto) Absolute Lymphs (auto) Total Counted Neutrophils % (Manual) Band Neutrophils % Lymphocytes % (Manual) Monocytes % (Manual) Diff Path Review Platelet Estimate RBC Morphology Polychromasia Sodium Potassium Chloride Carbon Dioxide Anion Gap BUN Creatinine Estim Creat Clear Calc Est GFR (MDRD) Af Amer Est GFR (MDRD) Non-Af BUN/Creatinine Ratio Glucose Calcium Phosphorus Magnesium Total Bilirubin AST ALT Alkaline Phosphatase Total Protein Albumin Globulin Albumin/Globulin Ratio POC Glucose 299 H Microbiology 01/17/18 08:06 Blood Culture (Wb) - Anticubital Left Blood Culture - Preliminary No growth in 48 hours. 01/17/18 07:15 Blood Culture (Wb) - Right Forearm Blood Culture - Preliminary No growth in 48 hours. 01/17/18 Unknown Bronchial Lavage - Left Middle Lobe Gram Stain - Final 01/17/18 Unknown Bronchial Lavage - Left Middle Lobe Respiratory Culture - Preliminary Yeast Like Organism 01/15/18 21:50 Sputum, Expectorated/Coughed Gram Stain - Final 01/15/18 21:50 Sputum, Expectorated/Coughed Respiratory Culture - Final Clinical Impression(s) from Imaging Studies Chest X-Ray 01/15/18 09:45 IMPRESSION: Near complete opacification left lung machuca sparing only the upper lobe at the level of the aortic knob and above. Differential considerations include pleural fluid, atelectasis/scarring, pneumonia or underlying mass. Clinical correlation follow-up recommended. Results discussed with Attending Physician 01/15/2018 approximate 1235 hours. If clinically indicated, recommend follow-up chest study after treatment to demonstrate complete clearing if clinically indicated. Electronically Signed: Montrell Cardenas, at 12:39 EDT Tel , Service support , Chest CT 01/15/18 12:44 IMPRESSION: There is a large amount of consolidation in the left upper lobe and lingula which is centrally dense with an air bronchograms. Although this may represent an infiltrate. An underlying left hilar mass with surrounding consolidated lung should be excluded. Recommend consideration for bronchoscopy. Small left effusion lower lobe atelectasis. Cardiomegaly cardiac artery disease Reactive and/or metastatic lymphadenopathy. Hyperinflated appearance of the right lung overall pattern of underlying chronic obstructive pulmonary disease. Inhomogeneous appearance of the liver which may represent fatty infiltration of the liver with sparing however further evaluation is recommended with an ultrasound or contrasted study of the abdomen and pelvis when possible. Electronically Signed: Mickie Saldivar MD at 15:10 EDT Tel , Service support , Chest X-Ray 01/17/18 06:53 IMPRESSION: Persistent left lung infiltrate no change or improvement. Follow-up to clearing recommended. Electronically Signed: Karen Howard MD at 8:16 EDT , Service support , Chest X-Ray 01/17/18 10:14 IMPRESSION: In the interval since prior study there is been placement of a GI tube which extends through the gastroesophageal junction enters into the region of the fundus the stomach and terminates in the region of the body of the stomach. Unchanged left lung opacity. Electronically Signed: Karen Howard MD at 11:18 EDT , Service support , Chest X-Ray 01/18/18 06:56 IMPRESSION: The endotracheal tube is high in position. It should be advanced by approximately 8 cm. The left hemithorax is now completely opacified. N.B. : The above information has been verbally conveyed by Karen Howard MD to Nurse Kevin Mckeon NP, on 01/18/2018 08:39:15 (ET). Electronically Signed: Karen Howard MD at 8:26 EDT , Service support , ADDENDUM: 01/18/18 [id number] Chest X-Ray 01/18/18 08:40 IMPRESSION: Endotracheal tube appears slightly lower in position with the inferior tip just above the midclavicular level which should be repositions and rechecked radiographically. Increased air within the larynx region. Clinical correlation recommended. Moderate improved aeration left upper lobe. No change right lung base medial heterogeneous opacity, may represent atelectasis or pneumonia. Electronically Signed: Montrell Cardenas, at 10:41 EDT Tel , Service support , ADDENDUM: 01/18/18 1107 Chest X-Ray 01/19/18 05:55 IMPRESSION: Endotracheal tube tip as above. Slight improvement in aeration involving the left lung with continued opacification particularly along the left base. Continued compression of parenchyma in the right base with areas of hyperinflation. Electronically Signed: Judy Finley MD at 5:34 EDT , Service support , Medical Necessity - Tobacco Use Smoking Status: Current every day smoker Tobacco Use: Cigarettes Assessment/Plan All Active Problems (Last Reviewed 06/17/17 @ 09:09 by Antionette Lua) Severe sepsis (Acute) PNA (pneumonia) (Acute) COPD (chronic obstructive pulmonary disease) (Acute) BRENDA (acute kidney injury) (Acute) NSTEMI (non-ST elevated myocardial infarction) (Acute) Erectile dysfunction (Acute) Diabetes type 2, controlled (Acute) Testicular hypofunction (Acute) RECOMMENDATIONS: 1. Continue antibiotics per ID recommendations. 2. Wean FiO2/PEEP to maintain oxygen saturations above 90%. 3. Continue amiodarone. 4. Continue tube feeds. 5. Continue scheduled bronchodilators along with steroids. 6. Continue Accu-Cheks and sliding scale insulin coverage. 7. Continue scheduled Atrovent. 8. We will start scheduled Lasix today, the patient is overall net positive for the admission in hopes that this will improve his oxygenation status. 9. The patient will need to have a repeat CT chest completed in 6-8 weeks. IMPRESSIONS: 1. Acute hypoxic respiratory failure secondary to severe Legionella pneumonia leading to presumptive COPD exacerbation While the patient does have an extensive smoking history, he has never had pulmonary function testing done to confirm or refute a diagnosis of COPD. However, he does have an extreme amount of wheezing noted on examination. The patient CT chest did reveal significant left upper and lingula consolidation with groundglass extending into the left lower lobe. There was also extensive mediastinal lymphadenopathy with possible encasement of the left pulmonary artery by consolidation and/or lung mass. The patient's Legionella antigen was noted to be positive. He is currently on treatment with appropriate antibiotics, along with scheduled bronchodilators and steroids. Despite all of the aforementioned, the patient's respiratory status continued to decline and he was subsequently intubated on January 17. A post intubation bronchoscopy was also performed. Antibiotics will be continued, per infectious diseases recommendations. Wean FiO2 and PEEP as tolerated to maintain an oxygen saturation at or above 90%. IV Lasix will be administered today in hopes of improving the patient's oxygenation status even further. The patient will need to follow-up in the pulmonary medicine clinic so that a repeat CT chest can be completed in 6-8 weeks for further evaluation of the patient's left hilum. If there is concern for an underlying lung mass, will proceed with setting the patient up for bronchoscopy and specifically EBUS. However, at this time, he will be treated with antibiotics. 2. Severe sepsis secondary to Legionella pneumonia The patient has been adequately volume resuscitated and is currently hemodynamically stable. We will plan to continue antibiotics per ID recommendations. 3. Atrial fibrillation/flutter The patient was noted to be in atrial flutter with an elevated heart rate on January 17. He was placed on amiodarone and subsequently converted back to normal sinus rhythm. 4. History of tobacco dependence The patient does have an extensive smoking history and we are currently working under the assumption that he has obstructive lung disease. However, smoking cessation is strongly advisable. Nicotine replacement therapy can be offered while he is admitted to the hospital. The patient should ideally follow up in the pulmonary medicine clinic so that baseline PFTs can be obtained. 5. Troponin elevation/heart failure with preserved ejection fraction The patient's echocardiogram did reveal evidence of stage I diastolic dysfunction with preserved ejection fraction. Troponin elevation is likely secondary to demand ischemia in the setting of #1/2. 6. Acute kidney injury Improved. Likely prerenal in etiology. Continue to monitor urine output. No current indication for renal replacement therapy. 7. Hypertension/hyperlipidemia/neuropathy Complicates care, management, recovery and prognosis. Okay to continue home medications from my perspective. TIME: 35 minutes of critical care time, independent of procedures, was spent addressing the patient's acute hypoxemic respiratory failure, Legionella pneumonia, severe sepsis, history of tobacco dependence, sinus arrhythmia, troponin elevation, electrolyte disturbances, acute kidney injury, review of all data and collaboration with the care team. ([id number]) Code Visit 9xxxx: [id number] Critical care first hour
--- NOTE | 2018-01-20 07:29 | PN_ITS ---
Subjective: The patient was seen and examined at the bedside this morning. Events from the last 24 hours have been reviewed. The patient is currently afebrile, hemodynamically stable and maintaining appropriate oxygen saturations with an FiO2 of 45%. The patient's PEEP remains at 10. No overnight issues were identified by the nursing staff. The patient remains comfortable on mechanical ventilation. White count is now beginning to come down. The patient is currently overall net +8.6 L for the admission. Objective: The patient's most recent lab work, culture data and imaging studies have all been personally reviewed. CT chest without contrast obtained yesterday revealed bilateral emphysematous changes along with evidence of consolidation in the left upper lobe and lingula with corresponding groundglass changes extending into the left lower lobe. There was extensive mediastinal lymphadenopathy noted. It was noted that the left pulmonary artery was encased in either consolidation or a possible underlying lung mass. Urine Legionella antigen was noted to be positive. Streptococcus antigen was negative. Blood and urine cultures have shown no growth to date. Respiratory cultures are pending. Surface echocardiogram revealed normal LV size and function with evidence of stage I diastolic dysfunction. General: - - Remains intubated, sedated and mechanically ventilated. HEENT: Atraumatic, PERRLA, Normocephalic Oral: No Gingival or Mucosal Lesions/ Ulcerations, - - Endotracheal and OG tubes remain in place. Neck: Supple, No Nodes, Trachea Midline Lungs: No rhonchi, No wheeze, Diminished Cardiovascular: Regular rate, Regular Rhythm, Normal S1, Normal S2, No murmurs Abdomen: Bowel Sounds Present, Soft, Non Tender Extremities: No clubbing, No cyanosis, No edema Skin: No breakdown Musculoskeletal: No Tenderness to Palpation of Joints or Extremities, No Muscle Wasting Lymphatic: No Cervical, Supraclavicular, or Inguinal Adenopathy Neurological: - - No focal neurological deficits. Remains appropriately sedated. Vital Signs Temp Pulse Resp BP Pulse Ox 98.2 F 72 16 149/77 H 90 01/20/18 07:00 01/20/18 07:00 01/20/18 07:00 01/20/18 07:00 01/20/18 07:00 Oxygen Flow Rate (L/min) 7 Oxygen Delivery Method Mechanical Ventilator Weight: 210 lb 12.191 oz Body Mass Index (BMI) 29.7 Intake and Output for Last 24 Hours 1001/19/18 01/20/18 23:59 23:59 23:59 Intake Total 2418.0 / 2418.0 4260.6 / 4260.6 886 / 886 Output Total 2075 / 2075 1600 / 1600 500 / 500 Balance 343.0 / 343.0 2660.6 / 2660.6 386 / 386 Labs (Last 48 Hours) 01/17/18 01/18/18 01/18/18 05:00 12:16 18:05 WBC RBC Hgb Hct MCV MCH MCHC RDW RDW Differential Plt Count MPV Immature Gran % (Auto) Neut % (Auto) Lymph % (Auto) Moore % (Auto) Eos % (Auto) Baso % (Auto) Absolute Neuts (auto) Absolute Lymphs (auto) Total Counted Neutrophils % (Manual) Band Neutrophils % Lymphocytes % (Manual) Monocytes % (Manual) Diff Path Review Reviewed Platelet Estimate RBC Morphology Polychromasia Sodium Potassium Chloride Carbon Dioxide Anion Gap BUN Creatinine Estim Creat Clear Calc Est GFR (MDRD) Af Amer Est GFR (MDRD) Non-Af BUN/Creatinine Ratio Glucose Calcium Phosphorus Magnesium Total Bilirubin AST ALT Alkaline Phosphatase Total Protein Albumin Globulin Albumin/Globulin Ratio POC Glucose 202 H 189 H 01/18/18 01/19/18 01/19/18 23:44 05:00 05:00 WBC 28.3 H RBC 4.23 L Hgb 12.8 L Hct 37.7 L MCV 89.1 MCH 30.3 MCHC 34.0 RDW 14.2 RDW Differential 46.3 H Plt Count 302 MPV 10.9 Immature Gran % (Auto) 0.900 Neut % (Auto) 92.3 H Lymph % (Auto) 2.8 L Moore % (Auto) 3.8 Eos % (Auto) 0.0 Baso % (Auto) 0.2 Absolute Neuts (auto) 26.1 H Absolute Lymphs (auto) 0.80 L Total Counted Not Reportable Neutrophils % (Manual) Band Neutrophils % Lymphocytes % (Manual) Monocytes % (Manual) Diff Path Review Platelet Estimate RBC Morphology Polychromasia Sodium 140 Potassium 4.0 Chloride 105 Carbon Dioxide 28.0 Anion Gap 7 BUN 39 H Creatinine 0.97 Estim Creat Clear Calc 75.41 Est GFR (MDRD) Af Amer 100 Est GFR (MDRD) Non-Af 83 BUN/Creatinine Ratio 40.0 H Glucose 247 H Calcium 8.1 L Phosphorus 2.7 Magnesium 2.4 Total Bilirubin 0.60 AST 52 H ALT 46 Alkaline Phosphatase 75 Total Protein 5.3 L Albumin 1.6 L Globulin 3.7 Albumin/Globulin Ratio 0.4 L POC Glucose 229 H 01/19/18 01/19/18 01/19/18 06:01 12:34 18:17 WBC RBC Hgb Hct MCV MCH MCHC RDW RDW Differential Plt Count MPV Immature Gran % (Auto) Neut % (Auto) Lymph % (Auto) Moore % (Auto) Eos % (Auto) Baso % (Auto) Absolute Neuts (auto) Absolute Lymphs (auto) Total Counted Neutrophils % (Manual) Band Neutrophils % Lymphocytes % (Manual) Monocytes % (Manual) Diff Path Review Platelet Estimate RBC Morphology Polychromasia Sodium Potassium Chloride Carbon Dioxide Anion Gap BUN Creatinine Estim Creat Clear Calc Est GFR (MDRD) Af Amer Est GFR (MDRD) Non-Af BUN/Creatinine Ratio Glucose Calcium Phosphorus Magnesium Total Bilirubin AST ALT Alkaline Phosphatase Total Protein Albumin Globulin Albumin/Globulin Ratio POC Glucose 243 H 252 H 277 H 01/19/18 01/20/18 01/20/18 23:51 06:05 06:05 WBC 21.7 H RBC 4.12 L Hgb 12.7 L Hct 36.7 L MCV 89.1 MCH 30.8 MCHC 34.6 RDW 13.8 RDW Differential 44.7 H Plt Count 354 MPV 10.8 Immature Gran % (Auto) 4.400 H Neut % (Auto) 84.4 H Lymph % (Auto) 5.3 L Moore % (Auto) 5.3 Eos % (Auto) 0.0 Baso % (Auto) 0.6 Absolute Neuts (auto) 18.3 H Absolute Lymphs (auto) 1.16 Total Counted 100 Neutrophils % (Manual) 93 H Band Neutrophils % 2 Lymphocytes % (Manual) 4 L Monocytes % (Manual) 1 Diff Path Review May foll Platelet Estimate ADEQUATE RBC Morphology N CYTIC Polychromasia 1+ Sodium 141 Potassium 4.1 Chloride 103 Carbon Dioxide 30.0 Anion Gap 8 BUN 37 H Creatinine 0.95 Estim Creat Clear Calc 77.00 Est GFR (MDRD) Af Amer 103 Est GFR (MDRD) Non-Af 85 BUN/Creatinine Ratio 39.1 H Glucose 254 H Calcium 7.9 L Phosphorus 2.9 Magnesium 2.1 Total Bilirubin 0.70 AST 40 H ALT 44 Alkaline Phosphatase 85 Total Protein 5.3 L Albumin 1.6 L Globulin 3.7 Albumin/Globulin Ratio 0.4 L POC Glucose 284 H 01/20/18 06:08 WBC RBC Hgb Hct MCV MCH MCHC RDW RDW Differential Plt Count MPV Immature Gran % (Auto) Neut % (Auto) Lymph % (Auto) Moore % (Auto) Eos % (Auto) Baso % (Auto) Absolute Neuts (auto) Absolute Lymphs (auto) Total Counted Neutrophils % (Manual) Band Neutrophils % Lymphocytes % (Manual) Monocytes % (Manual) Diff Path Review Platelet Estimate RBC Morphology Polychromasia Sodium Potassium Chloride Carbon Dioxide Anion Gap BUN Creatinine Estim Creat Clear Calc Est GFR (MDRD) Af Amer Est GFR (MDRD) Non-Af BUN/Creatinine Ratio Glucose Calcium Phosphorus Magnesium Total Bilirubin AST ALT Alkaline Phosphatase Total Protein Albumin Globulin Albumin/Globulin Ratio POC Glucose 299 H Microbiology 01/17/18 08:06 Blood Culture (Wb) - Anticubital Left Blood Culture - Preliminary No growth in 48 hours. 01/17/18 07:15 Blood Culture (Wb) - Right Forearm Blood Culture - Preliminary No growth in 48 hours. 01/17/18 Unknown Bronchial Lavage - Left Middle Lobe Gram Stain - Final 01/17/18 Unknown Bronchial Lavage - Left Middle Lobe Respiratory Culture - Preliminary Yeast Like Organism 01/15/18 21:50 Sputum, Expectorated/Coughed Gram Stain - Final 01/15/18 21:50 Sputum, Expectorated/Coughed Respiratory Culture - Final Clinical Impression(s) from Imaging Studies Chest X-Ray 01/15/18 09:45 IMPRESSION: Near complete opacification left lung machuca sparing only the upper lobe at the level of the aortic knob and above. Differential considerations include pleural fluid, atelectasis/scarring, pneumonia or underlying mass. Clinical correlation follow-up recommended. Results discussed with Attending Physician 01/15/2018 approximate 1235 hours. If clinically indicated, recommend follow-up chest study after treatment to demonstrate complete clearing if clinically indicated. Electronically Signed: Montrell Cardenas, at 12:39 EDT Tel , Service support , Chest CT 01/15/18 12:44 IMPRESSION: There is a large amount of consolidation in the left upper lobe and lingula which is centrally dense with an air bronchograms. Although this may represent an infiltrate. An underlying left hilar mass with surrounding consolidated lung should be excluded. Recommend consideration for bronchoscopy. Small left effusion lower lobe atelectasis. Cardiomegaly cardiac artery disease Reactive and/or metastatic lymphadenopathy. Hyperinflated appearance of the right lung overall pattern of underlying chronic obstructive pulmonary disease. Inhomogeneous appearance of the liver which may represent fatty infiltration of the liver with sparing however further evaluation is recommended with an ultrasound or contrasted study of the abdomen and pelvis when possible. Electronically Signed: Mickie Saldivar MD at 15:10 EDT Tel , Service support , Chest X-Ray 01/17/18 06:53 IMPRESSION: Persistent left lung infiltrate no change or improvement. Follow-up to clearing recommended. Electronically Signed: Karen Howard MD at 8:16 EDT , Service support , Chest X-Ray 01/17/18 10:14 IMPRESSION: In the interval since prior study there is been placement of a GI tube which extends through the gastroesophageal junction enters into the region of the fundus the stomach and terminates in the region of the body of the stomach. Unchanged left lung opacity. Electronically Signed: Karen Howard MD at 11:18 EDT , Service support , Chest X-Ray 01/18/18 06:56 IMPRESSION: The endotracheal tube is high in position. It should be advanced by approximately 8 cm. The left hemithorax is now completely opacified. N.B. : The above information has been verbally conveyed by Karen Howard MD to Nurse Kevin Mckeon NP, on 01/18/2018 08:39:15 (ET). Electronically Signed: Karen Howard MD at 8:26 EDT , Service support , ADDENDUM: 01/18/18 [id number] Chest X-Ray 01/18/18 08:40 IMPRESSION: Endotracheal tube appears slightly lower in position with the inferior tip just above the midclavicular level which should be repositions and rechecked radiographically. Increased air within the larynx region. Clinical correlation recommended. Moderate improved aeration left upper lobe. No change right lung base medial heterogeneous opacity, may represent atelectasis or pneumonia. Electronically Signed: Montrell Cardenas, at 10:41 EDT Tel , Service support , ADDENDUM: 01/18/18 1107 Chest X-Ray 01/19/18 05:55 IMPRESSION: Endotracheal tube tip as above. Slight improvement in aeration involving the left lung with continued opacification particularly along the left base. Continued compression of parenchyma in the right base with areas of hyperinflation. Electronically Signed: Judy Finley MD at 5:34 EDT , Service support , Medical Necessity - Tobacco Use Smoking Status: Current every day smoker Tobacco Use: Cigarettes Assessment/Plan All Active Problems (Last Reviewed 06/17/17 @ 09:09 by Antionette Lua) Severe sepsis (Acute) PNA (pneumonia) (Acute) COPD (chronic obstructive pulmonary disease) (Acute) BRENDA (acute kidney injury) (Acute) NSTEMI (non-ST elevated myocardial infarction) (Acute) Erectile dysfunction (Acute) Diabetes type 2, controlled (Acute) Testicular hypofunction (Acute) RECOMMENDATIONS: 1. Continue antibiotics per ID recommendations. 2. Wean FiO2/PEEP to maintain oxygen saturations above 90%. 3. Continue amiodarone. 4. Continue tube feeds. 5. Continue scheduled bronchodilators along with steroids. 6. Continue Accu-Cheks and sliding scale insulin coverage. 7. Continue scheduled Atrovent. 8. We will start scheduled Lasix today, the patient is overall net positive for the admission in hopes that this will improve his oxygenation status. 9. The patient will need to have a repeat CT chest completed in 6-8 weeks. IMPRESSIONS: 1. Acute hypoxic respiratory failure secondary to severe Legionella pneumonia leading to presumptive COPD exacerbation While the patient does have an extensive smoking history, he has never had pulmonary function testing done to confirm or refute a diagnosis of COPD. However, he does have an extreme amount of wheezing noted on examination. The patient CT chest did reveal significant left upper and lingula consolidation with groundglass extending into the left lower lobe. There was also extensive mediastinal lymphadenopathy with possible encasement of the left pulmonary artery by consolidation and/or lung mass. The patient's Legionella antigen was noted to be positive. He is currently on treatment with appropriate antibiotics, along with scheduled bronchodilators and steroids. Despite all of the aforementioned, the patient's respiratory status continued to decline and he was subsequently intubated on January 17. A post intubation bronchoscopy was also performed. Antibiotics will be continued, per infectious diseases recommendations. Wean FiO2 and PEEP as tolerated to maintain an oxygen saturation at or above 90%. IV Lasix will be administered today in hopes of improving the patient's oxygenation status even further. The patient will need to follow-up in the pulmonary medicine clinic so that a repeat CT chest can be completed in 6-8 weeks for further evaluation of the patient's left hilum. If there is concern for an underlying lung mass, will proceed with setting the patient up for bronchoscopy and specifically EBUS. However, at this time, he will be treated with antibiotics. 2. Severe sepsis secondary to Legionella pneumonia The patient has been adequately volume resuscitated and is currently hemodynamically stable. We will plan to continue antibiotics per ID recommendations. 3. Atrial fibrillation/flutter The patient was noted to be in atrial flutter with an elevated heart rate on January 17. He was placed on amiodarone and subsequently converted back to normal sinus rhythm. 4. History of tobacco dependence The patient does have an extensive smoking history and we are currently working under the assumption that he has obstructive lung disease. However, smoking cessation is strongly advisable. Nicotine replacement therapy can be offered while he is admitted to the hospital. The patient should ideally follow up in the pulmonary medicine clinic so that baseline PFTs can be obtained. 5. Troponin elevation/heart failure with preserved ejection fraction The patient's echocardiogram did reveal evidence of stage I diastolic dysfunction with preserved ejection fraction. Troponin elevation is likely secondary to demand ischemia in the setting of #1/2. 6. Acute kidney injury Improved. Likely prerenal in etiology. Continue to monitor urine output. No current indication for renal replacement therapy. 7. Hypertension/hyperlipidemia/neuropathy Complicates care, management, recovery and prognosis. Okay to continue home medications from my perspective. TIME: 35 minutes of critical care time, independent of procedures, was spent addressing the patient's acute hypoxemic respiratory failure, Legionella pneumonia, severe sepsis, history of tobacco dependence, sinus arrhythmia, troponin elevation, electrolyte disturbances, acute kidney injury, review of all data and collaboration with the care team. ([id number]) Code Visit 9xxxx: [id number] Critical care first hour
--- NOTE | 2018-01-20 08:32 | PCM.PN.HOSP ---
Patient Problems: Active and Suspected Problems (Last Reviewed 06/17/17 @ 09:09 by Antionette Lua) Severe sepsis (Acute) PNA (pneumonia) (Acute) COPD (chronic obstructive pulmonary disease) (Acute) BRENDA (acute kidney injury) (Acute) NSTEMI (non-ST elevated myocardial infarction) (Acute) Subjective: Patient was seen and examined. Remains intubated. Awake, follows, commands. No acute events overnight Remains on PEEP of 10, FiO2 45% Objective: Physical exam: General: Alert, Cooperative, No apparent distress, - - Intubated, on mechanical ventilator, easily arousable, HEENT: Atraumatic, PERRLA, EOMI, Normocephalic Oral: Moist Mucosa Neck: Supple, No JVD, Negative Carotid Bruits Lungs: Clear to auscultation - Anteriorly, Normal air movement Cardiovascular: Regular rate, Regular Rhythm, Normal S1, Normal S2, No murmurs Abdomen: Bowel Sounds Present, Soft, Non Tender, Non-Distended, No Hepato-splenomegaly, Hypoactive Bowel Sounds Extremities: Trace bilateral edema Skin: No rashes, No breakdown Musculoskeletal: No Tenderness to Palpation of Joints or Extremities Lymphatic: No Cervical, Supraclavicular, or Inguinal Adenopathy Neurological: Cranial nerves II-XII grossly intact Psych/Mental Status: Normal Affect, Appropriate Vitals/I&O's: Vital Signs Temp Pulse Resp BP Pulse Ox 98.3 F 80 20 H 164/95 H 90 01/20/18 08:00 01/20/18 08:00 01/20/18 08:00 01/20/18 08:00 01/20/18 08:00 Oxygen Flow Rate (L/min) 7 Oxygen Delivery Method Mechanical Ventilator Weight: 95.6 kg Body Mass Index (BMI) 29.7 Intake and Output for Last 24 Hours 01/18/18 01/19/18 01/20/18 23:59 23:59 23:59 Intake Total 2418.0 / 2418.0 4260.6 / 4260.6 886 / 886 Output Total 2075 / 2075 1600 / 1600 500 / 500 Balance 343.0 / 343.0 2660.6 / 2660.6 386 / 386 Microbiology Past 72 Hours 01/17/18 08:06 Blood Culture (Wb) - Anticubital Left Blood Culture - Preliminary No growth in 48 hours. 01/17/18 07:15 Blood Culture (Wb) - Right Forearm Blood Culture - Preliminary No growth in 48 hours. 01/17/18 Unknown Bronchial Lavage - Left Middle Lobe Gram Stain - Final 01/17/18 Unknown Bronchial Lavage - Left Middle Lobe Respiratory Culture - Preliminary Yeast Like Organism 01/15/18 21:50 Sputum, Expectorated/Coughed Gram Stain - Final 01/15/18 21:50 Sputum, Expectorated/Coughed Respiratory Culture - Final 01/15/18 09:46 Blood Culture (Wb) - Left Hand Blood Culture - Preliminary No growth in 48 hours. 01/15/18 09:45 Blood Culture (Wb) - Anticubital Right Blood Culture - Preliminary No growth in 48 hours. 01/15/18 12:30 Urine Catheter - Catheter Urine Culture - Final Culture exhibits no growth. Laboratory Results 01/19/18 12:34: POC Glucose 252 H 01/19/18 18:17: POC Glucose 277 H 01/19/18 23:51: POC Glucose 284 H 01/20/18 06:05: WBC 21.7 H, RBC 4.12 L, Hgb 12.7 L, Hct 36.7 L, MCV 89.1, MCH 30.8, MCHC 34.6, RDW 13.8, RDW Differential 44.7 H, Plt Count 354, MPV 10.8, Immature Gran % (Auto) 4.400 H, Neut % (Auto) 84.4 H, Lymph % (Auto) 5.3 L, White % (Auto) 5.3, Eos % (Auto) 0.0, Baso % (Auto) 0.6, Absolute Neuts (auto) 18.3 H, Absolute Lymphs (auto) 1.16, Total Counted 100, Neutrophils % (Manual) 93 H, Band Neutrophils % 2, Lymphocytes % (Manual) 4 L, Monocytes % (Manual) 1, Diff Path Review August, Platelet Estimate ADEQUATE, RBC Morphology N CYTIC, Polychromasia 1+ 01/20/18 06:05: Sodium 141, Potassium 4.1, Chloride 103, Carbon Dioxide 30.0, Anion Gap 8, BUN 37 H, Creatinine 0.95, Estim Creat Clear Calc 77.00, Est GFR (MDRD) Af Amer 103, Est GFR (MDRD) Non-Af 85, BUN/Creatinine Ratio 39.1 H, Glucose 254 H, Calcium 7.9 L, Phosphorus 2.9, Magnesium 2.1, Total Bilirubin 0.70, AST 40 H, ALT 44, Alkaline Phosphatase 85, Total Protein 5.3 L, Albumin 1.6 L, Globulin 3.7, Albumin/Globulin Ratio 0.4 L 01/20/18 06:08: POC Glucose 299 H Current Medications Acetaminophen (Tylenol Liquid) 650 mg GT Q4H PRN PRN PRN Reason: FEVER Last Admin: 01/17/18 14:36 Dose: 650 mg Al Hydroxide/Mg Hydroxide (Mylanta Ii) 30 ml GT Q6H PRN PRN PRN Reason: Gastric burning Albuterol Sulfate (Ventolin Aerosols) 2.5 mg INHALATION Q2H PRN PRN PRN Reason: SHORTNESS OF BREATH Amiodarone HCl (Cordarone) 200 mg PO DAILY [facility] Aspirin (Aspirin, Baby) 81 mg GT DAILY [facility] Last Admin: 01/19/18 10:25 Dose: 81 mg Atorvastatin Calcium (Lipitor) 40 mg GT HS [facility] Last Admin: 01/19/18 21:20 Dose: 40 mg Chlorhexidine Gluconate () 1 each TOPICAL DAILY [facility] Last Admin: 01/20/18 05:52 Dose: 1 each Chlorhexidine Gluconate () 15 ml PO BID [facility] Last Admin: 01/19/18 21:17 Dose: 15 ml Citalopram Hydrobromide (Celexa) 40 mg GT DAILY [facility] Last Admin: 01/19/18 10:25 Dose: 40 mg Clopidogrel Bisulfate (Plavix) 75 mg GT DAILY [facility] Last Admin: 01/19/18 10:23 Dose: 75 mg Famotidine (Pepcid) 20 mg GT BID [facility] Last Admin: 01/19/18 21:19 Dose: 20 mg Furosemide (Lasix) 40 mg IV DAILY [facility] Last Admin: 01/19/18 10:23 Dose: 100 mg Heparin Sodium (Porcine) (Heparin Na) 5,000 unit SC Q8 [facility] Last Admin: 01/20/18 05:52 Dose: 5,000 unit Sodium Chloride () 250 mls @ 15 mls/hr IV .[id number] PRN PRN Reason: SALINE FLUSH Last Admin: 01/19/18 14:08 Dose: 15 mls/hr Sodium Chloride () 250 mls @ 15 mls/hr IV .[id number] PRN PRN Reason: SALINE FLUSH Levofloxacin (Levaquin Iv) 750 mg in 150 mls @ 100 mls/hr IV Q24 [facility] Last Admin: 01/19/18 10:25 Dose: 100 mls/hr Fentanyl () 100 mls @ 5 mls/hr IV .Q20H [facility]; Protocol Last Admin: 01/20/18 00:16 Dose: 5 mls/hr Propofol (Diprivan) 1,000 mg in 100 mls @ 16.758 mls/hr CONT INF .[id number] [facility]; Protocol Last Admin: 01/20/18 05:54 Dose: 16.758 mls/hr Piperacillin Sod/Tazobactam Sod (Zosyn) 3.375 gm in 50 mls @ 12.5 mls/hr IV Q8 [facility] Last Admin: 01/20/18 05:51 Dose: 12.5 mls/hr Enteral Nutritional Formula (Vital Af 1.2 Andrew Liquid) 1,000 mls @ 60 mls/hr GT .[id number] [facility] Last Admin: 01/20/18 05:52 Dose: 60 mls/hr Insulin Glargine (Lantus (Bkc)) 10 units SC [facility] Last Admin: 01/20/18 06:15 Dose: 10 u Insulin Human Lispro (Humalog Kwikpen (Bkc)) 0 unit SC Q6 [facility]; Protocol Last Admin: 01/20/18 06:15 Dose: 9 u Ipratropium [place] (Atrovent) 0.5 mg INHALATION Q4H.RT [facility] Last Admin: 01/20/18 06:34 Dose: 0.5 mg Magnesium Hydroxide (Milk Of Magnesia) 30 ml GT DAILY PRN PRN PRN Reason: Constipation Ondansetron HCl (Zofran) 4 mg IV Q8H PRN PRN PRN Reason: NAUSEA Polyethylene Glycol (Miralax) 17 gm GT BID [facility] Last Admin: 01/19/18 21:18 Dose: 17 gm Prednisone () 40 mg GT DAILY@0800 [facility] Promethazine HCl (Phenergan) 12.5 mg IV Q6H PRN PRN PRN Reason: NAUSEA/VOMITING Senna/Docusate Sodium (Senokot-S, Komal-Colace) 2 tablet GT BID [facility] Last Admin: 01/19/18 21:19 Dose: 2 tablet Sodium Chloride () 5 - 30 ml IV UD PRN PRN Reason: SALINE FLUSH Last Admin: 01/18/18 21:16 Dose: 10 ml Medical Necessity - Tobacco Use Smoking Status: Current every day smoker Tobacco Use: Cigarettes Assessment/Plan All Active Problems (Last Reviewed 06/17/17 @ 09:09 by Antionette Lua) Severe sepsis (Acute) PNA (pneumonia) (Acute) COPD (chronic obstructive pulmonary disease) (Acute) BRENDA (acute kidney injury) (Acute) NSTEMI (non-ST elevated myocardial infarction) (Acute) Erectile dysfunction (Acute) Diabetes type 2, controlled (Acute) Testicular hypofunction (Acute) 67-year-old male with past medical history of hypertension, hyperlipidemia, obesity, chronic nicotine dependency, suspect underlying COPD admitted on 01/15/2018 with fever, chills, worsening weakness. Managed in ICU initially on BiPAP and finally intubated. 1. Acute hypoxic respiratory failure secondary to Legionella pneumonia/acute on chronic COPD exacerbation, remains intubated. Discussed with electroplater, will give a trial of Lasix, and monitor his oxygen requirements. 2. Severe sepsis secondary to Legionella pneumonia, WBCs count is improving, but no fever, will continue on IV Zosyn(day4) and Levaquin(day 6), will continue to monitor. 3. Acute on chronic COPD exacerbation, remains intubated, on IV Solu-Medrol, IV antibiotics, as well as scheduled breathing treatments, will continue same. 4. Acute NSTEMI, type II secondary to demand ischemia, on aspirin, statin, Plavix 5. Episode of Atrial flutter, converted, in NSR, remains on amiodarone drip, cardiology consulted and following 6. BRENDA secondary to severe sepsis/dehydration, resolved, creatinine is normal now, will continue to monitor strict I's and O 7. Type II DM, blood sugars fairly controlled, on Lantus as well as insulin sliding scale with Accu-Cheks 8. Acute hypovolemic hyponatremia, resolved with hydration 9. Hypokalemia, resolved 10. Chronic nicotine dependency, on nicotine patch 11. Hypertension, controlled, not on any medications, will continue to monitor. 12. Hyperlipidemia, on statin 13. Anxiety/depression, on citalopram 14. Obesity, BMI 31.5, would address weight loss and lifestyle changes when patient improves and prior to discharge 15. DVT prophylaxis -heparin subcu 16. GI prophylaxis -on famotidine Code Visit Inpatient E&M: 73257 Subs Hosp L2
--- NOTE | 2018-01-20 08:35 | PN_ITS ---
Patient Problems: Active and Suspected Problems (Last Reviewed 06/17/17 @ 09:09 by Antionette Lua) Severe sepsis (Acute) PNA (pneumonia) (Acute) COPD (chronic obstructive pulmonary disease) (Acute) BRENDA (acute kidney injury) (Acute) NSTEMI (non-ST elevated myocardial infarction) (Acute) Subjective: Patient was seen and examined. Remains intubated. Awake, follows, commands. No acute events overnight Remains on PEEP of 10, FiO2 45% Objective: Physical exam: General: Alert, Cooperative, No apparent distress, - - Intubated, on mechanical ventilator, easily arousable, HEENT: Atraumatic, PERRLA, EOMI, Normocephalic Oral: Moist Mucosa Neck: Supple, No JVD, Negative Carotid Bruits Lungs: Clear to auscultation - Anteriorly, Normal air movement Cardiovascular: Regular rate, Regular Rhythm, Normal S1, Normal S2, No murmurs Abdomen: Bowel Sounds Present, Soft, Non Tender, Non-Distended, No Hepato- splenomegaly, Hypoactive Bowel Sounds Extremities: Trace bilateral edema Skin: No rashes, No breakdown Musculoskeletal: No Tenderness to Palpation of Joints or Extremities Lymphatic: No Cervical, Supraclavicular, or Inguinal Adenopathy Neurological: Cranial nerves II-XII grossly intact Psych/Mental Status: Normal Affect, Appropriate Vitals/I&O's: Vital Signs Temp Pulse Resp BP Pulse Ox 98.3 F 80 20 H 164/95 H 90 01/20/18 08:00 01/20/18 08:00 01/20/18 08:00 01/20/18 08:00 01/20/18 08:00 Oxygen Flow Rate (L/min) 7 Oxygen Delivery Method Mechanical Ventilator Weight: 95.6 kg Body Mass Index (BMI) 29.7 Intake and Output for Last 24 Hours 01/18/18 01/19/18 01/20/18 23:59 23:59 23:59 Intake Total 2418.0 / 2418.0 4260.6 / 4260.6 886 / 886 Output Total 2075 / 2075 1600 / 1600 500 / 500 Balance 343.0 / 343.0 2660.6 / 2660.6 386 / 386 Microbiology Past 72 Hours 01/17/18 08:06 Blood Culture (Wb) - Anticubital Left Blood Culture - Preliminary No growth in 48 hours. 01/17/18 07:15 Blood Culture (Wb) - Right Forearm Blood Culture - Preliminary No growth in 48 hours. 01/17/18 Unknown Bronchial Lavage - Left Middle Lobe Gram Stain - Final 01/17/18 Unknown Bronchial Lavage - Left Middle Lobe Respiratory Culture - Preliminary Yeast Like Organism 01/15/18 21:50 Sputum, Expectorated/Coughed Gram Stain - Final 01/15/18 21:50 Sputum, Expectorated/Coughed Respiratory Culture - Final 01/15/18 09:46 Blood Culture (Wb) - Left Hand Blood Culture - Preliminary No growth in 48 hours. 01/15/18 09:45 Blood Culture (Wb) - Anticubital Right Blood Culture - Preliminary No growth in 48 hours. 01/15/18 12:30 Urine Catheter - Catheter Urine Culture - Final Culture exhibits no growth. Laboratory Results 01/19/18 12:34: POC Glucose 252 H 01/19/18 18:17: POC Glucose 277 H 01/19/18 23:51: POC Glucose 284 H 01/20/18 06:05: WBC 21.7 H, RBC 4.12 L, Hgb 12.7 L, Hct 36.7 L, MCV 89.1, MCH 30.8, MCHC 34.6, RDW 13.8, RDW Differential 44.7 H, Plt Count 354, MPV 10.8, Immature Gran % (Auto) 4.400 H, Neut % (Auto) 84.4 H, Lymph % (Auto) 5.3 L, [place] % (Auto) 5.3, Eos % (Auto) 0.0, Baso % (Auto) 0.6, Absolute Neuts (auto) 18.3 H, Absolute Lymphs (auto) 1.16, Total Counted 100, Neutrophils % (Manual) 93 H, Band Neutrophils % 2, Lymphocytes % (Manual) 4 L, Monocytes % (Manual) 1, Diff Path Review August, Platelet Estimate ADEQUATE, RBC Morphology N CYTIC, Polychromasia 1+ 01/20/18 06:05: Sodium 141, Potassium 4.1, Chloride 103, Carbon Dioxide 30.0, Anion Gap 8, BUN 37 H, Creatinine 0.95, Estim Creat Clear Calc 77.00, Est GFR (MDRD) Af Amer 103, Est GFR (MDRD) Non-Af 85, BUN/Creatinine Ratio 39.1 H, Glucose 254 H, Calcium 7.9 L, Phosphorus 2.9, Magnesium 2.1, Total Bilirubin 0.70, AST 40 H, ALT 44, Alkaline Phosphatase 85, Total Protein 5.3 L, Albumin 1.6 L, Globulin 3.7, Albumin/Globulin Ratio 0.4 L 01/20/18 06:08: POC Glucose 299 H Current Medications Acetaminophen (Tylenol Liquid) 650 mg GT Q4H PRN PRN PRN Reason: FEVER Last Admin: 01/17/18 14:36 Dose: 650 mg Al Hydroxide/Mg Hydroxide (Mylanta Ii) 30 ml GT Q6H PRN PRN PRN Reason: Gastric burning Albuterol Sulfate (Ventolin Aerosols) 2.5 mg INHALATION Q2H PRN PRN PRN Reason: SHORTNESS OF BREATH Amiodarone HCl (Cordarone) 200 mg PO DAILY [facility] Aspirin (Aspirin, Baby) 81 mg GT DAILY [facility] Last Admin: 01/19/18 10:25 Dose: 81 mg Atorvastatin Calcium (Lipitor) 40 mg GT HS [facility] Last Admin: 01/19/18 21:20 Dose: 40 mg Chlorhexidine Gluconate () 1 each TOPICAL DAILY [facility] Last Admin: 01/20/18 05:52 Dose: 1 each Chlorhexidine Gluconate () 15 ml PO BID [facility] Last Admin: 01/19/18 21:17 Dose: 15 ml Citalopram Hydrobromide (Celexa) 40 mg GT DAILY [facility] Last Admin: 01/19/18 10:25 Dose: 40 mg Clopidogrel Bisulfate (Plavix) 75 mg GT DAILY [facility] Last Admin: 01/19/18 10:23 Dose: 75 mg Famotidine (Pepcid) 20 mg GT BID [facility] Last Admin: 01/19/18 21:19 Dose: 20 mg Furosemide (Lasix) 40 mg IV DAILY [facility] Last Admin: 01/19/18 10:23 Dose: 100 mg Heparin Sodium (Porcine) (Heparin Na) 5,000 unit SC Q8 [facility] Last Admin: 01/20/18 05:52 Dose: 5,000 unit Sodium Chloride () 250 mls @ 15 mls/hr IV .[id number] PRN PRN Reason: SALINE FLUSH Last Admin: 01/19/18 14:08 Dose: 15 mls/hr Sodium Chloride () 250 mls @ 15 mls/hr IV .[id number] PRN PRN Reason: SALINE FLUSH Levofloxacin (Levaquin Iv) 750 mg in 150 mls @ 100 mls/hr IV Q24 [facility] Last Admin: 01/19/18 10:25 Dose: 100 mls/hr Fentanyl () 100 mls @ 5 mls/hr IV .Q20H [facility]; Protocol Last Admin: 01/20/18 00:16 Dose: 5 mls/hr Propofol (Diprivan) 1,000 mg in 100 mls @ 16.758 mls/hr CONT INF .Q5H59M [facility]; Protocol Last Admin: 01/20/18 05:54 Dose: 16.758 mls/hr Piperacillin Sod/Tazobactam Sod (Zosyn) 3.375 gm in 50 mls @ 12.5 mls/hr IV Q8 [facility] Last Admin: 01/20/18 05:51 Dose: 12.5 mls/hr Enteral Nutritional Formula (Vital Af 1.2 Andrew Liquid) 1,000 mls @ 60 mls/hr GT .[id number] [facility] Last Admin: 01/20/18 05:52 Dose: 60 mls/hr Insulin Glargine (Lantus (Bkc)) 10 units SC [facility] Last Admin: 01/20/18 06:15 Dose: 10 u Insulin Human Lispro (Humalog Kwikpen (Bkc)) 0 unit SC Q6 [facility]; Protocol Last Admin: 01/20/18 06:15 Dose: 9 u Ipratropium [place] (Atrovent) 0.5 mg INHALATION Q4H.RT [facility] Last Admin: 01/20/18 06:34 Dose: 0.5 mg Magnesium Hydroxide (Milk Of Magnesia) 30 ml GT DAILY PRN PRN PRN Reason: Constipation Ondansetron HCl (Zofran) 4 mg IV Q8H PRN PRN PRN Reason: NAUSEA Polyethylene Glycol (Miralax) 17 gm GT BID [facility] Last Admin: 01/19/18 21:18 Dose: 17 gm Prednisone () 40 mg GT DAILY@0800 [facility] Promethazine HCl (Phenergan) 12.5 mg IV Q6H PRN PRN PRN Reason: NAUSEA/VOMITING Senna/Docusate Sodium (Senokot-S, [place]omal-Colace) 2 tablet GT BID [facility] Last Admin: 01/19/18 21:19 Dose: 2 tablet Sodium Chloride () 5 - 30 ml IV UD PRN PRN Reason: SALINE FLUSH Last Admin: 01/18/18 21:16 Dose: 10 ml Medical Necessity - Tobacco Use Smoking Status: Current every day smoker Tobacco Use: Cigarettes Assessment/Plan All Active Problems (Last Reviewed 06/17/17 @ 09:09 by Antionette Lua) Severe sepsis (Acute) PNA (pneumonia) (Acute) COPD (chronic obstructive pulmonary disease) (Acute) BRENDA (acute kidney injury) (Acute) NSTEMI (non-ST elevated myocardial infarction) (Acute) Erectile dysfunction (Acute) Diabetes type 2, controlled (Acute) Testicular hypofunction (Acute) 67-year-old male with past medical history of hypertension, hyperlipidemia, obesity, chronic nicotine dependency, suspect underlying COPD admitted on 01/15/2018 with fever, chills, worsening weakness. Managed in ICU initially on BiPAP and finally intubated. 1. Acute hypoxic respiratory failure secondary to Legionella pneumonia/acute on chronic COPD exacerbation, remains intubated. 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 2. Severe sepsis secondary to Legionella pneumonia, WBCs count is improving, but no fever, will continue on IV Zosyn(day4) and Levaquin(day 6), will continue to monitor. 3. Acute on chronic COPD exacerbation, remains intubated, on IV Solu-Medrol, IV antibiotics, as well as scheduled breathing treatments, will continue same. 4. Acute NSTEMI, type II secondary to demand ischemia, on aspirin, statin, Plavix 5. Episode of Atrial flutter, converted, in NSR, remains on amiodarone drip, cardiology consulted and following 6. BRENDA secondary to severe sepsis/dehydration, resolved, creatinine is normal now, will continue to monitor strict I's and O 7. Type II DM, blood sugars fairly controlled, on Lantus as well as insulin sliding scale with Accu-Cheks 8. Acute hypovolemic hyponatremia, resolved with hydration 9. Hypokalemia, resolved 10. Chronic nicotine dependency, on nicotine patch 11. Hypertension, controlled, not on any medications, will continue to monitor. 12. Hyperlipidemia, on statin 13. Anxiety/depression, on citalopram 14. Obesity, BMI 31.5, would address weight loss and lifestyle changes when patient improves and prior to discharge 15. DVT prophylaxis -heparin subcu 16. GI prophylaxis -on famotidine Code Visit Inpatient E&M: [id number] Subs Hosp L2
[2018-01-20] MEDS: levoFLOXacin IV 750 MG/150 ML BAG 100 MG IV (09:27)
[2018-01-20] MEDS: Furosemide 40 MG/4 ML Vial IV (09:27)
[2018-01-20] MEDS: Senna/Docusate Sodium 1 Tablet 2 TABLET GT (09:28)
[2018-01-20] MEDS: Polyethylene Glycol 3350 17 GM PACKET GT (09:29)
[2018-01-20] MEDS: Amiodarone 200 MG Tablet PO (09:30)
[2018-01-20] MEDS: Aspirin 81 MG TAB.CHEW GT (09:30)
[2018-01-20] MEDS: Gabapentin 100 MG Capsule GT (09:30)
[2018-01-20] MEDS: Clopidogrel Bisulfate 75 MG Tablet GT (09:30)
[2018-01-20] MEDS: Citalopram 40 MG TABLET GT (09:30)
[2018-01-20] MEDS: Famotidine 20 MG Tablet GT ×2 (09:30→21:07)
[2018-01-20] MEDS: Chlorhexidine 15 ML PO ×2 (09:31→21:10)
[2018-01-20] MEDS: 0.9% NaCl Peripheral Flush Adult/Peds IV (09:43)
[2018-01-20] MEDS: predniSONE 20 MG Tablet 40 MG GT (11:56)
[2018-01-20 12:05] LABS: Bedside Glucose 289 mg/dL (70-110)
[2018-01-20 18:51] LABS: Bedside Glucose 243 mg/dL (70-110)
[2018-01-20] MEDS: Atorvastatin Calcium 40 MG Tablet GT (21:06)
[2018-01-21] VITALS (36 sets, daily range): BP systolic 107–181; BP diastolic 52–99; PULSE 72–95; RESP 16–30; TEMP 36.4–37.2; O2SAT 88–95
[2018-01-21] MEDS: Vital AF 1.2 Cal Liquid 1,000 ML 60 ML GT ×2 (00:05→21:33)
[2018-01-21] MEDS: Insulin Lispro 100 UNIT/ML INSULN.PEN SC ×5 (00:05→23:30)
[2018-01-21] MEDS: 0.9% NaCl IVPB Med Flush (250 mL) 15 ML IV (00:06)
[2018-01-21] MEDS: Propofol 10MG/Ml 1,000 MG/100 ML Bottle 16.758 MG CONT INF ×2 (00:06→14:10)
[2018-01-21 01:41] LABS: Bedside Glucose 221 mg/dL (70-110)
[2018-01-21 04:46] LABS: Hematocrit 36.3 % (40-54); Hemoglobin 12.2 g/dl (13.0-16.5); Mean Corp Hgb Conc 33.6 g/gl (32-36); Mean Corpuscular Hgb 30.4 pg (27.0-32.0); Mean Corpuscular Volume 90.5 fL (80-94); Mean Platelet Vol. 10.5 fl (6.2-12.0); Platelet Count 375 K/mm3 (150-450); RBC Distribution Width CV 13.9 % (11.6-14.6); RBC Distribution Width SD 45.1 fl (35.1-43.9); Red Blood Count 4.01 M/mm3 (4.6-6.2); White Blood Count 18.5 K/mm3 (4.4-11.0)
[2018-01-21 04:47] LABS: Differential Indicated MANUAL DIFF; POSITIVE COUNT YES; POSITIVE DIFFERENTIAL NO; POSITIVE MORPHOLOGY YES
[2018-01-21 04:49] LABS: Anion Gap 8 (5-15); BUN 38 mg/dL (7-18); BUN/Creat Ratio 38.6 RATIO (10-20); Calcium,Total 7.8 mg/dL (8.5-10.1); Chloride 101 mmol/L (98-107); Creatinine, Serum 0.98 mg/dL (0.70-1.30); EST Glomerular Filtration Rate 81 mL/min (>60); Est Glom Filt Rate - Afr Amer 99 mL/min (>60); Estimated Creatinine Clearance 74.64 ml/min; Glucose 222 mg/dL (74-106); Potassium 3.3 mmol/L (3.5-5.1); Sodium Level 143 mmol/L (136-145)
[2018-01-21 05:07] LABS: Absolute Lymphocyte Count 2.22 X10^3/ul (0.83-4.51); Lymphocyte 12 % (19-41); Monocyte 2 % (0-10); Myelocyte 1 (0-0); Neutrophil-Band 2 % (0-5); Neutrophil-Segmented 83 % (47-70); Platelet Estimate ADEQUATE (ADEQ); Red Cell Morphology NORM C+C NORMAL (NORM C&C); Total Cells Counted 100 (MANUAL DIFF)
[2018-01-21 05:08] LABS: Lymphocyte # 2.22 X10^3/ul (4.0)
[2018-01-21 05:09] LABS: Absolute Neutrophil Count 15.7 X10^3/uL (2.0-7.7); Neutrophil # 15.73 X10^3/uL (2.7-7.7)
[2018-01-21] MEDS: Heparin Injection (Vial) 5,000 UNIT/ML VIAL 5000 UNIT SC ×3 (05:27→21:32)
[2018-01-21] MEDS: Piperacil/Tazobactam 3.375 GM/50 ML ML IV ×3 (05:27→21:33)
[2018-01-21] MEDS: CHLORHEXIDINE GLUC 2% CLOTH 1 EACH TOWELETTE TOPICAL (05:30)
[2018-01-21] MEDS: 0.9% NaCl Peripheral Flush Adult/Peds IV (05:30)
[2018-01-21 05:46] LABS: Bedside Glucose 192 mg/dL (70-110)
[2018-01-21] MEDS: Ipratropium 0.5 MG/2.5 ML SOLUTION INHALATION ×5 (06:26→23:34)
--- NOTE | 2018-01-21 07:08 | PCM.PN.INT ---
Subjective: The patient was seen and examined at the bedside this morning. Events from the last 24 hours have been reviewed. The patient is currently afebrile, hemodynamically stable and maintaining appropriate oxygen saturations with an FiO2 requirement of 45%. The patient remains on a PEEP of 8. Attempts to wean to a PEEP of 5 this morning led to worsening oxygenation. Despite this, the patient remains on minimal sedation and is alert and appropriately interactive. The patient was started on diuretics yesterday and was overall net -389 mL's. He is overall net +8 L for the admission. Objective: The patient's most recent lab work, culture data and imaging studies have all been personally reviewed. CT chest without contrast obtained yesterday revealed bilateral emphysematous changes along with evidence of consolidation in the left upper lobe and lingula with corresponding groundglass changes extending into the left lower lobe. There was extensive mediastinal lymphadenopathy noted. It was noted that the left pulmonary artery was encased in either consolidation or a possible underlying lung mass. Urine Legionella antigen was noted to be positive. Streptococcus antigen was negative. Blood and urine cultures have shown no growth to date. Respiratory cultures are pending. Surface echocardiogram revealed normal LV size and function with evidence of stage I diastolic dysfunction. General: - - Remains intubated and mechanically ventilated. No ventilator dyssynchrony noted. HEENT: Atraumatic, PERRLA, Normocephalic Oral: No Gingival or Mucosal Lesions/ Ulcerations, - - Endotracheal and OG tubes remain in place. Neck: Supple, No Nodes, Trachea Midline Lungs: No rhonchi, No wheeze, No rales, Diminished Cardiovascular: Regular rate, Regular Rhythm, Normal S1, Normal S2, No murmurs Abdomen: Bowel Sounds Present, Soft, Non Tender Extremities: No clubbing, No cyanosis, No edema Skin: - - No significant change from previous. Musculoskeletal: No Tenderness to Palpation of Joints or Extremities, No Muscle Wasting Lymphatic: No Cervical, Supraclavicular, or Inguinal Adenopathy Neurological: - - No focal neurological deficits. The patient is alert and appropriately interactive. RASS of 0 to+1 currently. Vital Signs Temp Pulse Resp BP Pulse Ox 97.6 F L 84 19 H 181/88 H 90 01/21/18 04:00 01/21/18 07:00 01/21/18 07:00 01/21/18 07:00 01/21/18 07:00 Oxygen Flow Rate (L/min) 7 Oxygen Delivery Method Mechanical Ventilator Weight: 208 lb 1.862 oz Body Mass Index (BMI) 29.7 Intake and Output for Last 24 Hours 01/19/18 01/20/18 01/21/18 23:59 23:59 23:59 Intake Total 4260.6 / 4260.6 2361 / 2361 1106.2 / 1106.2 Output Total 1600 / 1600 2750 / 2750 925 / 925 Balance 2660.6 / 2660.6 -389 / -389 181.2 / 181.2 Labs (Last 48 Hours) 01/19/18 01/19/18 01/19/18 12:34 18:17 23:51 WBC RBC Hgb Hct MCV MCH MCHC RDW RDW Differential Plt Count MPV Immature Gran % (Auto) Neut % (Auto) Lymph % (Auto) Sierra % (Auto) Eos % (Auto) Baso % (Auto) Absolute Neuts (auto) Absolute Lymphs (auto) Total Counted Neutrophils % (Manual) Band Neutrophils % Lymphocytes % (Manual) Monocytes % (Manual) Myelocytes % Diff Path Review Platelet Estimate RBC Morphology Polychromasia Sodium Potassium Chloride Carbon Dioxide Anion Gap BUN Creatinine Estim Creat Clear Calc Est GFR (MDRD) Af Amer Est GFR (MDRD) Non-Af BUN/Creatinine Ratio Glucose Calcium Phosphorus Magnesium Total Bilirubin AST ALT Alkaline Phosphatase Total Protein Albumin Globulin Albumin/Globulin Ratio POC Glucose 252 H 277 H 284 H 01/20/18 01/20/18 01/20/18 06:05 06:05 06:08 WBC 21.7 H RBC 4.12 L Hgb 12.7 L Hct 36.7 L MCV 89.1 MCH 30.8 MCHC 34.6 RDW 13.8 RDW Differential 44.7 H Plt Count 354 MPV 10.8 Immature Gran % (Auto) 4.400 H Neut % (Auto) 84.4 H Lymph % (Auto) 5.3 L Sierra % (Auto) 5.3 Eos % (Auto) 0.0 Baso % (Auto) 0.6 Absolute Neuts (auto) 18.3 H Absolute Lymphs (auto) 1.16 Total Counted 100 Neutrophils % (Manual) 93 H Band Neutrophils % 2 Lymphocytes % (Manual) 4 L Monocytes % (Manual) 1 Myelocytes % Diff Path Review May foll Platelet Estimate ADEQUATE RBC Morphology N CYTIC Polychromasia 1+ Sodium 141 Potassium 4.1 Chloride 103 Carbon Dioxide 30.0 Anion Gap 8 BUN 37 H Creatinine 0.95 Estim Creat Clear Calc 77.00 Est GFR (MDRD) Af Amer 103 Est GFR (MDRD) Non-Af 85 BUN/Creatinine Ratio 39.1 H Glucose 254 H Calcium 7.9 L Phosphorus 2.9 Magnesium 2.1 Total Bilirubin 0.70 AST 40 H ALT 44 Alkaline Phosphatase 85 Total Protein 5.3 L Albumin 1.6 L Globulin 3.7 Albumin/Globulin Ratio 0.4 L POC Glucose 299 H 01/20/18 01/20/18 01/20/18 11:54 18:46 23:57 WBC RBC Hgb Hct MCV MCH MCHC RDW RDW Differential Plt Count MPV Immature Gran % (Auto) Neut % (Auto) Lymph % (Auto) Sierra % (Auto) Eos % (Auto) Baso % (Auto) Absolute Neuts (auto) Absolute Lymphs (auto) Total Counted Neutrophils % (Manual) Band Neutrophils % Lymphocytes % (Manual) Monocytes % (Manual) Myelocytes % Diff Path Review Platelet Estimate RBC Morphology Polychromasia Sodium Potassium Chloride Carbon Dioxide Anion Gap BUN Creatinine Estim Creat Clear Calc Est GFR (MDRD) Af Amer Est GFR (MDRD) Non-Af BUN/Creatinine Ratio Glucose Calcium Phosphorus Magnesium Total Bilirubin AST ALT Alkaline Phosphatase Total Protein Albumin Globulin Albumin/Globulin Ratio POC Glucose 289 H 243 H 221 H 01/21/18 01/21/18 01/21/18 04:15 04:15 05:25 WBC 18.5 H RBC 4.01 L Hgb 12.2 L Hct 36.3 L MCV 90.5 MCH 30.4 MCHC 33.6 RDW 13.9 RDW Differential 45.1 H Plt Count 375 MPV 10.5 Immature Gran % (Auto) Neut % (Auto) Not Reportable Lymph % (Auto) Sierra % (Auto) Eos % (Auto) Baso % (Auto) Absolute Neuts (auto) 15.7 H Absolute Lymphs (auto) 2.22 Total Counted 100 Neutrophils % (Manual) 83 H Band Neutrophils % 2 Lymphocytes % (Manual) 12 L Monocytes % (Manual) 2 Myelocytes % 1 H Diff Path Review May foll Platelet Estimate ADEQUATE RBC Morphology NORM C+C Polychromasia Sodium 143 Potassium 3.3 L Chloride 101 Carbon Dioxide 34.0 H Anion Gap 8 BUN 38 H Creatinine 0.98 Estim Creat Clear Calc 74.64 Est GFR (MDRD) Af Amer 99 Est GFR (MDRD) Non-Af 81 BUN/Creatinine Ratio 38.6 H Glucose 222 H Calcium 7.8 L Phosphorus Magnesium Total Bilirubin AST ALT Alkaline Phosphatase Total Protein Albumin Globulin Albumin/Globulin Ratio POC Glucose 192 H Microbiology 01/15/18 09:46 Blood Culture (Wb) - Left Hand Blood Culture - Final No growth in 5 days. 01/15/18 09:45 Blood Culture (Wb) - Anticubital Right Blood Culture - Final No growth in 5 days. 01/17/18 Unknown Bronchial Lavage - Left Middle Lobe Gram Stain - Final 01/17/18 Unknown Bronchial Lavage - Left Middle Lobe Respiratory Culture - Final Yeast, not Diamond albicans 01/17/18 08:06 Blood Culture (Wb) - Anticubital Left Blood Culture - Preliminary No growth in 48 hours. 01/17/18 07:15 Blood Culture (Wb) - Right Forearm Blood Culture - Preliminary No growth in 48 hours. Clinical Impression(s) from Imaging Studies Chest X-Ray 01/15/18 09:45 IMPRESSION: Near complete opacification left lung machuca sparing only the upper lobe at the level of the aortic knob and above. Differential considerations include pleural fluid, atelectasis/scarring, pneumonia or underlying mass. Clinical correlation follow-up recommended. Results discussed with Attending Physician 01/15/2018 approximate 1235 hours. If clinically indicated, recommend follow-up chest study after treatment to demonstrate complete clearing if clinically indicated. Electronically Signed: Montrell Cardenas, at 12:39 EDT Tel , Service support , Chest CT 01/15/18 12:44 IMPRESSION: There is a large amount of consolidation in the left upper lobe and lingula which is centrally dense with an air bronchograms. Although this may represent an infiltrate. An underlying left hilar mass with surrounding consolidated lung should be excluded. Recommend consideration for bronchoscopy. Small left effusion lower lobe atelectasis. Cardiomegaly cardiac artery disease Reactive and/or metastatic lymphadenopathy. Hyperinflated appearance of the right lung overall pattern of underlying chronic obstructive pulmonary disease. Inhomogeneous appearance of the liver which may represent fatty infiltration of the liver with sparing however further evaluation is recommended with an ultrasound or contrasted study of the abdomen and pelvis when possible. Electronically Signed: Mickie Saldivar MD at 15:10 EDT Tel , Service support , Chest X-Ray 01/17/18 06:53 IMPRESSION: Persistent left lung infiltrate no change or improvement. Follow-up to clearing recommended. Electronically Signed: Karen Howard MD at 8:16 EDT , Service support , Chest X-Ray 01/17/18 10:14 IMPRESSION: In the interval since prior study there is been placement of a GI tube which extends through the gastroesophageal junction enters into the region of the fundus the stomach and terminates in the region of the body of the stomach. Unchanged left lung opacity. Electronically Signed: Karen Howard MD at 11:18 EDT , Service support , Chest X-Ray 01/18/18 06:56 IMPRESSION: The endotracheal tube is high in position. It should be advanced by approximately 8 cm. The left hemithorax is now completely opacified. N.B. : The above information has been verbally conveyed by Karen Howard MD to Nurse Kevin Mckeon NP, on 01/18/2018 08:39:15 (ET). Electronically Signed: Karen Howard MD at 8:26 EDT , Service support , ADDENDUM: 01/18/18 0846 Chest X-Ray 01/18/18 08:40 IMPRESSION: Endotracheal tube appears slightly lower in position with the inferior tip just above the midclavicular level which should be repositions and rechecked radiographically. Increased air within the larynx region. Clinical correlation recommended. Moderate improved aeration left upper lobe. No change right lung base medial heterogeneous opacity, may represent atelectasis or pneumonia. Electronically Signed: Montrell Cardenas, at 10:41 EDT Tel , Service support , ADDENDUM: 01/18/18 1107 Chest X-Ray 01/19/18 05:55 IMPRESSION: Endotracheal tube tip as above. Slight improvement in aeration involving the left lung with continued opacification particularly along the left base. Continued compression of parenchyma in the right base with areas of hyperinflation. Electronically Signed: Judy Finley MD at 5:34 EDT , Service support , Medical Necessity - Tobacco Use Smoking Status: Current every day smoker Tobacco Use: Cigarettes Assessment/Plan All Active Problems (Last Reviewed 06/17/17 @ 09:09 by Antionette Lua) Severe sepsis (Acute) PNA (pneumonia) (Acute) COPD (chronic obstructive pulmonary disease) (Acute) BRENDA (acute kidney injury) (Acute) NSTEMI (non-ST elevated myocardial infarction) (Acute) Erectile dysfunction (Acute) Diabetes type 2, controlled (Acute) Testicular hypofunction (Acute) RECOMMENDATIONS: 1. Continue antibiotics per ID recommendations. 2. Wean FiO2/PEEP to maintain oxygen saturations above 90%. 3. Continue amiodarone. 4. Continue tube feeds. 5. Continue scheduled bronchodilators along with steroids. 6. Continue Accu-Cheks and sliding scale insulin coverage. 7. Continue scheduled Atrovent. 8. Continue Lasix. Will increase to twice daily dosing today. 9. The patient will need to have a repeat CT chest completed in 6-8 weeks. IMPRESSIONS: 1. Acute hypoxic respiratory failure secondary to severe Legionella pneumonia leading to presumptive COPD exacerbation While the patient does have an extensive smoking history, he has never had pulmonary function testing done to confirm or refute a diagnosis of COPD. However, he does have an extreme amount of wheezing noted on examination. The patient CT chest did reveal significant left upper and lingula consolidation with groundglass extending into the left lower lobe. There was also extensive mediastinal lymphadenopathy with possible encasement of the left pulmonary artery by consolidation and/or lung mass. The patient's Legionella antigen was noted to be positive. He is currently on treatment with appropriate antibiotics, along with scheduled bronchodilators and steroids. Despite all of the aforementioned, the patient's respiratory status continued to decline and he was subsequently intubated on January 17. A post intubation bronchoscopy was also performed. Antibiotics will be continued, per infectious diseases recommendations. Wean FiO2 and PEEP as tolerated to maintain an oxygen saturation at or above 90%. The dosing regimen of the patient's IV Lasix will be increased to twice daily today. The patient will need to follow-up in the pulmonary medicine clinic so that a repeat CT chest can be completed in 6-8 weeks for further evaluation of the patient's left hilum. If there is concern for an underlying lung mass, will proceed with setting the patient up for bronchoscopy and specifically EBUS. However, at this time, he will be treated with antibiotics. 2. Severe sepsis secondary to Legionella pneumonia The patient has been adequately volume resuscitated and is currently hemodynamically stable. We will plan to continue antibiotics per ID recommendations. 3. Atrial fibrillation/flutter The patient was noted to be in atrial flutter with an elevated heart rate on January 17. He was placed on amiodarone and subsequently converted back to normal sinus rhythm. 4. History of tobacco dependence The patient does have an extensive smoking history and we are currently working under the assumption that he has obstructive lung disease. However, smoking cessation is strongly advisable. Nicotine replacement therapy can be offered while he is admitted to the hospital. The patient should ideally follow up in the pulmonary medicine clinic so that baseline PFTs can be obtained. 5. Troponin elevation/heart failure with preserved ejection fraction The patient's echocardiogram did reveal evidence of stage I diastolic dysfunction with preserved ejection fraction. Troponin elevation is likely secondary to demand ischemia in the setting of #1/2. 6. Acute kidney injury Improved. Likely prerenal in etiology. Continue to monitor urine output. No current indication for renal replacement therapy. 7. Hypertension/hyperlipidemia/neuropathy Complicates care, management, recovery and prognosis. Okay to continue home medications from my perspective. TIME: 35 minutes of critical care time, independent of procedures, was spent addressing the patient's acute hypoxemic respiratory failure, Legionella pneumonia, severe sepsis, history of tobacco dependence, sinus arrhythmia, troponin elevation, electrolyte disturbances, acute kidney injury, review of all data and collaboration with the care team. () Code Visit 9xxxx: [id number] Critical care first hour
--- NOTE | 2018-01-21 07:12 | PN_ITS ---
Subjective: The patient was seen and examined at the bedside this morning. Events from the last 24 hours have been reviewed. The patient is currently afebrile, hemodynamically stable and maintaining appropriate oxygen saturations with an FiO2 requirement of 45%. The patient remains on a PEEP of 8. Attempts to wean to a PEEP of 5 this morning led to worsening oxygenation. Despite this, the patient remains on minimal sedation and is alert and appropriately interactive. The patient was started on diuretics yesterday and was overall net -389 mL's. He is overall net +8 L for the admission. Objective: The patient's most recent lab work, culture data and imaging studies have all been personally reviewed. CT chest without contrast obtained yesterday revealed bilateral emphysematous changes along with evidence of consolidation in the left upper lobe and lingula with corresponding groundglass changes extending into the left lower lobe. There was extensive mediastinal lymphadenopathy noted. It was noted that the left pulmonary artery was encased in either consolidation or a possible underlying lung mass. Urine Legionella antigen was noted to be positive. Streptococcus antigen was negative. Blood and urine cultures have shown no growth to date. Respiratory cultures are pending. Surface echocardiogram revealed normal LV size and function with evidence of stage I diastolic dysfunction. General: - - Remains intubated and mechanically ventilated. No ventilator dyssynchrony noted. HEENT: Atraumatic, PERRLA, Normocephalic Oral: No Gingival or Mucosal Lesions/ Ulcerations, - - Endotracheal and OG tubes remain in place. Neck: Supple, No Nodes, Trachea Midline Lungs: No rhonchi, No wheeze, No rales, Diminished Cardiovascular: Regular rate, Regular Rhythm, Normal S1, Normal S2, No murmurs Abdomen: Bowel Sounds Present, Soft, Non Tender Extremities: No clubbing, No cyanosis, No edema Skin: - - No significant change from previous. Musculoskeletal: No Tenderness to Palpation of Joints or Extremities, No Muscle Wasting Lymphatic: No Cervical, Supraclavicular, or Inguinal Adenopathy Neurological: - - No focal neurological deficits. The patient is alert and appropriately interactive. RASS of 0 to+1 currently. Vital Signs Temp Pulse Resp BP Pulse Ox 97.6 F L 84 19 H 181/88 H 90 01/21/18 04:00 01/21/18 07:00 01/21/18 07:00 01/21/18 07:00 01/21/18 07:00 Oxygen Flow Rate (L/min) 7 Oxygen Delivery Method Mechanical Ventilator Weight: 208 lb 1.862 oz Body Mass Index (BMI) 29.7 Intake and Output for Last 24 Hours 01/19/18 01/20/18 01/21/18 23:59 23:59 23:59 Intake Total 4260.6 / 4260.6 2361 / 2361 1106.2 / 1106.2 Output Total 1600 / 1600 2750 / 2750 925 / 925 Balance 2660.6 / 2660.6 -389 / -389 181.2 / 181.2 Labs (Last 48 Hours) 01/19/18 01/19/18 01/19/18 12:34 18:17 23:51 WBC RBC Hgb Hct MCV MCH MCHC RDW RDW Differential Plt Count MPV Immature Gran % (Auto) Neut % (Auto) Lymph % (Auto) [place] % (Auto) Eos % (Auto) Baso % (Auto) Absolute Neuts (auto) Absolute Lymphs (auto) Total Counted Neutrophils % (Manual) Band Neutrophils % Lymphocytes % (Manual) Monocytes % (Manual) Myelocytes % Diff Path Review Platelet Estimate RBC Morphology Polychromasia Sodium Potassium Chloride Carbon Dioxide Anion Gap BUN Creatinine Estim Creat Clear Calc Est GFR (MDRD) Af Amer Est GFR (MDRD) Non-Af BUN/Creatinine Ratio Glucose Calcium Phosphorus Magnesium Total Bilirubin AST ALT Alkaline Phosphatase Total Protein Albumin Globulin Albumin/Globulin Ratio POC Glucose 252 H 277 H 284 H 01/20/18 01/20/18 01/20/18 06:05 06:05 06:08 WBC 21.7 H RBC 4.12 L Hgb 12.7 L Hct 36.7 L MCV 89.1 MCH 30.8 MCHC 34.6 RDW 13.8 RDW Differential 44.7 H Plt Count 354 MPV 10.8 Immature Gran % (Auto) 4.400 H Neut % (Auto) 84.4 H Lymph % (Auto) 5.3 L [place] % (Auto) 5.3 Eos % (Auto) 0.0 Baso % (Auto) 0.6 Absolute Neuts (auto) 18.3 H Absolute Lymphs (auto) 1.16 Total Counted 100 Neutrophils % (Manual) 93 H Band Neutrophils % 2 Lymphocytes % (Manual) 4 L Monocytes % (Manual) 1 Myelocytes % Diff Path Review May foll Platelet Estimate ADEQUATE RBC Morphology N CYTIC Polychromasia 1+ Sodium 141 Potassium 4.1 Chloride 103 Carbon Dioxide 30.0 Anion Gap 8 BUN 37 H Creatinine 0.95 Estim Creat Clear Calc 77.00 Est GFR (MDRD) Af Amer 103 Est GFR (MDRD) Non-Af 85 BUN/Creatinine Ratio 39.1 H Glucose 254 H Calcium 7.9 L Phosphorus 2.9 Magnesium 2.1 Total Bilirubin 0.70 AST 40 H ALT 44 Alkaline Phosphatase 85 Total Protein 5.3 L Albumin 1.6 L Globulin 3.7 Albumin/Globulin Ratio 0.4 L POC Glucose 299 H 01/20/18 01/20/18 01/20/18 11:54 18:46 23:57 WBC RBC Hgb Hct MCV MCH MCHC RDW RDW Differential Plt Count MPV Immature Gran % (Auto) Neut % (Auto) Lymph % (Auto) [place] % (Auto) Eos % (Auto) Baso % (Auto) Absolute Neuts (auto) Absolute Lymphs (auto) Total Counted Neutrophils % (Manual) Band Neutrophils % Lymphocytes % (Manual) Monocytes % (Manual) Myelocytes % Diff Path Review Platelet Estimate RBC Morphology Polychromasia Sodium Potassium Chloride Carbon Dioxide Anion Gap BUN Creatinine Estim Creat Clear Calc Est GFR (MDRD) Af Amer Est GFR (MDRD) Non-Af BUN/Creatinine Ratio Glucose Calcium Phosphorus Magnesium Total Bilirubin AST ALT Alkaline Phosphatase Total Protein Albumin Globulin Albumin/Globulin Ratio POC Glucose 289 H 243 H 221 H 01/21/18 01/21/18 01/21/18 04:15 04:15 05:25 WBC 18.5 H RBC 4.01 L Hgb 12.2 L Hct 36.3 L MCV 90.5 MCH 30.4 MCHC 33.6 RDW 13.9 RDW Differential 45.1 H Plt Count 375 MPV 10.5 Immature Gran % (Auto) Neut % (Auto) Not Reportable Lymph % (Auto) [place] % (Auto) Eos % (Auto) Baso % (Auto) Absolute Neuts (auto) 15.7 H Absolute Lymphs (auto) 2.22 Total Counted 100 Neutrophils % (Manual) 83 H Band Neutrophils % 2 Lymphocytes % (Manual) 12 L Monocytes % (Manual) 2 Myelocytes % 1 H Diff Path Review May foll Platelet Estimate ADEQUATE RBC Morphology NORM C+C Polychromasia Sodium 143 Potassium 3.3 L Chloride 101 Carbon Dioxide 34.0 H Anion Gap 8 BUN 38 H Creatinine 0.98 Estim Creat Clear Calc 74.64 Est GFR (MDRD) Af Amer 99 Est GFR (MDRD) Non-Af 81 BUN/Creatinine Ratio 38.6 H Glucose 222 H Calcium 7.8 L Phosphorus Magnesium Total Bilirubin AST ALT Alkaline Phosphatase Total Protein Albumin Globulin Albumin/Globulin Ratio POC Glucose 192 H Microbiology 01/15/18 09:46 Blood Culture (Wb) - Left Hand Blood Culture - Final No growth in 5 days. 01/15/18 09:45 Blood Culture (Wb) - Anticubital Right Blood Culture - Final No growth in 5 days. 01/17/18 Unknown Bronchial Lavage - Left Middle Lobe Gram Stain - Final 01/17/18 Unknown Bronchial Lavage - Left Middle Lobe Respiratory Culture - F inal Yeast, not Diamond albicans 01/17/18 08:06 Blood Culture (Wb) - Anticubital Left Blood Culture - Preliminary No growth in 48 hours. 01/17/18 07:15 Blood Culture (Wb) - Right Forearm Blood Culture - Preliminary No growth in 48 hours. Clinical Impression(s) from Imaging Studies Chest X-Ray 01/15/18 09:45 IMPRESSION: Near complete opacification left lung [place] sparing only the upper lobe at the level of the aortic knob and above. Differential considerations include pleural fluid, atelectasis/scarring, pneumonia or underlying mass. Clinical correlation follow-up recommended. Results discussed with Attending Physician 01/15/2018 approximate 1235 hours. If clinically indicated, recommend follow-up chest study after treatment to demonstrate complete clearing if clinically indicated. Electronically Signed: Montrell Cardenas, at 12:39 EDT Tel , Service support , Chest CT 01/15/18 12:44 IMPRESSION: There is a large amount of consolidation in the left upper lobe and lingula which is centrally dense with an air bronchograms. Although this may represent an infiltrate. An underlying left hilar mass with surrounding consolidated lung should be excluded. Recommend consideration for bronchoscopy. Small left effusion lower lobe atelectasis. Cardiomegaly cardiac artery disease Reactive and/or metastatic lymphadenopathy. Hyperinflated appearance of the right lung overall pattern of underlying chronic obstructive pulmonary disease. Inhomogeneous appearance of the liver which may represent fatty infiltration of the liver with sparing however further evaluation is recommended with an ultrasound or contrasted study of the abdomen and pelvis when possible. Electronically Signed: Mickie Saldivar MD at 15:10 EDT Tel , Service support , Chest X-Ray 01/17/18 06:53 IMPRESSION: Persistent left lung infiltrate no change or improvement. Follow-up to clearing recommended. Electronically Signed: Karen Howard MD at 8:16 EDT , Service support , Chest X-Ray 01/17/18 10:14 IMPRESSION: In the interval since prior study there is been placement of a GI tube which extends through the gastroesophageal junction enters into the region of the fundus the stomach and terminates in the region of the body of the stomach. Unchanged left lung opacity. Electronically Signed: Karen Howard MD at 11:18 EDT , Service support , Chest X-Ray 01/18/18 06:56 IMPRESSION: The endotracheal tube is high in position. It should be advanced by approximately 8 cm. The left hemithorax is now completely opacified. N.B. : The above information has been verbally conveyed by Karen Howard MD to Nurse Kevin Mckeon NP, on 01/18/2018 08:39:15 (ET). Electronically Signed: Karen Howard MD at 8:26 EDT , Service support , ADDENDUM: 01/18/18 0846 Chest X-Ray 01/18/18 08:40 IMPRESSION: Endotracheal tube appears slightly lower in position with the inferior tip just above the midclavicular level which should be repositions and rechecked radiographically. Increased air within the larynx region. Clinical correlation recommended. Moderate improved aeration left upper lobe. No change right lung base medial heterogeneous opacity, may represent atelectasis or pneumonia. Electronically Signed: Montrell Cardenas, at 10:41 EDT Tel , Service support , ADDENDUM: 01/18/18 1107 Chest X-Ray 01/19/18 05:55 IMPRESSION: Endotracheal tube tip as above. Slight improvement in aeration involving the left lung with continued opacification particularly along the left base. Continued compression of parenchyma in the right base with areas of hyperinflation. Electronically Signed: Judy Finley MD at 5:34 EDT , Service support , Medical Necessity - Tobacco Use Smoking Status: Current every day smoker Tobacco Use: Cigarettes Assessment/Plan All Active Problems (Last Reviewed 06/17/17 @ 09:09 by Antionette Lua) Severe sepsis (Acute) PNA (pneumonia) (Acute) COPD (chronic obstructive pulmonary disease) (Acute) BRENDA (acute kidney injury) (Acute) NSTEMI (non-ST elevated myocardial infarction) (Acute) Erectile dysfunction (Acute) Diabetes type 2, controlled (Acute) Testicular hypofunction (Acute) RECOMMENDATIONS: 1. Continue antibiotics per ID recommendations. 2. Wean FiO2/PEEP to maintain oxygen saturations above 90%. 3. Continue amiodarone. 4. Continue tube feeds. 5. Continue scheduled bronchodilators along with steroids. 6. Continue Accu-Cheks and sliding scale insulin coverage. 7. Continue scheduled Atrovent. 8. Continue Lasix. Will increase to twice daily dosing today. 9. The patient will need to have a repeat CT chest completed in 6-8 weeks. IMPRESSIONS: 1. Acute hypoxic respiratory failure secondary to severe Legionella pneumonia leading to presumptive COPD exacerbation While the patient does have an extensive smoking history, he has never had pulmonary function testing done to confirm or refute a diagnosis of COPD. However, he does have an extreme amount of wheezing noted on examination. The patient CT chest did reveal significant left upper and lingula consolidation with groundglass extending into the left lower lobe. There was also extensive mediastinal lymphadenopathy with possible encasement of the left pulmonary artery by consolidation and/or lung mass. The patient's Legionella antigen was noted to be positive. He is currently on treatment with appropriate antibiotics, along with scheduled bronchodilators and steroids. Despite all of the aforementioned, the patient's respiratory status continued to decline and he was subsequently intubated on January 17. A post intubation bronchoscopy was also performed. Antibiotics will be continued, per infectious diseases rec ommendations. Wean FiO2 and PEEP as tolerated to maintain an oxygen saturation at or above 90%. The dosing regimen of the patient's IV Lasix will be increased to twice daily today. The patient will need to follow-up in the pulmonary medicine clinic so that a repeat CT chest can be completed in 6-8 weeks for further evaluation of the patient's left hilum. If there is concern for an underlying lung mass, will proceed with setting the patient up for bronchoscopy and specifically EBUS. However, at this time, he will be treated with antibiotics. 2. Severe sepsis secondary to Legionella pneumonia The patient has been adequately volume resuscitated and is currently hemodynamically stable. We will plan to continue antibiotics per ID recommendations. 3. Atrial fibrillation/flutter The patient was noted to be in atrial flutter with an elevated heart rate on January 17. He was placed on amiodarone and subsequently converted back to normal sinus rhythm. 4. History of tobacco dependence The patient does have an extensive smoking history and we are currently working under the assumption that he has obstructive lung disease. However, smoking cessation is strongly advisable. Nicotine replacement therapy can be offered while he is admitted to the hospital. The patient should ideally follow up in the pulmonary medicine clinic so that baseline PFTs can be obtained. 5. Troponin elevation/heart failure with preserved ejection fraction The patient's echocardiogram did reveal evidence of stage I diastolic dysfunction with preserved ejection fraction. Troponin elevation is likely secondary to demand ischemia in the setting of #1/2. 6. Acute kidney injury Improved. Likely prerenal in etiology. Continue to monitor urine output. No current indication for renal replacement therapy. 7. Hypertension/hyperlipidemia/neuropathy Complicates care, management, recovery and prognosis. Okay to continue home medications from my perspective. TIME: 35 minutes of critical care time, independent of procedures, was spent addressing the patient's acute hypoxemic respiratory failure, Legionella pneumonia, severe sepsis, history of tobacco dependence, sinus arrhythmia, troponin elevation, electrolyte disturbances, acute kidney injury, review of all data and collaboration with the care team. ([id number]) Code Visit 9xxxx: [id number] Critical care first hour
--- NOTE | 2018-01-21 08:11 | PN_ITS ---
Patient Problems: Active and Suspected Problems (Last Reviewed 06/17/17 @ 09:09 by Antionette Lua) Severe sepsis (Acute) PNA (pneumonia) (Acute) COPD (chronic obstructive pulmonary disease) (Acute) BRENDA (acute kidney injury) (Acute) NSTEMI (non-ST elevated myocardial infarction) (Acute) Subjective: Patient was seen and examined. Remains intubated, on [facility] ventilator. Communicates by writing down his answers. Complains of feeling some chest tightness. No acute events overnight. Objective: Physical exam: General: Alert, Cooperative, No apparent distress, - - Intubated, on mechanical ventilator, easily arousable, HEENT: Atraumatic, PERRLA, EOMI, Normocephalic Oral: Moist Mucosa Neck: Supple, No JVD, Negative Carotid Bruits Lungs: Clear to auscultation - Anteriorly, Normal air movement Cardiovascular: Regular rate, Regular Rhythm, Normal S1, Normal S2, No murmurs Abdomen: Bowel Sounds Present, Soft, Non Tender, Non-Distended, No Hepato- splenomegaly, Hypoactive Bowel Sounds Extremities: Trace bilateral edema Skin: No rashes, No breakdown Musculoskeletal: No Tenderness to Palpation of Joints or Extremities Lymphatic: No Cervical, Supraclavicular, or Inguinal Adenopathy Neurological: Cranial nerves II-XII grossly intact Psych/Mental Status: Normal Affect, Appropriate Vitals/I&O's: Vital Signs Temp Pulse Resp BP Pulse Ox 97.6 F L 84 19 H 181/88 H 90 01/21/18 04:00 01/21/18 07:00 01/21/18 07:00 01/21/18 07:00 01/21/18 07:00 Oxygen Flow Rate (L/min) 7 Oxygen Delivery Method Mechanical Ventilator Weight: 94.4 kg Body Mass Index (BMI) 29.7 Intake and Output for Last 24 Hours 01/19/18 01/20/18 01/21/18 23:59 23:59 23:59 Intake Total 4260.6 / 4260.6 2361 / 2361 1106.2 / 1106.2 Output Total 1600 / 1600 2750 / 2750 925 / 925 Balance 2660.6 / 2660.6 -389 / -389 181.2 / 181.2 Microbiology Past 72 Hours 01/15/18 09:46 Blood Culture (Wb) - Left Hand Blood Culture - Final No growth in 5 days. 01/15/18 09:45 Blood Culture (Wb) - Anticubital Right Blood Culture - Final No growth in 5 days. 01/17/18 Unknown Bronchial Lavage - Left Middle Lobe Gram Stain - Final 01/17/18 Unknown Bronchial Lavage - Left Middle Lobe Respiratory Culture - Final Yeast, not Diamond albicans 01/17/18 08:06 Blood Culture (Wb) - Anticubital Left Blood Culture - Preliminary No growth in 48 hours. 01/17/18 07:15 Blood Culture (Wb) - Right Forearm Blood Culture - Preliminary No growth in 48 hours. 01/15/18 21:50 Sputum, Expectorated/Coughed Gram Stain - Final 01/15/18 21:50 Sputum, Expectorated/Coughed Respiratory Culture - Final Laboratory Results 01/20/18 11:54: POC Glucose 289 H 01/20/18 18:46: POC Glucose 243 H 01/20/18 23:57: POC Glucose 221 H 01/21/18 04:15: WBC 18.5 H, RBC 4.01 L, Hgb 12.2 L, Hct 36.3 L, MCV 90.5, MCH 30.4, MCHC 33.6, RDW 13.9, RDW Differential 45.1 H, Plt Count 375, MPV 10.5, Neut % (Auto) Not Reportable, Absolute Neuts (auto) 15.7 H, Absolute Lymphs (auto) 2.22, Total Counted 100, Neutrophils % (Manual) 83 H, Band Neutrophils % 2, Lymphocytes % (Manual) 12 L, Monocytes % (Manual) 2, Myelocytes % 1 H, Diff Path Review August, Platelet Estimate ADEQUATE, RBC Morphology NORM C+C 01/21/18 04:15: Sodium 143, Potassium 3.3 L, Chloride 101, Carbon Dioxide 34.0 H , Anion Gap 8, BUN 38 H, Creatinine 0.98, Estim Creat Clear Calc 74.64, Est GFR (MDRD) Af Amer 99, Est GFR (MDRD) Non-Af 81, BUN/Creatinine Ratio 38.6 H, Glucose 222 H, Calcium 7.8 L 01/21/18 05:25: POC Glucose 192 H Current Medications Acetaminophen (Tylenol Liquid) 650 mg GT Q4H PRN PRN PRN Reason: FEVER Last Admin: 01/17/18 14:36 Dose: 650 mg Al Hydroxide/Mg Hydroxide (Mylanta Ii) 30 ml GT Q6H PRN PRN PRN Reason: Gastric burning Albuterol Sulfate (Ventolin Aerosols) 2.5 mg INHALATION Q2H PRN PRN PRN Reason: SHORTNESS OF BREATH Amiodarone HCl (Cordarone) 200 mg PO DAILY [facility] Last Admin: 01/20/18 09:30 Dose: 200 mg Aspirin (Aspirin, Baby) 81 mg GT DAILY [facility] Last Admin: 01/20/18 09:30 Dose: 81 mg Atorvastatin Calcium (Lipitor) 40 mg GT HS [facility] Last Admin: 01/20/18 21:06 Dose: 40 mg Chlorhexidine Gluconate () 1 each TOPICAL DAILY [facility] Last Admin: 01/21/18 05:30 Dose: 1 each Chlorhexidine Gluconate () 15 ml PO BID [facility] Last Admin: 01/20/18 21:10 Dose: 15 ml Citalopram Hydrobromide (Celexa) 40 mg GT DAILY [facility] Last Admin: 01/20/18 09:30 Dose: 40 mg Clopidogrel Bisulfate (Plavix) 75 mg GT DAILY [facility] Last Admin: 01/20/18 09:30 Dose: 75 mg Famotidine (Pepcid) 20 mg GT BID [facility] Last Admin: 01/20/18 21:07 Dose: 20 mg Furosemide (Lasix) 40 mg IV BID@1000,1800 [facility] Admin: 01/20/18 09:30 Dose: 100 mg Heparin Sodium (Porcine) (Heparin Na) 5,000 unit SC Q8 [facility] Last Admin: 01/21/18 05:27 Dose: 5,000 unit Sodium Chloride () 250 mls @ 15 mls/hr IV .[id number] PRN PRN Reason: SALINE FLUSH Last Admin: 01/21/18 00:06 Dose: 15 mls/hr Sodium Chloride () 250 mls @ 15 mls/hr IV .[id number] PRN PRN Reason: SALINE FLUSH Levofloxacin (Levaquin Iv) 750 mg in 150 mls @ 100 mls/hr IV Q24 [facility] Last Admin: 01/20/18 09:27 Dose: 100 mls/hr Fentanyl () 100 mls @ 5 mls/hr IV .Q20H [facility]; Protocol Last Admin: 10/13/18 21:02 Dose: 5 mls/hr Propofol (Diprivan) 1,000 mg in 100 mls @ 16.758 mls/hr CONT INF .Q5H59M [facility]; Protocol Last Admin: 01/21/18 08:03 Dose: Not Given Piperacillin Sod/Tazobactam Sod (Zosyn) 3.375 gm in 50 mls @ 12.5 mls/hr IV Q8 [facility] Last Admin: 01/21/18 05:27 Dose: 12.5 mls/hr Enteral Nutritional Formula (Vital Af 1.2 Andrew Liquid) 1,000 mls @ 60 mls/hr GT .[id number] [facility] Last Admin: 01/21/18 00:05 Dose: 60 mls/hr Insulin Glargine (Lantus (Bkc)) 10 units SC [facility] Last Admin: 01/21/18 05:29 Dose: 10 u Insulin Human Lispro (Humalog Kwikpen (Bk)) 0 unit SC Q6 [facility]; Protocol Last Admin: 01/21/18 05:28 Dose: 6 u Ipratropium [place] (Atrovent) 0.5 mg INHALATION Q4H.RT [facility] Last Admin: 01/21/18 06:26 Dose: 0.5 mg Magnesium Hydroxide (Milk Of Magnesia) 30 ml GT DAILY PRN PRN PRN Reason: Constipation Ondansetron HCl (Zofran) 4 mg IV Q8H PRN PRN PRN Reason: NAUSEA Polyethylene Glycol (Miralax) 17 gm GT BID [facility] Last Admin: 01/20/18 21:07 Dose: Not Given Prednisone () 40 mg GT DAILY@0800 [facility] Last Admin: 01/20/18 11:56 Dose: 40 mg Promethazine HCl (Phenergan) 12.5 mg IV Q6H PRN PRN PRN Reason: NAUSEA/VOMITING Senna/Docusate Sodium (Senokot-S, [place]-Colace) 2 tablet GT BID [facility] Last Admin: 01/20/18 21:07 Dose: Not Given Sodium Chloride () 5 - 30 ml IV UD PRN PRN Reason: SALINE FLUSH Last Admin: 01/21/18 05:30 Dose: 10 ml Medical Necessity - Tobacco Use Smoking Status: Current every day smoker Tobacco Use: Cigarettes Assessment/Plan All Active Problems (Last Reviewed 06/17/17 @ 09:09 by Antionette Lua) Severe sepsis (Acute) PNA (pneumonia) (Acute) COPD (chronic obstructive pulmonary disease) (Acute) BRENDA (acute kidney injury) (Acute) NSTEMI (non-ST elevated myocardial infarction) (Acute) Erectile dysfunction (Acute) Diabetes type 2, controlled (Acute) Testicular hypofunction (Acute) 67-year-old male with past medical history of hypertension, hyperlipidemia, obesity, chronic nicotine dependency, suspect underlying COPD admitted on 01/15/2018 with fever, chills, worsening weakness. Managed in ICU initially on BiPAP and finally intubated. 1. Acute hypoxic respiratory failure secondary to Legionella pneumonia/acute on chronic COPD exacerbation, remains intubated. Continue with Lasix for diuresis. 2. Severe sepsis secondary to Legionella pneumonia, WBCs count is improving, on IV Zosyn(day5) and Levaquin(day 7). 3. Acute on chronic COPD exacerbation, remains intubated, on IV Solu-Medrol, IV antibiotics, as well as scheduled breathing treatments, will continue same. 4. Acute NSTEMI, type II secondary to demand ischemia, on aspirin, statin, Plavix 5. Episode of Atrial flutter, converted, in NSR, on oral amiodarone 6. BRENDA secondary to severe sepsis/dehydration, resolved 7. Type II DM, blood sugars fairly controlled, on Lantus as well as insulin sliding scale with Accu-Cheks 8. Acute hypovolemic hyponatremia, resolved with hydration 9. Hypokalemia, secondary to diuretic use, will replace, lab in am 10. Chronic nicotine dependency, on nicotine patch 11. Hypertension, controlled, not on any medications, will continue to monitor. 12. Hyperlipidemia, on statin 13. Anxiety/depression, on citalopram 14. Obesity, BMI 31.5, would address weight loss and lifestyle changes when patient improves and prior to discharge 15. DVT prophylaxis -heparin subcu 16. GI prophylaxis -on famotidine Code Visit Inpatient E&M: 33858 Subs Hosp L2
[2018-01-21] MEDS: Gabapentin 100 MG Capsule GT (10:11)
[2018-01-21] MEDS: Citalopram 40 MG TABLET GT (10:11)
[2018-01-21] MEDS: predniSONE 20 MG Tablet 40 MG GT (10:11)
[2018-01-21] MEDS: Clopidogrel Bisulfate 75 MG Tablet GT (10:11)
[2018-01-21] MEDS: Aspirin 81 MG TAB.CHEW GT (10:11)
[2018-01-21] MEDS: Chlorhexidine 15 ML PO ×2 (10:12→21:32)
[2018-01-21] MEDS: Furosemide 40 MG/4 ML Vial IV ×2 (10:12→17:42)
[2018-01-21] MEDS: Famotidine 20 MG Tablet GT ×2 (10:13→21:33)
[2018-01-21] MEDS: Amiodarone 200 MG Tablet PO (10:13)
[2018-01-21] MEDS: levoFLOXacin IV 750 MG/150 ML BAG 100 MG IV (10:33)
[2018-01-21 13:21] LABS: Bedside Glucose 226 mg/dL (70-110)
[2018-01-21] MEDS: fentaNYL drip 100 ML 5 MCG IV (14:10)
[2018-01-21 18:00] LABS: Bedside Glucose 268 mg/dL (70-110)
[2018-01-21] MEDS: Senna/Docusate Sodium 1 Tablet 2 TABLET GT (21:33)
[2018-01-21] MEDS: Atorvastatin Calcium 40 MG Tablet GT (21:33)
[2018-01-21 23:41] LABS: Bedside Glucose 208 mg/dL (70-110)
[2018-01-22] VITALS (41 sets, daily range): BP systolic 111–177; BP diastolic 64–99; PULSE 68–92; RESP 16–24; TEMP 36.8–37.2; O2SAT 88–96
[2018-01-22] MEDS: Ipratropium 0.5 MG/2.5 ML SOLUTION INHALATION ×5 (02:05→23:15)
[2018-01-22] MEDS: Propofol 10MG/Ml 1,000 MG/100 ML Bottle 16.758 MG CONT INF ×2 (02:35→14:01)
[2018-01-22 04:37] LABS: Hematocrit 34.6 % (40-54); Hemoglobin 11.4 g/dl (13.0-16.5); Mean Corp Hgb Conc 32.9 g/gl (32-36); Mean Corpuscular Hgb 29.8 pg (27.0-32.0); Mean Corpuscular Volume 90.6 fL (80-94); Mean Platelet Vol. 10.1 fl (6.2-12.0); Platelet Count 342 K/mm3 (150-450); RBC Distribution Width SD 46.5 fl (35.1-43.9); Red Blood Count 3.82 M/mm3 (4.6-6.2); White Blood Count 18.4 K/mm3 (4.4-11.0)
[2018-01-22 04:39] LABS: Differential Indicated MANUAL DIFF; POSITIVE COUNT YES; POSITIVE DIFFERENTIAL NO; POSITIVE MORPHOLOGY YES
[2018-01-22 04:44] LABS: Anion Gap 8 (5-15); BUN 36 mg/dL (7-18); BUN/Creat Ratio 40.2 RATIO (10-20); Calcium,Total 7.7 mg/dL (8.5-10.1); Chloride 99 mmol/L (98-107); EST Glomerular Filtration Rate 91 mL/min (>60); Est Glom Filt Rate - Afr Amer 110 mL/min (>60); Estimated Creatinine Clearance 81.28 ml/min; Glucose 202 mg/dL (74-106); Potassium 3.3 mmol/L (3.5-5.1); Sodium Level 143 mmol/L (136-145)
[2018-01-22 06:03] LABS: Absolute Lymphocyte Count 2.94 X10^3/ul (0.83-4.51); Eosinophil 1 % (0-5); Lymphocyte 16 % (19-41); Lymphocyte # 2.94 X10^3/ul (4.0); Metamyelocyte 1 % (0-1); Monocyte 2 % (0-10); Neutrophil-Band 1 % (0-5); Neutrophil-Segmented 79 % (47-70); Platelet Estimate ADEQUATE (ADEQ); Red Cell Morphology NORM C+C NORMAL (NORM C&C); Total Cells Counted 100 (MANUAL DIFF)
[2018-01-22 06:04] LABS: Absolute Neutrophil Count 14.7 X10^3/uL (2.0-7.7); Neutrophil # 14.72 X10^3/uL (2.7-7.7)
[2018-01-22] MEDS: Heparin Injection (Vial) 5,000 UNIT/ML VIAL 5000 UNIT SC ×3 (06:04→21:40)
[2018-01-22] MEDS: Insulin Lispro 100 UNIT/ML INSULN.PEN SC ×4 (06:05→23:49)
[2018-01-22] MEDS: Piperacil/Tazobactam 3.375 GM/50 ML ML IV ×3 (06:05→21:42)
--- NOTE | 2018-01-22 06:16 | RAD_ITS ---
STUDY: X-RAY CHEST REASON FOR EXAM: Male, 62 years old. Dyspnea. TECHNIQUE: Single AP portable view of the chest. COMPARISON: 01/19/2018. CT scan chest 01/15/2018. FINDINGS: There is an endotracheal tube with its tip 8.9 cm above the dheeraj, just above the level of the clavicular heads. Similar position as also seen on previous study. The tube should be advanced 4 cm. There is a nasogastric tube extends at least as far as the proximal body of the stomach. There are pulmonary infiltrates in the left lung field as well as a left pleural effusion. Left upper lung field density is worsened from the last previous study, which may be due to worsening infiltration or loculated pleural effusion. Normal size heart. Normal mediastinum and ora. Normal visualized pulmonary arteries. Normal visualized aortic arch and descending thoracic aorta. There are diffuse degenerative changes of the visualized thoracic spine. Normal visualized ribs, clavicles, and shoulders. There is no demonstrated abnormality of the visualized soft tissue structures of the upper abdomen. RAD/Chest 1 View (Portable) IMPRESSION: Endotracheal tube is in a high position and should be advanced 4 cm. Nasogastric tube is in adequate position. Persistent left pulmonary infiltrates and pleural effusion. There appears to be interval worsening in the left upper lung field. Electronically Signed: Bala Eng MD at 7:30 EDT , Service support ,
[2018-01-22 06:46] LABS: Bedside Glucose 177 mg/dL (70-110)
[2018-01-22] MEDS: CHLORHEXIDINE GLUC 2% CLOTH 1 EACH TOWELETTE TOPICAL (08:23)
[2018-01-22] MEDS: Chlorhexidine 15 ML PO ×2 (08:23→21:40)
[2018-01-22] MEDS: predniSONE 20 MG Tablet 40 MG GT (08:23)
[2018-01-22] MEDS: Gabapentin 100 MG Capsule GT (08:23)
[2018-01-22] MEDS: Aspirin 81 MG TAB.CHEW GT (08:24)
[2018-01-22] MEDS: Citalopram 40 MG TABLET GT (08:24)
[2018-01-22] MEDS: Famotidine 20 MG Tablet GT ×2 (08:25→21:41)
[2018-01-22] MEDS: Senna/Docusate Sodium 1 Tablet 2 TABLET GT ×2 (08:25→21:41)
[2018-01-22] MEDS: Clopidogrel Bisulfate 75 MG Tablet GT (08:25)
[2018-01-22] MEDS: Acetaminophen 650 MG/20 ML UDC GT ×2 (09:30→22:15)
[2018-01-22] MEDS: Amiodarone 200 MG Tablet GT (09:31)
[2018-01-22] MEDS: 0.9% NaCl Peripheral Flush Adult/Peds IV (09:31)
[2018-01-22] MEDS: levoFLOXacin IV 750 MG/150 ML BAG 100 MG IV (09:32)
[2018-01-22] MEDS: Furosemide 40 MG/4 ML Vial IV ×2 (09:32→17:49)
--- NOTE | 2018-01-22 10:01 | PCM.PN.HOSP ---
Patient Problems: Active and Suspected Problems (Last Reviewed 06/17/17 @ 09:09 by Antionette Lua) Severe sepsis (Acute) PNA (pneumonia) (Acute) COPD (chronic obstructive pulmonary disease) (Acute) BRENDA (acute kidney injury) (Acute) NSTEMI (non-ST elevated myocardial infarction) (Acute) Subjective: Patient was seen and examined. Patient had increased oxygen requirements overnight, FiO2 was increased. Had increase ET secretions. He complains of headache and some worsening respiratory distress. Objective: Physical exam: General: Alert, Cooperative, No apparent distress, - - Intubated, on mechanical ventilator, easily arousable, HEENT: Atraumatic, PERRLA, EOMI, Normocephalic Oral: Moist Mucosa Neck: Supple, No JVD, Negative Carotid Bruits Lungs: Clear to auscultation - Anteriorly, Normal air movement Cardiovascular: Regular rate, Regular Rhythm, Normal S1, Normal S2, No murmurs Abdomen: Bowel Sounds Present, Soft, Non Tender, Non-Distended, No Hepato-splenomegaly, Hypoactive Bowel Sounds Extremities: Trace bilateral edema Skin: No rashes, No breakdown Musculoskeletal: No Tenderness to Palpation of Joints or Extremities Lymphatic: No Cervical, Supraclavicular, or Inguinal Adenopathy Neurological: Cranial nerves II-XII grossly intact Psych/Mental Status: Normal Affect, Appropriate Vitals/I&O's: Vital Signs Temp Pulse Resp BP Pulse Ox 98.9 F 83 20 H 135/79 H 90 01/22/18 08:00 01/22/18 09:37 01/22/18 09:37 01/22/18 08:00 01/22/18 09:37 Oxygen Flow Rate (L/min) 7 Oxygen Delivery Method Mechanical Ventilator Weight: 94.5 kg Body Mass Index (BMI) 29.7 Intake and Output for Last 24 Hours 01/20/18 01/21/18 01/22/18 23:59 23:59 23:59 Intake Total 2361 / 2361 3366.2 / 3366.2 772.5 / 772.5 Output Total 2750 / 2750 5175 / 5175 450 / 450 Balance -389 / -389 -1808.8 / -1808.8 322.5 / 322.5 Microbiology Past 72 Hours 01/17/18 08:06 Blood Culture (Wb) - Anticubital Left Blood Culture - Final No growth in 5 days. 01/17/18 07:15 Blood Culture (Wb) - Right Forearm Blood Culture - Final No growth in 5 days. 01/15/18 09:46 Blood Culture (Wb) - Left Hand Blood Culture - Final No growth in 5 days. 01/15/18 09:45 Blood Culture (Wb) - Anticubital Right Blood Culture - Final No growth in 5 days. 01/17/18 Unknown Bronchial Lavage - Left Middle Lobe Gram Stain - Final 01/17/18 Unknown Bronchial Lavage - Left Middle Lobe Respiratory Culture - Final Yeast, not Diamond albicans Laboratory Results 01/21/18 12:16: POC Glucose 226 H 01/21/18 17:40: POC Glucose 268 H 01/21/18 23:28: POC Glucose 208 H 01/22/18 04:14: WBC 18.4 H, RBC 3.82 L, Hgb 11.4 L, Hct 34.6 L, MCV 90.6, MCH 29.8, MCHC 32.9, RDW 14.0, RDW Differential 46.5 H, Plt Count 342, MPV 10.1, Neut % (Auto) Not Reportable, Absolute Neuts (auto) 14.7 H, Absolute Lymphs (auto) 2.94, Total Counted 100, Neutrophils % (Manual) 79 H, Band Neutrophils % 1, Lymphocytes % (Manual) 16 L, Monocytes % (Manual) 2, Eosinophils % (Manual) 1, Metamyelocytes % 1, Diff Path Review August, Platelet Estimate ADEQUATE, RBC Morphology NORM C+C 01/22/18 04:14: Sodium 143, Potassium 3.3 L, Chloride 99, Carbon Dioxide 36.0 H, Anion Gap 8, BUN 36 H, Creatinine 0.90, Estim Creat Clear Calc 81.28, Est GFR (MDRD) Af Amer 110, Est GFR (MDRD) Non-Af 91, BUN/Creatinine Ratio 40.2 H, Glucose 202 H, Calcium 7.7 L 01/22/18 06:04: POC Glucose 177 H Current Medications Acetaminophen (Tylenol Liquid) 650 mg GT Q4H PRN PRN PRN Reason: FEVER Last Admin: 01/22/18 09:30 Dose: 650 mg Al Hydroxide/Mg Hydroxide (Mylanta Ii) 30 ml GT Q6H PRN PRN PRN Reason: Gastric burning Albuterol Sulfate (Ventolin Aerosols) 2.5 mg INHALATION Q2H PRN PRN PRN Reason: SHORTNESS OF BREATH Amiodarone HCl (Cordarone) 200 mg GT DAILY [facility] Last Admin: 01/22/18 09:31 Dose: 200 mg Aspirin (Aspirin, Baby) 81 mg GT DAILY [facility] Last Admin: 01/22/18 08:24 Dose: 81 mg Atorvastatin Calcium (Lipitor) 40 mg GT HS [facility] Last Admin: 01/21/18 21:33 Dose: 40 mg Chlorhexidine Gluconate () 1 each TOPICAL DAILY [facility] Last Admin: 01/22/18 08:23 Dose: 1 each Chlorhexidine Gluconate () 15 ml PO BID [facility] Last Admin: 01/22/18 08:23 Dose: 15 ml Citalopram Hydrobromide (Celexa) 40 mg GT DAILY [facility] Last Admin: 01/22/18 08:24 Dose: 40 mg Clopidogrel Bisulfate (Plavix) 75 mg GT DAILY [facility] Last Admin: 01/22/18 08:25 Dose: 75 mg Famotidine (Pepcid) 20 mg GT BID [facility] Last Admin: 01/22/18 08:25 Dose: 20 mg Furosemide (Lasix) 40 mg IV BID@1000,1800 [facility] Last Admin: 01/22/18 09:32 Dose: 40 mg [facility] ([facility]) [facility] Last Admin: 01/22/18 08:23 Dose: 100 mg Heparin Sodium (Porcine) (Heparin Na) 5,000 unit SC Q8 [facility] Last Admin: 01/22/18 06:04 Dose: 5,000 unit Sodium Chloride () 250 mls @ 15 mls/hr IV .[id number] PRN PRN Reason: SALINE FLUSH Last Admin: 01/21/18 00:06 Dose: 15 mls/hr Sodium Chloride () 250 mls @ 15 mls/hr IV .[id number] PRN PRN Reason: SALINE FLUSH Levofloxacin (Levaquin Iv) 750 mg in 150 mls @ 100 mls/hr IV Q24 [facility] Last Admin: 01/22/18 09:32 Dose: 100 mls/hr Fentanyl () 100 mls @ 5 mls/hr IV .Q20H [facility]; Protocol Last Admin: 01/21/18 14:10 Dose: 5 mls/hr Propofol (Diprivan) 1,000 mg in 100 mls @ 16.758 mls/hr CONT INF .Q5H59M [facility]; Protocol Last Admin: 01/22/18 09:53 Dose: Not Given Piperacillin Sod/Tazobactam Sod (Zosyn) 3.375 gm in 50 mls @ 12.5 mls/hr IV Q8 [facility] Last Admin: 01/22/18 06:05 Dose: 12.5 mls/hr Enteral Nutritional Formula (Vital Af 1.2 Andrew Liquid) 1,000 mls @ 60 mls/hr GT .[id number] [facility] Last Admin: 01/21/18 21:33 Dose: 60 mls/hr Insulin Glargine (Lantus (Bkc)) 20 units SC [facility] Insulin Glargine (Lantus (Bkc)) 10 units SC X1 ONE Stop: 01/22/18 09:57 Insulin Human Lispro (Humalog Kwikpen ([facility])) 0 unit SC Q6 [facility]; Protocol Last Admin: 01/22/18 06:05 Dose: 3 u Ipratropium [place] (Atrovent) 0.5 mg INHALATION Q4H.RT [facility] Last Admin: 01/22/18 07:04 Dose: 0.5 mg Magnesium Hydroxide (Milk Of Magnesia) 30 ml GT DAILY PRN PRN PRN Reason: Constipation Ondansetron HCl (Zofran) 4 mg IV Q8H PRN PRN PRN Reason: NAUSEA Polyethylene Glycol (Miralax) 17 gm GT BID [facility] Last Admin: 01/22/18 08:26 Dose: Not Given Prednisone () 40 mg GT DAILY@0800 [facility] Last Admin: 01/22/18 08:23 Dose: 40 mg Promethazine HCl (Phenergan) 12.5 mg IV Q6H PRN PRN PRN Reason: NAUSEA/VOMITING Senna/Docusate Sodium (Senokot-S, Komal-Colace) 2 tablet GT BID [facility] Last Admin: 01/22/18 08:25 Dose: 2 tablet Sodium Chloride () 5 - 30 ml IV UD PRN PRN Reason: SALINE FLUSH Last Admin: 01/22/18 09:31 Dose: 10 ml Medical Necessity - Tobacco Use Smoking Status: Current every day smoker Tobacco Use: Cigarettes Assessment/Plan All Active Problems (Last Reviewed 06/17/17 @ 09:09 by Antionette Lua) Severe sepsis (Acute) PNA (pneumonia) (Acute) COPD (chronic obstructive pulmonary disease) (Acute) BRENDA (acute kidney injury) (Acute) NSTEMI (non-ST elevated myocardial infarction) (Acute) Erectile dysfunction (Acute) Diabetes type 2, controlled (Acute) Testicular hypofunction (Acute) 67-year-old male with past medical history of hypertension, hyperlipidemia, obesity, chronic nicotine dependency, suspect underlying COPD admitted on 01/15/2018 with fever, chills, worsening weakness. Managed in ICU initially on BiPAP and finally intubated. 1. Acute hypoxic respiratory failure secondary to Legionella pneumonia/acute on chronic COPD exacerbation, remains intubated. Will continue per car whacker recommendations. 2. Severe sepsis secondary to Legionella pneumonia, WBCs count is improving, on IV Zosyn(day6) and Levaquin(day 8). 3. Acute on chronic COPD exacerbation, improved, remains intubated, on IV Solu-Medrol, IV antibiotics, as well as scheduled breathing treatments, will continue same. 4. Acute NSTEMI, type II secondary to demand ischemia, on aspirin, statin, Plavix 5. Episode of Atrial flutter, converted, in NSR, on oral amiodarone 6. BRENDA secondary to severe sepsis/dehydration, resolved 7. Type II DM, blood sugars fairly controlled, on Lantus as well as insulin sliding scale with Accu-Cheks 8. Acute hypovolemic hyponatremia, resolved with hydration 9. Hypokalemia, secondary to diuretic use, will replace, lab in am 10. Chronic nicotine dependency, on nicotine patch 11. Hypertension, controlled, not on any medications, will continue to monitor. 12. Hyperlipidemia, on statin 13. Anxiety/depression, on citalopram 14. Obesity, BMI 31.5, would address weight loss and lifestyle changes when patient improves and prior to discharge 15. DVT prophylaxis -heparin subcu 16. GI prophylaxis -on famotidine Code Visit Inpatient E&M: 52574 Subs Hosp L2
--- NOTE | 2018-01-22 10:05 | PN_ITS ---
Patient Problems: Active and Suspected Problems (Last Reviewed 06/17/17 @ 09:09 by Antionette Lua) Severe sepsis (Acute) PNA (pneumonia) (Acute) COPD (chronic obstructive pulmonary disease) (Acute) BRENDA (acute kidney injury) (Acute) NSTEMI (non-ST elevated myocardial infarction) (Acute) Subjective: Patient was seen and examined. Patient had increased oxygen requirements overnight, FiO2 was increased. Had increase ET secretions. He complains of headache and some worsening respiratory distress. Objective: Physical exam: General: Alert, Cooperative, No apparent distress, - - Intubated, on mechanical ventilator, easily arousable, HEENT: Atraumatic, PERRLA, EOMI, Normocephalic Oral: Moist Mucosa Neck: Supple, No JVD, Negative Carotid Bruits Lungs: Clear to auscultation - Anteriorly, Normal air movement Cardiovascular: Regular rate, Regular Rhythm, Normal S1, Normal S2, No murmurs Abdomen: Bowel Sounds Present, Soft, Non Tender, Non-Distended, No Hepato- splenomegaly, Hypoactive Bowel Sounds Extremities: Trace bilateral edema Skin: No rashes, No breakdown Musculoskeletal: No Tenderness to Palpation of Joints or Extremities Lymphatic: No Cervical, Supraclavicular, or Inguinal Adenopathy Neurological: Cranial nerves II-XII grossly intact Psych/Mental Status: Normal Affect, Appropriate Vitals/I&O's: Vital Signs Temp Pulse Resp BP Pulse Ox 98.9 F 83 20 H 135/79 H 90 01/22/18 08:00 01/22/18 09:37 01/22/18 09:37 01/22/18 08:00 01/22/18 09:37 Oxygen Flow Rate (L/min) 7 Oxygen Delivery Method Mechanical Ventilator Weight: 94.5 kg Body Mass Index (BMI) 29.7 Intake and Output for Last 24 Hours 01/20/18 01/21/18 01/22/18 23:59 23:59 23:59 Intake Total 2361 / 2361 3366.2 / 3366.2 772.5 / 772.5 Output Total 2750 / 2750 5175 / 5175 450 / 450 Balance -389 / -389 -1808.8 / -1808.8 322.5 / 322.5 Microbiology Past 72 Hours 01/17/18 08:06 Blood Culture (Wb) - Anticubital Left Blood Culture - Final No growth in 5 days. 01/17/18 07:15 Blood Culture (Wb) - Right Forearm Blood Culture - Final No growth in 5 days. 01/15/18 09:46 Blood Culture (Wb) - Left Hand Blood Culture - Final No growth in 5 days. 01/15/18 09:45 Blood Culture (Wb) - Anticubital Right Blood Culture - Final No growth in 5 days. 01/17/18 Unknown Bronchial Lavage - Left Middle Lobe Gram Stain - Final 01/17/18 Unknown Bronchial Lavage - Left Middle Lobe Respiratory Culture - Final Yeast, not Diamond albicans Laboratory Results 01/21/18 12:16: POC Glucose 226 H 01/21/18 17:40: POC Glucose 268 H 01/21/18 23:28: POC Glucose 208 H 01/22/18 04:14: WBC 18.4 H, RBC 3.82 L, Hgb 11.4 L, Hct 34.6 L, MCV 90.6, MCH 29.8, MCHC 32.9, RDW 14.0, RDW Differential 46.5 H, Plt Count 342, MPV 10.1, Neut % (Auto) Not Reportable, Absolute Neuts (auto) 14.7 H, Absolute Lymphs (auto) 2.94, Total Counted 100, Neutrophils % (Manual) 79 H, Band Neutrophils % 1, Lymphocytes % (Manual) 16 L, Monocytes % (Manual) 2, Eosinophils % (Manual) 1 , Metamyelocytes % 1, Diff Path Review August, Platelet Estimate ADEQUATE, RBC Morphology NORM C+C 01/22/18 04:14: Sodium 143, Potassium 3.3 L, Chloride 99, Carbon Dioxide 36.0 H, Anion Gap 8, BUN 36 H, Creatinine 0.90, Estim Creat Clear Calc 81.28, Est GFR (MDRD) Af Amer 110, Est GFR (MDRD) Non-Af 91, BUN/Creatinine Ratio 40.2 H, Glucose 202 H, Calcium 7.7 L 01/22/18 06:04: POC Glucose 177 H Current Medications Acetaminophen (Tylenol Liquid) 650 mg GT Q4H PRN PRN PRN Reason: FEVER Last Admin: 01/22/18 09:30 Dose: 650 mg Al Hydroxide/Mg Hydroxide (Mylanta Ii) 30 ml GT Q6H PRN PRN PRN Reason: Gastric burning Albuterol Sulfate (Ventolin Aerosols) 2.5 mg INHALATION Q2H PRN PRN PRN Reason: SHORTNESS OF BREATH Amiodarone HCl (Cordarone) 200 mg GT DAILY [facility] Last Admin: 01/22/18 09:31 Dose: 200 mg Aspirin (Aspirin, Baby) 81 mg GT DAILY [facility] Last Admin: 01/22/18 08:24 Dose: 81 mg Atorvastatin Calcium (Lipitor) 40 mg GT HS [facility] Last Admin: 01/21/18 21:33 Dose: 40 mg Chlorhexidine Gluconate () 1 each TOPICAL DAILY [facility] Last Admin: 01/22/18 08:23 Dose: 1 each Chlorhexidine Gluconate () 15 ml PO BID [facility] Last Admin: 01/22/18 08:23 Dose: 15 ml Citalopram Hydrobromide (Celexa) 40 mg GT DAILY [facility] Last Admin: 01/22/18 08:24 Dose: 40 mg Clopidogrel Bisulfate (Plavix) 75 mg GT DAILY [facility] Last Admin: 01/22/18 08:25 Dose: 75 mg Famotidine (Pepcid) 20 mg GT BID [facility] Last Admin: 01/22/18 08:25 Dose: 20 mg Furosemide (Lasix) 40 mg IV BID@1000,1800 [facility] Last Admin: 01/22/18 09:32 Dose: 40 mg [facility] Last Admin: 01/22/18 08:23 Dose: 100 mg Heparin Sodium (Porcine) (Heparin Na) 5,000 unit SC Q8 [facility] Last Admin: 01/22/18 06:04 Dose: 5,000 unit Sodium Chloride () 250 mls @ 15 mls/hr IV .[id number] PRN PRN Reason: SALINE FLUSH Last Admin: 01/21/18 00:06 Dose: 15 mls/hr Sodium Chloride () 250 mls @ 15 mls/hr IV .[id number] PRN PRN Reason: SALINE FLUSH Levofloxacin (Levaquin Iv) 750 mg in 150 mls @ 100 mls/hr IV Q24 [facility] Last Admin: 01/22/18 09:32 Dose: 100 mls/hr Fentanyl () 100 mls @ 5 mls/hr IV .Q20H [facility]; Protocol Last Admin: 01/21/18 14:10 Dose: 5 mls/hr Propofol (Diprivan) 1,000 mg in 100 mls @ 16.758 mls/hr CONT INF .Q5H59M [facility]; Protocol Last Admin: 01/22/18 09:53 Dose: Not Given Piperacillin Sod/Tazobactam Sod (Zosyn) 3.375 gm in 50 mls @ 12.5 mls/hr IV Q8 [facility] Last Admin: 01/22/18 06:05 Dose: 12.5 mls/hr Enteral Nutritional Formula (Vital Af 1.2 Andrew Liquid) 1,000 mls @ 60 mls/hr GT .[id number] [facility] Last Admin: 01/21/18 21:33 Dose: 60 mls/hr Insulin Glargine (Lantus (Bkc)) 20 units SC [facility] Insulin Glargine (Lantus (Bkc)) 10 units SC X1 ONE Stop: 01/22/18 09:57 Insulin Human Lispro (Humalog Kwikpen ([facility])) 0 unit SC Q6 [facility]; Protocol Last Admin: 01/22/18 06:05 Dose: 3 u Ipratropium [place] (Atrovent) 0.5 mg INHALATION Q4H.RT [facility] Last Admin: 01/22/18 07:04 Dose: 0.5 mg Magnesium Hydroxide (Milk Of Magnesia) 30 ml GT DAILY PRN PRN PRN Reason: Constipation Ondansetron HCl (Zofran) 4 mg IV Q8H PRN PRN PRN Reason: NAUSEA Polyethylene Glycol (Miralax) 17 gm GT BID [facility] Last Admin: 01/22/18 08:26 Dose: Not Given Prednisone () 40 mg GT DAILY@0800 [facility] Last Admin: 01/22/18 08:23 Dose: 40 mg Promethazine HCl (Phenergan) 12.5 mg IV Q6H PRN PRN PRN Reason: NAUSEA/VOMITING Senna/Docusate Sodium (Senokot-S, Komal-Colace) 2 tablet GT BID [facility] Last Admin: 01/22/18 08:25 Dose: 2 tablet Sodium Chloride () 5 - 30 ml IV UD PRN PRN Reason: SALINE FLUSH Last Admin: 01/22/18 09:31 Dose: 10 ml Medical Necessity - Tobacco Use Smoking Status: Current every day smoker Tobacco Use: Cigarettes Assessment/Plan All Active Problems (Last Reviewed 06/17/17 @ 09:09 by Antionette Lua) Severe sepsis (Acute) PNA (pneumonia) (Acute) COPD (chronic obstructive pulmonary disease) (Acute) BRENDA (acute kidney injury) (Acute) NSTEMI (non-ST elevated myocardial infarction) (Acute) Erectile dysfunction (Acute) Diabetes type 2, controlled (Acute) Testicular hypofunction (Acute) 67-year-old male with past medical history of hypertension, hyperlipidemia, obesity, chronic nicotine dependency, suspect underlying COPD admitted on 01/15/2018 with fever, chills, worsening weakness. Managed in ICU initially on BiPAP and finally intubated. 1. Acute hypoxic respiratory failure secondary to Legionella pneumonia/acute on chronic COPD exacerbation, remains intubated. Will continue per electrical mechanical technician recommendations. 2. Severe sepsis secondary to Legionella pneumonia, WBCs count is improving, on IV Zosyn(day6) and Levaquin(day 8). 3. Acute on chronic COPD exacerbation, improved, remains intubated, on IV Solu- Medrol, IV antibiotics, as well as scheduled breathing treatments, will continue same. 4. Acute NSTEMI, type II secondary to demand ischemia, on aspirin, statin, Plavix 5. Episode of Atrial flutter, converted, in NSR, on oral amiodarone 6. BRENDA secondary to severe sepsis/dehydration, resolved 7. Type II DM, blood sugars fairly controlled, on Lantus as well as insulin sliding scale with Accu-Cheks 8. Acute hypovolemic hyponatremia, resolved with hydration 9. Hypokalemia, secondary to diuretic use, will replace, lab in am 10. Chronic nicotine dependency, on nicotine patch 11. Hypertension, controlled, not on any medications, will continue to monitor. 12. Hyperlipidemia, on statin 13. Anxiety/depression, on citalopram 14. Obesity, BMI 31.5, would address weight loss and lifestyle changes when patient improves and prior to discharge 15. DVT prophylaxis -heparin subcu 16. GI prophylaxis -on famotidine Code Visit Inpatient E&M: 65094 Subs Hosp L2
--- NOTE | 2018-01-22 10:08 | PCM.PN.CARD ---
Subjectve: Patient seen and evaluated. Still intubated. No arrhythmias noted. Objective: Vital Signs Temp Pulse Resp BP Pulse Ox 98.9 F 83 20 H 135/79 H 90 01/22/18 08:00 01/22/18 09:37 01/22/18 09:37 01/22/18 08:00 01/22/18 09:37 Oxygen Flow Rate (L/min) 7 Oxygen Delivery Method Mechanical Ventilator Weight: 208 lb 5.389 oz Body Mass Index (BMI) 29.7 Intake and Output for Last 24 Hours 01/20/18 01/21/18 01/22/18 23:59 23:59 23:59 Intake Total 2361 / 2361 3366.2 / 3366.2 772.5 / 772.5 Output Total 2750 / 2750 5175 / 5175 450 / 450 Balance -389 / -389 -1808.8 / -1808.8 322.5 / 322.5 General: Alert, Oriented x 3, Ill Appearing HEENT: PERRL, EOMI, Sclera Non Icteric Neck: Supple, Good ROM, No Lymph Node Enlargement Lungs: Clear to auscultation Cardiovascular: Regular Rhythm, Normal S1, Normal S2, No Murmurs, No Rubs, No Gallops Vascular: No Carotid Bruits, Normal Femoral Pulses, Normal Radial Pulses, Normal Dorsalis Pedal Pulse, Normal Posterior Tibial Pulses Abdomen: Bowel Sounds Present, Soft, Non Tender, No HSM, No Organomegaly Extremities: No Cyanosis, No Clubbing, No edema Neurological: No Focal Motor or Sensory Deficit 01/22/18 04:14: WBC 18.4 H, RBC 3.82 L, Hgb 11.4 L, Hct 34.6 L, MCV 90.6, MCH 29.8, MCHC 32.9, RDW 14.0, RDW Differential 46.5 H, Plt Count 342, MPV 10.1, Neut % (Auto) Not Reportable, Absolute Neuts (auto) 14.7 H, Total Counted 100, Neutrophils % (Manual) 79 H, Band Neutrophils % 1, Lymphocytes % (Manual) 16 L, Monocytes % (Manual) 2, Eosinophils % (Manual) 1, Metamyelocytes % 1 01/22/18 04:14: Sodium 143, Potassium 3.3 L, Chloride 99, Carbon Dioxide 36.0 H, Anion Gap 8, BUN 36 H, Creatinine 0.90, Est GFR (MDRD) Af Amer 110, Est GFR (MDRD) Non-Af 91, BUN/Creatinine Ratio 40.2 H, Glucose 202 H, Calcium 7.7 L Rhythm: EKG: ECHO: Stress Test: Cardiac Cath: PCI: CT Surgery: Holter monitor: EPS: PPM: CXR: Chest CT Scan: Medical Necessity - Tobacco Use Smoking Status: Current every day smoker Tobacco Use: Cigarettes Assessment/Plan 1. Abnormal cardiac enzymes Patient is noted to have abnormal cardiac enzymes which is likely secondary to demand ischemia. My recommendation is to continue observing him for now and treat the underlying cause. Depending on the final level of the cardiac enzymes as well as his echocardiographic evaluation further recommendations will be made. Echocardiogram demonstrated preserved left ventricular systolic function. Will continue Plavix 75 mg once a day Lipid-lowering 2. Cardiac dysrhythmias Patient is noted to have multifocal atrial tachycardia which is likely secondary to his pulmonary disease. Once again treating the underlying cause would help elucidate and correct some of this. He is asymptomatic at this particular time anyway. Was noted yesterday to be in a regular tachycardia. It turned out to be atrial flutter with a 2 1. It responded to intravenous amiodarone. We will keep on the amiodarone while he is intubated. Thank you for allowing me to participate in the care of your patient. Please don't hesitate to call if any issues arise
--- NOTE | 2018-01-22 10:11 | PN.CARD_ITS ---
Subjectve: Patient seen and evaluated. Still intubated. No arrhythmias noted. Objective: Vital Signs Temp Pulse Resp BP Pulse Ox 98.9 F 83 20 H 135/79 H 90 01/22/18 08:00 01/22/18 09:37 01/22/18 09:37 01/22/18 08:00 01/22/18 09:37 Oxygen Flow Rate (L/min) 7 Oxygen Delivery Method Mechanical Ventilator Weight: 208 lb 5.389 oz Body Mass Index (BMI) 29.7 Intake and Output for Last 24 Hours 01/20/18 01/21/18 01/22/18 23:59 23:59 23:59 Intake Total 2361 / 2361 3366.2 / 3366.2 772.5 / 772.5 Output Total 2750 / 2750 5175 / 5175 450 / 450 Balance -389 / -389 -1808.8 / -1808.8 322.5 / 322.5 General: Alert, Oriented x 3, Ill Appearing HEENT: PERRL, EOMI, Sclera Non Icteric Neck: Supple, Good ROM, No Lymph Node Enlargement Lungs: Clear to auscultation Cardiovascular: Regular Rhythm, Normal S1, Normal S2, No Murmurs, No Rubs, No Gallops Vascular: No Carotid Bruits, Normal Femoral Pulses, Normal Radial Pulses, Normal Dorsalis Pedal Pulse, Normal Posterior Tibial Pulses Abdomen: Bowel Sounds Present, Soft, Non Tender, No HSM, No Organomegaly Extremities: No Cyanosis, No Clubbing, No edema Neurological: No Focal Motor or Sensory Deficit 01/22/18 04:14: WBC 18.4 H, RBC 3.82 L, Hgb 11.4 L, Hct 34.6 L, MCV 90.6, MCH 29.8, MCHC 32.9, RDW 14.0, RDW Differential 46.5 H, Plt Count 342, MPV 10.1, Neut % (Auto) Not Reportable, Absolute Neuts (auto) 14.7 H, Total Counted 100, Neutrophils % (Manual) 79 H, Band Neutrophils % 1, Lymphocytes % (Manual) 16 L, Monocytes % (Manual) 2, Eosinophils % (Manual) 1, Metamyelocytes % 1 01/22/18 04:14: Sodium 143, Potassium 3.3 L, Chloride 99, Carbon Dioxide 36.0 H, Anion Gap 8, BUN 36 H, Creatinine 0.90, Est GFR (MDRD) Af Amer 110, Est GFR (MDRD) Non-Af 91, BUN/Creatinine Ratio 40.2 H, Glucose 202 H, Calcium 7.7 L Rhythm: EKG: ECHO: Stress Test: Cardiac Cath: PCI: CT Surgery: Holter monitor: EPS: PPM: CXR: Chest CT Scan: Medical Necessity - Tobacco Use Smoking Status: Current every day smoker Tobacco Use: Cigarettes Assessment/Plan 1. Abnormal cardiac enzymes Patient is noted to have abnormal cardiac enzymes which is likely secondary to demand ischemia. My recommendation is to continue observing him for now and treat the underlying cause. Depending on the final level of the cardiac enzymes as well as his echocardiographic evaluation further recommendations will be made. * Echocardiogram demonstrated preserved left ventricular systolic function. * * Will continue Plavix 75 mg once a day * Lipid-lowering 2. Cardiac dysrhythmias Patient is noted to have multifocal atrial tachycardia which is likely secondary to his pulmonary disease. Once again treating the underlying cause would help elucidate and correct some of this. He is asymptomatic at this particular time anyway. Was noted yesterday to be in a regular tachycardia. It turned out to be atrial flutter with a 2 1. It responded to intravenous amiodarone. We will keep on the amiodarone while he is intubated. Thank you for allowing me to participate in the care of your patient. Please don't hesitate to call if any issues arise
--- NOTE | 2018-01-22 10:14 | NURSING ---
Addendum entered by Kari Vo 01/22/18 10:14: Correction: Fentanyl increased by 25mcg to current rate of 75mcg/hr Original Note: c/o headache 09/17, tylenol not effective, Fentanyl increased to 25mcg/hr.
--- NOTE | 2018-01-22 10:31 | CT_ITS ---
STUDY: CT CHEST WITHOUT CONTRAST REASON FOR EXAM: Male, 62 years old. Wheezing. Left-sided pneumonia. Sepsis. RADIATION DOSAGE (If Supplied By Facility): CTDIvol = ( 19.3 ) mGy, DLP = ( 704.06 ) mGycm TECHNIQUE: Transaxial imaging was performed without the administration of intravenous contrast material. Multiplanar coronal and sagittal images were reformatted. Individualized dose optimization techniques were used for this CT. COMPARISON: Comparison is made with prior examination dated January 15, 2018. FINDINGS: An endotracheal tube is seen within the upper trachea. An orogastric tube is seen within the esophagus. Small left pleural effusion. Volume loss in the left hemithorax with consolidation in the posterior aspect of the left upper lobe as well as focal infiltrate in the left lower lung. As compared to prior study, there has been mild to moderate degree of improvement of the left pulmonary consolidations. The right lung is clear and overexpanded. There are calcifications of the coronary arteries. There are multiple small lymph nodes within the mediastinum, which are normal in size and morphology most compatible with reactive lymph hyperplasia. Normal hilar regions. Normal unenhanced pulmonary arteries. There is atherosclerotic calcification of the aortic arch. There are multi-level degenerative changes of the thoracic spine. There is no demonstrated abnormality of the visualized upper abdomen. CT/Chest without Contrast IMPRESSION: Infiltrates in the left upper lobe and left lower lobe with volume loss. Small left pleural effusion. There has been improvement as compared to prior study. Electronically Signed: Ross Babcock MD at 11:38 EDT Tel [phone], Service support ,
--- NOTE | 2018-01-22 10:31 | PCM.PN.INT ---
Subjective: Patient with difficulty with oxygenation overnight. Patient has reported an intermittent mild headache, but no chest pain. Patient was able to tolerate only 30 minutes of spontaneous breathing trial. Nursing and respiratory did report increased secretions over the last 24 hours. Patient has had to go up on FiO2 and PEEP. Blood sugars have been slightly elevated, but patient is tolerating tube feeds. Objective: Chest x-ray was obtained this morning. This was personally reviewed and does show a high endotracheal tube with slightly worsening left pulmonary infiltrates and effusion. General: Alert, Cooperative, No apparent distress, - - Good vent synchrony. Appears stated age. HEENT: Atraumatic, PERRLA, EOMI, Normocephalic, - - No scleral icterus or injection noted. Oral: Moist Mucosa, No Gingival or Mucosal Lesions/ Ulcerations Neck: Supple, No JVD, No Nodes, Trachea Midline Lungs: No wheeze, No rales, Diminished, Rhonchi, - - Symmetric expansion. No dullness to percussion. Cardiovascular: Regular rate, Regular Rhythm, Normal S1, Normal S2, No murmurs, No rub noted, No Gallop Abdomen: Bowel Sounds Present, Soft, Non Tender, Non-Distended Extremities: No clubbing, No cyanosis, No edema Skin: No rashes, No breakdown Musculoskeletal: No Tenderness to Palpation of Joints or Extremities Lymphatic: No Cervical, Supraclavicular, or Inguinal Adenopathy Neurological: Cranial nerves II-XII grossly intact, Neuro grossly intact, Motor Exam 5/5 strength throughout Psych/Mental Status: Normal Affect, Appropriate Vital Signs Temp Pulse Resp BP Pulse Ox 37.2 C 83 20 H 135/79 H 90 01/22/18 08:00 01/22/18 09:37 01/22/18 09:37 01/22/18 08:00 01/22/18 09:37 Oxygen Flow Rate (L/min) 7 Oxygen Delivery Method Mechanical Ventilator Weight: 94.5 kg Body Mass Index (BMI) 29.7 Intake and Output for Last 24 Hours 01/20/18 01/21/18 01/22/18 23:59 23:59 23:59 Intake Total 2361 / 2361 3366.2 / 3366.2 802.5 / 802.5 Output Total 2750 / 2750 5175 / 5175 450 / 450 Balance -389 / -389 -1808.8 / -1808.8 352.5 / 352.5 Labs (Last 48 Hours) 01/20/18 01/20/18 01/20/18 11:54 18:46 23:57 WBC RBC Hgb Hct MCV MCH MCHC RDW RDW Differential Plt Count MPV Neut % (Auto) Absolute Neuts (auto) Absolute Lymphs (auto) Total Counted Neutrophils % (Manual) Band Neutrophils % Lymphocytes % (Manual) Monocytes % (Manual) Eosinophils % (Manual) Metamyelocytes % Myelocytes % Diff Path Review Platelet Estimate RBC Morphology Sodium Potassium Chloride Carbon Dioxide Anion Gap BUN Creatinine Estim Creat Clear Calc Est GFR (MDRD) Af Amer Est GFR (MDRD) Non-Af BUN/Creatinine Ratio Glucose Calcium POC Glucose 289 H 243 H 221 H 01/21/18 01/21/18 01/21/18 04:15 04:15 05:25 WBC 18.5 H RBC 4.01 L Hgb 12.2 L Hct 36.3 L MCV 90.5 MCH 30.4 MCHC 33.6 RDW 13.9 RDW Differential 45.1 H Plt Count 375 MPV 10.5 Neut % (Auto) Not Reportable Absolute Neuts (auto) 15.7 H Absolute Lymphs (auto) 2.22 Total Counted 100 Neutrophils % (Manual) 83 H Band Neutrophils % 2 Lymphocytes % (Manual) 12 L Monocytes % (Manual) 2 Eosinophils % (Manual) Metamyelocytes % Myelocytes % 1 H Diff Path Review May foll Platelet Estimate ADEQUATE RBC Morphology NORM C+C Sodium 143 Potassium 3.3 L Chloride 101 Carbon Dioxide 34.0 H Anion Gap 8 BUN 38 H Creatinine 0.98 Estim Creat Clear Calc 74.64 Est GFR (MDRD) Af Amer 99 Est GFR (MDRD) Non-Af 81 BUN/Creatinine Ratio 38.6 H Glucose 222 H Calcium 7.8 L POC Glucose 192 H 01/21/18 01/21/18 01/21/18 12:16 17:40 23:28 WBC RBC Hgb Hct MCV MCH MCHC RDW RDW Differential Plt Count MPV Neut % (Auto) Absolute Neuts (auto) Absolute Lymphs (auto) Total Counted Neutrophils % (Manual) Band Neutrophils % Lymphocytes % (Manual) Monocytes % (Manual) Eosinophils % (Manual) Metamyelocytes % Myelocytes % Diff Path Review Platelet Estimate RBC Morphology Sodium Potassium Chloride Carbon Dioxide Anion Gap BUN Creatinine Estim Creat Clear Calc Est GFR (MDRD) Af Amer Est GFR (MDRD) Non-Af BUN/Creatinine Ratio Glucose Calcium POC Glucose 226 H 268 H 208 H 01/22/18 01/22/18 01/22/18 04:14 04:14 06:04 WBC 18.4 H RBC 3.82 L Hgb 11.4 L Hct 34.6 L MCV 90.6 MCH 29.8 MCHC 32.9 RDW 14.0 RDW Differential 46.5 H Plt Count 342 MPV 10.1 Neut % (Auto) Not Reportable Absolute Neuts (auto) 14.7 H Absolute Lymphs (auto) 2.94 Total Counted 100 Neutrophils % (Manual) 79 H Band Neutrophils % 1 Lymphocytes % (Manual) 16 L Monocytes % (Manual) 2 Eosinophils % (Manual) 1 Metamyelocytes % 1 Myelocytes % Diff Path Review May foll Platelet Estimate ADEQUATE RBC Morphology NORM C+C Sodium 143 Potassium 3.3 L Chloride 99 Carbon Dioxide 36.0 H Anion Gap 8 BUN 36 H Creatinine 0.90 Estim Creat Clear Calc 81.28 Est GFR (MDRD) Af Amer 110 Est GFR (MDRD) Non-Af 91 BUN/Creatinine Ratio 40.2 H Glucose 202 H Calcium 7.7 L POC Glucose 177 H Microbiology 01/17/18 08:06 Blood Culture (Wb) - Anticubital Left Blood Culture - Final No growth in 5 days. 01/17/18 07:15 Blood Culture (Wb) - Right Forearm Blood Culture - Final No growth in 5 days. 01/15/18 09:46 Blood Culture (Wb) - Left Hand Blood Culture - Final No growth in 5 days. 01/15/18 09:45 Blood Culture (Wb) - Anticubital Right Blood Culture - Final No growth in 5 days. 01/17/18 Unknown Bronchial Lavage - Left Middle Lobe Gram Stain - Final 01/17/18 Unknown Bronchial Lavage - Left Middle Lobe Respiratory Culture - Final Yeast, not Diamond albicans Clinical Impression(s) from Imaging Studies Chest X-Ray 01/22/18 06:16 IMPRESSION: Endotracheal tube is in a high position and should be advanced 4 cm. Nasogastric tube is in adequate position. Persistent left pulmonary infiltrates and pleural effusion. There appears to be interval worsening in the left upper lung field. Electronically Signed: Bala Eng MD at 7:30 EDT , Service support , Medical Necessity - Tobacco Use Smoking Status: Current every day smoker Tobacco Use: Cigarettes Assessment/Plan All Active Problems (Last Reviewed 06/17/17 @ 09:09 by Antionette Lua) Severe sepsis (Acute) PNA (pneumonia) (Acute) COPD (chronic obstructive pulmonary disease) (Acute) BRENDA (acute kidney injury) (Acute) NSTEMI (non-ST elevated myocardial infarction) (Acute) Erectile dysfunction (Acute) Diabetes type 2, controlled (Acute) Testicular hypofunction (Acute) RECOMMENDATIONS: 1. Continue antibiotics per ID recommendations. 2. Wean FiO2/PEEP to maintain oxygen saturations above 90%. 3. Continue amiodarone per cardiology. 4. Continue tube feeds. 5. Continue scheduled bronchodilators along with steroids. 6. Increased basal insulin. Continue Accu-Cheks and sliding scale insulin coverage. 7. Continue scheduled Atrovent. 8. Continue Lasix. 9. Obtain repeat CT scan of the chest. IMPRESSIONS: 1. Acute hypoxic respiratory failure secondary to severe Legionella pneumonia leading to presumptive COPD exacerbation Patient with significant worsening in oxygenation over the last 24-48 hours. Patient has had increased secretions, so a sputum culture has been sent. Patient does have a leukocytosis, but did not receive significant diuretic therapy over the last 24-48 hours secondary to blood pressure concerns. Will obtain a CT scan for further characterization of the left upper lobe. Cannot exclude the need for a bronchoscopy versus vest therapy for pulmonary toileting and recruitment. No change in steroids given decompensation over the last 24 hours. Did discuss with ID. No change in antibiotics at this time. Patient is on appropriate antibiotics for Legionella pneumonia. The patient will need to follow-up in the pulmonary medicine clinic so that a repeat CT chest can be completed in 6-8 weeks for further evaluation of the patient's left hilum. If there is concern for an underlying lung mass, will proceed with setting the patient up for bronchoscopy and specifically EBUS. However, at this time, he will be treated with antibiotics. 2. Severe sepsis secondary to Legionella pneumonia RESOLVED > the patient has been adequately volume resuscitated and is currently hemodynamically stable. We will plan to continue antibiotics per ID recommendations. 3. Atrial fibrillation/flutter RESOLVED > the patient was noted to be in atrial flutter with an elevated heart rate on January 17. He was placed on amiodarone and subsequently converted back to normal sinus rhythm. 4. History of tobacco dependence The patient does have an extensive smoking history and we are currently working under the assumption that he has obstructive lung disease. However, smoking cessation is strongly advisable. Nicotine replacement therapy can be offered while he is admitted to the hospital. The patient should ideally follow up in the pulmonary medicine clinic so that baseline PFTs can be obtained. 5. Troponin elevation/heart failure with preserved ejection fraction The patient's echocardiogram did reveal evidence of stage I diastolic dysfunction with preserved ejection fraction. Troponin elevation is likely secondary to demand ischemia in the setting of #1/2. 6. Acute kidney injury RESOLVED > likely prerenal in etiology. Continue to monitor urine output. No current indication for renal replacement therapy. 7. Hypertension/hyperlipidemia/neuropathy Complicates care, management, recovery and prognosis. Okay to continue home medications from my perspective. TIME: 45 minutes of critical care time, independent of procedures, was spent addressing the patient's acute hypoxemic respiratory failure, Legionella pneumonia, severe sepsis, history of tobacco dependence, electrolyte disturbances, review of all data and collaboration with the care team. (9 AM to 10:40 AM) Code Visit [id number]: [id number] Critical care first hour
[2018-01-22 12:06] LABS: Bedside Glucose 242 mg/dL (70-110)
[2018-01-22] MEDS: fentaNYL drip 100 ML 5 MCG IV (14:01)
[2018-01-22 14:17] LABS: Pathologist Review Reviewed
[2018-01-22 14:17] LABS: Pathologist Review Reviewed
[2018-01-22 14:19] LABS: Pathologist Review Reviewed
--- NOTE | 2018-01-22 14:26 | PCM.PN.ID ---
Patient Problems: Active and Suspected Problems (Last Reviewed 06/17/17 @ 09:09 by Antionette Lua) Severe sepsis (Acute) PNA (pneumonia) (Acute) COPD (chronic obstructive pulmonary disease) (Acute) BRENDA (acute kidney injury) (Acute) NSTEMI (non-ST elevated myocardial infarction) (Acute) Subjective: Awake on vent, able to answer some questions. Some SOB, some headache. No fever, no abd pain. - Physical Exam General: Alert, Cooperative, No apparent distress Lungs: Diminished Cardiovascular: Regular rate, Regular Rhythm, No murmurs Abdomen: Soft, Non Tender, Non-Distended Skin: No rashes Vital Signs Temp Pulse Resp BP Pulse Ox 98.7 F 74 16 117/78 96 01/22/18 12:00 01/22/18 13:20 01/22/18 13:20 01/22/18 12:00 01/22/18 13:20 Oxygen Flow Rate (L/min) 7 Oxygen Delivery Method Mechanical Ventilator Weight: 94.5 kg Body Mass Index (BMI) 29.7 Intake and Output for Last 24 Hours 01/20/18 01/21/18 01/22/18 23:59 23:59 23:59 Intake Total 2361 / 2361 3366.2 / 3366.2 1331.5 / 1331.5 Output Total 2750 / 2750 5175 / 5175 1450 / 1450 Balance -389 / -389 -1808.8 / -1808.8 -118.5 / -118.5 Microbiology Past 72 Hours 01/22/18 07:38 Gram Stain - Final Sputum, Induced/Lukens 01/17/18 08:06 Blood Culture - Final Blood Culture (Wb) - Anticubital Left No growth in 5 days. 01/17/18 07:15 Blood Culture - Final Blood Culture (Wb) - Right Forearm No growth in 5 days. 01/15/18 09:46 Blood Culture - Final Blood Culture (Wb) - Left Hand No growth in 5 days. 01/15/18 09:45 Blood Culture - Final Blood Culture (Wb) - Anticubital Right No growth in 5 days. 01/17/18 Unknown Gram Stain - Final Bronchial Lavage - Left Middle Lobe Respiratory Culture - Final Yeast, not Diamond albicans Laboratory Tests Past 24 Hrs 01/20/18 01/21/18 01/22/18 06:05 04:15 04:14 WBC 18.4 H RBC 3.82 L Hgb 11.4 L Hct 34.6 L MCV 90.6 MCH 29.8 MCHC 32.9 RDW 14.0 RDW Differential 46.5 H Plt Count 342 MPV 10.1 Neut % (Auto) Not Reportable Absolute Neuts (auto) 14.7 H Absolute Lymphs (auto) 2.94 Total Counted 100 Neutrophils % (Manual) 79 H Band Neutrophils % 1 Lymphocytes % (Manual) 16 L Monocytes % (Manual) 2 Eosinophils % (Manual) 1 Metamyelocytes % 1 Diff Path Review Reviewed Reviewed Reviewed Platelet Estimate ADEQUATE RBC Morphology NORM C+C Sodium Potassium Chloride Carbon Dioxide Anion Gap BUN Creatinine Estim Creat Clear Calc Est GFR (MDRD) Af Amer Est GFR (MDRD) Non-Af BUN/Creatinine Ratio Glucose Calcium 01/22/18 04:14 WBC RBC Hgb Hct MCV MCH MCHC RDW RDW Differential Plt Count MPV Neut % (Auto) Absolute Neuts (auto) Absolute Lymphs (auto) Total Counted Neutrophils % (Manual) Band Neutrophils % Lymphocytes % (Manual) Monocytes % (Manual) Eosinophils % (Manual) Metamyelocytes % Diff Path Review Platelet Estimate RBC Morphology Sodium 143 Potassium 3.3 L Chloride 99 Carbon Dioxide 36.0 H Anion Gap 8 BUN 36 H Creatinine 0.90 Estim Creat Clear Calc 81.28 Est GFR (MDRD) Af Amer 110 Est GFR (MDRD) Non-Af 91 BUN/Creatinine Ratio 40.2 H Glucose 202 H Calcium 7.7 L POC Glucose 01/22/18 01/22/18 01/21/18 11:56 06:04 23:28 POC Glucose 242 H 177 H 208 H 01/21/18 17:40 POC Glucose 268 H Medical Necessity - Tobacco Use Smoking Status: Current every day smoker Tobacco Use: Cigarettes Route of nutrition/ use of supplements: [] Nutritional Intake: [] IV Site: [] Reyes Catheter: [] - Assessment/Plan Antibiotics: [] Assessment/Plan: [] Active and Suspected Problems (Last Reviewed 06/17/17 @ 09:09 by Antionette Lua) Severe sepsis (Acute) PNA (pneumonia) (Acute) COPD (chronic obstructive pulmonary disease) (Acute) BRENDA (acute kidney injury) (Acute) NSTEMI (non-ST elevated myocardial infarction) (Acute) severe sepsis due to legionella pneumonia - associated with falls, nausea, and hyponatremia. On levaquin, fever persisted, so zosyn added 01/17. Bronch done, cx neg except for some yeast. Fever now resolved, wbc remains elevated. Now with increased sputum production. Cx re-sent, CT done today shows some improvement. Cont same abx for now, may be able to stop zosyn soon. Doubt yeast from previous is a true pathogen. Will follow, d/w Dr. Serra.
[2018-01-22] MEDS: Vital AF 1.2 Cal Liquid 1,000 ML 60 ML GT (15:53)
[2018-01-22 17:56] LABS: Bedside Glucose 228 mg/dL (70-110)
[2018-01-22] MEDS: 0.9% NaCl IVPB Med Flush (250 mL) 15 ML IV (18:05)
[2018-01-22] MEDS: Atorvastatin Calcium 40 MG Tablet GT (21:40)
[2018-01-22] MEDS: Polyethylene Glycol 3350 17 GM PACKET GT (21:41)
[2018-01-22 23:55] LABS: Bedside Glucose 210 mg/dL (70-110)
[2018-01-23] VITALS (37 sets, daily range): BP systolic 113–178; BP diastolic 63–88; PULSE 68–100; RESP 16–26; TEMP 36.8–37.7; O2SAT 89–96
[2018-01-23] MEDS: Propofol 10MG/Ml 1,000 MG/100 ML Bottle 16.758 MG CONT INF (02:06)
[2018-01-23] MEDS: Ipratropium 0.5 MG/2.5 ML SOLUTION INHALATION ×6 (02:20→22:10)
[2018-01-23 04:26] LABS: Anion Gap 7 (5-15); BUN 35 mg/dL (7-18); BUN/Creat Ratio 38.9 RATIO (10-20); Calcium,Total 8.2 mg/dL (8.5-10.1); Chloride 99 mmol/L (98-107); EST Glomerular Filtration Rate 90 mL/min (>60); Est Glom Filt Rate - Afr Amer 109 mL/min (>60); Estimated Creatinine Clearance 81.28 ml/min; Glucose 230 mg/dL (74-106); Phosphorus 3.6 mg/dL (2.5-4.9); Sodium Level 140 mmol/L (136-145)
[2018-01-23 04:36] LABS: Absolute Lymphocyte Count 1.56 X10^3/ul (0.83-4.51); Absolute Neutrophil Count 15.6 X10^3/uL (2.0-7.7); Basophil# 0.01 X10^3/uL; Basophil% 0.1 % (0-1); Eosinophil# 0.05 X10^3/uL; Eosinophils% 0.3 % (0-5); Hematocrit 34.8 % (40-54); Hemoglobin 11.7 g/dl (13.0-16.5); Lymphocyte # 1.56 X10^3/ul (4.0); Lymphocyte % 8.4 % (19-41); Mean Corp Hgb Conc 33.6 g/gl (32-36); Mean Corpuscular Hgb 30.7 pg (27.0-32.0); Mean Corpuscular Volume 91.3 fL (80-94); Mean Platelet Vol. 10.2 fl (6.2-12.0); Monocyte# 0.98 X10^3/uL; Monocyte% 5.3 % (0-10); Neutrophil # 15.58 X10^3/uL (2.7-7.7); Neutrophil % 83.9 % (47-70); Platelet Count 347 K/mm3 (150-450); RBC Distribution Width SD 46.4 fl (35.1-43.9); Red Blood Count 3.81 M/mm3 (4.6-6.2); White Blood Count 18.6 K/mm3 (4.4-11.0)
[2018-01-23 04:38] LABS: POSITIVE COUNT YES; POSITIVE DIFFERENTIAL NO; POSITIVE MORPHOLOGY YES
[2018-01-23 05:45] LABS: Bedside Glucose 215 mg/dL (70-110)
[2018-01-23] MEDS: Piperacil/Tazobactam 3.375 GM/50 ML ML IV (05:47)
[2018-01-23] MEDS: Insulin Lispro 100 UNIT/ML INSULN.PEN SC ×3 (05:48→17:01)
[2018-01-23] MEDS: 0.9% NaCl Peripheral Flush Adult/Peds IV ×3 (05:49→10:07)
[2018-01-23] MEDS: Heparin Injection (Vial) 5,000 UNIT/ML VIAL 5000 UNIT SC ×3 (05:49→21:39)
[2018-01-23 07:01] LABS: Allen Test POS; Base Excess 13 mmol/L (-2 to +2); Bicarbonate 36.1 mmol/L (22-26); Blood Gas Specimen Type ART; FI02 50; Mode CPAP PS; O2 Delivery Device Vent; PEEP 5; PO2 59 mmHG (75-100); PS 5; SITE L Radial; SO2 92 % (95-99); Time Given 657; Total Carbon Dioxide 37 mmol/L; pCO2 45.6 mmHg (35-45); pH 7.51 (7.35-7.45)
--- NOTE | 2018-01-23 07:47 | PCM.PN.INT ---
Subjective: Patient did well overnight. Patient did have significant secretion mobilization following CT scan of the chest with improvement in oxygenation. Patient was able to be placed on a spontaneous breathing trial this morning. Patient tolerated 1 hour on 50% FiO2. Patient was successfully extubated under my direct supervision. Patient does report dry mouth and hoarseness. Patient denies any pain at this time. General: Alert, Cooperative, - - No conversational dyspnea following extubation. HEENT: Atraumatic, PERRLA, EOMI, Normocephalic, - - No scleral icterus or injection noted. Glasses in place. Oral: No Gingival or Mucosal Lesions/ Ulcerations, Dry Mucosa Neck: Supple, No JVD, No Nodes, Trachea Midline Lungs: No rales, Diminished, Rhonchi - Improves with coughing, Wheezes, - - Symmetric expansion. No dullness to percussion. Cardiovascular: Regular rate, Regular Rhythm, Normal S1, Normal S2, No murmurs, No rub noted, No Gallop Abdomen: Bowel Sounds Present, Soft, Non Tender, Non-Distended Extremities: No clubbing, No cyanosis, No edema, Capillary Refill Less than 3 Seconds Skin: No rashes, No breakdown Musculoskeletal: No Tenderness to Palpation of Joints or Extremities Lymphatic: No Cervical, Supraclavicular, or Inguinal Adenopathy Neurological: Cranial nerves II-XII grossly intact, Neuro grossly intact, Motor Exam 5/5 strength throughout Psych/Mental Status: Normal Affect, Appropriate Vital Signs Temp Pulse Resp BP Pulse Ox 36.9 C 80 16 168/84 H 94 01/23/18 07:00 01/23/18 07:00 01/23/18 07:00 01/23/18 07:00 01/23/18 07:00 Oxygen Flow Rate (L/min) 7 Oxygen Delivery Method Mechanical Ventilator Weight: 89.5 kg Body Mass Index (BMI) 29.7 Intake and Output for Last 24 Hours 01/21/18 01/22/18 01/23/18 23:59 23:59 23:59 Intake Total 3366.2 / 3366.2 2550.2 / 2550.2 779.6 / 779.6 Output Total 5175 / 5175 4350 / 4350 400 / 400 Balance -1808.8 / -1808.8 -1799.8 / -1799.8 379.6 / 379.6 Labs (Last 48 Hours) 01/20/18 01/21/18 01/21/18 06:05 04:15 12:16 WBC RBC Hgb Hct MCV MCH MCHC RDW RDW Differential Plt Count MPV Immature Gran % (Auto) Neut % (Auto) Lymph % (Auto) [place] % (Auto) Eos % (Auto) Baso % (Auto) Absolute Neuts (auto) Absolute Lymphs (auto) Total Counted Neutrophils % (Manual) Band Neutrophils % Lymphocytes % (Manual) Monocytes % (Manual) Eosinophils % (Manual) Metamyelocytes % Diff Path Review Reviewed Reviewed Platelet Estimate RBC Morphology Specimen Type Sample Site pH Bicarbonate Actual POC Total CO2 Base Excess O2 Saturation O2 % ABG pCO2 ABG pO2 Jaylen Test O2 Delivery Device Vent Mode POC PEEP POC Pressure Suppt Blood Gas Notified Whom Blood Gas Notified Time Sodium Potassium Chloride Carbon Dioxide Anion Gap BUN Creatinine Estim Creat Clear Calc Est GFR (MDRD) Af Amer Est GFR (MDRD) Non-Af BUN/Creatinine Ratio Glucose Calcium Phosphorus Magnesium POC Glucose 226 H 01/21/18 01/21/18 01/22/18 17:40 23:28 04:14 WBC 18.4 H RBC 3.82 L Hgb 11.4 L Hct 34.6 L MCV 90.6 MCH 29.8 MCHC 32.9 RDW 14.0 RDW Differential 46.5 H Plt Count 342 MPV 10.1 Immature Gran % (Auto) Neut % (Auto) Not Reportable Lymph % (Auto) [place] % (Auto) Eos % (Auto) Baso % (Auto) Absolute Neuts (auto) 14.7 H Absolute Lymphs (auto) 2.94 Total Counted 100 Neutrophils % (Manual) 79 H Band Neutrophils % 1 Lymphocytes % (Manual) 16 L Monocytes % (Manual) 2 Eosinophils % (Manual) 1 Metamyelocytes % 1 Diff Path Review Reviewed Platelet Estimate ADEQUATE RBC Morphology NORM C+C Specimen Type Sample Site pH Bicarbonate Actual POC Total CO2 Base Excess O2 Saturation O2 % ABG pCO2 ABG pO2 Jaylen Test O2 Delivery Device Vent Mode POC PEEP POC Pressure Suppt Blood Gas Notified Whom Blood Gas Notified Time Sodium Potassium Chloride Carbon Dioxide Anion Gap BUN Creatinine Estim Creat Clear Calc Est GFR (MDRD) Af Amer Est GFR (MDRD) Non-Af BUN/Creatinine Ratio Glucose Calcium Phosphorus Magnesium POC Glucose 268 H 208 H 1001/22/18 01/22/18 04:14 06:04 11:56 WBC RBC Hgb Hct MCV MCH MCHC RDW RDW Differential Plt Count MPV Immature Gran % (Auto) Neut % (Auto) Lymph % (Auto) [place] % (Auto) Eos % (Auto) Baso % (Auto) Absolute Neuts (auto) Absolute Lymphs (auto) Total Counted Neutrophils % (Manual) Band Neutrophils % Lymphocytes % (Manual) Monocytes % (Manual) Eosinophils % (Manual) Metamyelocytes % Diff Path Review Platelet Estimate RBC Morphology Specimen Type Sample Site pH Bicarbonate Actual POC Total CO2 Base Excess O2 Saturation O2 % ABG pCO2 ABG pO2 Jaylen Test O2 Delivery Device Vent Mode POC PEEP POC Pressure Suppt Blood Gas Notified Whom Blood Gas Notified Time Sodium 143 Potassium 3.3 L Chloride 99 Carbon Dioxide 36.0 H Anion Gap 8 BUN 36 H Creatinine 0.90 Estim Creat Clear Calc 81.28 Est GFR (MDRD) Af Amer 110 Est GFR (MDRD) Non-Af 91 BUN/Creatinine Ratio 40.2 H Glucose 202 H Calcium 7.7 L Phosphorus Magnesium POC Glucose 177 H 242 H 01/22/18 01/22/18 01/23/18 17:46 23:46 04:00 WBC 18.6 H RBC 3.81 L Hgb 11.7 L Hct 34.8 L MCV 91.3 MCH 30.7 MCHC 33.6 RDW 14.0 RDW Differential 46.4 H Plt Count 347 MPV 10.2 Immature Gran % (Auto) 2.000 H Neut % (Auto) 83.9 H Lymph % (Auto) 8.4 L [place] % (Auto) 5.3 Eos % (Auto) 0.3 Baso % (Auto) 0.1 Absolute Neuts (auto) 15.6 H Absolute Lymphs (auto) 1.56 Total Counted Not Reportable Neutrophils % (Manual) Band Neutrophils % Lymphocytes % (Manual) Monocytes % (Manual) Eosinophils % (Manual) Metamyelocytes % Diff Path Review May foll Platelet Estimate RBC Morphology Specimen Type Sample Site pH Bicarbonate Actual POC Total CO2 Base Excess O2 Saturation O2 % ABG pCO2 ABG pO2 Jaylen Test O2 Delivery Device Vent Mode POC PEEP POC Pressure Suppt Blood Gas Notified Whom Blood Gas Notified Time Sodium Potassium Chloride Carbon Dioxide Anion Gap BUN Creatinine Estim Creat Clear Calc Est GFR (MDRD) Af Amer Est GFR (MDRD) Non-Af BUN/Creatinine Ratio Glucose Calcium Phosphorus Magnesium POC Glucose 228 H 210 H 01/23/18 01/23/18 01/23/18 04:00 05:43 06:58 WBC RBC Hgb Hct MCV MCH MCHC RDW RDW Differential Plt Count MPV Immature Gran % (Auto) Neut % (Auto) Lymph % (Auto) [place] % (Auto) Eos % (Auto) Baso % (Auto) Absolute Neuts (auto) Absolute Lymphs (auto) Total Counted Neutrophils % (Manual) Band Neutrophils % Lymphocytes % (Manual) Monocytes % (Manual) Eosinophils % (Manual) Metamyelocytes % Diff Path Review Platelet Estimate RBC Morphology Specimen Type ART Sample Site L Radial pH 7.51 H Bicarbonate Actual 36.1 H POC Total CO2 37 Base Excess 13 H O2 Saturation 92 L O2 % 50 ABG pCO2 45.6 H ABG pO2 59 L Jaylen Test POS O2 Delivery Device Vent Vent Mode CPAP PS POC PEEP 5 POC Pressure Suppt 5 Blood Gas Notified Whom ICU MD Blood Gas Notified Time 657 Sodium 140 Potassium 4.0 Chloride 99 Carbon Dioxide 34.0 H Anion Gap 7 BUN 35 H Creatinine 0.90 Estim Creat Clear Calc 81.28 Est GFR (MDRD) Af Amer 109 Est GFR (MDRD) Non-Af 90 BUN/Creatinine Ratio 38.9 H Glucose 230 H Calcium 8.2 L Phosphorus 3.6 Magnesium 2.0 POC Glucose 215 H Microbiology 01/22/18 07:38 Sputum, Induced/Lukens Gram Stain - Final 01/17/18 08:06 Blood Culture (Wb) - Anticubital Left Blood Culture - Final No growth in 5 days. 01/17/18 07:15 Blood Culture (Wb) - Right Forearm Blood Culture - Final No growth in 5 days. Clinical Impression(s) from Imaging Studies Chest CT 01/22/18 10:31 IMPRESSION: Infiltrates in the left upper lobe and left lower lobe with volume loss. Small left pleural effusion. There has been improvement as compared to prior study. Electronically Signed: Ross Babcock MD at 11:38 EDT Tel [phone], Service support , Medical Necessity - Tobacco Use Smoking Status: Current every day smoker Tobacco Use: Cigarettes Assessment/Plan All Active Problems (Last Reviewed 06/17/17 @ 09:09 by Antionette Lua) Severe sepsis (Acute) PNA (pneumonia) (Acute) COPD (chronic obstructive pulmonary disease) (Acute) BRENDA (acute kidney injury) (Acute) NSTEMI (non-ST elevated myocardial infarction) (Acute) Erectile dysfunction (Acute) Diabetes type 2, controlled (Acute) Testicular hypofunction (Acute) RECOMMENDATIONS: 1. Continue antibiotics per ID recommendations. 2. Wean FiO2/PEEP to maintain oxygen saturations above 90%. 3. Increase activity as tolerated 4. Bedside swallow evaluation, speech therapy if necessary 5. Continue scheduled bronchodilators along with steroids. 6. Continue basal insulin. Continue Accu-Cheks and sliding scale insulin coverage. 7. Continue scheduled Atrovent, Lasix and amiodarone. 8. BiPAP rescue, nightly as indicated IMPRESSIONS: 1. Acute hypoxic respiratory failure secondary to severe Legionella pneumonia leading to presumptive COPD exacerbation Patient was significant mobilization yesterday following CT scan of the chest. Patient was able to significantly improve oxygenation. We will continue with aggressive pulmonary toileting. Patient is on bronchodilators. Will keep on current steroid dosing for now. Possible transition to prednisone therapy tomorrow if tolerating p.o. Will use BiPAP rescue if necessary for oxygenation and with sleep. The patient will need to follow-up in the pulmonary medicine clinic so that a repeat CT chest can be completed in 6-8 weeks for further evaluation of the patient's left hilum. If there is concern for an underlying lung mass, will proceed with setting the patient up for bronchoscopy and specifically EBUS. However, at this time, he will be treated with antibiotics. 2. Severe sepsis secondary to Legionella pneumonia RESOLVED > the patient has been adequately volume resuscitated and is currently hemodynamically stable. We will plan to continue antibiotics per ID recommendations. 3. Atrial fibrillation/flutter RESOLVED > the patient was noted to be in atrial flutter with an elevated heart rate on January 17. He was placed on amiodarone and subsequently converted back to normal sinus rhythm. 4. History of tobacco dependence The patient does have an extensive smoking history and we are currently working under the assumption that he has obstructive lung disease. However, smoking cessation is strongly advisable. Nicotine replacement therapy can be offered while he is admitted to the hospital. The patient should ideally follow up in the pulmonary medicine clinic so that baseline PFTs can be obtained. 5. Troponin elevation/heart failure with preserved ejection fraction The patient's echocardiogram did reveal evidence of stage I diastolic dysfunction with preserved ejection fraction. Troponin elevation is likely secondary to demand ischemia in the setting of #1/2. 6. Acute kidney injury RESOLVED > likely prerenal in etiology. Continue to monitor urine output. No current indication for renal replacement therapy. 7. Hypertension/hyperlipidemia/neuropathy Complicates care, management, recovery and prognosis. Okay to continue home medications from my perspective. TIME: 35 minutes of critical care time, independent of procedures, was spent addressing the patient's acute hypoxemic respiratory failure, Legionella pneumonia, severe sepsis, history of tobacco dependence, electrolyte disturbances, review of all data and collaboration with the care team. (5:40 AM to 6:40 AM) Code Visit 9xxxx: [id number] Critical care first hour
--- NOTE | 2018-01-23 08:49 | PCM.PN.HOSP ---
Patient Problems: Active and Suspected Problems (Last Reviewed 06/17/17 @ 09:09 by Antionette Lua) Severe sepsis (Acute) PNA (pneumonia) (Acute) COPD (chronic obstructive pulmonary disease) (Acute) BRENDA (acute kidney injury) (Acute) NSTEMI (non-ST elevated myocardial infarction) (Acute) Subjective: Patient was seen and examined. Complains of dry throat. Denies chest pain, dizziness, worsening SOB. On 4L oxygen. Able to talk in full sentences. Not labored. Vitals/I&O's: Vital Signs Temp Pulse Resp BP Pulse Ox 98.7 F 95 20 H 178/81 H 92 01/23/18 08:00 01/23/18 08:00 01/23/18 08:00 01/23/18 08:00 01/23/18 08:00 Oxygen Flow Rate (L/min) 6 Oxygen Delivery Method Nasal Cannula Weight: 89.5 kg Body Mass Index (BMI) 29.7 Intake and Output for Last 24 Hours 01/21/18 01/22/18 01/23/18 23:59 23:59 23:59 Intake Total 3366.2 / 3366.2 2550.2 / 2550.2 779.6 / 779.6 Output Total 5175 / 5175 4350 / 4350 400 / 400 Balance -1808.8 / -1808.8 -1799.8 / -1799.8 379.6 / 379.6 General: Alert, Oriented x3, Cooperative, No apparent distress, - - on 4L oxygen HEENT: Atraumatic, PERRLA, EOMI, Normocephalic Oral: Dry Mucosa Neck: Supple, No JVD, Negative Carotid Bruits Lungs: Normal air movement, Diminished - especially in left middle and lower lung zones Cardiovascular: Regular rate, Regular Rhythm, Normal S1, Normal S2, No murmurs Abdomen: Bowel Sounds Present, Soft, Non Tender, Non-Distended, No Hepato-splenomegaly Extremities: No edema Skin: No rashes, No breakdown Musculoskeletal: No Tenderness to Palpation of Joints or Extremities Lymphatic: No Cervical, Supraclavicular, or Inguinal Adenopathy Neurological: Cranial nerves II-XII grossly intact, Neuro grossly intact Psych/Mental Status: Normal Affect, Appropriate Microbiology Past 72 Hours 01/22/18 07:38 Sputum, Induced/Lukens Gram Stain - Final 01/17/18 08:06 Blood Culture (Wb) - Anticubital Left Blood Culture - Final No growth in 5 days. 01/17/18 07:15 Blood Culture (Wb) - Right Forearm Blood Culture - Final No growth in 5 days. 01/15/18 09:46 Blood Culture (Wb) - Left Hand Blood Culture - Final No growth in 5 days. 01/15/18 09:45 Blood Culture (Wb) - Anticubital Right Blood Culture - Final No growth in 5 days. 01/17/18 Unknown Bronchial Lavage - Left Middle Lobe Gram Stain - Final 01/17/18 Unknown Bronchial Lavage - Left Middle Lobe Respiratory Culture - Final Yeast, not Diamond albicans Laboratory Results 01/20/18 06:05: Diff Path Review Reviewed 01/21/18 04:15: Diff Path Review Reviewed 01/22/18 04:14: Diff Path Review Reviewed 01/22/18 11:56: POC Glucose 242 H 01/22/18 17:46: POC Glucose 228 H 01/22/18 23:46: POC Glucose 210 H 01/23/18 04:00: WBC 18.6 H, RBC 3.81 L, Hgb 11.7 L, Hct 34.8 L, MCV 91.3, MCH 30.7, MCHC 33.6, RDW 14.0, RDW Differential 46.4 H, Plt Count 347, MPV 10.2, Immature Gran % (Auto) 2.000 H, Neut % (Auto) 83.9 H, Lymph % (Auto) 8.4 L, Wolfe % (Auto) 5.3, Eos % (Auto) 0.3, Baso % (Auto) 0.1, Absolute Neuts (auto) 15.6 H, Absolute Lymphs (auto) 1.56, Total Counted Not Reportable, Diff Path Review May 01/23/18 04:00: Sodium 140, Potassium 4.0, Chloride 99, Carbon Dioxide 34.0 H, Anion Gap 7, BUN 35 H, Creatinine 0.90, Estim Creat Clear Calc 81.28, Est GFR (MDRD) Af Amer 109, Est GFR (MDRD) Non-Af 90, BUN/Creatinine Ratio 38.9 H, Glucose 230 H, Calcium 8.2 L, Phosphorus 3.6, Magnesium 2.0 01/23/18 05:43: POC Glucose 215 H 01/23/18 06:58: Specimen Type ART, Sample Site L Radial, pH 7.51 H, Bicarbonate Actual 36.1 H, POC Total CO2 37, Base Excess 13 H, O2 Saturation 92 L, O2 % 50, ABG pCO2 45.6 H, ABG pO2 59 L, Jaylen Test POS, O2 Delivery Device Vent, Vent Mode CPAP PS, POC PEEP 5, POC Pressure Suppt 5, Blood Gas Notified Whom ICU MD, Blood Gas Notified Time 657 Current Medications Acetaminophen (Tylenol Liquid) 650 mg GT Q4H PRN PRN PRN Reason: FEVER Last Admin: 01/22/18 22:15 Dose: 650 mg Al Hydroxide/Mg Hydroxide (Mylanta Ii) 30 ml GT Q6H PRN PRN PRN Reason: Gastric burning Albuterol Sulfate (Ventolin Aerosols) 2.5 mg INHALATION Q2H PRN PRN PRN Reason: SHORTNESS OF BREATH Amiodarone HCl (Cordarone) 200 mg PO DAILY [facility] Aspirin (Aspirin, Baby) 81 mg PO DAILY [facility] Atorvastatin Calcium (Lipitor) 40 mg PO HS [facility] Chlorhexidine Gluconate () 1 each TOPICAL DAILY [facility] Last Admin: 01/22/18 08:23 Dose: 1 each Chlorhexidine Gluconate () 15 ml PO BID [facility] Last Admin: 01/22/18 21:40 Dose: 15 ml Citalopram Hydrobromide (Celexa) 40 mg PO DAILY [facility] Clopidogrel Bisulfate (Plavix) 75 mg PO DAILY [facility] Famotidine (Pepcid) 20 mg PO BID [facility] Furosemide (Lasix) 40 mg IV BID@1000,1800 [facility] Last Admin: 01/22/18 17:49 Dose: 40 mg Gabapentin (Neurontin) 100 mg GT DAILYCM [facility] Last Admin: 01/22/18 08:23 Dose: 100 mg Heparin Sodium (Porcine) (Heparin Na) 5,000 unit SC Q8 [facility] Last Admin: 01/23/18 05:49 Dose: 5,000 unit Sodium Chloride () 250 mls @ 15 mls/hr IV .[id number] PRN PRN Reason: SALINE FLUSH Last Admin: 01/22/18 18:05 Dose: 15 mls/hr Sodium Chloride () 250 mls @ 15 mls/hr IV .[id number] PRN PRN Reason: SALINE FLUSH Levofloxacin (Levaquin Iv) 750 mg in 150 mls @ 100 mls/hr IV Q24 [facility] Last Admin: 01/22/18 09:32 Dose: 100 mls/hr Fentanyl () 100 mls @ 5 mls/hr IV .Q20H [facility]; Protocol Last Admin: 01/22/18 14:01 Dose: 5 mls/hr Propofol (Diprivan) 1,000 mg in 100 mls @ 16.758 mls/hr CONT INF .Q5H59M [facility]; Protocol Last Admin: 01/23/18 02:06 Dose: 16.758 mls/hr Piperacillin Sod/Tazobactam Sod (Zosyn) 3.375 gm in 50 mls @ 12.5 mls/hr IV Q8 [facility] Last Admin: 01/23/18 05:47 Dose: 12.5 mls/hr Enteral Nutritional Formula (Vital Af 1.2 Andrew Liquid) 1,000 mls @ 60 mls/hr GT .[id number] [facility] Last Admin: 01/23/18 08:13 Dose: Not Given Insulin Glargine (Lantus (Bkc)) 20 units SC [facility] Last Admin: 01/23/18 05:48 Dose: 20 u Insulin Human Lispro (Humalog Kwikpen (Bk)) 0 unit SC Q6 [facility]; Protocol Last Admin: 01/23/18 05:48 Dose: 6 units Ipratropium [place] (Atrovent) 0.5 mg INHALATION Q4H.RT [facility] Last Admin: 01/23/18 07:27 Dose: 0.5 mg Magnesium Hydroxide (Milk Of Magnesia) 30 ml PO DAILY PRN PRN PRN Reason: Constipation Ondansetron HCl (Zofran) 4 mg IV Q8H PRN PRN PRN Reason: NAUSEA Polyethylene Glycol (Miralax) 17 gm GT BID [facility] Last Admin: 01/22/18 21:41 Dose: 17 gm Prednisone () 40 mg GT DAILY@0800 [facility] Last Admin: 01/22/18 08:23 Dose: 40 mg Promethazine HCl (Phenergan) 12.5 mg IV Q6H PRN PRN PRN Reason: NAUSEA/VOMITING Senna/Docusate Sodium (Senokot-S, Komal-Colace) 2 tablet GT BID [facility] Last Admin: 01/22/18 21:41 Dose: 2 tablet Sodium Chloride () 5 - 30 ml IV UD PRN PRN Reason: SALINE FLUSH Last Admin: 01/23/18 05:49 Dose: 10 ml Medical Necessity - Tobacco Use Smoking Status: Current every day smoker Tobacco Use: Cigarettes Assessment/Plan All Active Problems (Last Reviewed 06/17/17 @ 09:09 by Antionette Lua) Severe sepsis (Acute) PNA (pneumonia) (Acute) COPD (chronic obstructive pulmonary disease) (Acute) BRNEDA (acute kidney injury) (Acute) NSTEMI (non-ST elevated myocardial infarction) (Acute) Erectile dysfunction (Acute) Diabetes type 2, controlled (Acute) Testicular hypofunction (Acute) 67-year-old male with past medical history of hypertension, hyperlipidemia, obesity, chronic nicotine dependency, suspect underlying COPD admitted on 01/15/2018 with fever, chills, worsening weakness and found to have Legionella pneumonia. He was intubated on 01/17/18 and has been on mechanical ventilation since. Extubated this morning 01/23/18. 1. Acute hypoxic respiratory failure secondary to Legionella pneumonia/acute on chronic COPD exacerbation, extubated, on 4L oxygen, encourage use of incentive spirometer, acapella, continue with aggressive pulmonary toileting. 2. Severe sepsis secondary to Legionella pneumonia, resolved 3. Legionella pneumonia, on IV Zosyn(day7) and Levaquin(day 9), ID following, will defer to ID recommendations. 4. Acute on chronic COPD exacerbation, improving, on prednisone po, continue with breathing treatments 4. Acute NSTEMI, type II secondary to demand ischemia, cardiology was consulted, on aspirin, statin, Plavix 5. Episode of Atrial flutter, converted, in NSR, on oral amiodarone. 6. BRENDA secondary to severe sepsis/dehydration, resolved. 7. Type II DM, blood sugars fairly controlled, on Lantus as well as insulin sliding scale with Accu-Cheks 8. Acute hypovolemic hyponatremia, resolved with hydration. 9. Hypokalemia, secondary to diuretic use, resolved, lab in am 10. Chronic nicotine dependency, on nicotine patch 11. Hypertension, controlled, not on any medications, will continue to monitor. 12. Hyperlipidemia, on statin 13. Anxiety/depression, on citalopram 14. Obesity, BMI 31.5, would address weight loss and lifestyle changes when patient improves and prior to discharge 15. DVT prophylaxis -heparin subcu 16. GI prophylaxis -on famotidine Code Visit Inpatient E&M: 03051 Subs Hosp L2
[2018-01-23] MEDS: Amiodarone 200 MG Tablet PO (09:50)
[2018-01-23] MEDS: Clopidogrel Bisulfate 75 MG Tablet PO (09:52)
[2018-01-23] MEDS: predniSONE 20 MG Tablet 40 MG PO (09:52)
[2018-01-23] MEDS: Aspirin 81 MG TAB.CHEW PO (09:54)
[2018-01-23] MEDS: Citalopram 40 MG TABLET PO (09:54)
[2018-01-23] MEDS: Gabapentin 100 MG Capsule PO (09:54)
[2018-01-23] MEDS: Famotidine 20 MG Tablet PO ×2 (09:54→21:40)
[2018-01-23] MEDS: Furosemide 40 MG/4 ML Vial IV ×2 (09:58→17:02)
[2018-01-23] MEDS: Metoprolol Tartrate 50 MG Tablet PO ×2 (10:07→21:40)
[2018-01-23] MEDS: levoFLOXacin IV 750 MG/150 ML BAG 100 MG IV (10:07)
--- NOTE | 2018-01-23 10:36 | PN.ID_ITS ---
Patient Problems: Active and Suspected Problems (Last Reviewed 06/17/17 @ 09:09 by Antionette Lua) Severe sepsis (Acute) PNA (pneumonia) (Acute) COPD (chronic obstructive pulmonary disease) (Acute) BRENDA (acute kidney injury) (Acute) NSTEMI (non-ST elevated myocardial infarction) (Acute) Subjective: Feeling better, bringing up a lot of sputum. Extubated this AM. No fever, no abd pain. - Physical Exam General: Alert, Cooperative, No apparent distress Lungs: Diminished - L base Cardiovascular: Regular rate, Regular Rhythm Abdomen: Soft, Non Tender, Non-Distended Skin: No rashes Vital Signs Temp Pulse Resp BP Pulse Ox 98.7 F 91 20 H 178/81 H 92 01/23/18 08:00 01/23/18 10:07 01/23/18 08:00 01/23/18 08:00 01/23/18 08:00 Oxygen Flow Rate (L/min) 6 Oxygen Delivery Method Nasal Cannula Weight: 89.5 kg Body Mass Index (BMI) 29.7 Intake and Output for Last 24 Hours 01/21/18 01/22/18 01/23/18 23:59 23:59 23:59 Intake Total 3366.2 / 3366.2 2550.2 / 2550.2 779.6 / 779.6 Output Total 5175 / 5175 4350 / 4350 400 / 400 Balance -1808.8 / -1808.8 -1799.8 / -1799.8 379.6 / 379.6 Microbiology Past 72 Hours 01/22/18 07:38 Gram Stain - Final Sputum, Induced/Lukens Respiratory Culture - Preliminary Yeast 01/17/18 08:06 Blood Culture - Final Blood Culture (Wb) - Anticubital Left No growth in 5 days. 01/17/18 07:15 Blood Culture - Final Blood Culture (Wb) - Right Forearm No growth in 5 days. 01/15/18 09:46 Blood Culture - Final Blood Culture (Wb) - Left Hand No growth in 5 days. 01/15/18 09:45 Blood Culture - Final Blood Culture (Wb) - Anticubital Right No growth in 5 days. 01/17/18 Unknown Gram Stain - Final Bronchial Lavage - Left Middle Lobe Respiratory Culture - Final Yeast, not Diamond albicans Laboratory Tests Past 24 Hrs 01/20/18 01/21/1801/22/18 06:05 04:15 04:14 WBC RBC Hgb Hct MCV MCH MCHC RDW RDW Differential Plt Count MPV Immature Gran % (Auto) Neut % (Auto) Lymph % (Auto) [place] % (Auto) Eos % (Auto) Baso % (Auto) Absolute Neuts (auto) Absolute Lymphs (auto) Total Counted Diff Path Review Reviewed Reviewed Reviewed Specimen Type Sample Site pH Bicarbonate Actual POC Total CO2 Base Excess O2 Saturation O2 % ABG pCO2 ABG pO2 Jaylen Test O2 Delivery Device Vent Mode POC PEEP POC Pressure Suppt Blood Gas Notified Whom Blood Gas Notified Time Sodium Potassium Chloride Carbon Dioxide Anion Gap BUN Creatinine Estim Creat Clear Calc Est GFR (MDRD) Af Amer Est GFR (MDRD) Non-Af BUN/Creatinine Ratio Glucose Calcium Phosphorus Magnesium 01/23/18 01/23/18 01/23/18 04:00 04:00 06:58 WBC 18.6 H RBC 3.81 L Hgb 11.7 L Hct 34.8 L MCV 91.3 MCH 30.7 MCHC 33.6 RDW 14.0 RDW Differential 46.4 H Plt Count 347 MPV 10.2 Immature Gran % (Auto) 2.000 H Neut % (Auto) 83.9 H Lymph % (Auto) 8.4 L [place] % (Auto) 5.3 Eos % (Auto) 0.3 Baso % (Auto) 0.1 Absolute Neuts (auto) 15.6 H Absolute Lymphs (auto) 1.56 Total Counted Not Reportable Diff Path Review May foll Specimen Type ART Sample Site L Radial pH 7.51 H Bicarbonate Actual 36.1 H POC Total CO2 37 Base Excess 13 H O2 Saturation 92 L O2 % 50 ABG pCO2 45.6 H ABG pO2 59 L Jaylen Test POS O2 Delivery Device Vent Vent Mode CPAP PS POC PEEP 5 POC Pressure Suppt 5 Blood Gas Notified Whom ICU MD Blood Gas Notified Time 657 Sodium 140 Potassium 4.0 Chloride 99 Carbon Dioxide 34.0 H Anion Gap 7 BUN 35 H Creatinine 0.90 Estim Creat Clear Calc 81.28 Est GFR (MDRD) Af Amer 109 Est GFR (MDRD) Non-Af 90 BUN/Creatinine Ratio 38.9 H Glucose 230 H Calcium 8.2 L Phosphorus 3.6 Magnesium 2.0 POC Glucose 01/23/18 01/22/18 01/22/18 05:43 23:46 17:46 POC Glucose 215 H 210 H 228 H 01/22/18 11:56 POC Glucose 242 H Medical Necessity - Tobacco Use Smoking Status: Current every day smoker Tobacco Use: Cigarettes Route of nutrition/ use of supplements: [] Nutritional Intake: [] IV Site: [] Reyes Catheter: [] - Assessment/Plan Antibiotics: [] Assessment/Plan: [] Active and Suspected Problems (Last Reviewed 06/17/17 @ 09:09 by Antionette Lua) Severe sepsis (Acute) PNA (pneumonia) (Acute) COPD (chronic obstructive pulmonary disease) (Acute) BRENDA (acute kidney injury) (Acute) NSTEMI (non-ST elevated myocardial infarction) (Acute) severe sepsis due to legionella pneumonia - associated with falls, nausea, and hyponatremia. On levaquin, fever persisted, so zosyn added 01/17. Bronch done, cx neg except for some yeast. Fever now resolved, wbc remains elevated. Now extubated. Will stop zosyn. Will follow, d/w Dr. Serra.
[2018-01-23 11:41] LABS: Bedside Glucose 161 mg/dL (70-110)
[2018-01-23 12:36] LABS: Pathologist Review Reviewed
[2018-01-23 17:05] LABS: Bedside Glucose 169 mg/dL (70-110)
[2018-01-23] MEDS: Acetaminophen 325 MG Tablet 650 MG PO (18:41)
[2018-01-23] MEDS: Atorvastatin Calcium 40 MG Tablet PO (21:41)
[2018-01-23 21:56] LABS: Bedside Glucose 121 mg/dL (70-110)
[2018-01-24] VITALS (40 sets, daily range): BP systolic 101–138; BP diastolic 52–87; PULSE 72–105; RESP 15–27; TEMP 36.7–37.7; O2SAT 22–97
[2018-01-24] MEDS: Ipratropium 0.5 MG/2.5 ML SOLUTION INHALATION ×6 (03:02→23:28)
[2018-01-24] MEDS: 0.9% NaCl Peripheral Flush Adult/Peds IV (04:51)
[2018-01-24 05:13] LABS: Absolute Lymphocyte Count 2.49 X10^3/ul (0.83-4.51); Absolute Neutrophil Count 16.9 X10^3/uL (2.0-7.7); Basophil# 0.02 X10^3/uL; Basophil% 0.1 % (0-1); Eosinophil# 0.07 X10^3/uL; Eosinophils% 0.3 % (0-5); Hematocrit 34.7 % (40-54); Hemoglobin 11.4 g/dl (13.0-16.5); Lymphocyte # 2.49 X10^3/ul (4.0); Lymphocyte % 11.7 % (19-41); Mean Corp Hgb Conc 32.9 g/gl (32-36); Mean Corpuscular Hgb 29.8 pg (27.0-32.0); Mean Corpuscular Volume 90.8 fL (80-94); Mean Platelet Vol. 10.1 fl (6.2-12.0); Monocyte# 1.41 X10^3/uL; Monocyte% 6.6 % (0-10); Neutrophil # 16.92 X10^3/uL (2.7-7.7); Neutrophil % 79.8 % (47-70); POSITIVE COUNT NO; POSITIVE DIFFERENTIAL NO; POSITIVE MORPHOLOGY YES; Platelet Count 391 K/mm3 (150-450); RBC Distribution Width CV 14.1 % (11.6-14.6); RBC Distribution Width SD 46.7 fl (35.1-43.9); Red Blood Count 3.82 M/mm3 (4.6-6.2); White Blood Count 21.2 K/mm3 (4.4-11.0)
[2018-01-24 05:14] LABS: Differential Indicated SCAN CRITERIA MET
[2018-01-24 05:16] LABS: Anion Gap 8 (5-15); BUN 49 mg/dL (7-18); BUN/Creat Ratio 54.2 RATIO (10-20); Calcium,Total 8.4 mg/dL (8.5-10.1); Chloride 98 mmol/L (98-107); EST Glomerular Filtration Rate 90 mL/min (>60); Est Glom Filt Rate - Afr Amer 109 mL/min (>60); Estimated Creatinine Clearance 81.28 ml/min; Glucose 100 mg/dL (74-106); Potassium 3.6 mmol/L (3.5-5.1); Sodium Level 140 mmol/L (136-145)
[2018-01-24] MEDS: Heparin Injection (Vial) 5,000 UNIT/ML VIAL 5000 UNIT SC ×3 (06:15→22:09)
[2018-01-24 06:38] LABS: Differential Comment SCANNED; Platelet Estimate SLT INC (ADEQ); Reactive Lymphocyte 2+
--- NOTE | 2018-01-24 06:52 | PN_ITS ---
Subjective: Patient did well overnight. Patient continues to have a cough productive of sputum. Patient reports generalized malaise, has not required BiPAP rescue over the last 24 hours. Patient does report significant dyspnea on exertion with moving from bedside commode to the chair. No chest pain has been reported. Patient's blood pressure is better controlled. General: Alert, Oriented x3, Cooperative, - - Mild conversational dyspnea. HEENT: Atraumatic, PERRLA, EOMI, Normocephalic, - - No scleral icterus or injection noted. Oral: No Gingival or Mucosal Lesions/ Ulcerations, Dry Mucosa Neck: Supple, No JVD, No Nodes, Trachea Midline Lungs: No wheeze, No rales, Diminished, Rhonchi - Left greater than right, - - Symmetric expansion. No dullness to percussion. Cardiovascular: Regular rate, Regular Rhythm, Normal S1, Normal S2, No murmurs, No rub noted, No Gallop Abdomen: Bowel Sounds Present, Soft, Non Tender, Non-Distended Extremities: No clubbing, No cyanosis, No edema Skin: No rashes, No breakdown Musculoskeletal: No Tenderness to Palpation of Joints or Extremities Lymphatic: No Cervical, Supraclavicular, or Inguinal Adenopathy Neurological: Cranial nerves II-XII grossly intact, Neuro grossly intact, Motor Exam 5/5 strength throughout Psych/Mental Status: Alert and oriented to time, place, person, mood and affect Vital Signs Temp Pulse Resp BP Pulse Ox 37.6 C H 89 27 H 107/66 94 01/24/18 06:00 01/24/18 06:00 01/24/18 06:00 01/24/18 06:00 01/24/18 06:00 Oxygen Flow Rate (L/min) 6 Oxygen Delivery Method Nasal Cannula Weight: 89.3 kg Body Mass Index (BMI) 29.7 Intake and Output for Last 24 Hours 01/22/18 01/23/18 01/24/18 23:59 23:59 23:59 Intake Total 2550.2 / 2550.2 1679.6 / 1679.6 960 / 960 Output Total 4350 / 4350 2450 / 2450 1700 / 1700 Balance -1799.8 / -1799.8 -770.4 / -770.4 -740 / -740 Labs (Last 48 Hours) 01/20/18 01/21/18 01/22/18 06:05 04:15 04:14 WBC RBC Hgb Hct MCV MCH MCHC RDW RDW Differential Plt Count MPV Immature Gran % (Auto) Neut % (Auto) Lymph % (Auto) [place] % (Auto) Eos % (Auto) Baso % (Auto) Absolute Neuts (auto) Absolute Lymphs (auto) Total Counted Differential Comment Diff Path Review Reviewed Reviewed Reviewed Reactive Lymphocytes Platelet Estimate Specimen Type Sample Site pH Bicarbonate Actual POC Total CO2 Base Excess O2 Saturation O2 % ABG pCO2 ABG pO2 Jaylen Test O2 Delivery Device Vent Mode POC PEEP POC Pressure Suppt Blood Gas Notified Whom Blood Gas Notified Time Sodium Potassium Chloride Carbon Dioxide Anion Gap BUN Creatinine Estim Creat Clear Calc Est GFR (MDRD) Af Amer Est GFR (MDRD) Non-Af BUN/Creatinine Ratio Glucose Calcium Phosphorus Magnesium POC Glucose 01/22/18 01/22/18 01/22/18 06:04 11:56 17:46 WBC RBC Hgb Hct MCV MCH MCHC RDW RDW Differential Plt Count MPV Immature Gran % (Auto) Neut % (Auto) Lymph % (Auto) [place] % (Auto) Eos % (Auto) Baso % (Auto) Absolute Neuts (auto) Absolute Lymphs (auto) Total Counted Differential Comment Diff Path Review Reactive Lymphocytes Platelet Estimate Specimen Type Sample Site pH Bicarbonate Actual POC Total CO2 Base Excess O2 Saturation O2 % ABG pCO2 ABG pO2 Jaylen Test O2 Delivery Device Vent Mode POC PEEP POC Pressure Suppt Blood Gas Notified Whom Blood Gas Notified Time Sodium Potassium Chloride Carbon Dioxide Anion Gap BUN Creatinine Estim Creat Clear Calc Est GFR (MDRD) Af Amer Est GFR (MDRD) Non-Af BUN/Creatinine Ratio Glucose Calcium Phosphorus Magnesium POC Glucose 177 H 242 H 228 H 01/22/18 01/23/18 01/23/18 23:46 04:00 04:00 WBC 18.6 H RBC 3.81 L Hgb 11.7 L Hct 34.8 L MCV 91.3 MCH 30.7 MCHC 33.6 RDW 14.0 RDW Differential 46.4 H Plt Count 347 MPV 10.2 Immature Gran % (Auto) 2.000 H Neut % (Auto) 83.9 H Lymph % (Auto) 8.4 L [place] % (Auto) 5.3 Eos % (Auto) 0.3 Baso % (Auto) 0.1 Absolute Neuts (auto) 15.6 H Absolute Lymphs (auto) 1.56 Total Counted Not Reportable Differential Comment Diff Path Review Reviewed Reactive Lymphocytes Platelet Estimate Specimen Type Sample Site pH Bicarbonate Actual POC Total CO2 Base Excess O2 Saturation O2 % ABG pCO2 ABG pO2 Jaylen Test O2 Delivery Device Vent Mode POC PEEP POC Pressure Suppt Blood Gas Notified Whom Blood Gas Notified Time Sodium 140 Potassium 4.0 Chloride 99 Carbon Dioxide 34.0 H Anion Gap 7 BUN 35 H Creatinine 0.90 Estim Creat Clear Calc 81.28 Est GFR (MDRD) Af Amer 109 Est GFR (MDRD) Non-Af 90 BUN/Creatinine Ratio 38.9 H Glucose 230 H Calcium 8.2 L Phosphorus 3.6 Magnesium 2.0 POC Glucose 210 H 01/23/18 01/23/18 01/23/18 05:43 06:58 11:30 WBC RBC Hgb Hct MCV MCH MCHC RDW RDW Differential Plt Count MPV Immature Gran % (Auto) Neut % (Auto) Lymph % (Auto) [place] % (Auto) Eos % (Auto) Baso % (Auto) Absolute Neuts (auto) Absolute Lymphs (auto) Total Counted Differential Comment Diff Path Review Reactive Lymphocytes Platelet Estimate Specimen Type ART Sample Site L Radial pH 7.51 H Bicarbonate Actual 36.1 H POC Total CO2 37 Base Excess 13 H O2 Saturation 92 L O2 % 50 ABG pCO2 45.6 H ABG pO2 59 L Jaylen Test POS O2 Delivery Device Vent Vent Mode CPAP PS POC PEEP 5 POC Pressure Suppt 5 Blood Gas Notified Whom ICU MD Blood Gas Notified Time 657 Sodium Potassium Chloride Carbon Dioxide Anion Gap BUN Creatinine Estim Creat Clear Calc Est GFR (MDRD) Af Amer Est GFR (MDRD) Non-Af BUN/Creatinine Ratio Glucose Calcium Phosphorus Magnesium POC Glucose 215 H 161 H 01/23/18 01/23/18 01/24/18 16:59 21:43 04:30 WBC 21.2 H RBC 3.82 L Hgb 11.4 L Hct 34.7 L MCV 90.8 MCH 29.8 MCHC 32.9 RDW 14.1 RDW Differential 46.7 H Plt Count 391 MPV 10.1 Immature Gran % (Auto) 1.500 H Neut % (Auto) 79.8 H Lymph % (Auto) 11.7 L [place] % (Auto) 6.6 Eos % (Auto) 0.3 Baso % (Auto) 0.1 Absolute Neuts (auto) 16.9 H Absolute Lymphs (auto) 2.49 Total Counted Not Reportable Differential Comment SCANNED Diff Path Review Reactive Lymphocytes 2+ Platelet Estimate [employer]T INC Specimen Type Sample Site pH Bicarbonate Actual POC Total CO2 Base Excess O2 Saturation O2 % ABG pCO2 ABG pO2 Jaylen Test O2 Delivery Device Vent Mode POC PEEP POC Pressure Suppt Blood Gas Notified Whom Blood Gas Notified Time Sodium Potassium Chloride Carbon Dioxide Anion Gap BUN Creatinine Estim Creat Clear Calc Est GFR (MDRD) Af Amer Est GFR (MDRD) Non-Af BUN/Creatinine Ratio Glucose Calcium Phosphorus Magnesium POC Glucose 169 H 121 H 01/24/18 04:30 WBC RBC Hgb Hct MCV MCH MCHC RDW RDW Differential Plt Count MPV Immature Gran % (Auto) Neut % (Auto) Lymph % (Auto) [place] % (Auto) Eos % (Auto) Baso % (Auto) Absolute Neuts (auto) Absolute Lymphs (auto) Total Counted Differential Comment Diff Path Review Reactive Lymphocytes Platelet Estimate Specimen Type Sample Site pH Bicarbonate Actual POC Total CO2 Base Excess O2 Saturation O2 % ABG pCO2 ABG pO2 Jaylen Test O2 Delivery Device Vent Mode POC PEEP POC Pressure Suppt Blood Gas Notified Whom Blood Gas Notified Time Sodium 140 Potassium 3.6 Chloride 98 Carbon Dioxide 34.0 H Anion Gap 8 BUN 49 H Creatinine 0.90 Estim Creat Clear Calc 81.28 Est GFR (MDRD) Af Amer 109 Est GFR (MDRD) Non-Af 90 BUN/Creatinine Ratio 54.2 H Glucose 100 Calcium 8.4 L Phosphorus Magnesium POC Glucose Microbiology 01/22/18 07:38 Sputum, Induced/Lukens Gram Stain - Final 01/22/18 07:38 Sputum, Induced/Lukens Respiratory Culture - Preliminary Yeast 01/17/18 08:06 Blood Culture (Wb) - Anticubital Left Blood Culture - Final No growth in 5 days. 01/17/18 07:15 Blood Culture (Wb) - Right Forearm Blood Culture - Final No growth in 5 days. Medical Necessity - Tobacco Use Smoking Status: Current every day smoker Tobacco Use: Cigarettes Assessment/Plan All Active Problems (Last Reviewed 06/17/17 @ 09:09 by Antionette Lua) Severe sepsis (Acute) PNA (pneumonia) (Acute) COPD (chronic obstructive pulmonary disease) (Acute) BRENDA (acute kidney injury) (Acute) NSTEMI (non-ST elevated myocardial infarction) (Acute) Erectile dysfunction (Acute) Diabetes type 2, controlled (Acute) Testicular hypofunction (Acute) RECOMMENDATIONS: 1. Continue antibiotics per ID recommendations. 2. Wean FiO2/PEEP to maintain oxygen saturations above 90%. 3. Increase activity as tolerated 4. Continue diuresis 5. Continue scheduled bronchodilators and wean steroids over the next 12-14 days 6. Continue basal insulin. Continue Accu-Cheks and sliding scale insulin coverage. 7. Continue scheduled Atrovent, Lasix and amiodarone. 8. BiPAP rescue, nightly as indicated IMPRESSIONS: 1. Acute hypoxic respiratory failure secondary to severe Legionella pneumonia leading to presumptive COPD exacerbation Patient was significant mobilization yesterday following CT scan of the chest. Patient was able to significantly improve oxygenation. We will continue with aggressive pulmonary toileting. Patient is on bronchodilators. Okay to wean steroids over the next 12-14 days. Will use BiPAP rescue if necessary for oxygenation and with sleep. The patient will need to follow-up in the pulmonary medicine clinic so that a repeat CT chest can be completed in 6-8 weeks for further evaluation of the patient's left hilum. If there is concern for an underlying lung mass, will proceed with setting the patient up for bronchoscopy and specifically EBUS. However, at this time, he will be treated with antibiotics. 2. Severe sepsis secondary to Legionella pneumonia RESOLVED > the patient has been adequately volume resuscitated and is currently hemodynamically stable. We will plan to continue antibiotics per ID recommendations. 3. Atrial fibrillation/flutter RESOLVED > the patient was noted to be in atrial flutter with an elevated heart rate on January 17. He was placed on amiodarone and subsequently converted back to normal sinus rhythm. 4. History of tobacco dependence The patient does have an extensive smoking history and we are currently working under the assumption that he has obstructive lung disease. However, smoking cessation is strongly advisable. Nicotine replacement therapy can be offered while he is admitted to the hospital. The patient should ideally follow up in the pulmonary medicine clinic so that baseline PFTs can be obtained. 5. Troponin elevation/heart failure with preserved ejection fraction The patient's echocardiogram did reveal evidence of stage I diastolic dysfunction with preserved ejection fraction. Troponin elevation is likely secondary to demand ischemia in the setting of #1/2. 6. Acute kidney injury RESOLVED > likely prerenal in etiology. Continue to monitor urine output. No current indication for renal replacement therapy. 7. Hypertension/hyperlipidemia/neuropathy Complicates care, management, recovery and prognosis. Okay to continue home medications from my perspective. Code Visit Inpatient E&M: 38587 Subs Hosp L3
--- NOTE | 2018-01-24 07:42 | PN_ITS ---
Patient Problems: Active and Suspected Problems (Last Reviewed 06/17/17 @ 09:09 by Antionette Lua) Severe sepsis (Acute) PNA (pneumonia) (Acute) COPD (chronic obstructive pulmonary disease) (Acute) BRENDA (acute kidney injury) (Acute) NSTEMI (non-ST elevated myocardial infarction) (Acute) Subjective: Patient was seen and examined. Remained stable in the ICU. No acute events noted. Oxygenating on 6 L of oxygen. He has been using the incentive spirometer as well as the Acapella. He denied any worsening shortness of breath or chest pain. Appetite is starting to come back. Moved his bowels this morning. Objective: Physical exam: General: Alert, Oriented x3, Cooperative, No apparent distress, - - on 6L oxygen HEENT: Atraumatic, PERRLA, EOMI, Normocephalic Oral: Molist Mucosa Neck: Supple, No JVD, Negative Carotid Bruits Lungs: Normal air movement, Diminished - especially in left middle and lower lung zones with rales Cardiovascular: Regular rate, Regular Rhythm, Normal S1, Normal S2, No murmurs Abdomen: Bowel Sounds Present, Soft, Non Tender, Non-Distended, No Hepato- splenomegaly Extremities: No edema Skin: No rashes, No breakdown Musculoskeletal: No Tenderness to Palpation of Joints or Extremities Lymphatic: No Cervical, Supraclavicular, or Inguinal Adenopathy Neurological: Cranial nerves II-XII grossly intact, Neuro grossly intact Psych/Mental Status: Normal Affect, Appropriate Vitals/I&O's: Vital Signs Temp Pulse Resp BP Pulse Ox 99.6 F H 82 23 H 116/66 95 01/24/18 07:00 01/24/18 07:00 01/24/18 07:00 01/24/18 07:00 01/24/18 07:00 Oxygen Flow Rate (L/min) 6 Oxygen Delivery Method Nasal Cannula Weight: 89.3 kg Body Mass Index (BMI) 29.7 Intake and Output for Last 24 Hours 01/22/18 01/23/18 01/24/18 23:59 23:59 23:59 Intake Total 2550.2 / 2550.2 1679.6 / 1679.6 960 / 960 Output Total 4350 / 4350 2450 / 2450 1700 / 1700 Balance -1799.8 / -1799.8 -770.4 / -770.4 -740 / -740 Microbiology Past 72 Hours 01/22/18 07:38 Sputum, Induced/Lukens Gram Stain - Final 01/22/18 07:38 Sputum, Induced/Lukens Respiratory Culture - Preliminary Yeast 01/17/18 08:06 Blood Culture (Wb) - Anticubital Left Blood Culture - Final No growth in 5 days. 01/17/18 07:15 Blood Culture (Wb) - Right Forearm Blood Culture - Final No growth in 5 days. Laboratory Results 01/23/18 04:00: Diff Path Review Reviewed 01/23/18 11:30: POC Glucose 161 H 01/23/18 16:59: POC Glucose 169 H 01/23/18 21:43: POC Glucose 121 H 01/24/18 04:30: WBC 21.2 H, RBC 3.82 L, Hgb 11.4 L, Hct 34.7 L, MCV 90.8, MCH 29.8, MCHC 32.9, RDW 14.1, RDW Differential 46.7 H, Plt Count 391, MPV 10.1, Immature Gran % (Auto) 1.500 H, Neut % (Auto) 79.8 H, Lymph % (Auto) 11.7 L, [place] % (Auto) 6.6, Eos % (Auto) 0.3, Baso % (Auto) 0.1, Absolute Neuts (auto) 1 6.9 H, Absolute Lymphs (auto) 2.49, Total Counted Not Reportable, Differential Comment SCANNED, Reactive Lymphocytes 2+, Platelet Estimate [facility] 01/24/18 04:30: Sodium 140, Potassium 3.6, Chloride 98, Carbon Dioxide 34.0 H, Anion Gap 8, BUN 49 H, Creatinine 0.90, Estim Creat Clear Calc 81.28, Est GFR (MDRD) Af Amer 109, Est GFR (MDRD) Non-Af 90, BUN/Creatinine Ratio 54.2 H, Glucose 100, Calcium 8.4 L Current Medications Acetaminophen (Tylenol) 650 mg PO Q4H PRN PRN PRN Reason: FEVER Last Admin: 01/23/18 18:41 Dose: 650 mg Al Hydroxide/Mg Hydroxide (Mylanta Ii) 30 ml PO Q6H PRN PRN PRN Reason: Gastric burning Albuterol Sulfate (Ventolin Aerosols) 2.5 mg INHALATION Q2H PRN PRN PRN Reason: SHORTNESS OF BREATH Amiodarone HCl (Cordarone) 200 mg PO DAILY [facility] Last Admin: 01/23/18 09:50 Dose: 200 mg Aspirin (Aspirin, Baby) 81 mg PO DAILY [facility] Last Admin: 01/23/18 09:54 Dose: 81 mg Atorvastatin Calcium (Lipitor) 40 mg PO HS [facility] Last Admin: 01/23/18 21:41 Dose: 40 mg Chlorhexidine Gluconate () 1 each TOPICAL DAILY [facility] Last Admin: 01/23/18 09:57 Dose: Not Given Citalopram Hydrobromide (Celexa) 40 mg PO DAILY [facility] Last Admin: 01/23/18 09:54 Dose: 40 mg Clopidogrel Bisulfate (Plavix) 75 mg PO DAILY [facility] Last Admin: 01/23/18 09:52 Dose: 75 mg Famotidine (Pepcid) 20 mg PO BID [facility] Last Admin: 01/23/18 21:40 Dose: 20 mg Furosemide (Lasix) 40 mg IV BID@1000,1800 [facility] Last Admin: 01/23/18 17:02 Dose: 40 mg Gabapentin (Neurontin) 100 mg PO DAILYCM [facility] Last Admin: 01/23/18 09:54 Dose: 100 mg Heparin Sodium (Porcine) (Heparin Na) 5,000 unit SC Q8 [facility] Last Admin: 01/24/18 06:15 Dose: 5,000 unit Sodium Chloride () 250 mls @ 15 mls/hr IV .[id number] PRN PRN Reason: SALINE FLUSH Last Admin: 01/22/18 18:05 Dose: 15 mls/hr Sodium Chloride () 250 mls @ 15 mls/hr IV .[id number] PRN PRN Reason: SALINE FLUSH Levofloxacin (Levaquin Iv) 750 mg in 150 mls @ 100 mls/hr IV Q24 [facility] Last Admin: 01/23/18 10:07 Dose: 100 mls/hr Ipratropium [place] (Atrovent) 0.5 mg INHALATION Q4H.RT [facility] Last Admin: 01/24/18 06:44 Dose: 0.5 mg Magnesium Hydroxide (Milk Of Magnesia) 30 ml PO DAILY PRN PRN PRN Reason: Constipation Metoprolol Tartrate (Lopressor (Beta Femi)) 50 mg PO BID [facility] Last Admin: 01/23/18 21:40 Dose: 50 mg Ondansetron HCl (Zofran) 4 mg IV Q8H PRN PRN PRN Reason: NAUSEA Prednisone () 40 mg PO DAILY@0800 [facility] Last Admin: 01/23/18 09:52 Dose: 40 mg Promethazine HCl (Phenergan) 12.5 mg IV Q6H PRN PRN PRN Reason: NAUSEA/VOMITING Sodium Chloride () 5 - 30 ml IV UD PRN PRN Reason: SALINE FLUSH Last Admin: 01/24/18 04:51 Dose: 10 ml Medical Necessity - Tobacco Use Smoking Status: Current every day smoker Tobacco Use: Cigarettes Assessment/Plan All Active Problems (Last Reviewed 06/17/17 @ 09:09 by Antionette Lua) Severe sepsis (Acute) PNA (pneumonia) (Acute) COPD (chronic obstructive pulmonary disease) (Acute) BRENDA (acute kidney injury) (Acute) NSTEMI (non-ST elevated myocardial infarction) (Acute) Erectile dysfunction (Acute) Diabetes type 2, controlled (Acute) Testicular hypofunction (Acute) 67-year-old male with past medical history of hypertension, hyperlipidemia, obesity, chronic nicotine dependency, suspect underlying COPD admitted on 01/15/2018 with fever, chills, worsening weakness and found to have Legionella pneumonia. He was intubated on 01/17/18 and has been on mechanical ventilation since. Extubated this morning 01/23/18. 1. Acute hypoxic respiratory failure secondary to Legionella pneumonia/acute on chronic COPD exacerbation, extubated, Remains unchanged from yesterday; on 4L oxygen, encourage use of incentive spirometer, acapella, continue with aggressive pulmonary toileting. 2. Severe sepsis secondary to Legionella pneumonia, resolved, elevated WBC count is likely secondary to steroid effect, no fever seen, will monitor. 3. Legionella pneumonia, ID following, on IV Levaquin only now, will continue to follow ID recommendations. 4. Acute on chronic COPD exacerbation, improving, on prednisone po taper, continue with breathing treatments 5. Possible fluid overload, noted some days ago, improved with diuresis, remains euvolemic on po lasix bid, urine output is good, will continue to monitor renal function. 6. Acute NSTEMI, type II secondary to demand ischemia, cardiology was consulted, on aspirin, statin, Plavix 7. Episode of Atrial flutter, converted, in NSR, on oral amiodarone, plan to continue for 1 month and discontinue in the outpatient 8. BRENDA secondary to severe sepsis/dehydration, resolved. 9. Type II DM, blood sugars fairly controlled, on Lantus as well as insulin sliding scale with Accu-Cheks 10. Acute hypovolemic hyponatremia, resolved with hydration. 11. Hypokalemia, secondary to diuretic use, resolved, lab in am 12. Chronic nicotine dependency, on nicotine patch 13. Hypertension, controlled, not on any medications, will continue to monitor. 13. Hyperlipidemia, on statin 14. Anxiety/depression, on citalopram, will get an EKG and monitor for QT prolongation. 15. Obesity, BMI 31.5, would address weight loss and lifestyle changes when patient improves and prior to discharge 16. DVT prophylaxis -heparin subcu 17. GI prophylaxis -on famotidine Code Visit Inpatient E&M: 17188 Subs Hosp L2
--- NOTE | 2018-01-24 08:28 | PN.CARD_ITS ---
Subjectve: Patient seen and evaluated. Has been extubated and doing well. Objective: Vital Signs Temp Pulse Resp BP Pulse Ox 99.5 F H 90 21 H 121/67 H 94 01/24/18 08:00 01/24/18 08:00 01/24/18 08:00 01/24/18 08:00 01/24/18 08:00 Oxygen Flow Rate (L/min) 6 Oxygen Delivery Method Nasal Cannula Weight: 196 lb 13.965 oz Body Mass Index (BMI) 29.7 Intake and Output for Last 24 Hours 01/22/18 01/23/18 01/24/18 23:59 23:59 23:59 Intake Total 2550.2 / 2550.2 1679.6 / 1679.6 960 / 960 Output Total 4350 / 4350 2450 / 2450 1700 / 1700 Balance -1799.8 / -1799.8 -770.4 / -770.4 -740 / -740 General: Awake, Alert, Oriented x 3 HEENT: PERRL, EOMI, Sclera Non Icteric Neck: Supple, Good ROM, No Lymph Node Enlargement Lungs: Clear to auscultation Cardiovascular: Regular Rhythm, Normal S1, Normal S2, No Murmurs, No Rubs, No Gallops Vascular: No Carotid Bruits, Normal Femoral Pulses, Normal Radial Pulses, Normal Dorsalis Pedal Pulse, Normal Posterior Tibial Pulses Abdomen: Bowel Sounds Present, Soft, Non Tender, No HSM, No Organomegaly Extremities: No Cyanosis, No Clubbing, No edema Neurological: No Focal Motor or Sensory Deficit 01/24/18 04:30: WBC 21.2 H, RBC 3.82 L, Hgb 11.4 L, Hct 34.7 L, MCV 90.8, MCH 29.8, MCHC 32.9, RDW 14.1, RDW Differential 46.7 H, Plt Count 391, MPV 10.1, Immature Gran % (Auto) 1.500 H, Neut % (Auto) 79.8 H, Lymph % (Auto) 11.7 L, [place] % (Auto) 6.6, Eos % (Auto) 0.3, Baso % (Auto) 0.1, Absolute Neuts (auto) 16.9 H, Total Counted Not Reportable 01/24/18 04:30: Sodium 140, Potassium 3.6, Chloride 98, Carbon Dioxide 34.0 H, Anion Gap 8, BUN 49 H, Creatinine 0.90, Est GFR (MDRD) Af Amer 109, Est GFR (MDRD) Non-Af 90, BUN/Creatinine Ratio 54.2 H, Glucose 100, Calcium 8.4 L Rhythm: EKG: ECHO: Stress Test: Cardiac Cath: PCI: CT Surgery: Holter monitor: EPS: PPM: CXR: Chest CT Scan: Medical Necessity - Tobacco Use Smoking Status: Current every day smoker Tobacco Use: Cigarettes Assessment/Plan 1. Abnormal cardiac enzymes Patient is noted to have abnormal cardiac enzymes which is likely secondary to demand ischemia. My recommendation is to continue observing him for now and treat the underlying cause. Depending on the final level of the cardiac enzymes as well as his echocardiographic evaluation further recommendations will be made. * Echocardiogram demonstrated preserved left ventricular systolic function. * Continue beta-salinas * Will continue Plavix 75 mg once a day * Lipid-lowering At this time there are no plans to pursue any invasive cardiac studies. 2. Cardiac dysrhythmias Patient is noted to have multifocal atrial tachycardia which is likely secondary to his pulmonary disease. Once again treating the underlying cause would help elucidate and correct some of this. He is asymptomatic at this particular time anyway. Has not had any recent cardiac dysrhythmias. Plan on continuing beta-salinas and amiodarone, the latter for at least a month and then will discontinue as outpatient. Thank you for allowing me to participate in the care of your patient. Please don't hesitate to call if any issues arise
--- NOTE | 2018-01-24 09:03 | EKG12_ITS ---
Test Reason : AFLUTTER Blood Pressure : / mmHG Vent. Rate : 081 BPM Atrial Rate : 081 BPM P-R Int : 160 ms QRS Dur : 088 ms QT Int : 406 ms P-R-T Axes : 063 078 052 degrees QTc Int : 471 ms Normal sinus rhythm Poor R wave progression Confirmed by RAY HARRISON, CARMENCITA ([id number]), pictures editor JAISON SEBASTIAN ([id number]) on 01/25/2018 1:11:06 PM Referred By: REBECCA Confirmed By:CARMENCITA BELL MD
[2018-01-24] MEDS: Aspirin 81 MG TAB.CHEW PO (09:30)
[2018-01-24] MEDS: predniSONE 20 MG Tablet PO (09:32)
[2018-01-24] MEDS: Citalopram 40 MG TABLET PO (09:32)
[2018-01-24] MEDS: Gabapentin 100 MG Capsule PO (09:33)
[2018-01-24] MEDS: Amiodarone 200 MG Tablet PO (09:34)
[2018-01-24] MEDS: Famotidine 20 MG Tablet PO ×2 (09:39→22:08)
[2018-01-24] MEDS: Clopidogrel Bisulfate 75 MG Tablet PO (09:40)
[2018-01-24] MEDS: Furosemide 40 MG Tablet PO (09:42)
[2018-01-24] MEDS: Metoprolol Tartrate 50 MG Tablet PO ×2 (09:42→22:08)
[2018-01-24] MEDS: levoFLOXacin IV 750 MG/150 ML BAG 100 MG IV (09:43)
--- NOTE | 2018-01-24 09:48 | CASEMGMT ---
RN NAVNEET NOTE: Spoke with pt and family re: discharge planning. Pt and family all agreeable to SNF on discharge. SW consult made. Lucio VELAZCO RN CM
--- NOTE | 2018-01-24 10:21 | CASEMGMT ---
Addendum entered by Mary Moran 01/24/18 13:17: Ami received only half of the fax, SW faxed the rest of the clinical information. Also, as per Ami, pt smokes, asked if pt is aware that [facility] is a nonsmoking facility. SW spoke w/pt, let him know that [facility] is reviewing the clinical information and that [facility] is not a smoking facility. Pt is fine with this. SW explained will let him know as soon as this SW knows if they can take him at [facility]. Pt states understanding. SAL Fair, CLAM TREADER Original Note: Addendum entered by Mary Moran 01/24/18 12:14: SW received a message from Ami at [facility], she states to fax the referral and they will review it. SW faxed referral, she is to call this SW back and let this SW know if they can take pt. SAL Fair, CLAM TREADER Original Note: SW received referral as pt will need [facility] placement at discharge. SW spoke w/pt, and family in the room, provided a list of nursing homes in the area that take pt's insurance, explained that SW aware TCU is first choice but they do not take pt's insurance. They would like a referral sent to [facility]. SW explained will call to check on bed availability, did ask them to pick out 1-2 additional facilities in the event [facility] does not have a bed. Pt and state understanding. SW called [facility], message left to inquire about bed availability, will await a call back. SAL Fiar, CLAM TREADER
--- NOTE | 2018-01-24 11:20 | PN.ID_ITS ---
Patient Problems: Active and Suspected Problems (Last Reviewed 06/17/17 @ 09:09 by Antionette Lua) Severe sepsis (Acute) PNA (pneumonia) (Acute) COPD (chronic obstructive pulmonary disease) (Acute) BRENDA (acute kidney injury) (Acute) NSTEMI (non-ST elevated myocardial infarction) (Acute) Subjective: Some SOB and cough, feeling better, no fever. - Physical Exam General: Alert, Cooperative, No apparent distress Lungs: Diminished Cardiovascular: Regular rate, Regular Rhythm Abdomen: Soft, Non Tender, Non-Distended Skin: No rashes Vital Signs Temp Pulse Resp BP Pulse Ox 99.9 F H 90 21 H 120/70 94 01/24/18 10:00 01/24/18 10:00 01/24/18 10:00 01/24/18 10:00 01/24/18 10:00 Oxygen Flow Rate (L/min) 5 Oxygen Delivery Method Nasal Cannula Weight: 89.3 kg Body Mass Index (BMI) 29.7 Intake and Output for Last 24 Hours 01/22/18 01/23/18 01/24/18 23:59 23:59 23:59 Intake Total 2550.2 / 2550.2 1679.6 / 1679.6 960 / 960 Output Total 4350 / 4350 2450 / 2450 1700 / 1700 Balance -1799.8 / -1799.8 -770.4 / -770.4 -740 / -740 Microbiology Past 72 Hours 01/22/18 07:38 Gram Stain - Final Sputum, Induced/Lukens Respiratory Culture - Final Yeast, not Diamond albicans 01/17/18 08:06 Blood Culture - Final Blood Culture (Wb) - Anticubital Left No growth in 5 days. 01/17/18 07:15 Blood Culture - Final Blood Culture (Wb) - Right Forearm No growth in 5 days. Laboratory Tests Past 24 Hrs 01/23/18 01/24/18 01/24/18 04:00 04:30 04:30 WBC 21.2 H RBC 3.82 L Hgb 11.4 L Hct 34.7 L MCV 90.8 MCH 29.8 MCHC 32.9 RDW 14.1 RDW Differential 46.7 H Plt Count 391 MPV 10.1 Immature Gran % (Auto) 1.500 H Neut % (Auto) 79.8 H Lymph % (Auto) 11.7 L [place] % (Auto) 6.6 Eos % (Auto) 0.3 Baso % (Auto) 0.1 Absolute Neuts (auto) 16.9 H Absolute Lymphs (auto) 2.49 Total Counted Not Reportable Differential Comment SCANNED Diff Path Review Reviewed Reactive Lymphocytes 2+ Platelet Estimate SLT INC Sodium 140 Potassium 3.6 Chloride 98 Carbon Dioxide 34.0 H Anion Gap 8 BUN 49 H Creatinine 0.90 Estim Creat Clear Calc 81.28 Est GFR (MDRD) Af Amer 109 Est GFR (MDRD) Non-Af 90 BUN/Creatinine Ratio 54.2 H Glucose 100 Calcium 8.4 L POC Glucose 01/23/18 01/23/18 01/23/18 21:43 16:59 11:30 POC Glucose 121 H 169 H 161 H Medical Necessity - Tobacco Use Smoking Status: Current every day smoker Tobacco Use: Cigarettes Route of nutrition/ use of supplements: [] Nutritional Intake: [] IV Site: [] Reyes Catheter: [] - Assessment/Plan Antibiotics: [] Assessment/Plan: [] Active and Suspected Problems (Last Reviewed 06/17/17 @ 09:09 by Antionette Lua) Severe sepsis (Acute) PNA (pneumonia) (Acute) COPD (chronic obstructive pulmonary disease) (Acute) BRENDA (acute kidney injury) (Acute) NSTEMI (non-ST elevated myocardial infarction) (Acute) severe sepsis due to legionella pneumonia - associated with falls, nausea, and hyponatremia. On levaquin, fever persisted, so zosyn added /. Bronch done, cx neg except for some yeast suspect colonization. Fever now resolved, wbc remains elevated. Stable off vent. Receiving dose #10 of levaquin now, will d/c Will follow
[2018-01-24] MEDS: CHLORHEXIDINE GLUC 2% CLOTH 1 EACH TOWELETTE TOPICAL (14:17)
[2018-01-24] MEDS: Albuterol 2.5 MG/3 ML VIAL.NEB. INHALATION (19:23)
[2018-01-24] MEDS: Atorvastatin Calcium 40 MG Tablet PO (22:07)
[2018-01-25] VITALS (34 sets, daily range): BP systolic 89–123; BP diastolic 54–76; PULSE 76–103; RESP 16–27; TEMP 36.2–37.2; O2SAT 89–96
[2018-01-25] MEDS: 0.9% NaCl Peripheral Flush Adult/Peds IV (05:59)
[2018-01-25] MEDS: Heparin Injection (Vial) 5,000 UNIT/ML VIAL 5000 UNIT SC ×3 (05:59→21:43)
[2018-01-25 06:32] LABS: Absolute Lymphocyte Count 2.24 X10^3/ul (0.83-4.51); Absolute Neutrophil Count 16.2 X10^3/uL (2.0-7.7); Basophil# 0.03 X10^3/uL; Basophil% 0.2 % (0-1); Eosinophil# 0.02 X10^3/uL; Eosinophils% 0.1 % (0-5); Hematocrit 24.9 % (40-54); Hemoglobin 8.3 g/dl (13.0-16.5); Lymphocyte # 2.24 X10^3/ul (4.0); Lymphocyte % 11.2 % (19-41); Mean Corp Hgb Conc 33.3 g/gl (32-36); Mean Corpuscular Hgb 30.7 pg (27.0-32.0); Mean Corpuscular Volume 92.2 fL (80-94); Mean Platelet Vol. 10.4 fl (6.2-12.0); Monocyte# 1.27 X10^3/uL; Monocyte% 6.4 % (0-10); Neutrophil # 16.16 X10^3/uL (2.7-7.7); Platelet Count 365 K/mm3 (150-450); RBC Distribution Width CV 13.6 % (11.6-14.6); RBC Distribution Width SD 44.1 fl (35.1-43.9); White Blood Count 19.9 K/mm3 (4.4-11.0)
[2018-01-25 06:36] LABS: POSITIVE COUNT NO; POSITIVE DIFFERENTIAL NO; POSITIVE MORPHOLOGY NO
[2018-01-25 06:44] LABS: Anion Gap 7 (5-15); BUN 61 mg/dL (7-18); BUN/Creat Ratio 63.3 RATIO (10-20); Calcium,Total 8.7 mg/dL (8.5-10.1); Chloride 100 mmol/L (98-107); Creatinine, Serum 0.96 mg/dL (0.70-1.30); EST Glomerular Filtration Rate 84 mL/min (>60); Est Glom Filt Rate - Afr Amer 101 mL/min (>60); Glucose 165 mg/dL (74-106); Potassium 3.9 mmol/L (3.5-5.1); Sodium Level 140 mmol/L (136-145)
[2018-01-25] MEDS: Ipratropium 0.5 MG/2.5 ML SOLUTION INHALATION ×5 (07:18→23:54)
[2018-01-25] MEDS: Gabapentin 100 MG Capsule PO (07:57)
[2018-01-25] MEDS: predniSONE 20 MG Tablet PO (07:58)
--- NOTE | 2018-01-25 08:49 | CASEMGMT ---
SW spoke w/Ami at [facility], she states they cannot take pt. SW spoke w/pt, and family in room, let them know [facility] cannot take pt. SW inquired about the next choice. They would like to try [facility]. SW explained that [facility] is not in network, though Danyelle from [facility] may be able to get a one time contract. Family and pt would like to try for this. SW explained to pt and family that in this SW's experience, insurances are not always willing to do this, especially when there are other facilities in the area that take pt's insurance, but we can try. Pt states understanding. SW asked pt and family to have another facility in mind that is in network, in the event that [facility] is not able to get a one time contract. Pt states understanding. SW called [facility], spoke w/Danyelle. SW confirmed w/Danyelle that they are not in network w/pt's insurance but can try for a one time contract for pt. SW faxed referral to [facility], will continue to follow. SAL Wagner, LEVI MAKER
--- NOTE | 2018-01-25 08:56 | PN_ITS ---
Patient Problems: Active and Suspected Problems (Last Reviewed 06/17/17 @ 09:09 by Antionette Lua) Severe sepsis (Acute) PNA (pneumonia) (Acute) COPD (chronic obstructive pulmonary disease) (Acute) BRENDA (acute kidney injury) (Acute) NSTEMI (non-ST elevated myocardial infarction) (Acute) Subjective: Patient was seen and examined. Denies any new complaints. Appears improved. Mild conversational dyspnea seen Objective: Physical exam: General: Alert, Oriented x3, Cooperative, No apparent distress, - - on 5L oxygen, conversational dyspnea HEENT: Atraumatic, PERRLA, EOMI, Normocephalic Oral: Molist Mucosa Neck: Supple, No JVD, Negative Carotid Bruits Lungs: Normal air movement, Diminished - especially in left middle and lower lung zones with rales Cardiovascular: Regular rate, Regular Rhythm, Normal S1, Normal S2, No murmurs Abdomen: Bowel Sounds Present, Soft, Non Tender, Non-Distended, No Hepato- splenomegaly Extremities: No edema Skin: No rashes, No breakdown Musculoskeletal: No Tenderness to Palpation of Joints or Extremities Lymphatic: No Cervical, Supraclavicular, or Inguinal Adenopathy Neurological: Cranial nerves II-XII grossly intact, Neuro grossly intact Psych/Mental Status: Normal Affect, Appropriate Vitals/I&O's: Vital Signs Temp Pulse Resp BP Pulse Ox 97.2 F L 95 21 H 106/66 89 01/25/18 08:00 01/25/18 08:00 01/25/18 08:00 01/25/18 08:00 01/25/18 08:00 Oxygen Flow Rate (L/min) 4 Oxygen Delivery Method Nasal Cannula Weight: 87.3 kg Body Mass Index (BMI) 29.7 Intake and Output for Last 24 Hours 01/23/18 01/24/18 01/25/18 23:59 23:59 23:59 Intake Total 1679.6 / 1679.6 2019 720 / 720 Output Total 2450 / 2450 2450 / 2450 1125 / 1125 Balance -770.4 / -770.4 -430 / -430 -405 / -405 Microbiology Past 72 Hours 01/22/18 07:38 Sputum, Induced/Lukens Gram Stain - Final 01/22/18 07:38 Sputum, Induced/Lukens Respiratory Culture - Final Yeast, not Diamond albicans 01/17/18 08:06 Blood Culture (Wb) - Anticubital Left Blood Culture - Final No growth in 5 days. 01/17/18 07:15 Blood Culture (Wb) - Right Forearm Blood Culture - Final No growth in 5 days. Laboratory Results 01/25/18 06:15: WBC 19.9 H, RBC 2.70 L, Hgb 8.3 L, Hct 24.9 L, MCV 92.2, MCH 30.7, MCHC 33.3, RDW 13.6, RDW Differential 44.1 H, Plt Count 365, MPV 10.4, Immature Gran % (Auto) 1.100 H, Neut % (Auto) 81.0 H, Lymph % (Auto) 11.2 L, [place] % (Auto) 6.4, Eos % (Auto) 0.1, Baso % (Auto) 0.2, Absolute Neuts (auto) 16.2 H, Absolute Lymphs (auto) 2.24, Total Counted Not Reportable 01/25/18 06:15: Sodium 140, Potassium 3.9, Chloride 100, Carbon Dioxide 33.0 H, Anion Gap 7, BUN 61 H, Creatinine 0.96, Estim Creat Clear Calc 76.20, Est GFR (MDRD) Af Amer 101, Est GFR (MDRD) Non-Af 84, BUN/Creatinine Ratio 63.3 H, Glucose 165 H, Calcium 8.7 Current Medications Acetaminophen (Tylenol) 650 mg PO Q4H PRN PRN PRN Reason: FEVER Last Admin: 01/23/18 18:41 Dose: 650 mg Al Hydroxide/Mg Hydroxide (Mylanta Ii) 30 ml PO Q6H PRN PRN PRN Reason: Gastric burning Albuterol Sulfate (Ventolin Aerosols) 2.5 mg INHALATION Q2H PRN PRN PRN Reason: SHORTNESS OF BREATH Last Admin: 01/24/18 19:23 Dose: 2.5 mg Amiodarone HCl (Cordarone) 200 mg PO DAILY [facility] Last Admin: 01/24/18 09:34 Dose: 200 mg Aspirin (Aspirin, Baby) 81 mg PO DAILY [facility] Last Admin: 01/24/18 09:30 Dose: 81 mg Atorvastatin Calcium (Lipitor) 40 mg PO HS [facility] Last Admin: 01/24/18 22:07 Dose: 40 mg Chlorhexidine Gluconate () 1 each TOPICAL DAILY [facility] Last Admin: 01/24/18 14:17 Dose: 1 each Citalopram Hydrobromide (Celexa) 40 mg PO DAILY [facility] Last Admin: 01/24/18 09:32 Dose: 40 mg Clopidogrel Bisulfate (Plavix) 75 mg PO DAILY [facility] Last Admin: 01/24/18 09:40 Dose: 75 mg Famotidine (Pepcid) 20 mg PO BID [facility] Last Admin: 01/24/18 22:08 Dose: 20 mg Furosemide (Lasix) 40 mg PO BID@1000,1800 [facility] Last Admin: 01/24/18 18:14 Dose: Not Given Gabapentin (Neurontin) 100 mg PO DAILYCM [facility] Last Admin: 01/25/18 07:57 Dose: 100 mg Heparin Sodium (Porcine) (Heparin Na) 5,000 unit SC Q8 [facility] Last Admin: 01/25/18 05:59 Dose: 5,000 unit Sodium Chloride () 250 mls @ 15 mls/hr IV .[id number] PRN PRN Reason: SALINE FLUSH Ipratropium Eagar (Atrovent) 0.5 mg INHALATION Q4H.RT [facility] Last Admin: 01/25/18 07:18 Dose: 0.5 mg Magnesium Hydroxide (Milk Of Magnesia) 30 ml PO DAILY PRN PRN PRN Reason: Constipation Metoprolol Tartrate (Lopressor (Beta Femi)) 50 mg PO BID [facility] Last Admin: 01/24/18 22:08 Dose: 50 mg Nutritional Formula (Lactose Free) (Ensure Enlive) 120 ml PO 4X/DAY [facility] Last Admin: 01/24/18 22:07 Dose: 120 ml Ondansetron HCl (Zofran) 4 mg IV Q8H PRN PRN PRN Reason: NAUSEA Prednisone () 40 mg PO DAILY@0800 [facility]; Taper Stop: 02/05/18 07:59 Last Admin: 01/25/18 07:58 Dose: 40 mg Promethazine HCl (Phenergan) 12.5 mg IV Q6H PRN PRN PRN Reason: NAUSEA/VOMITING Sodium Chloride () 5 - 30 ml IV UD PRN PRN Reason: SALINE FLUSH Last Admin: 01/25/18 05:59 Dose: 10 ml Medical Necessity - Tobacco Use Smoking Status: Current every day smoker Tobacco Use: Cigarettes Assessment/Plan All Active Problems (Last Reviewed 06/17/17 @ 09:09 by Antionette Lua) Severe sepsis (Acute) PNA (pneumonia) (Acute) COPD (chronic obstructive pulmonary disease) (Acute) BRENDA (acute kidney injury) (Acute) NSTEMI (non-ST elevated myocardial infarction) (Acute) Erectile dysfunction (Acute) Diabetes type 2, controlled (Acute) Testicular hypofunction (Acute) 67-year-old male with past medical history of hypertension, hyperlipidemia, obesity, chronic nicotine dependency, suspect underlying COPD admitted on 01/15/2018 with fever, chills, worsening weakness and found to have Legionella pneumonia. He was intubated on 01/17/18 and has been on mechanical ventilation since. Extubated this morning 01/23/18. 1. Acute hypoxic respiratory failure secondary to Legionella pneumonia/acute on chronic COPD exacerbation, s/p extubation, will encourage use of incentive spirometer, acapella, continue with aggressive pulmonary toileting. 2. Severe sepsis secondary to Legionella pneumonia, resolved. 3. Legionella pneumonia, ID following, completed antibiotics 4. Acute on chronic COPD exacerbation, improving, on prednisone po taper, continue with breathing treatments 5. Possible fluid overload, noted some days ago, improved with diuresis, remains euvolemic on po lasix bid, urine output is good, continue with Lasix 40 mg p.o. twice daily 6. Acute NSTEMI, type II secondary to demand ischemia, cardiology was consulted, on aspirin, statin, Plavix 7. Episode of Atrial flutter, converted, in NSR, on oral amiodarone, plan to continue for 1 month and discontinue in the outpatient 8. BRENDA secondary to severe sepsis/dehydration, resolved. 9. Type II DM, blood sugars fairly controlled, on Lantus as well as insulin sliding scale with Accu-Cheks 10. Acute hypovolemic hyponatremia, resolved 11. Hypokalemia, secondary to diuretic use, resolved 12. Chronic nicotine dependency, on nicotine patch 13. Hypertension, controlled, not on any medications, will continue to monitor. 13. Hyperlipidemia, on statin 14. Anxiety/depression, on citalopram 15. Obesity, BMI 31.5, would address weight loss and lifestyle changes when patient improves and prior to discharge 16. DVT prophylaxis -heparin subcu 17. GI prophylaxis -on famotidine Code Visit Inpatient E&M: 47457 Subs Hosp L2
[2018-01-25] MEDS: Metoprolol Tartrate 50 MG Tablet PO ×2 (10:04→21:42)
[2018-01-25] MEDS: Citalopram 40 MG TABLET PO (10:05)
[2018-01-25] MEDS: Aspirin 81 MG TAB.CHEW PO (10:05)
[2018-01-25] MEDS: Famotidine 20 MG Tablet PO ×2 (10:05→21:42)
[2018-01-25] MEDS: Clopidogrel Bisulfate 75 MG Tablet PO (10:05)
[2018-01-25] MEDS: Furosemide 40 MG Tablet PO (10:05)
[2018-01-25] MEDS: Amiodarone 200 MG Tablet PO (10:05)
--- NOTE | 2018-01-25 10:06 | PN_ITS ---
Subjective: Patient has done well over the last 24 hours. Patient's oxygenation status appears to be stabilizing. Patient has been on 4 L nasal cannula. Patient is still reporting some production with cough, but feels this is improving. Patient denies any chest pain at this time. Patient was able to walk only 10-15 feet yesterday with therapy. Patient is reporting polyuria without dysuria. General: Alert, Oriented x3, Cooperative, No apparent distress, - - Directive today. Speaking in full sentences. HEENT: Atraumatic, PERRLA, EOMI, Normocephalic, - - Scleral icterus or injection noted. Nasal cannula in place. Oral: Moist Mucosa, No Gingival or Mucosal Lesions/ Ulcerations Neck: Supple, No JVD, No Nodes, Trachea Midline Lungs: No wheeze, No rales, Diminished, Rhonchi - Scattered, but improved with coughing Cardiovascular: Regular rate, Regular Rhythm, Normal S1, Normal S2, No murmurs, No rub noted, No Gallop Abdomen: Bowel Sounds Present, Soft, Non Tender, Non-Distended Extremities: No clubbing, No cyanosis, No edema, Capillary Refill Less than 3 Seconds Skin: No rashes, No breakdown Musculoskeletal: No Tenderness to Palpation of Joints or Extremities Lymphatic: No Cervical, Supraclavicular, or Inguinal Adenopathy Neurological: Cranial nerves II-XII grossly intact, Neuro grossly intact, Motor Exam 5/5 strength throughout Psych/Mental Status: Alert and oriented to time, place, person, mood and affect Vital Signs Temp Pulse Resp BP Pulse Ox 36.2 C L 93 27 H 102/64 91 01/25/18 08:00 01/25/18 09:00 01/25/18 09:00 01/25/18 09:00 01/25/18 09:00 Oxygen Flow Rate (L/min) 4 Oxygen Delivery Method Nasal Cannula Weight: 87.3 kg Body Mass Index (BMI) 29.7 Intake and Output for Last 24 Hours 01/23/18 01/24/18 01/25/18 23:59 23:59 23:59 Intake Total 1679.6 / 1679.6 2019 720 / 720 Output Total 2450 / 2450 2450 / 2450 1125 / 1125 Balance -770.4 / -770.4 -430 / -430 -405 / -405 Labs (Last 48 Hours) 01/23/18 01/23/18 01/23/18 04:00 11:30 16:59 WBC RBC Hgb Hct MCV MCH MCHC RDW RDW Differential Plt Count MPV Immature Gran % (Auto) Neut % (Auto) Lymph % (Auto) Mayes % (Auto) Eos % (Auto) Baso % (Auto) Absolute Neuts (auto) Absolute Lymphs (auto) Total Counted Differential Comment Diff Path Review Reviewed Reactive Lymphocytes Platelet Estimate Sodium Potassium Chloride Carbon Dioxide Anion Gap BUN Creatinine Estim Creat Clear Calc Est GFR (MDRD) Af Amer Est GFR (MDRD) Non-Af BUN/Creatinine Ratio Glucose Calcium POC Glucose 161 H 169 H 01/23/18 01/24/18 01/24/18 21:43 04:30 04:30 WBC 21.2 H RBC 3.82 L Hgb 11.4 L Hct 34.7 L MCV 90.8 MCH 29.8 MCHC 32.9 RDW 14.1 RDW Differential 46.7 H Plt Count 391 MPV 10.1 Immature Gran % (Auto) 1.500 H Neut % (Auto) 79.8 H Lymph % (Auto) 11.7 L Mayes % (Auto) 6.6 Eos % (Auto) 0.3 Baso % (Auto) 0.1 Absolute Neuts (auto) 16.9 H Absolute Lymphs (auto) 2.49 Total Counted Not Reportable Differential Comment SCANNED Diff Path Review Reactive Lymphocytes 2+ Platelet Estimate SLT INC Sodium 140 Potassium 3.6 Chloride 98 Carbon Dioxide 34.0 H Anion Gap 8 BUN 49 H Creatinine 0.90 Estim Creat Clear Calc 81.28 Est GFR (MDRD) Af Amer 109 Est GFR (MDRD) Non-Af 90 BUN/Creatinine Ratio 54.2 H Glucose 100 Calcium 8.4 L POC Glucose 121 H 01/25/18 01/25/18 06:15 06:15 WBC 19.9 H RBC 2.70 L Hgb 8.3 L Hct 24.9 L MCV 92.2 MCH 30.7 MCHC 33.3 RDW 13.6 RDW Differential 44.1 H Plt Count 365 MPV 10.4 Immature Gran % (Auto) 1.100 H Neut % (Auto) 81.0 H Lymph % (Auto) 11.2 L [place]es % (Auto) 6.4 Eos % (Auto) 0.1 Baso % (Auto) 0.2 Absolute Neuts (auto) 16.2 H Absolute Lymphs (auto) 2.24 Total Counted Not Reportable Differential Comment Diff Path Review Reactive Lymphocytes Platelet Estimate Sodium 140 Potassium 3.9 Chloride 100 Carbon Dioxide 33.0 H Anion Gap 7 BUN 61 H Creatinine 0.96 Estim Creat Clear Calc 76.20 Est GFR (MDRD) Af Amer 101 Est GFR (MDRD) Non-Af 84 BUN/Creatinine Ratio 63.3 H Glucose 165 H Calcium 8.7 POC Glucose Microbiology 01/22/18 07:38 Sputum, Induced/Lukens Gram Stain - Final 01/22/18 07:38 Sputum, Induced/Lukens Respiratory Culture - Final Yeast, not Diamond albicans Medical Necessity - Tobacco Use Smoking Status: Current every day smoker Tobacco Use: Cigarettes Assessment/Plan All Active Problems (Last Reviewed 06/17/17 @ 09:09 by Antionette Lua) Severe sepsis (Acute) PNA (pneumonia) (Acute) COPD (chronic obstructive pulmonary disease) (Acute) BRENDA (acute kidney injury) (Acute) NSTEMI (non-ST elevated myocardial infarction) (Acute) Erectile dysfunction (Acute) Diabetes type 2, controlled (Acute) Testicular hypofunction (Acute) RECOMMENDATIONS: 1. Okay to leave the intensive care unit from my perspective 2. Wean FiO2/PEEP to maintain oxygen saturations above 90%. 3. Increase activity as tolerated 4. Will likely need to decrease diuresis in the next 24 hours 5. Continue scheduled bronchodilators and wean steroids over the next 12-14 days 6. Continue basal insulin. Continue Accu-Cheks and sliding scale insulin coverage. 7. Continue scheduled Atrovent and amiodarone. 8. Okay to discontinue BiPAP from my perspective IMPRESSIONS: 1. Acute hypoxic respiratory failure secondary to severe Legionella pneumonia leading to presumptive COPD exacerbation Patient was significant mobilization of secretions following initiation of vest therapy. Patient was able to significantly improve oxygenation. We will continue with aggressive pulmonary toileting. Patient is on bronchodilators. Okay to wean steroids over the next 12-14 days. Will use BiPAP rescue if ne cessary for oxygenation and with sleep. The patient will need to follow-up in the pulmonary medicine clinic so that a repeat CT chest can be completed in 6-8 weeks for further evaluation of the patient's left hilum. If there is concern for an underlying lung mass, will proceed with setting the patient up for bronchoscopy and specifically EBUS. However, at this time, he will be treated with antibiotics. 2. Severe sepsis secondary to Legionella pneumonia RESOLVED > the patient has been adequately volume resuscitated and is currently hemodynamically stable. We will plan to continue antibiotics per ID recommendations. 3. Atrial fibrillation/flutter RESOLVED > the patient was noted to be in atrial flutter with an elevated heart rate on January 17. He was placed on amiodarone and subsequently converted back to normal sinus rhythm. 4. History of tobacco dependence The patient does have an extensive smoking history and we are currently working under the assumption that he has obstructive lung disease. However, smoking cessation is strongly advisable. Nicotine replacement therapy can be offered while he is admitted to the hospital. The patient should ideally follow up in the pulmonary medicine clinic so that baseline PFTs can be obtained. 5. Troponin elevation/heart failure with preserved ejection fraction The patient's echocardiogram did reveal evidence of stage I diastolic dysfunction with preserved ejection fraction. Troponin elevation is likely s econdary to demand ischemia in the setting of #1/2. 6. Acute kidney injury RESOLVED > likely prerenal in etiology. Continue to monitor urine output. No current indication for renal replacement therapy. 7. Hypertension/hyperlipidemia/neuropathy Complicates care, management, recovery and prognosis. Okay to continue home medications from my perspective. Code Visit Inpatient E&M: [id number] [facility] L3
--- NOTE | 2018-01-25 11:06 | PCM.PN.ID ---
Patient Problems: Active and Suspected Problems (Last Reviewed 06/17/17 @ 09:09 by Antionette Lua) Severe sepsis (Acute) PNA (pneumonia) (Acute) COPD (chronic obstructive pulmonary disease) (Acute) BRENDA (acute kidney injury) (Acute) NSTEMI (non-ST elevated myocardial infarction) (Acute) Subjective: Feeling ok, breathing better, no fever, no n/v/d, producing sputum - Physical Exam General: Alert, Cooperative, No apparent distress Lungs: Clear to auscultation, Normal air movement Cardiovascular: Regular rate, Regular Rhythm Abdomen: Soft, Non Tender, Non-Distended Skin: No rashes Vital Signs Temp Pulse Resp BP Pulse Ox 97.6 F L 88 20 H 111/58 L 92 01/25/18 10:00 01/25/18 10:04 01/25/18 10:00 01/25/18 10:04 01/25/18 10:00 Oxygen Flow Rate (L/min) 4 Oxygen Delivery Method Nasal Cannula Weight: 87.3 kg Body Mass Index (BMI) 29.7 Intake and Output for Last 24 Hours 01/23/18 01/24/18 01/25/18 23:59 23:59 23:59 Intake Total 1679.6 / 1679.6 2019 / 2020 720 / 720 Output Total 2450 / 2450 2450 / 2450 1125 / 1125 Balance -770.4 / -770.4 -430 / -430 -405 / -405 Microbiology Past 72 Hours 01/22/18 07:38 Gram Stain - Final Sputum, Induced/Lukens Respiratory Culture - Final Yeast, not Diamond albicans 01/17/18 08:06 Blood Culture - Final Blood Culture (Wb) - Anticubital Left No growth in 5 days. 01/17/18 07:15 Blood Culture - Final Blood Culture (Wb) - Right Forearm No growth in 5 days. Laboratory Tests Past 24 Hrs 01/25/18 01/25/18 06:15 06:15 WBC 19.9 H RBC 2.70 L Hgb 8.3 L Hct 24.9 L MCV 92.2 MCH 30.7 MCHC 33.3 RDW 13.6 RDW Differential 44.1 H Plt Count 365 MPV 10.4 Immature Gran % (Auto) 1.100 H Neut % (Auto) 81.0 H Lymph % (Auto) 11.2 L [place] % (Auto) 6.4 Eos % (Auto) 0.1 Baso % (Auto) 0.2 Absolute Neuts (auto) 16.2 H Absolute Lymphs (auto) 2.24 Total Counted Not Reportable Sodium 140 Potassium 3.9 Chloride 100 Carbon Dioxide 33.0 H Anion Gap 7 BUN 61 H Creatinine 0.96 Estim Creat Clear Calc 76.20 Est GFR (MDRD) Af Amer 101 Est GFR (MDRD) Non-Af 84 BUN/Creatinine Ratio 63.3 H Glucose 165 H Calcium 8.7 Medical Necessity - Tobacco Use Smoking Status: Current every day smoker Tobacco Use: Cigarettes Route of nutrition/ use of supplements: [] Nutritional Intake: [] IV Site: [] Reyes Catheter: [] - Assessment/Plan Antibiotics: [] Assessment/Plan: [] Active and Suspected Problems (Last Reviewed 06/17/17 @ 09:09 by Antionette Lua) Severe sepsis (Acute) PNA (pneumonia) (Acute) COPD (chronic obstructive pulmonary disease) (Acute) BRENDA (acute kidney injury) (Acute) NSTEMI (non-ST elevated myocardial infarction) (Acute) severe sepsis due to legionella pneumonia - associated with falls, nausea, and hyponatremia. On levaquin, fever persisted, so zosyn added 01/17 to 01/23. Bronch done, cx neg except for some yeast suspect colonization. Fever now resolved, wbc remains elevated. Stable off vent. Got dose #10 of levaquin 01/24, now off of abx. Will follow as needed, please call with ?s
--- NOTE | 2018-01-25 11:52 | CASEMGMT ---
Pt was transferred down to PCU. SW updated SW on PCU and also let Danyelle at [facility] know to follow up w/Kiah. Danyelle called [facility], was not able to get through so faxed the clinical information to them to see if they would consider a one time contract. SW on PCU will continue to follow. SAL Wagner, FIREBOAT OPERATOR
--- NOTE | 2018-01-25 14:55 | CASEMGMT ---
KIMBERLY spoke with Danyelle at [facility] and she still has not heard from [facility]. KIMBERLY called Ami at [facility] and asked her to return KIMBERLY's phone call regarding patient. KIMBERLY then spoke with patient as we need to get a pre-cert request started so we have approval when he is ready to leave. He said he would go to [facility] or [facility], or [facility]. KIMBERLY told him KIMBERLY will let him know as soon as someone gets back with KIMBERLY. KIMBERLY called [facility] and faxed over referral. Await their response. Plan: SNF pending accepting facility and insurance approval Kiah GAMINO
--- NOTE | 2018-01-25 15:28 | CASEMGMT ---
KIMBERLY did get a return call from Ami at [facility] and they will look at his information from today if KIMBERLY sends it. They are afraid he is a readmit risk. KIMBERLY faxed today's OT note and today's progress notes. There were no PT notes since 01-23. Await responses from [facility], [facility], and [facility]. Kiah BLISS MSW
--- NOTE | 2018-01-25 15:47 | CASEMGMT ---
SW received a return call from Summer at [facility]. Patient's insurance requires he pays 40% of his SNF stay. She said they would want 30 days up front. She will come up with a figure and call KIMBERLY back. KIMBERLY will talk with patient tomorrow. Kiah GAMINO
[2018-01-25] MEDS: Atorvastatin Calcium 40 MG Tablet PO (21:42)
[2018-01-26] VITALS (28 sets, daily range): BP systolic 91–117; BP diastolic 43–65; PULSE 72–86; RESP 18–19; TEMP 36.4–37; O2SAT 87–95
[2018-01-26] MEDS: Heparin Injection (Vial) 5,000 UNIT/ML VIAL 5000 UNIT SC (05:50)
[2018-01-26 05:59] LABS: Absolute Lymphocyte Count 2.31 X10^3/ul (0.83-4.51); Absolute Neutrophil Count 15.5 X10^3/uL (2.0-7.7); Basophil# 0.02 X10^3/uL; Basophil% 0.1 % (0-1); Eosinophil# 0.02 X10^3/uL; Eosinophils% 0.1 % (0-5); Hematocrit 20.5 % (40-54); Hemoglobin 6.8 g/dl (13.0-16.5); Lymphocyte # 2.31 X10^3/ul (4.0); Lymphocyte % 11.7 % (19-41); Mean Corp Hgb Conc 33.2 g/gl (32-36); Mean Corpuscular Hgb 30.8 pg (27.0-32.0); Mean Corpuscular Volume 92.8 fL (80-94); Mean Platelet Vol. 10.3 fl (6.2-12.0); Monocyte# 1.72 X10^3/uL; Monocyte% 8.7 % (0-10); Neutrophil # 15.53 X10^3/uL (2.7-7.7); Neutrophil % 78.7 % (47-70); Platelet Count 329 K/mm3 (150-450); RBC Distribution Width CV 13.5 % (11.6-14.6); RBC Distribution Width SD 43.1 fl (35.1-43.9); Red Blood Count 2.21 M/mm3 (4.6-6.2); White Blood Count 19.7 K/mm3 (4.4-11.0)
[2018-01-26 06:04] LABS: Differential Indicated SCAN CRITERIA MET; POSITIVE COUNT NO; POSITIVE DIFFERENTIAL YES; POSITIVE MORPHOLOGY NO
[2018-01-26 06:19] LABS: Differential Comment SCANNED
[2018-01-26 06:23] LABS: Anion Gap 6 (5-15); BUN 44 mg/dL (7-18); BUN/Creat Ratio 46.6 RATIO (10-20); Calcium,Total 8.6 mg/dL (8.5-10.1); Chloride 102 mmol/L (98-107); Creatinine, Serum 0.94 mg/dL (0.70-1.30); EST Glomerular Filtration Rate 86 mL/min (>60); Est Glom Filt Rate - Afr Amer 103 mL/min (>60); Estimated Creatinine Clearance 77.82 ml/min; Glucose 131 mg/dL (74-106); Potassium 3.5 mmol/L (3.5-5.1); Sodium Level 141 mmol/L (136-145)
--- NOTE | 2018-01-26 06:54 | PN.CARD_ITS ---
Subjectve: Patient seen and evaluated. Appears to be stable from the cardiovascular standpoint. Looks pale. Objective: Vital Signs Temp Pulse Resp BP Pulse Ox 98.0 F 81 18 102/57 L 94 01/26/18 04:40 01/26/18 04:40 01/26/18 04:40 01/26/18 04:40 01/26/18 04:40 Oxygen Flow Rate (L/min) 6 Oxygen Delivery Method Nasal Cannula Weight: 191 lb 9.307 oz Body Mass Index (BMI) 29.7 Intake and Output for Last 24 Hours 01/24/18 01/25/18 01/26/18 23:59 23:59 23:59 Intake Total 2019 1440 / 1440 100 / 100 Output Total 2450 / 2450 2155 / 2155 300 / 300 Balance -430 / -430 -715 / -715 -200 / -200 General: Awake, Alert, Oriented x 3 HEENT: PERRL, EOMI, Sclera Non Icteric Neck: Supple, Good ROM, No Lymph Node Enlargement Lungs: Clear to auscultation Cardiovascular: Regular Rhythm, Normal S1, Normal S2, No Murmurs, No Rubs, No Gallops Vascular: No Carotid Bruits, Normal Femoral Pulses, Normal Radial Pulses, Normal Dorsalis Pedal Pulse, Normal Posterior Tibial Pulses Abdomen: Bowel Sounds Present, Soft, Non Tender, No HSM, No Organomegaly Extremities: No Cyanosis, No Clubbing, No edema Neurological: No Focal Motor or Sensory Deficit 01/26/18 05:46: WBC 19.7 H, RBC 2.21 L, Hgb 6.8 L, Hct 20.5 L, MCV 92.8, MCH 30.8, MCHC 33.2, RDW 13.5, RDW Differential 43.1, Plt Count 329, MPV 10.3, Immature Gran % (Auto) 0.700, Neut % (Auto) 78.7 H, Lymph % (Auto) 11.7 L, [place] % (Auto) 8.7, Eos % (Auto) 0.1, Baso % (Auto) 0.1, Absolute Neuts (auto) 15.5 H, Total Counted Not Reportable 01/26/18 05:46: Sodium 141, Potassium 3.5, Chloride 102, Carbon Dioxide 33.0 H, Anion Gap 6, BUN 44 H, Creatinine 0.94, Est GFR (MDRD) Af Amer 103, Est GFR (MDRD) Non-Af 86, BUN/Creatinine Ratio 46.6 H, Glucose 131 H, Calcium 8.6 Rhythm: EKG: ECHO: Stress Test: Cardiac Cath: PCI: CT Surgery: Holter monitor: EPS: PPM: CXR: Chest CT Scan: Medical Necessity - Tobacco Use Smoking Status: Current every day smoker Tobacco Use: Cigarettes Assessment/Plan 1. Abnormal cardiac enzymes Patient is noted to have abnormal cardiac enzymes which is likely secondary to demand ischemia. My recommendation is to continue observing him for now and treat the underlying cause. Depending on the final level of the cardiac enzymes as well as his echocardiographic evaluation further recommendations will be made. * Echocardiogram demonstrated preserved left ventricular systolic function. * Continue beta-salinas * Will discontinue Plavix. Patient looks pale. * Lipid-lowering At this time there are no plans to pursue any invasive cardiac studies. 2. Cardiac dysrhythmias Patient is noted to have multifocal atrial tachycardia which is likely secondary to his pulmonary disease. Once again treating the underlying cause would help elucidate and correct some of this. He is asymptomatic at this particular time anyway. Has not had any recent cardiac dysrhythmias. Plan on continuing beta-salinas and amiodarone, the latter for at least a month and then will discontinue as outpatient. Thank you for allowing me to participate in the care of your patient. Please don't hesitate to call if any issues arise We will sign off for now as it appears cardiovascular issues have largely resolved.
[2018-01-26] MEDS: Ipratropium 0.5 MG/2.5 ML SOLUTION INHALATION ×4 (07:25→23:08)
--- NOTE | 2018-01-26 08:34 | PN_ITS ---
Patient Problems: Active and Suspected Problems (Last Reviewed 06/17/17 @ 09:09 by Antionette Lua) Severe sepsis (Acute) PNA (pneumonia) (Acute) COPD (chronic obstructive pulmonary disease) (Acute) BRENDA (acute kidney injury) (Acute) NSTEMI (non-ST elevated myocardial infarction) (Acute) Subjective: Patient did well overnight. Patient reports subjective improvement in overall condition. Patient states he has been having bowel movements without difficulty and states that the stink badly, but he has not looked at them to see if they are black. Patient continues to report good response to vest therapy for mucociliary clearance. - Physical Exam General: Alert, Oriented x3, Cooperative, No apparent distress, - - Speaking in full sentences. HEENT: Atraumatic, PERRLA, EOMI, Normocephalic, - - No scleral icterus or injection noted. Nasal cannula in place. Oral: Moist Mucosa, No Gingival or Mucosal Lesions/ Ulcerations Neck: Supple, No JVD, No Nodes, Trachea Midline Lungs: No rhonchi - Examination immediately after vest, No wheeze, No rales, Diminished Cardiovascular: Regular rate, Regular Rhythm, Normal S1, Normal S2, No murmurs, No rub noted, No Gallop Abdomen: Bowel Sounds Present, Soft, Non Tender, Non-Distended Extremities: No clubbing, No cyanosis, Edema Skin: No rashes, No breakdown Musculoskeletal: No Tenderness to Palpation of Joints or Extremities Lymphatic: No Cervical, Supraclavicular, or Inguinal Adenopathy Neurological: Cranial nerves II-XII grossly intact, Neuro grossly intact, Motor Exam 5/5 strength throughout Psych/Mental Status: Alert and oriented to time, place, person, mood and affect Vital Signs Temp Pulse Resp BP Pulse Ox 36.7 C 86 18 102/57 L 91 01/26/18 04:40 01/26/18 07:25 01/26/18 07:25 01/26/18 04:40 01/26/18 07:25 Oxygen Flow Rate (L/min) 5 Oxygen Delivery Method Nasal Cannula Weight: 86.9 kg Body Mass Index (BMI) 29.7 Intake and Output for Last 24 Hours 01/24/18 01/25/18 01/26/18 23:59 23:59 23:59 Intake Total 2019 1440 / 1440 100 / 100 Output Total 2450 / 2450 2155 / 2155 300 / 300 Balance -430 / -430 -715 / -715 -200 / -200 Microbiology Past 72 Hours 01/22/18 07:38 Gram Stain - Final Sputum, Induced/Lukens Respiratory Culture - Final Yeast, not Diamond albicans Laboratory Tests Past 24 Hrs 01/26/18 01/26/18 01/26/18 05:46 05:46 07:20 WBC 19.7 H RBC 2.21 L Hgb 6.8 L Hct 20.5 L MCV 92.8 MCH 30.8 MCHC 33.2 RDW 13.5 RDW Differential 43.1 Plt Count 329 MPV 10.3 Immature Gran % (Auto) 0.700 Neut % (Auto) 78.7 H Lymph % (Auto) 11.7 L [place] % (Auto) 8.7 Eos % (Auto) 0.1 Baso % (Auto) 0.1 Absolute Neuts (auto) 15.5 H Absolute Lymphs (auto) 2.31 Total Counted Not Reportable Differential Comment SCANNED Sodium 141 Potassium 3.5 Chloride 102 Carbon Dioxide 33.0 H Anion Gap 6 BUN 44 H Creatinine 0.94 Estim Creat Clear Calc 77.82 Est GFR (MDRD) Af Amer 103 Est GFR (MDRD) Non-Af 86 BUN/Creatinine Ratio 46.6 H Glucose 131 H Calcium 8.6 Blood Type B POSITIVE Antibody Screen NEGATIVE Crossmatch See Detail Medical Necessity - Tobacco Use Smoking Status: Current every day smoker Tobacco Use: Cigarettes Assessment/Plan All Active Problems (Last Reviewed 06/17/17 @ 09:09 by Antionette Lua) Severe sepsis (Acute) PNA (pneumonia) (Acute) COPD (chronic obstructive pulmonary disease) (Acute) BRENDA (acute kidney injury) (Acute) NSTEMI (non-ST elevated myocardial infarction) (Acute) Erectile dysfunction (Acute) Diabetes type 2, controlled (Acute) Testicular hypofunction (Acute) RECOMMENDATIONS: 1. Wean oxygen as tolerated 2. Await fecal occult 3. Transfuse 1 unit of blood 4. Continue diuresis at current levels 5. Continue scheduled bronchodilators and wean steroids over the next 12-14 days 6. Continue basal insulin. Continue Accu-Cheks and sliding scale insulin coverage. 7. Continue scheduled Atrovent and amiodarone. IMPRESSIONS: 1. Acute hypoxic respiratory failure secondary to severe Legionella pneumonia leading to presumptive COPD exacerbation Patient was significant mobilization of secretions following initiation of vest therapy. Patient was able to significantly improve oxygenation. We will continue with aggressive pulmonary toileting. Patient is on bronchodilators. Likely okay to wean steroids tomorrow. BiPAP was discontinued secondary to continued stability of respiratory status. Could be evaluated as an outpatient with polysomnogram. The patient will need to follow-up in the pulmonary medicine clinic so that a repeat CT chest can be completed in 6-8 weeks for further evaluation of the patient's left hilum. If there is concern for an underlying lung mass, will proceed with setting the patient up for bronchoscopy and specifically EBUS. However, at this time, he will be treated with antibiotics. 2. Severe sepsis secondary to Legionella pneumonia RESOLVED > the patient has been adequately volume resuscitated and is currently hemodynamically stable. We will plan to continue antibiotics per ID recommendations. 3. Atrial fibrillation/flutter RESOLVED > the patient was noted to be in atrial flutter with an elevated heart rate on January 17. He was placed on amiodarone and subsequently converted back to normal sinus rhythm. 4. History of tobacco dependence The patient does have an extensive smoking history and we are currently working under the assumption that he has obstructive lung disease. However, smoking cessation is strongly advisable. Nicotine replacement therapy can be offered while he is admitted to the hospital. The patient should ideally follow up in the pulmonary medicine clinic so that baseline PFTs can be obtained. 5. Troponin elevation/heart failure with preserved ejection fraction The patient's echocardiogram did reveal evidence of stage I diastolic d ysfunction with preserved ejection fraction. Troponin elevation is likely secondary to demand ischemia in the setting of #1/2. 6. Acute kidney injury RESOLVED > likely prerenal in etiology. Continue to monitor urine output. No current indication for renal replacement therapy. 7. Hypertension/hyperlipidemia/neuropathy Complicates care, management, recovery and prognosis. Okay to continue home medications from my perspective. 8. Anemia Clear etiology. Patient has been on steroid therapy and may have an element of stress gastritis. Fecal occult blood has been ordered. Patient will be transfused 1 unit of packed red blood cells. No hemodynamic instability has been reported. Decreased H&H will complicate patient's respiratory management. Did call nursing to update on current concerns. Code Visit Inpatient E&M: [id number] [facility] Hosp L3
--- NOTE | 2018-01-26 09:30 | CASEMGMT ---
Social Work SW spoke with Ami at [facility] who states they are able to accept pt. Updated PT notes faxed to Ami who submitted request for preauth to insurance. SW met with pt and and explained that [facility] will accept and now waiting on insurance preauthorization. Pt is agreeable to this. Phone call to both [facility] and [facility] and informed to cancel referrals. SW will await return call from [facility] for preauth approval. Plan: [facility], pending [facility] Dee
[2018-01-26] MEDS: 0.9% NaCl Peripheral Flush Adult/Peds IV ×2 (10:07→21:58)
[2018-01-26] MEDS: Gabapentin 100 MG Capsule PO (10:11)
[2018-01-26] MEDS: Amiodarone 200 MG Tablet PO (10:11)
[2018-01-26] MEDS: Furosemide 20 MG Tablet PO (10:12)
[2018-01-26] MEDS: predniSONE 20 MG Tablet PO (10:12)
[2018-01-26] MEDS: Metoprolol Tartrate 50 MG Tablet PO ×2 (10:12→20:59)
--- NOTE | 2018-01-26 15:04 | CON.PCM_ITS ---
Reason for Consult Date of Consultation: 01/26/18 Reason for Consultation: GI bleed History of Present Illness: The patient is a 62 year old M with the recent drop in hemoglobin with resume GI bleeding although his stool for occult blood returned as negative. the patient's admitting hemoglobin on January 15, 2018 was 16.3 - however, thepatient was admitted with a septic picture and likely hemoconcentrated. hemoglobin on January 18 was 12 7. Hemoglobin slowly decreased during his hospitalization until March 26 with a hemoglobin of 11.4 on January 25, the hemoglobin dropped to 8.3 and January 26 to drop to 6.8. I was consult for presumed GI bleed. The patient was admitted on January 15 with a diagnosis of acute hypoxic respiratory failure secondary to legionella pneumonia with an exacerbation of his underlying COPD. . The patient was intubated and maintained on a ve ntilator until January 23. patient was diagnosed with a demand ischemic non-ST segment elevation myocardial infarctionand acute kidney injury secondary to sepsis during this hospitalization. He has a history of atrial fibrillation flutter. Past Medical History Past Medical History (Chronic Problems): Chronic Problems (Last Reviewed 06/17/17 @ 09:09 by Antionette Lua) HLD (hyperlipidemia) (Chronic) Hypertension (Chronic) Medical History: Medical History (Last Reviewed 06/17/17 @ 09:09 by Antionette Lua) Hypertension (Chronic) I10 Erectile dysfunction (Acute) N52.9 Diabetes type 2, controlled (Acute) E11.9 Testicular hypofunction (Acute) E29.1 Allergies No Known Allergies Allergy (Verified 01/15/18 09:30) Home Medications: Ambulatory Orders Medication Instructions Recorded atorvastatin 40 mg tablet 40 mg PO QDAY 06/05/17 citalopram 40 mg tablet 40 mg PO QDAY tab 06/05/17 coenzyme Q10 100 mg capsule 100 mg PO QDAY 06/05/17 metoprolol tartrate 100 mg tablet 150 mg PO BID 06/05/17 omega-3 fatty acids 1,000 mg 1,000 mg PO QDAY 06/05/17 capsule Gabapentin [Neurontin] 100 mg PO DAILY 01/15/18 Surgical History: - - hernia Psychiatric History: No pertinent psych hx Lives: Spouse/ Significant Other Smoking Status: Current every day smoker Tobacco Use: Cigarettes Alcohol: Occasional Drugs: None - *Family History Maternal Family History: Family History (Last Reviewed 06/17/17 @ 09:09 by Antionette Lua) Sister Hypertension Brother Hypertension History Items: No pertinent history Paternal Family History: Family History (Last Reviewed 06/17/17 @ 09:09 by Antionette Lua) Sister Hypertension Brother Hypertension History Items: No pertinent history Patient Problems: Active and Suspected Problems (Last Reviewed 06/17/17 @ 09:09 by Antionette Lua) Severe sepsis (Acute) PNA (pneumonia) (Acute) COPD (chronic obstructive pulmonary disease) (Acute) BRENDA (acute kidney injury) (Acute) NSTEMI (non-ST elevated myocardial infarction) (Acute) - Physical Exam General: Alert, Oriented x3, Cooperative Lungs: Diminished, - - coarse breath sounds Cardiovascular: Regular rate, Regular Rhythm Abdomen: Bowel Sounds Present, Soft, Non Tender Vital Signs Temp Pulse Resp BP Pulse Ox 97.7 F L 86 18 106/62 93 01/26/18 12:43 01/26/18 12:43 01/26/18 12:43 01/26/18 12:43 01/26/18 12:43 Oxygen Flow Rate (L/min) 6 Oxygen Delivery Method Nasal Cannula Weight: 86.9 kg Body Mass Index (BMI) 29.7 Intake and Output for Last 24 Hours 01/24/18 01/25/18 01/26/18 23:59 23:59 23:59 Intake Total 2019 / 2019 1440 / 1440 760 / 760 Output Total 2450 / 2450 2155 / 2155 650 / 650 Balance -430 / -430 -715 / -715 110 / 110 Microbiology Past 72 Hours 01/26/18 10:45 Stool Occult Blood (RAY) - Final Stool 01/22/18 07:38 Gram Stain - Final Sputum, Induced/Lukens Respiratory Culture - Final Yeast, not Diamond albicans Laboratory Tests Past 24 Hrs 01/26/18 01/26/18 01/26/18 05:46 05:46 07:20 WBC 19.7 H RBC 2.21 L Hgb 6.8 L Hct 20.5 L MCV 92.8 MCH 30.8 MCHC 33.2 RDW 13.5 RDW Differential 43.1 Plt Count 329 MPV 10.3 Immature Gran % (Auto) 0.700 Neut % (Auto) 78.7 H Lymph % (Auto) 11.7 L [place] % (Auto) 8.7 Eos % (Auto) 0.1 Baso % (Auto) 0.1 Absolute Neuts (auto) 15.5 H Absolute Lymphs (auto) 2.31 Total Counted Not Reportable Differential Comment SCANNED Sodium 141 Potassium 3.5 Chloride 102 Carbon Dioxide 33.0 H Anion Gap 6 BUN 44 H Creatinine 0.94 Estim Creat Clear Calc 77.82 Est GFR (MDRD) Af Amer 103 Est GFR (MDRD) Non-Af 86 BUN/Creatinine Ratio 46.6 H Glucose 131 H Calcium 8.6 Blood Type B POSITIVE Antibody Screen NEGATIVE Crossmatch See Detail Assessment/Plan All Active Problems (Last Reviewed 06/17/17 @ 09:09 by Antionette Lua) Severe sepsis (Acute) PNA (pneumonia) (Acute) COPD (chronic obstructive pulmonary disease) (Acute) BRENDA (acute kidney injury) (Acute) NSTEMI (non-ST elevated myocardial infarction) (Acute) Erectile dysfunction (Acute) Diabetes type 2, controlled (Acute) Testicular hypofunction (Acute) significant drop in hemoglobin, anemia, questionable GI bleed versus anemia of acute disease versus hemolysis we'll follow the patient clinically with serial exams and hemoglobin and hematocrit. the patient received 1 unit of packed red cell also had a reasonable improvement in his hemoglobin. If his hemoglobin drops precipitously or there is more obvious signs of GI bleeding would consider urgent upper endoscopy. Otherwise, given his respiratory and cardiac issues would plan for careful bowel prep Monday and plan for upper and lower endoscopy with anesthesia support for monitored anesthetic care sedation on Monday. The patient understands the risks, benefits, complications and possible alternatives to endoscopy. The patient consents to this procedure.
--- NOTE | 2018-01-26 15:55 | PCM.PN.ID ---
Patient Problems: Active and Suspected Problems (Last Reviewed 06/17/17 @ 09:09 by Antionette Lua) Severe sepsis (Acute) PNA (pneumonia) (Acute) COPD (chronic obstructive pulmonary disease) (Acute) BRENDA (acute kidney injury) (Acute) NSTEMI (non-ST elevated myocardial infarction) (Acute) Subjective: Feeling ok, breathing better, no n/v/d, no fever - Physical Exam General: Alert, Cooperative, No apparent distress Lungs: Clear to auscultation, Normal air movement Cardiovascular: Regular rate, Regular Rhythm Abdomen: Soft, Non Tender, Non-Distended Skin: No rashes Vital Signs Temp Pulse Resp BP Pulse Ox 98.0 F 83 18 95/59 L 92 01/26/18 15:31 01/26/18 15:31 01/26/18 15:31 01/26/18 15:31 01/26/18 15:31 Oxygen Flow Rate (L/min) 6 Oxygen Delivery Method Nasal Cannula Weight: 86.9 kg Body Mass Index (BMI) 29.7 Intake and Output for Last 24 Hours 01/24/18 01/25/18 01/26/18 23:59 23:59 23:59 Intake Total 2019 1440 / 1440 1160 / 1160 Output Total 2450 / 2450 2155 / 2155 650 / 650 Balance -430 / -430 -715 / -715 510 / 510 Microbiology Past 72 Hours 01/26/18 10:45 Stool Occult Blood (RAY) - Final Stool 01/22/18 07:38 Gram Stain - Final Sputum, Induced/Lukens Respiratory Culture - Final Yeast, not Diamond albicans Laboratory Tests Past 24 Hrs 01/26/18 01/26/18 01/26/18 05:46 05:46 07:20 WBC 19.7 H RBC 2.21 L Hgb 6.8 L Hct 20.5 L MCV 92.8 MCH 30.8 MCHC 33.2 RDW 13.5 RDW Differential 43.1 Plt Count 329 MPV 10.3 Immature Gran % (Auto) 0.700 Neut % (Auto) 78.7 H Lymph % (Auto) 11.7 L [place] % (Auto) 8.7 Eos % (Auto) 0.1 Baso % (Auto) 0.1 Absolute Neuts (auto) 15.5 H Absolute Lymphs (auto) 2.31 Total Counted Not Reportable Differential Comment SCANNED Sodium 141 Potassium 3.5 Chloride 102 Carbon Dioxide 33.0 H Anion Gap 6 BUN 44 H Creatinine 0.94 Estim Creat Clear Calc 77.82 Est GFR (MDRD) Af Amer 103 Est GFR (MDRD) Non-Af 86 BUN/Creatinine Ratio 46.6 H Glucose 131 H Calcium 8.6 Blood Type B POSITIVE Antibody Screen NEGATIVE Crossmatch See Detail Medical Necessity - Tobacco Use Smoking Status: Current every day smoker Tobacco Use: Cigarettes Route of nutrition/ use of supplements: [] Nutritional Intake: [] IV Site: [] Reyes Catheter: [] - Assessment/Plan Antibiotics: [] Assessment/Plan: [] Active and Suspected Problems (Last Reviewed 06/17/17 @ 09:09 by Antionette Lua) Severe sepsis (Acute) PNA (pneumonia) (Acute) COPD (chronic obstructive pulmonary disease) (Acute) BRENDA (acute kidney injury) (Acute) NSTEMI (non-ST elevated myocardial infarction) (Acute) severe sepsis due to legionella pneumonia - associated with falls, nausea, and hyponatremia. Was on levaquin, fever persisted, so zosyn added 01/17 to 01/23. Bronch done, cx neg except for some yeast suspect colonization. Fever now resolved, wbc remains elevated. Stable off vent. Got dose #10 of levaquin 01/24, stable off of abx. Will follow as needed, please call with ?s
[2018-01-26 17:00] LABS: Hematocrit 23.4 % (40-54); Hemoglobin 7.8 g/dl (13.0-16.5)
--- NOTE | 2018-01-26 17:57 | PCM.PN.HOSP ---
Patient Problems: Active and Suspected Problems (Last Reviewed 06/17/17 @ 09:09 by Antionette Lua) Severe sepsis (Acute) PNA (pneumonia) (Acute) COPD (chronic obstructive pulmonary disease) (Acute) BRENDA (acute kidney injury) (Acute) NSTEMI (non-ST elevated myocardial infarction) (Acute) Subjective: Patient was seen and examined. Denies any new complaints. His hemoglobin has dropped to less than 7. Will be transfused. General surgery be consulted for possible colonoscopy. Objective: Physical exam: General: Alert, Oriented x3, Cooperative, No apparent distress, - - on 5L oxygen, conversational dyspnea HEENT: Atraumatic, PERRLA, EOMI, Normocephalic Oral: Molist Mucosa Neck: Supple, No JVD, Negative Carotid Bruits Lungs: Normal air movement, Diminished - especially in left middle and lower lung zones with rales Cardiovascular: Regular rate, Regular Rhythm, Normal S1, Normal S2, No murmurs Abdomen: Bowel Sounds Present, Soft, Non Tender, Non-Distended, No Hepato-splenomegaly Extremities: No edema Skin: No rashes, No breakdown Musculoskeletal: No Tenderness to Palpation of Joints or Extremities Lymphatic: No Cervical, Supraclavicular, or Inguinal Adenopathy Neurological: Cranial nerves II-XII grossly intact, Neuro grossly intact Psych/Mental Status: Normal Affect, Appropriate Vitals/I&O's: Vital Signs Temp Pulse Resp BP Pulse Ox 98.0 F 83 18 95/59 L 92 01/26/18 15:31 01/26/18 15:31 01/26/18 15:31 01/26/18 15:31 01/26/18 15:31 Oxygen Flow Rate (L/min) 6 Oxygen Delivery Method Nasal Cannula Weight: 86.9 kg Body Mass Index (BMI) 29.7 Intake and Output for Last 24 Hours 01/24/18 01/25/18 01/26/18 23:59 23:59 23:59 Intake Total 2019 1440 / 1440 1160 / 1160 Output Total 2450 / 2450 2155 / 2155 650 / 650 Balance -430 / -430 -715 / -715 510 / 510 Microbiology Past 72 Hours 01/26/18 10:45 Stool Stool Occult Blood (RAY) - Final 01/22/18 07:38 Sputum, Induced/Lukens Gram Stain - Final 01/22/18 07:38 Sputum, Induced/Lukens Respiratory Culture - Final Yeast, not Diamond albicans Laboratory Results 01/26/18 05:46: WBC 19.7 H, RBC 2.21 L, Hgb 6.8 L, Hct 20.5 L, MCV 92.8, MCH 30.8, MCHC 33.2, RDW 13.5, RDW Differential 43.1, Plt Count 329, MPV 10.3, Immature Gran % (Auto) 0.700, Neut % (Auto) 78.7 H, Lymph % (Auto) 11.7 L, [place] % (Auto) 8.7, Eos % (Auto) 0.1, Baso % (Auto) 0.1, Absolute Neuts (auto) 15.5 H, Absolute Lymphs (auto) 2.31, Total Counted Not Reportable, Differential Comment SCANNED 01/26/18 05:46: Sodium 141, Potassium 3.5, Chloride 102, Carbon Dioxide 33.0 H, Anion Gap 6, BUN 44 H, Creatinine 0.94, Estim Creat Clear Calc 77.82, Est GFR (MDRD) Af Amer 103, Est GFR (MDRD) Non-Af 86, BUN/Creatinine Ratio 46.6 H, Glucose 131 H, Calcium 8.6 01/26/18 07:20: Blood Type B POSITIVE, Antibody Screen NEGATIVE, Crossmatch See Detail 01/26/18 16:45: Hgb 7.8 L, Hct 23.4 L Current Medications Acetaminophen (Tylenol) 650 mg PO Q4H PRN PRN PRN Reason: FEVER Last Admin: 01/23/18 18:41 Dose: 650 mg Al Hydroxide/Mg Hydroxide (Mylanta Ii) 30 ml PO Q6H PRN PRN PRN Reason: Gastric burning Albuterol Sulfate (Ventolin Aerosols) 2.5 mg INHALATION Q2H PRN PRN PRN Reason: SHORTNESS OF BREATH Last Admin: 01/24/18 19:23 Dose: 2.5 mg Amiodarone HCl (Cordarone) 200 mg PO DAILY MARGARET Last Admin: 01/26/18 10:11 Dose: 200 mg Atorvastatin Calcium (Lipitor) 40 mg PO HS MARGARET Last Admin: 01/25/18 21:42 Dose: 40 mg Furosemide (Lasix) 20 mg PO BID@1000,1800 MARGARET Last Admin: 01/26/18 10:12 Dose: 20 mg Gabapentin (Neurontin) 100 mg PO DAILYCM [facility] Last Admin: 01/26/18 10:11 Dose: 100 mg Sodium Chloride () 250 mls @ 15 mls/hr IV .[id number] PRN PRN Reason: SALINE FLUSH Pantoprazole Sodium 40 mg/ (Sodium Chloride) 110 mls @ 330 mls/hr IV Q12 [facility] Last Admin: 01/26/18 10:04 Dose: 330 mls/hr Ipratropium Ona (Atrovent) 0.5 mg INHALATION Q4H.RT [facility] Last Admin: 01/26/18 14:15 Dose: Not Given Magnesium Hydroxide (Milk Of Magnesia) 30 ml PO DAILY PRN PRN PRN Reason: Constipation Metoprolol Tartrate (Lopressor (Beta Femi)) 50 mg PO BID [facility] Last Admin: 01/26/18 10:12 Dose: 50 mg Nutritional Formula (Lactose Free) (Ensure Enlive) 120 ml PO 4X/DAY [facility] Last Admin: 01/26/18 15:03 Dose: 120 ml Ondansetron HCl (Zofran) 4 mg IV Q8H PRN PRN PRN Reason: NAUSEA Prednisone () 40 mg PO DAILY@0800 [facility]; Taper Stop: 02/05/18 07:59 Last Admin: 01/26/18 10:12 Dose: 40 mg Promethazine HCl (Phenergan) 12.5 mg IV Q6H PRN PRN PRN Reason: NAUSEA/VOMITING Sodium Chloride () 5 - 30 ml IV UD PRN PRN Reason: SALINE FLUSH Last Admin: 01/26/18 10:07 Dose: 10 ml Medical Necessity - Tobacco Use Smoking Status: Current every day smoker Tobacco Use: Cigarettes Assessment/Plan All Active Problems (Last Reviewed 06/17/17 @ 09:09 by Antionette Lua) Severe sepsis (Acute) PNA (pneumonia) (Acute) COPD (chronic obstructive pulmonary disease) (Acute) BRENDA (acute kidney injury) (Acute) NSTEMI (non-ST elevated myocardial infarction) (Acute) Erectile dysfunction (Acute) Diabetes type 2, controlled (Acute) Testicular hypofunction (Acute) 67-year-old male with past medical history of hypertension, hyperlipidemia, obesity, chronic nicotine dependency, suspect underlying COPD admitted on 01/15/2018 with fever, chills, worsening weakness and found to have Legionella pneumonia. He was intubated on 01/17/18 and has been on mechanical ventilation since. Extubated on . 1. Acute on chronic anemia second to GI bleed, hemoglobin is 6.8 from 8.3, will transfuse 1 unit packed RBCs, will reevaluate, may need to transfuse under 1 unit of blood to keep hemoglobin more than 8 because of recent NSTEMI. 2. Possible GI bleed, general surgery consulted, will start patient on PPI, will follow up on recommendations 3. Acute hypoxic respiratory failure secondary to Legionella pneumonia/acute on chronic COPD exacerbation, s/p extubation, will encourage use of incentive spirometer, acapella, continue with aggressive pulmonary toileting. 4. Severe sepsis secondary to Legionella pneumonia, resolved. 5. Legionella pneumonia, ID consulted, completed antibiotics 6. Acute on chronic COPD exacerbation, improving, on prednisone po taper, continue with breathing treatments 7. Possible fluid overload, noted some days ago, improved with diuresis, remains euvolemic on po lasix bid, urine output is good, continue with Lasix 40 mg p.o. twice daily 8. Acute NSTEMI, type II secondary to demand ischemia, cardiology was consulted, on aspirin, statin, Plavix 9. Episode of Atrial flutter, converted, in NSR, on oral amiodarone, plan to continue for 1 month and discontinue in the outpatient 10. BRENDA secondary to severe sepsis/dehydration, resolved. 11. Type II DM, blood sugars fairly controlled, on Lantus as well as insulin sliding scale with Accu-Cheks 12. DVT prophylaxis -SCDs Code Visit Inpatient E&M: 22829 Subs Hosp L2
[2018-01-26 19:59] LABS: Hematocrit 23.2 % (40-54); Hemoglobin 7.9 g/dl (13.0-16.5)
[2018-01-26] MEDS: Atorvastatin Calcium 40 MG Tablet PO (20:59)
[2018-01-27] VITALS (20 sets, daily range): BP systolic 100–116; BP diastolic 54–67; PULSE 67–84; RESP 16–20; TEMP 36.6–37.1; O2SAT 86–96
[2018-01-27] MEDS: Ipratropium 0.5 MG/2.5 ML SOLUTION INHALATION ×6 (03:13→22:47)
[2018-01-27 07:04] LABS: Absolute Lymphocyte Count 1.94 X10^3/ul (0.83-4.51); Absolute Neutrophil Count 14.6 X10^3/uL (2.0-7.7); Basophil# 0.02 X10^3/uL; Basophil% 0.1 % (0-1); Eosinophil# 0.02 X10^3/uL; Eosinophils% 0.1 % (0-5); Hematocrit 26.6 % (40-54); Lymphocyte # 1.94 X10^3/ul (4.0); Lymphocyte % 11.1 % (19-41); Mean Corp Hgb Conc 33.8 g/gl (32-36); Mean Corpuscular Volume 88.7 fL (80-94); Monocyte% 5.1 % (0-10); Neutrophil # 14.55 X10^3/uL (2.7-7.7); POSITIVE COUNT NO; POSITIVE DIFFERENTIAL NO; POSITIVE MORPHOLOGY NO; Platelet Count 298 K/mm3 (150-450); RBC Distribution Width CV 14.9 % (11.6-14.6); RBC Distribution Width SD 47.4 fl (35.1-43.9); White Blood Count 17.5 K/mm3 (4.4-11.0)
--- NOTE | 2018-01-27 07:09 | PCM.PROGNOTE ---
Patient Problems: Active and Suspected Problems (Last Reviewed 06/17/17 @ 09:09 by Antionette Lua) Severe sepsis (Acute) PNA (pneumonia) (Acute) COPD (chronic obstructive pulmonary disease) (Acute) BRENDA (acute kidney injury) (Acute) NSTEMI (non-ST elevated myocardial infarction) (Acute) Subjective: Patient did well overnight. No acute issues were reported. Patient subjectively improved compared to previous. Oxygenation continues to improve, along with productive cough. No chest pain is reported. Patient actively working with therapy. - Physical Exam General: Alert, Oriented x3, Cooperative, No apparent distress, - - No scleral icterus or injection noted. HEENT: Atraumatic, PERRLA, EOMI, Normocephalic, - - No scleral icterus or injection noted. Oral: Moist Mucosa, No Gingival or Mucosal Lesions/ Ulcerations Neck: Supple, No JVD, No Nodes, Trachea Midline Lungs: No rhonchi, No wheeze, No rales, Diminished, - - Symmetric expansion. No dullness to percussion. Cardiovascular: Regular rate, Regular Rhythm, Normal S1, Normal S2, No murmurs, No rub noted, No Gallop Abdomen: Bowel Sounds Present, Soft, Non Tender, Non-Distended Extremities: No clubbing, No cyanosis, No edema Skin: No rashes, No breakdown Musculoskeletal: No Tenderness to Palpation of Joints or Extremities Lymphatic: No Cervical, Supraclavicular, or Inguinal Adenopathy Neurological: Cranial nerves II-XII grossly intact, Neuro grossly intact, Motor Exam 5/5 strength throughout Psych/Mental Status: Alert and oriented to time, place, person, mood and affect Vital Signs Temp Pulse Resp BP Pulse Ox 36.6 C 71 18 113/66 93 01/27/18 05:52 01/27/18 05:52 01/27/18 05:52 01/27/18 05:52 01/27/18 05:52 Oxygen Flow Rate (L/min) 2 Oxygen Delivery Method Nasal Cannula Weight: 87.2 kg Body Mass Index (BMI) 29.7 Intake and Output for Last 24 Hours 01/25/18 01/26/18 01/27/18 23:59 23:59 23:59 Intake Total 1440 / 1440 2436 / 2436 100 / 100 Output Total 2155 / 2155 1650 / 1650 450 / 450 Balance -715 / -715 786 / 786 -350 / -350 Microbiology Past 72 Hours 01/26/18 10:45 Stool Occult Blood (RAY) - Final Stool 01/22/18 07:38 Gram Stain - Final Sputum, Induced/Lukens Respiratory Culture - Final Yeast, not Diamond albicans Laboratory Tests Past 24 Hrs 01/26/18 01/26/18 01/26/18 07:20 07:20 16:45 WBC RBC Hgb 7.8 L Hct 23.4 L MCV MCH MCHC RDW RDW Differential Plt Count MPV Immature Gran % (Auto) Neut % (Auto) Lymph % (Auto) [place] % (Auto) Eos % (Auto) Baso % (Auto) Absolute Neuts (auto) Absolute Lymphs (auto) Total Counted Sodium Potassium Chloride Carbon Dioxide Anion Gap BUN Creatinine Est GFR (MDRD) Af Amer Est GFR (MDRD) Non-Af BUN/Creatinine Ratio Glucose Calcium Phosphorus Magnesium Blood Type B POSITIVE Antibody Screen NEGATIVE Crossmatch See Detail See Detail 01/26/18 01/27/18 01/27/18 19:22 06:50 06:50 WBC 17.5 H RBC 3.00 L Hgb 7.9 L 9.0 L Hct 23.2 L 26.6 L MCV 88.7 MCH 30.0 MCHC 33.8 RDW 14.9 H RDW Differential 47.4 H Plt Count 298 MPV 10.0 Immature Gran % (Auto) 0.600 Neut % (Auto) 83.0 H Lymph % (Auto) 11.1 L [place] % (Auto) 5.1 Eos % (Auto) 0.1 Baso % (Auto) 0.1 Absolute Neuts (auto) 14.6 H Absolute Lymphs (auto) 1.94 Total Counted Not Reportable Sodium Pending Potassium Pending Chloride Pending Carbon Dioxide Pending Anion Gap Pending BUN Pending Creatinine Pending Est GFR (MDRD) Af Amer Pending Est GFR (MDRD) Non-Af Pending BUN/Creatinine Ratio Pending Glucose Pending Calcium Pending Phosphorus Pending Magnesium Pending Blood Type Antibody Screen Crossmatch Medical Necessity - Tobacco Use Smoking Status: Current every day smoker Tobacco Use: Cigarettes Assessment/Plan All Active Problems (Last Reviewed 06/17/17 @ 09:09 by Antionette Lua) Severe sepsis (Acute) PNA (pneumonia) (Acute) COPD (chronic obstructive pulmonary disease) (Acute) BRENDA (acute kidney injury) (Acute) NSTEMI (non-ST elevated myocardial infarction) (Acute) Erectile dysfunction (Acute) Diabetes type 2, controlled (Acute) Testicular hypofunction (Acute) RECOMMENDATIONS: 1. Wean oxygen as tolerated 2. Walking oximetry prior to discharge 3. Continue diuresis at current levels 4. Continue scheduled bronchodilators and wean steroids over the next 12-14 days 5. Stable for discharge to an ECF/SNF/rehab from a pulmonary perspective on supplemental oxygen if indicated IMPRESSIONS: 1. Acute hypoxic respiratory failure secondary to severe Legionella pneumonia leading to presumptive COPD exacerbation Patient's respiratory status continues to improve. Secretions are improving. Doubt vest therapy would be required as an outpatient. Continue to wean oxygen as tolerated. Patient will need a walking oximetry prior to discharge. Cannot exclude the need for supplemental oxygen if discharged today, but anticipate recovery back to room air with time. Patient should follow-up in our office 2 weeks after discharge from an ECF. From a pulmonary perspective, patient can be discharged. The patient will need to follow-up in the pulmonary medicine clinic so that a repeat CT chest can be completed in 6-8 weeks for further evaluation of the patient's left hilum. If there is concern for an underlying lung mass, will proceed with setting the patient up for bronchoscopy and specifically EBUS. However, at this time, he will be treated with antibiotics. 2. Severe sepsis secondary to Legionella pneumonia RESOLVED > the patient has been adequately volume resuscitated and is currently hemodynamically stable. We will plan to continue antibiotics per ID recommendations. 3. Atrial fibrillation/flutter RESOLVED > the patient was noted to be in atrial flutter with an elevated heart rate on January 17. He was placed on amiodarone and subsequently converted back to normal sinus rhythm. 4. History of tobacco dependence The patient does have an extensive smoking history and we are currently working under the assumption that he has obstructive lung disease. However, smoking cessation is strongly advisable. Nicotine replacement therapy can be offered while he is admitted to the hospital. The patient should ideally follow up in the pulmonary medicine clinic so that baseline PFTs can be obtained. 5. Troponin elevation/heart failure with preserved ejection fraction The patient's echocardiogram did reveal evidence of stage I diastolic dysfunction with preserved ejection fraction. Troponin elevation is likely secondary to demand ischemia in the setting of #1/2. 6. Acute kidney injury RESOLVED > likely prerenal in etiology. Continue to monitor urine output. No current indication for renal replacement therapy. 7. Hypertension/hyperlipidemia/neuropathy Complicates care, management, recovery and prognosis. Okay to continue home medications from my perspective. 8. Anemia Patient responded appropriately to packed red blood cells yesterday. Patient has not had any melena reported by nursing. Continue to monitor on a daily basis. Code Visit Inpatient E&M: 50257 Subs Hosp L2
--- NOTE | 2018-01-27 08:01 | PN.SURG_ITS ---
Patient Problems: Active and Suspected Problems (Last Reviewed 06/17/17 @ 09:09 by Antionette Lua) Severe sepsis (Acute) PNA (pneumonia) (Acute) COPD (chronic obstructive pulmonary disease) (Acute) BRENDA (acute kidney injury) (Acute) NSTEMI (non-ST elevated myocardial infarction) (Acute) Objective: complaints of melena or blood per rectum - Physical Exam General: Alert, Oriented x3, Cooperative Lungs: - - patient obtaining chest percussion difficult to examine Abdomen: Bowel Sounds Present, Soft, Non Tender Vital Signs Temp Pulse Resp BP Pulse Ox 97.9 F 69 16 113/66 92 01/27/18 05:52 01/27/18 07:26 01/27/18 07:14 01/27/18 05:52 01/27/18 07:14 Oxygen Flow Rate (L/min) 2 Oxygen Delivery Method Nasal Cannula Weight: 87.2 kg Body Mass Index (BMI) 29.7 Intake and Output for Last 24 Hours 01/25/18 01/26/18 01/27/18 23:59 23:59 23:59 Intake Total 1440 / 1440 2436 / 2436 100 / 100 Output Total 2155 / 2155 1650 / 1650 450 / 450 Balance -715 / -715 786 / 786 -350 / -350 Microbiology Past 72 Hours 01/26/18 10:45 Stool Occult Blood (RAY) - Final Stool 01/22/18 07:38 Gram Stain - Final Sputum, Induced/[place]ukens Respiratory Culture - Final Yeast, not Diamond albicans Laboratory Tests Past 24 Hrs 01/26/18 01/26/18 01/26/18 07:20 07:20 16:45 WBC RBC Hgb 7.8 L Hct 23.4 L MCV MCH MCHC RDW RDW Differential Plt Count MPV Immature Gran % (Auto) Neut % (Auto) Lymph % (Auto) [place] % (Auto) Eos % (Auto) Baso % (Auto) Absolute Neuts (auto) Absolute Lymphs (auto) Total Counted Sodium Potassium Chloride Carbon Dioxide Anion Gap BUN Creatinine Est GFR (MDRD) Af Amer Est GFR (MDRD) Non-Af BUN/Creatinine Ratio Glucose Calcium Phosphorus Magnesium Blood Type B POSITIVE Antibody Screen NEGATIVE Crossmatch See Detail See Detail 01/26/18 01/27/18 01/27/18 19:22 06:50 06:50 WBC 17.5 H RBC 3.00 L Hgb 7.9 L 9.0 L Hct 23.2 L 26.6 L MCV 88.7 MCH 30.0 MCHC 33.8 RDW 14.9 H RDW Differential 47.4 H Plt Count 298 MPV 10.0 Immature Gran % (Auto) 0.600 Neut % (Auto) 83.0 H Lymph % (Auto) 11.1 L [place] % (Auto) 5.1 Eos % (Auto) 0.1 Baso % (Auto) 0.1 Absolute Neuts (auto) 14.6 H Absolute Lymphs (auto) 1.94 Total Counted Not Reportable Sodium Pending Potassium Pending Chloride Pending Carbon Dioxide Pending Anion Gap Pending BUN Pending Creatinine Pending Est GFR (MDRD) Af Amer Pending Est GFR (MDRD) Non-Af Pending BUN/Creatinine Ratio Pending Glucose Pending Calcium Pending Phosphorus Pending Magnesium Pending Blood Type Antibody Screen Crossmatch Medical Necessity - Tobacco Use Smoking Status: Current every day smoker Tobacco Use: Cigarettes Assessment/Plan All Active Problems (Last Reviewed 06/17/17 @ 09:09 by Antionette Lua) Severe sepsis (Acute) PNA (pneumonia) (Acute) COPD (chronic obstructive pulmonary disease) (Acute) BRENDA (acute kidney injury) (Acute) NSTEMI (non-ST elevated myocardial infarction) (Acute) Erectile dysfunction (Acute) Diabetes type 2, controlled (Acute) Testicular hypofunction (Acute) significant drop in hemoglobin, anemia, questionable GI bleed versus anemia of acute disease versus hemolysis we'll follow the patient clinically with serial exams and hemoglobin and hematocrit. the patient received 1 unit of packed red cell also had a reasona ble improvement in his hemoglobin. If his hemoglobin drops precipitously or there is more obvious signs of GI bleeding would consider urgent upper endoscopy. Otherwise, given his respiratory and cardiac issues would plan for careful bowel prep Monday and plan for upper and lower endoscopy with anesthesia support for monitored anesthetic care sedation on Monday. The patient understands the risks, benefits, complications and possible alternatives to endoscopy. The patient consents to this procedure.
[2018-01-27 08:33] LABS: Anion Gap 6 (5-15); BUN 30 mg/dL (7-18); BUN/Creat Ratio 35.3 RATIO (10-20); Calcium,Total 8.3 mg/dL (8.5-10.1); Chloride 104 mmol/L (98-107); Creatinine, Serum 0.85 mg/dL (0.70-1.30); EST Glomerular Filtration Rate 96 mL/min (>60); Est Glom Filt Rate - Afr Amer 117 mL/min (>60); Estimated Creatinine Clearance 86.06 ml/min; Glucose 175 mg/dL (74-106); Magnesium 1.8 mg/dL (1.6-2.6); Phosphorus 3.2 mg/dL (2.5-4.9); Potassium 3.8 mmol/L (3.5-5.1); Sodium Level 141 mmol/L (136-145)
[2018-01-27] MEDS: Amiodarone 200 MG Tablet PO (09:49)
[2018-01-27] MEDS: Furosemide 20 MG Tablet PO ×2 (09:49→17:06)
[2018-01-27] MEDS: 0.9% NaCl Peripheral Flush Adult/Peds IV ×2 (09:49→22:25)
[2018-01-27] MEDS: Gabapentin 100 MG Capsule PO (09:50)
[2018-01-27] MEDS: predniSONE 20 MG Tablet PO (09:50)
[2018-01-27] MEDS: Metoprolol Tartrate 50 MG Tablet PO ×2 (09:50→21:51)
--- NOTE | 2018-01-27 11:45 | CPS ---
with ambulation with in first 5 minutes. Two liters of O2 via nasal cannula increased SpO2 to 90% with ambulation.
--- NOTE | 2018-01-27 12:29 | PCM.PN.HOSP ---
Patient Problems: Active and Suspected Problems (Last Reviewed 06/17/17 @ 09:09 by Antionette Lua) Severe sepsis (Acute) PNA (pneumonia) (Acute) COPD (chronic obstructive pulmonary disease) (Acute) BRENDA (acute kidney injury) (Acute) NSTEMI (non-ST elevated myocardial infarction) (Acute) Subjective: Patient complaint of melena per rectum. She did not had 2 units of PRBC transfusion. Hemoglobin improved from 6.8-9 g%. No dizziness/chest pain or shortness of breath. Prolonged hospital stay. Admitted on 01/15/2018 Vitals/I&O's: Vital Signs Temp Pulse Resp BP Pulse Ox 98.6 F 84 16 116/67 86 01/27/18 09:46 01/27/18 11:34 01/27/18 11:34 01/27/18 09:46 01/27/18 11:52 Oxygen Flow Rate (L/min) [ 2 AMBULATION with Oxygen] Oxygen Flow Rate (L/min) 2 Oxygen Delivery Method Room Air Weight: 192 lb 3.889 oz Body Mass Index (BMI) 29.7 Intake and Output for Last 24 Hours 01/25/18 01/26/18 01/27/18 23:59 23:59 23:59 Intake Total 1440 / 1440 2436 / 2436 948 / 948 Output Total 2155 / 2155 1650 / 1650 450 / 450 Balance -715 / -715 786 / 786 498 / 498 General: Alert, Oriented x3, Cooperative HEENT: Atraumatic, PERRLA, EOMI, Normocephalic Neck: Supple, No JVD, Negative Carotid Bruits Lungs: Clear to auscultation, No rhonchi, No wheeze, No rales, Diminished Cardiovascular: Regular rate, Regular Rhythm, Normal S1, Normal S2, No murmurs Abdomen: Bowel Sounds Present, Soft, Non Tender, Non-Distended Extremities: No edema, Capillary Refill Less than 3 Seconds Skin: No rashes, No breakdown Musculoskeletal: No Tenderness to Palpation of Joints or Extremities Neurological: Cranial nerves II-XII grossly intact Psych/Mental Status: Normal Affect, Appropriate Microbiology Past 72 Hours 01/26/18 10:45 Stool Stool Occult Blood (RAY) - Final Laboratory Results 01/26/18 07:20: Blood Type B POSITIVE, Antibody Screen NEGATIVE, Crossmatch See Detail 01/26/18 07:20: Crossmatch See Detail 01/26/18 16:45: Hgb 7.8 L, Hct 23.4 L 01/26/18 19:22: Hgb 7.9 L, Hct 23.2 L 01/27/18 06:50: Sodium 141, Potassium 3.8, Chloride 104, Carbon Dioxide 31.0, Anion Gap 6, BUN 30 H, Creatinine 0.85, Estim Creat Clear Calc 86.06, Est GFR (MDRD) Af Amer 117, Est GFR (MDRD) Non-Af 96, BUN/Creatinine Ratio 35.3 H, Glucose 175 H, Calcium 8.3 L, Phosphorus 3.2, Magnesium 1.8 01/27/18 06:50: WBC 17.5 H, RBC 3.00 L, Hgb 9.0 L, Hct 26.6 L, MCV 88.7, MCH 30.0, MCHC 33.8, RDW 14.9 H, RDW Differential 47.4 H, Plt Count 298, MPV 10.0, Immature Gran % (Auto) 0.600, Neut % (Auto) 83.0 H, Lymph % (Auto) 11.1 L, [place] % (Auto) 5.1, Eos % (Auto) 0.1, Baso % (Auto) 0.1, Absolute Neuts (auto) 14.6 H, Absolute Lymphs (auto) 1.94, Total Counted Not Reportable Current Medications Acetaminophen (Tylenol) 650 mg PO Q4H PRN PRN PRN Reason: FEVER Last Admin: 01/23/18 18:41 Dose: 650 mg Al Hydroxide/Mg Hydroxide (Mylanta Ii) 30 ml PO Q6H PRN PRN PRN Reason: Gastric burning Albuterol Sulfate (Ventolin Aerosols) 2.5 mg INHALATION Q2H PRN PRN PRN Reason: SHORTNESS OF BREATH Last Admin: 01/24/18 19:23 Dose: 2.5 mg Amiodarone HCl (Cordarone) 200 mg PO DAILY MARGARET Last Admin: 01/27/18 09:49 Dose: 200 mg Atorvastatin Calcium (Lipitor) 40 mg PO HS MARGARET Last Admin: 01/26/18 20:59 Dose: 40 mg Furosemide (Lasix) 20 mg PO BID@1000,1800 MARGARET Last Admin: 01/27/18 09:49 Dose: 20 mg Gabapentin (Neurontin) 100 mg PO DAILYCM [facility] Last Admin: 01/27/18 09:50 Dose: 100 mg Sodium Chloride () 250 mls @ 15 mls/hr IV .[id number] PRN PRN Reason: SALINE FLUSH Pantoprazole Sodium 40 mg/ (Sodium Chloride) 110 mls @ 330 mls/hr IV Q12 [facility] Last Admin: 01/27/18 09:50 Dose: 330 mls/hr Ipratropium [place] (Atrovent) 0.5 mg INHALATION Q4H.RT [facility] Last Admin: 01/27/18 11:33 Dose: 0.5 mg Magnesium Hydroxide (Milk Of Magnesia) 30 ml PO DAILY PRN PRN PRN Reason: Constipation Metoprolol Tartrate (Lopressor (Beta Femi)) 50 mg PO BID [facility] Last Admin: 01/27/18 09:50 Dose: 50 mg Nutritional Formula (Lactose Free) (Ensure Enlive) 120 ml PO 4X/DAY [facility] Last Admin: 01/27/18 09:49 Dose: 120 ml Ondansetron HCl (Zofran) 4 mg IV Q8H PRN PRN PRN Reason: NAUSEA Prednisone () 30 mg PO DAILY@0800 [facility]; Taper Stop: 02/05/18 07:59 Last Admin: 01/27/18 09:50 Dose: 30 mg Promethazine HCl (Phenergan) 12.5 mg IV Q6H PRN PRN PRN Reason: NAUSEA/VOMITING Sodium Chloride () 5 - 30 ml IV UD PRN PRN Reason: SALINE FLUSH Last Admin: 01/27/18 09:49 Dose: 10 ml Medical Necessity - Tobacco Use Smoking Status: Current every day smoker Tobacco Use: Cigarettes Assessment/Plan All Active Problems (Last Reviewed 06/17/17 @ 09:09 by Antionette Lua) Severe sepsis (Acute) PNA (pneumonia) (Acute) COPD (chronic obstructive pulmonary disease) (Acute) BRENDA (acute kidney injury) (Acute) NSTEMI (non-ST elevated myocardial infarction) (Acute) Erectile dysfunction (Acute) Diabetes type 2, controlled (Acute) Testicular hypofunction (Acute) 67-year-old male with past medical history of hypertension, hyperlipidemia, obesity, chronic nicotine dependency, suspect underlying COPD admitted on 01/15/2018 with fever, chills, worsening weakness and found to have Legionella pneumonia. He was intubated on 01/17/18 and has been on mechanical ventilation since. Extubated on . 1. Acute on chronic anemia second to GI bleed, hemoglobin is 6.8 to 9 g%. Had 2 units of PRBC transfusion. 2. Possible GI bleed: Patient had significant anemia that improved after PRBC transfusion. Dr. Singh consult reviewed and appreciated. Plan is upper and lower endoscopy with anesthesia support on Monday. Bowel prep to start on Monday 3. Acute hypoxic respiratory failure secondary to Legionella pneumonia/presumptive COPD exacerbation, s/p extubation : Encourage use of incentive spirometer, acapella, continue with aggressive pulmonary toileting. COPD exacerbation has much improved. 4. Severe sepsis secondary to Legionella pneumonia, resolved. 5. Legionella pneumonia, ID consulted, completed antibiotics 6. Presumptive COPD exacerbation, improving, on prednisone po taper, continue with breathing treatments. Patient had a smoking history of since teenage about 45-50 pack years of smoking. No baseline PFT. 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 Presumed obstructive lung disease 7. Possible fluid overload, noted some days ago, improved with diuresis, remains euvolemic on po lasix bid, urine output is good, continue with Lasix 40 mg p.o. twice daily 8. Acute NSTEMI, type II secondary to demand ischemia, cardiology was consulted, on aspirin, statin, Plavix 9. Episode of Atrial flutter, converted, in NSR, on oral amiodarone, plan to continue for 1 month and discontinue in the outpatient 10. BRENDA secondary to severe sepsis/dehydration, resolved. 11. Type II DM, blood sugars fairly controlled, on Lantus as well as insulin sliding scale with Accu-Cheks 12. DVT prophylaxis -SCDs Microbiology Past 72 Hours 01/26/18 10:45 Stool Occult Blood (RAY) - Final Stool Microbiology Past 72 Hours 01/26/18 10:45 Stool Stool Occult Blood (RAY) - Final Laboratory Results 1 01/26/18 16:45: Hgb 7.8 L, Hct 23.4 L 01/26/18 19:22: Hgb 7.9 L, Hct 23.2 L 01/27/18 06:50: Sodium 141, Potassium 3.8, Chloride 104, Carbon Dioxide 31.0, Anion Gap 6, BUN 30 H, Creatinine 0.85, Estim Creat Clear Calc 86.06, Est GFR (MDRD) Af Amer 117, Est GFR (MDRD) Non-Af 96, BUN/Creatinine Ratio 35.3 H, Glucose 175 H, Calcium 8.3 L, Phosphorus 3.2, Magnesium 1.8 01/27/18 06:50: WBC 17.5 H, RBC 3.00 L, Hgb 9.0 L, Hct 26.6 L, MCV 88.7, MCH 30.0, MCHC 33.8, RDW 14.9 H, RDW Differential 47.4 H, Plt Count 298, MPV 10.0, Immature Gran % (Auto) 0.600, Neut % (Auto) 83.0 H, Lymph % (Auto) 11.1 L, [place] % (Auto) 5.1, Eos % (Auto) 0.1, Baso % (Auto) 0.1, Absolute Neuts (auto) 14.6 H, Absolute Lymphs (auto) 1.94, Total Counted Not Reportable Clinical Impression(s) from Imaging Studies Chest CT 01/15/18 12:44 IMPRESSION: There is a large amount of consolidation in the left upper lobe and lingula which is centrally dense with an air bronchograms. Although this may represent an infiltrate. An underlying left hilar mass with surrounding consolidated lung should be excluded. Recommend consideration for bronchoscopy. Small left effusion lower lobe atelectasis. Cardiomegaly cardiac artery disease Reactive and/or metastatic lymphadenopathy. Hyperinflated appearance of the right lung overall pattern of underlying chronic obstructive pulmonary disease. Inhomogeneous appearance of the liver which may represent fatty infiltration of the liver with sparing however further evaluation is recommended with an ultrasound or contrasted study of the abdomen and pelvis when possible. Chest CT 01/22/18 10:31 IMPRESSION: Infiltrates in the left upper lobe and left lower lobe with volume loss. Small left pleural effusion. There has been improvement as compared to prior study. Code Visit Inpatient E&M: 39986 Subs Hosp L3
[2018-01-27] MEDS: Atorvastatin Calcium 40 MG Tablet PO (21:51)
[2018-01-28] VITALS (18 sets, daily range): BP systolic 98–129; BP diastolic 57–80; PULSE 64–86; RESP 18–20; TEMP 36.5–37.1; O2SAT 91–96; BMI 28.1
[2018-01-28] MEDS: 0.9% NaCl Peripheral Flush Adult/Peds IV ×2 (02:41→02:42)
[2018-01-28] MEDS: Ipratropium 0.5 MG/2.5 ML SOLUTION INHALATION ×6 (03:20→22:41)
[2018-01-28 06:51] LABS: Absolute Lymphocyte Count 2.19 X10^3/ul (0.83-4.51); Absolute Neutrophil Count 13.5 X10^3/uL (2.0-7.7); Basophil# 0.01 X10^3/uL; Basophil% 0.1 % (0-1); Eosinophil# 0.11 X10^3/uL; Eosinophils% 0.6 % (0-5); Hematocrit 27.9 % (40-54); Hemoglobin 9.3 g/dl (13.0-16.5); Lymphocyte # 2.19 X10^3/ul (4.0); Lymphocyte % 12.8 % (19-41); Mean Corp Hgb Conc 33.3 g/gl (32-36); Mean Corpuscular Hgb 30.2 pg (27.0-32.0); Mean Corpuscular Volume 90.6 fL (80-94); Monocyte# 1.27 X10^3/uL; Monocyte% 7.4 % (0-10); Neutrophil # 13.47 X10^3/uL (2.7-7.7); Neutrophil % 78.7 % (47-70); Platelet Count 336 K/mm3 (150-450); RBC Distribution Width CV 14.8 % (11.6-14.6); RBC Distribution Width SD 47.8 fl (35.1-43.9); Red Blood Count 3.08 M/mm3 (4.6-6.2); White Blood Count 17.1 K/mm3 (4.4-11.0)
[2018-01-28 06:58] LABS: POSITIVE COUNT NO; POSITIVE DIFFERENTIAL NO; POSITIVE MORPHOLOGY NO
[2018-01-28 07:18] LABS: Anion Gap 7 (5-15); BUN 24 mg/dL (7-18); BUN/Creat Ratio 29.6 RATIO (10-20); Calcium,Total 8.1 mg/dL (8.5-10.1); Chloride 104 mmol/L (98-107); Creatinine, Serum 0.81 mg/dL (0.70-1.30); EST Glomerular Filtration Rate 102 mL/min (>60); Est Glom Filt Rate - Afr Amer 123 mL/min (>60); Estimated Creatinine Clearance 90.31 ml/min; Glucose 100 mg/dL (74-106); Potassium 3.4 mmol/L (3.5-5.1); Sodium Level 141 mmol/L (136-145)
[2018-01-28] MEDS: predniSONE 20 MG Tablet PO (07:34)
[2018-01-28] MEDS: Gabapentin 100 MG Capsule PO (07:34)
--- NOTE | 2018-01-28 07:43 | PCM.PROGNOTE ---
Patient Problems: Active and Suspected Problems (Last Reviewed 06/17/17 @ 09:09 by Antionette Lua) Severe sepsis (Acute) PNA (pneumonia) (Acute) COPD (chronic obstructive pulmonary disease) (Acute) BRENDA (acute kidney injury) (Acute) NSTEMI (non-ST elevated myocardial infarction) (Acute) Subjective: Patient doing okay at this time. Patient is reporting more sore throat compared to previous. No change in respiratory status has been appreciated. Patient did have melena yesterday and was seen by surgery. Plan per notes is for an EGD and colonoscopy tomorrow with anesthesia support. Patient is agreeable to this plan. - Physical Exam General: Alert, Oriented x3, Cooperative, No apparent distress, - - No conversational dyspnea. Does appear older than stated age HEENT: Atraumatic, PERRLA, EOMI, Normocephalic, - - No scleral icterus or injection noted. Glasses in place. Oral: Moist Mucosa, No Gingival or Mucosal Lesions/ Ulcerations Neck: Supple, No JVD, No Nodes, Trachea Midline Lungs: No rhonchi, No wheeze, No rales, Diminished, - - Symmetric expansion. No dullness to percussion. Cardiovascular: Regular rate, Regular Rhythm, Normal S1, Normal S2, No murmurs, No rub noted, No Gallop Abdomen: Bowel Sounds Present, Soft, Non Tender, Non-Distended Extremities: No clubbing, No cyanosis, No edema, Capillary Refill Less than 3 Seconds Skin: No rashes, No breakdown Musculoskeletal: No Tenderness to Palpation of Joints or Extremities Lymphatic: No Cervical, Supraclavicular, or Inguinal Adenopathy Neurological: Cranial nerves II-XII grossly intact, Neuro grossly intact, Motor Exam 5/5 strength throughout Psych/Mental Status: Alert and oriented to time, place, person, mood and affect Vital Signs Temp Pulse Resp BP Pulse Ox 36.8 C 70 18 129/80 H 91 01/28/18 02:49 01/28/18 07:23 01/28/18 07:23 01/28/18 02:49 01/28/18 07:23 Oxygen Flow Rate (L/min) [ 2 AMBULATION with Oxygen] Oxygen Flow Rate (L/min) 2 Oxygen Delivery Method Nasal Cannula Weight: 84 kg Body Mass Index (BMI) 29.7 Intake and Output for Last 24 Hours 01/26/18 01/27/18 01/28/18 23:59 23:59 23:59 Intake Total 2436 / 2436 1556 / 1556 Output Total 1650 / 1650 1825 / 1825 250 / 250 Balance 786 / 786 -269 / -269 -250 / -250 Microbiology Past 72 Hours 01/26/18 10:45 Stool Occult Blood (RAY) - Final Stool Laboratory Tests Past 24 Hrs 01/27/18 01/28/18 01/28/18 06:50 06:21 06:21 WBC 17.1 H RBC 3.08 L Hgb 9.3 L Hct 27.9 L MCV 90.6 MCH 30.2 MCHC 33.3 RDW 14.8 H RDW Differential 47.8 H Plt Count 336 MPV 10.0 Immature Gran % (Auto) 0.400 Neut % (Auto) 78.7 H Lymph % (Auto) 12.8 L [place] % (Auto) 7.4 Eos % (Auto) 0.6 Baso % (Auto) 0.1 Absolute Neuts (auto) 13.5 H Absolute Lymphs (auto) 2.19 Total Counted Not Reportable Sodium 141 141 Potassium 3.8 3.4 L Chloride 104 104 Carbon Dioxide 31.0 30.0 Anion Gap 6 7 BUN 30 H 24 H Creatinine 0.85 0.81 Estim Creat Clear Calc 86.06 90.31 Est GFR (MDRD) Af Amer 117 123 Est GFR (MDRD) Non-Af 96 102 BUN/Creatinine Ratio 35.3 H 29.6 H Glucose 175 H 100 Calcium 8.3 L 8.1 L Phosphorus 3.2 Magnesium 1.8 Medical Necessity - Tobacco Use Smoking Status: Current every day smoker Tobacco Use: Cigarettes Assessment/Plan All Active Problems (Last Reviewed 06/17/17 @ 09:09 by Antionette Lua) Severe sepsis (Acute) PNA (pneumonia) (Acute) COPD (chronic obstructive pulmonary disease) (Acute) BRENDA (acute kidney injury) (Acute) NSTEMI (non-ST elevated myocardial infarction) (Acute) Erectile dysfunction (Acute) Diabetes type 2, controlled (Acute) Testicular hypofunction (Acute) RECOMMENDATIONS: 1. Wean oxygen as tolerated 2. Walking oximetry prior to discharge 3. Continue diuresis at current levels 4. Continue scheduled bronchodilators and wean steroids over the next 8-10 days 5. Await results of endoscopy 6. Okay to discontinue vest therapy from my perspective IMPRESSIONS: 1. Acute hypoxic respiratory failure secondary to severe Legionella pneumonia leading to presumptive COPD exacerbation Patient's respiratory status continues to improve. Secretions are improving. Doubt vest therapy would be required as an outpatient. Continue to wean oxygen as tolerated. Patient will need a walking oximetry prior to discharge. Cannot exclude the need for supplemental oxygen if discharged today, but anticipate recovery back to room air with time. Patient should follow-up in our office 2 weeks after discharge from an ECF. From a pulmonary perspective, patient can be discharged. The patient will need to follow-up in the pulmonary medicine clinic so that a repeat CT chest can be completed in 6-8 weeks for further evaluation of the patient's left hilum. If there is concern for an underlying lung mass, will proceed with setting the patient up for bronchoscopy and specifically EBUS. However, at this time, he will be treated with antibiotics. 2. Severe sepsis secondary to Legionella pneumonia RESOLVED > the patient has been adequately volume resuscitated and is currently hemodynamically stable. We will plan to continue antibiotics per ID recommendations. 3. Atrial fibrillation/flutter RESOLVED > the patient was noted to be in atrial flutter with an elevated heart rate on January 17. He was placed on amiodarone and subsequently converted back to normal sinus rhythm. 4. History of tobacco dependence The patient does have an extensive smoking history and we are currently working under the assumption that he has obstructive lung disease. However, smoking cessation is strongly advisable. Nicotine replacement therapy can be offered while he is admitted to the hospital. The patient should ideally follow up in the pulmonary medicine clinic so that baseline PFTs can be obtained. 5. Troponin elevation/heart failure with preserved ejection fraction The patient's echocardiogram did reveal evidence of stage I diastolic dysfunction with preserved ejection fraction. Troponin elevation is likely secondary to demand ischemia in the setting of #1/2. 6. Acute kidney injury RESOLVED > likely prerenal in etiology. Continue to monitor urine output. No current indication for renal replacement therapy. 7. Hypertension/hyperlipidemia/neuropathy Complicates care, management, recovery and prognosis. Okay to continue home medications from my perspective. 8. Anemia Patient responded appropriately to packed red blood cells yesterday. Melena has been noted. Patient to have an EGD and colonoscopy tomorrow with anesthesia support. Code Visit Inpatient E&M: 71415 Subs Hosp L2
[2018-01-28] MEDS: Metoprolol Tartrate 50 MG Tablet PO ×2 (09:17→23:10)
[2018-01-28] MEDS: Furosemide 20 MG Tablet PO ×2 (09:17→17:02)
[2018-01-28] MEDS: Amiodarone 200 MG Tablet PO (09:17)
--- NOTE | 2018-01-28 09:57 | PCM.PN.SRG ---
Patient Problems: Active and Suspected Problems (Last Reviewed 06/17/17 @ 09:09 by Antionette Lua) Severe sepsis (Acute) PNA (pneumonia) (Acute) COPD (chronic obstructive pulmonary disease) (Acute) BRENDA (acute kidney injury) (Acute) NSTEMI (non-ST elevated myocardial infarction) (Acute) - Physical Exam General: Alert, Oriented x3, Cooperative Lungs: Clear to auscultation, Normal air movement Cardiovascular: Regular rate, No murmurs Abdomen: Bowel Sounds Present, Soft, Non Tender Vital Signs Temp Pulse Resp BP Pulse Ox 98.8 F 79 18 102/64 94 01/28/18 08:49 01/28/18 09:17 01/28/18 08:49 01/28/18 08:49 01/28/18 08:49 Oxygen Flow Rate (L/min) [ 2 AMBULATION with Oxygen] Oxygen Flow Rate (L/min) 2 Oxygen Delivery Method Nasal Cannula Weight: 84 kg Body Mass Index (BMI) 29.7 Intake and Output for Last 24 Hours 01/26/18 01/27/18 01/28/18 23:59 23:59 23:59 Intake Total 2436 / 2436 1556 / 1556 Output Total 1650 / 1650 1825 / 1825 250 / 250 Balance 786 / 786 -269 / -269 -250 / -250 Microbiology Past 72 Hours 01/26/18 10:45 Stool Occult Blood (RAY) - Final Stool Laboratory Tests Past 24 Hrs 01/28/18 01/28/18 06:21 06:21 WBC 17.1 H RBC 3.08 L Hgb 9.3 L Hct 27.9 L MCV 90.6 MCH 30.2 MCHC 33.3 RDW 14.8 H RDW Differential 47.8 H Plt Count 336 MPV 10.0 Immature Gran % (Auto) 0.400 Neut % (Auto) 78.7 H Lymph % (Auto) 12.8 L [place] % (Auto) 7.4 Eos % (Auto) 0.6 Baso % (Auto) 0.1 Absolute Neuts (auto) 13.5 H Absolute Lymphs (auto) 2.19 Total Counted Not Reportable Sodium 141 Potassium 3.4 L Chloride 104 Carbon Dioxide 30.0 Anion Gap 7 BUN 24 H Creatinine 0.81 Estim Creat Clear Calc 90.31 Est GFR (MDRD) Af Amer 123 Est GFR (MDRD) Non-Af 102 BUN/Creatinine Ratio 29.6 H Glucose 100 Calcium 8.1 L Medical Necessity - Tobacco Use Smoking Status: Current every day smoker Tobacco Use: Cigarettes Assessment/Plan All Active Problems (Last Reviewed 06/17/17 @ 09:09 by Antionette Lua) Severe sepsis (Acute) PNA (pneumonia) (Acute) COPD (chronic obstructive pulmonary disease) (Acute) BRENDA (acute kidney injury) (Acute) NSTEMI (non-ST elevated myocardial infarction) (Acute) Erectile dysfunction (Acute) Diabetes type 2, controlled (Acute) Testicular hypofunction (Acute) significant drop in hemoglobin, anemia, questionable GI bleed versus anemia of acute disease versus hemolysis we'll follow the patient clinically with serial exams and hemoglobin and hematocrit. the patient received 1 unit of packed red cell also had a reasonable improvement in his hemoglobin. his hemoglobin has remained stable. Given his respiratory and cardiac issues would plan for careful bowel prep Monday and plan for upper and lower endoscopy with anesthesia support for monitored anesthetic care sedation on Monday. The patient understands the risks, benefits, complications and possible alternatives to endoscopy. The patient consents to this procedure.
--- NOTE | 2018-01-28 11:51 | PN_ITS ---
Patient Problems: Active and Suspected Problems (Last Reviewed 06/17/17 @ 09:09 by Antionette Lua) Severe sepsis (Acute) PNA (pneumonia) (Acute) COPD (chronic obstructive pulmonary disease) (Acute) BRENDA (acute kidney injury) (Acute) NSTEMI (non-ST elevated myocardial infarction) (Acute) Subjective: Patient said he had a black tarry stool on 01/26. Had large bowel movement in the morning today. No obvious blood seen. Patient had 2 units of PRBC transfusion. Currently, heart rate is controlled in 70s-80s. Blood pressure is stable. No fever. Sitting upright in the chair. Vitals/I&O's: Vital Signs Temp Pulse Resp BP Pulse Ox 98.8 F 86 18 102/64 94 01/28/18 08:49 01/28/18 11:19 01/28/18 11:19 01/28/18 08:49 01/28/18 08:49 Oxygen Flow Rate (L/min) [ 2 AMBULATION with Oxygen] Oxygen Flow Rate (L/min) 2 Oxygen Delivery Method Nasal Cannula Weight: 185 lb 3.013 oz Body Mass Index (BMI) 29.7 Intake and Output for Last 24 Hours 01/26/18 01/27/18 01/28/18 23:59 23:59 23:59 Intake Total 2436 / 2436 1556 / 1556 Output Total 1650 / 1650 1825 / 1825 250 / 250 Balance 786 / 786 -269 / -269 -250 / -250 General: Alert, Oriented x3, Cooperative HEENT: Atraumatic, PERRLA, EOMI, Normocephalic Neck: Supple, No JVD, Negative Carotid Bruits Lungs: No rhonchi, No wheeze, No rales, Diminished Cardiovascular: Regular rate, Regular Rhythm, Normal S1, Normal S2, No murmurs Abdomen: Bowel Sounds Present, Soft, Non Tender, Non-Distended Extremities: Capillary Refill Less than 3 Seconds, Edema Skin: No rashes, No breakdown Musculoskeletal: No Tenderness to Palpation of Joints or Extremities, Arthritic Changes Neurological: Cranial nerves II-XII grossly intact Psych/Mental Status: Normal Affect, Appropriate Microbiology Past 72 Hours 01/26/18 10:45 Stool Stool Occult Blood (RAY) - Final Laboratory Results 01/28/18 06:21: WBC 17.1 H, RBC 3.08 L, Hgb 9.3 L, Hct 27.9 L, MCV 90.6, MCH 30.2, MCHC 33.3, RDW 14.8 H, RDW Differential 47.8 H, Plt Count 336, MPV 10.0, Immature Gran % (Auto) 0.400, Neut % (Auto) 78.7 H, Lymph % (Auto) 12.8 L, [place] % (Auto) 7.4, Eos % (Auto) 0.6, Baso % (Auto) 0.1, Absolute Neuts (auto) 13.5 H, Absolute Lymphs (auto) 2.19, Total Counted Not Reportable 01/28/18 06:21: Sodium 141, Potassium 3.4 L, Chloride 104, Carbon Dioxide 30.0, Anion Gap 7, BUN 24 H, Creatinine 0.81, Estim Creat Clear Calc 90.31, Est GFR (MDRD) Af Amer 123, Est GFR (MDRD) Non-Af 102, BUN/Creatinine Ratio 29.6 H, Glucose 100, Calcium 8.1 L Current Medications Acetaminophen (Tylenol) 650 mg PO Q4H PRN PRN PRN Reason: FEVER Last Admin: 01/23/18 18:41 Dose: 650 mg Al Hydroxide/Mg Hydroxide (Mylanta Ii) 30 ml PO Q6H PRN PRN PRN Reason: Gastric burning Albuterol Sulfate (Ventolin Aerosols) 2.5 mg INHALATION Q2H PRN PRN PRN Reason: SHORTNESS OF BREATH Last Admin: 01/24/18 19:23 Dose: 2.5 mg Amiodarone HCl (Cordarone) 200 mg PO DAILY [facility] Last Admin: 01/28/18 09:17 Dose: 200 mg Atorvastatin Calcium (Lipitor) 40 mg PO HS [facility] Last Admin: 01/27/18 21:51 Dose: 40 mg Furosemide (Lasix) 20 mg PO BID@1000,1800 [facility] Last Admin: 01/28/18 09:17 Dose: 20 [facility] Last Admin: 01/28/18 07:34 Dose: 100 mg Sodium Chloride () 250 mls @ 15 mls/hr IV .[id number] PRN PRN Reason: SALINE FLUSH Ipratropium [place] (Atrovent) 0.5 mg INHALATION Q4H.RT [facility] Last Admin: 01/28/18 11:19 Dose: 0.5 mg Magnesium Hydroxide (Milk Of Magnesia) 30 ml PO DAILY PRN PRN PRN Reason: Constipation Metoprolol Tartrate (Lopressor (Beta Femi)) 50 mg PO BID [facility] Last Admin: 01/28/18 09:17 Dose: 50 mg Nutritional Formula (Lactose Free) (Ensure Enlive) 120 ml PO 4X/DAY [facility] Last Admin: 01/28/18 09:18 Dose: 120 ml Ondansetron HCl (Zofran) 4 mg IV Q8H PRN PRN PRN Reason: NAUSEA Pantoprazole Sodium (Protonix) 40 mg PO BID [facility] Prednisone () 30 mg PO DAILY@0800 [facility]; Taper Stop: 02/05/18 07:59 Last Admin: 01/28/18 07:34 Dose: 30 mg Promethazine HCl (Phenergan) 12.5 mg IV Q6H PRN PRN PRN Reason: NAUSEA/VOMITING Sodium Chloride () 5 - 30 ml IV UD PRN PRN Reason: SALINE FLUSH Last Admin: 01/28/18 02:42 Dose: 5 ml Sodium Chloride/Electrolytes (Nulytely) 4,000 ml PO X1 ONE Stop: 01/28/18 15:01 Medical Necessity - Tobacco Use Smoking Status: Current every day smoker Tobacco Use: Cigarettes Assessment/Plan All Active Problems (Last Reviewed 06/17/17 @ 09:09 by Antionette Lua) Severe sepsis (Acute) PNA (pneumonia) (Acute) COPD (chronic obstructive pulmonary disease) (Acute) BRENDA (acute kidney injury) (Acute) NSTEMI (non-ST elevated myocardial infarction) (Acute) Erectile dysfunction (Acute) Diabetes type 2, controlled (Acute) Testicular hypofunction (Acute) 67-year-old male with past medical history of hypertension, hyperlipidemia, obesity, chronic nicotine dependency, suspect underlying COPD admitted on 01/15/2018 with fever, chills, worsening weakness and found to have Legionella pneumonia. He was intubated on 01/17/18 and has been on mechanical ventilation since. Extubated on . 1. Acute on chronic anemia second to GI bleed, hemoglobin is 6.8 to 9 g%. Had 2 units of PRBC transfusion. 2. Possible GI bleed: Patient had significant anemia that improved after PRBC transfusion. Dr. Singh consult reviewed and appreciated. Plan is upper and lower endoscopy with anesthesia support on Monday. Bowel prep to start on Monday Mild hypokalemia: Potassium replaced 3. Acute hypoxic respiratory failure secondary to Legionella pneumonia/presumptive COPD exacerbation, s/p extubation : Encourage use of incentive spirometer, acapella, continue with aggressive pulmonary toileting. COPD exacerbation has much improved. 4. Severe sepsis secondary to Legionella pneumonia, resolved. 5. Legionella pneumonia, ID consulted, completed antibiotics. Sputum culture and bronchial lavage grew yeast, not carried albicans. On nystatin swish and swallow. 6. Presumptive COPD exacerbation, improving, on prednisone po taper, continue with breathing treatments. Patient had a smoking history of since teenage about 45-50 pack years of smoking. No baseline PFT. Patient seen by clinical project leader. Presumed obstructive lung disease 7. Acute on chronic diastolic heart failure with fluid overload: BNP on 01/17 was 318. Improved with diuresis, remains euvolemic on po lasix bid, urine output is good, continue with Lasix 40 mg p.o. twice daily. Slight troponin less secondary to demand ischemia. Patient has heart failure with preserved EF. 8. Acute NSTEMI, type II secondary to demand ischemia, cardiology was consulted, on aspirin, statin, Plavix 9. Episode of Atrial flutter, converted, in NSR, on oral amiodarone, plan to continue for 1 month and discontinue in the outpatient 10. BRENDA secondary to severe sepsis/dehydration, resolved. 11. Type II DM, blood sugars fairly controlled, on Lantus as well as insulin sliding scale with Accu-Cheks 12. DVT prophylaxis -SCDs Microbiology Past 72 Hours 01/26/18 10:45 Stool Stool Occult Blood (RAY) - Final Laboratory Results 01/28/18 06:21: WBC 17.1 H, RBC 3.08 L, Hgb 9.3 L, Hct 27.9 L, MCV 90.6, MCH 30.2, MCHC 33.3, RDW 14.8 H, RDW Differential 47.8 H, Plt Count 336, MPV 10.0, Immature Gran % (Auto) 0.400, Neut % (Auto) 78.7 H, Lymph % (Auto) 12.8 L, [place] % (Auto) 7.4, Eos % (Auto) 0.6, Baso % (Auto) 0.1, Absolute Neuts (auto) 13.5 H, Absolute Lymphs (auto) 2.19, Total Counted Not Reportable 01/28/18 06:21: Sodium 141, Potassium 3.4 L, Chloride 104, Carbon Dioxide 30.0, Anion Gap 7, BUN 24 H, Creatinine 0.81, Estim Creat Clear Calc 90.31, Est GFR (MDRD) Af Amer 123, Est GFR (MDRD) Non-Af 102, BUN/Creatinine Ratio 29.6 H, Glucose 100, Calcium 8.1 L Clinical Impression(s) from Imaging Studies Chest CT 01/15/18 12:44 IMPRESSION: There is a large amount of consolidation in the left upper lobe and lingula which is centrally dense with an air bronchograms. Although this may represent an infiltrate. An underlying left hilar mass with surrounding consolidated lung should be excluded. Recommend consideration for bronchoscopy. Small left effusion lower lobe atelectasis. Cardiomegaly cardiac artery disease Reactive and/or metastatic lymphadenopathy. Hyperinflated appearance of the right lung overall pattern of underlying chronic obstructive pulmonary disease. Inhomogeneous appearance of the liver which may represent fatty infiltration of the liver with sparing however further evaluation is recommended with an ultrasound or contrasted study of the abdomen and pelvis when possible. Chest CT 01/22/18 10:31 IMPRESSION: Infiltrates in the left upper lobe and left lower lobe with volume loss. Small left pleural effusion. There has been improvement as compared to prior study. Code Visit Inpatient E&M: 60113 Subs Hosp L3
[2018-01-28] MEDS: Electrolyte Solution/Peg's 4000 ML PO (14:52)
[2018-01-28] MEDS: NYSTATIN 500,000 UNIT/5 ML UDC 500000 UNIT PO ×3 (14:52→23:09)
[2018-01-28] MEDS: Atorvastatin Calcium 40 MG Tablet PO (23:09)
[2018-01-28] MEDS: Pantoprazole Sodium 40 MG Tablet PO (23:17)
[2018-01-29] VITALS (23 sets, daily range): BP systolic 91–117; BP diastolic 55–68; PULSE 69–90; RESP 16–20; TEMP 36.4–37.4; O2SAT 89–94
--- NOTE | 2018-01-29 | IMM_PTH ---
PATIENT: KATHY MEEK LOC: [facility] U#:[id number] AGE/SX: 62/M [place] [facility] [place]: Dr. Jin Willis MD : 1955 BED: 1 DIS: 01/30/2018 SPEC #: [id number] RECD: 01/31/18 10:27 STATUS: UMA REQ #: [id number] MATTY: 01/29/18 00:[address]: Wyatt Vargas DEPT: IMMUNOHISTOCHEMISTRY RECD BY: Keke Kemp ENTERED: 01/31/18 10:28 SP TYPE: IMMUNO OTHR DR: MD Dr. Kenny Carranza MD Dr. Derek Brown, DO Dr. Prakash Chand, MD Dr. Richard Guttman, MD Dr. Robert Leininger, MD Dr. Raymond Mason, MD Tissues: A - Stomach, NOS Procedures: H Pylori (initial) Comments: @ Ordering doctor for H.PYLORI edited from to @ by RICKY at 01/31/18 1031 @ Submitting doctor edited from to DR.RGUTTM Jordana GARCÍA at 01/31/18 1031 PHYSICIAN & [place] [id number] SPECIMEN INFORMATION: Tissue Source: A - Antral biopsy Clinical Info: Shyam Specimen Number: [id number] CPT code: 92505 METHODOLOGY: Deparaffinized sections of prefer/formalin-fixed tissue or PAP/DQ stained slides are incubated with monoclonal/polyclonal antibodies/oligonucleotide probes. Localization is made via biotin free immunoperoxidase method. Appropriate controls are performed and reacted as expected. Results on target cell population are indicated in the following table: RESULTS: ANTIBODY / CLONE RESULT Block A H Pylori (polyclonal) negative These tests were developed and their performance characteristics determined by [facility]. They may not have been cleared or approved by the U.S. Food and Drug Administration. The FDA has determined that such clearance or approval is not necessary. INTERPRETATION: A. Antral biopsy: Negative for Helicobacter pylori organisms. ALTAF:ishaan 01/31/18
--- NOTE | 2018-01-29 | GASB_PTH ---
PATIENT: KATHY MEEK LOC: [facility] U#:[id number] AGE/SX: 62/M ROOM: [facility] RE01/15/[address]: Dr. Jin Willis MD : 1955 BED: 1 DIS: 01/30/2018 SPEC #: [id number] RECD: 01/29/18 22:17 STATUS: UMA RE #: [id number] MATTY: 01/29/18 00:[address]: Wyatt Vargas DEPT: SURGICAL PATHOLOGY RECD BY: Wyatt Cordero ENTERED: 01/30/18 11:39 SP TYPE: Gastric Bx OTHR DR: MD Dr. Kenny Carranza MD Dr. Derek Brown, DO Dr. Prakash Chand, MD Dr. Richard Guttman, MD Dr. Robert Leininger, MD Dr. Raymond Mason, MD Tissues: A - Gastric mucous membrane B - Gastric mucous membrane C - Sigmoid colon biopsy Procedures: Surgery Specimen Level IV Comments: @ Ordering doctor for SUIV edited from to @ by NEVAEHOD at 01/30/18 162 @ Submitting doctor edited from to @ by NEVAEHOD at 01/30/18 1624 HEADER OPERATION: Colonoscopy, EGD ([facility]) PRE-OP DIAGNOSIS: Anemia TISSUE SUBMITTED: A - Antral biopsy for histo and H. pylori, B - GE junction biopsy, C - Sigmoid polyps MICROSCOPIC DIAGNOSIS A. Antral biopsy: Mild gastritis. B. GE junction, biopsy: A fragment of squamous epithelium, no pathologic diagnosis. C. Sigmoid polyps, biopsy: Fragments of tubular adenoma. SJ:ishaan 01/31/18 COMMENT A. The results of immunohistochemistry for Helicobacter pylori will be reported separately ([id number]). MICROSCOPIC DESCRIPTION Slides are reviewed. A. The specimen shows fragments of gastric mucosa with chronic inflammatory cell infiltrates in the lamina propria consisting of lymphocytes and plasma cells, consistent with mild chronic gastritis. GROSS DESCRIPTION A - Received in fixative is one container labeled with the patient's name and designated antral biopsy. The specimen consists of one irregular fragment of light santiago soft tissue that measures 0.4 x 0.3 x 0.1 cm. The specimen is totally submitted in one cassette. B - Received in fixative is one container labeled with the patient's name and designated GE junction biopsy. The specimen consists of one irregular fragment of light santiago soft tissue that measures 0.3 x 0.3 x 0.1 cm. The specimen is totally submitted in one cassette. C - Received in fixative is one container labeled with the patient's name and designated sigmoid polyps. The specimen consists of multiple irregular fragments of light santiago soft tissue mixed with fecal material that in aggregate measure 2.5 x 1 x 0.3 cm. The specimen is totally submitted in one cassette. / SJ:rg 01/30/18 TC:1 CPT: 26397 x3
[2018-01-29 06:28] LABS: Absolute Neutrophil Count 11.5 X10^3/uL (2.0-7.7); Basophil# 0.02 X10^3/uL; Basophil% 0.1 % (0-1); Eosinophil# 0.19 X10^3/uL; Eosinophils% 1.3 % (0-5); Hematocrit 28.7 % (40-54); Hemoglobin 9.5 g/dl (13.0-16.5); Lymphocyte % 14.2 % (19-41); Mean Corp Hgb Conc 33.1 g/gl (32-36); Mean Corpuscular Hgb 30.5 pg (27.0-32.0); Mean Corpuscular Volume 92.3 fL (80-94); Mean Platelet Vol. 10.1 fl (6.2-12.0); Monocyte# 0.84 X10^3/uL; Monocyte% 5.7 % (0-10); Neutrophil # 11.53 X10^3/uL (2.7-7.7); Neutrophil % 78.3 % (47-70); Platelet Count 348 K/mm3 (150-450); RBC Distribution Width CV 15.7 % (11.6-14.6); RBC Distribution Width SD 47.7 fl (35.1-43.9); Red Blood Count 3.11 M/mm3 (4.6-6.2); White Blood Count 14.7 K/mm3 (4.4-11.0)
[2018-01-29 06:38] LABS: POSITIVE COUNT NO; POSITIVE DIFFERENTIAL NO; POSITIVE MORPHOLOGY NO
[2018-01-29 06:40] LABS: Anion Gap 7 (5-15); BUN 19 mg/dL (7-18); BUN/Creat Ratio 26.4 RATIO (10-20); Calcium,Total 8.1 mg/dL (8.5-10.1); Chloride 108 mmol/L (98-107); Creatinine, Serum 0.72 mg/dL (0.70-1.30); EST Glomerular Filtration Rate 117 mL/min (>60); Est Glom Filt Rate - Afr Amer 141 mL/min (>60); Glucose 77 mg/dL (74-106); Potassium 3.8 mmol/L (3.5-5.1); Sodium Level 143 mmol/L (136-145)
[2018-01-29] MEDS: Ipratropium 0.5 MG/2.5 ML SOLUTION INHALATION ×4 (07:49→22:54)
--- NOTE | 2018-01-29 07:56 | PCM.PROGNOTE ---
Patient Problems: Active and Suspected Problems (Last Reviewed 06/17/17 @ 09:09 by Antionette Lua) Severe sepsis (Acute) PNA (pneumonia) (Acute) COPD (chronic obstructive pulmonary disease) (Acute) BRENDA (acute kidney injury) (Acute) NSTEMI (non-ST elevated myocardial infarction) (Acute) Subjective: The patient was seen and examined at the bedside this morning. Events from the last 24 hours have been reviewed. The patient is currently afebrile, hemodynamically stable and maintaining appropriate oxygen saturations on 2 L/min via nasal cannula. Hemoglobin is stable this morning at 9.5 g/dL. Objective: The patient's most recent lab work, culture data and imaging studies have all been personally reviewed. CT chest without contrast obtained yesterday revealed bilateral emphysematous changes along with evidence of consolidation in the left upper lobe and lingula with corresponding groundglass changes extending into the left lower lobe. There was extensive mediastinal lymphadenopathy noted. It was noted that the left pulmonary artery was encased in either consolidation or a possible underlying lung mass. Urine Legionella antigen was noted to be positive. Streptococcus antigen was negative. Blood and urine cultures have shown no growth to date. Respiratory cultures are pending. Surface echocardiogram revealed normal LV size and function with evidence of stage I diastolic dysfunction. - Physical Exam General: Alert, Cooperative, No apparent distress HEENT: Atraumatic, PERRLA, Normocephalic Oral: No Gingival or Mucosal Lesions/ Ulcerations Neck: Supple, No Nodes, Trachea Midline Lungs: No rhonchi, No wheeze, No rales, Diminished Cardiovascular: Regular rate, Regular Rhythm, Normal S1, Normal S2, No murmurs Abdomen: Bowel Sounds Present, Soft, Non Tender Extremities: No clubbing, No cyanosis, No edema Skin: No breakdown Musculoskeletal: No Tenderness to Palpation of Joints or Extremities, No Muscle Wasting Lymphatic: No Cervical, Supraclavicular, or Inguinal Adenopathy Neurological: Neuro grossly intact Psych/Mental Status: Normal Affect, Appropriate Vital Signs Temp Pulse Resp BP Pulse Ox 97.6 F L 71 20 H 113/68 93 01/29/18 02:49 01/29/18 07:17 01/29/18 02:49 01/29/18 02:49 01/29/18 02:49 Oxygen Flow Rate (L/min) [ 2 AMBULATION with Oxygen] Oxygen Flow Rate (L/min) 2 Oxygen Delivery Method Nasal Cannula Weight: 182 lb 1.629 oz Body Mass Index (BMI) 28.1 Intake and Output for Last 24 Hours 01/27/18 01/28/18 01/29/18 23:59 23:59 23:59 Intake Total 1556 / 1556 5451 / 5451 50 / 50 Output Total 1825 / 1825 450 / 450 Balance -269 / -269 5001 / 5001 50 / 50 Microbiology Past 72 Hours 01/26/18 10:45 Stool Occult Blood (RAY) - Final Stool Laboratory Tests Past 24 Hrs 01/29/18 01/29/18 05:40 05:40 WBC 14.7 H RBC 3.11 L Hgb 9.5 L Hct 28.7 L MCV 92.3 MCH 30.5 MCHC 33.1 RDW 15.7 H RDW Differential 47.7 H Plt Count 348 MPV 10.1 Immature Gran % (Auto) 0.400 Neut % (Auto) 78.3 H Lymph % (Auto) 14.2 L Garvin % (Auto) 5.7 Eos % (Auto) 1.3 Baso % (Auto) 0.1 Absolute Neuts (auto) 11.5 H Absolute Lymphs (auto) 2.10 Total Counted Not Reportable Sodium 143 Potassium 3.8 Chloride 108 H Carbon Dioxide 28.0 Anion Gap 7 BUN 19 H Creatinine 0.72 Estim Creat Clear Calc 101.60 Est GFR (MDRD) Af Amer 141 Est GFR (MDRD) Non-Af 117 BUN/Creatinine Ratio 26.4 H Glucose 77 Calcium 8.1 L Clinical Impression(s) from Imaging Studies Chest X-Ray 01/15/18 09:45 IMPRESSION: Near complete opacification left lung [place] sparing only the upper lobe at the level of the aortic knob and above. Differential considerations include pleural fluid, atelectasis/scarring, pneumonia or underlying mass. Clinical correlation follow-up recommended. Results discussed with Attending Physician 01/15/2018 approximate 1235 hours. If clinically indicated, recommend follow-up chest study after treatment to demonstrate complete clearing if clinically indicated. Electronically Signed: Montrell Cardenas, at 12:39 EDT Tel , Service support , Chest CT 01/15/18 12:44 IMPRESSION: There is a large amount of consolidation in the left upper lobe and lingula which is centrally dense with an air bronchograms. Although this may represent an infiltrate. An underlying left hilar mass with surrounding consolidated lung should be excluded. Recommend consideration for bronchoscopy. Small left effusion lower lobe atelectasis. Cardiomegaly cardiac artery disease Reactive and/or metastatic lymphadenopathy. Hyperinflated appearance of the right lung overall pattern of underlying chronic obstructive pulmonary disease. Inhomogeneous appearance of the liver which may represent fatty infiltration of the liver with sparing however further evaluation is recommended with an ultrasound or contrasted study of the abdomen and pelvis when possible. Electronically Signed: Mickie Saldivar MD at 15:10 EDT Tel , Service support , Chest X-Ray 01/17/18 06:53 IMPRESSION: Persistent left lung infiltrate no change or improvement. Follow-up to clearing recommended. Electronically Signed: Karen Howard MD at 8:16 EDT , Service support , Chest X-Ray 01/17/18 10:14 IMPRESSION: In the interval since prior study there is been placement of a GI tube which extends through the gastroesophageal junction enters into the region of the fundus the stomach and terminates in the region of the body of the stomach. Unchanged left lung opacity. Electronically Signed: Karen Howard MD at 11:18 EDT , Service support , Chest X-Ray 01/18/18 06:56 IMPRESSION: The endotracheal tube is high in position. It should be advanced by approximately 8 cm. The left hemithorax is now completely opacified. N.B. : The above information has been verbally conveyed by Karen Howard MD to Nurse Kevin Mckeon NP, on 01/18/2018 08:39:15 (ET). Electronically Signed: Karen Howard MD at 8:26 EDT , Service support , ADDENDUM: 01/18/18 0846 Chest X-Ray 01/18/18 08:40 IMPRESSION: Endotracheal tube appears slightly lower in position with the inferior tip just above the midclavicular level which should be repositions and rechecked radiographically. Increased air within the larynx region. Clinical correlation recommended. Moderate improved aeration left upper lobe. No change right lung base medial heterogeneous opacity, may represent atelectasis or pneumonia. Electronically Signed: Montrell Cardenas, at 10:41 EDT Tel , Service support , ADDENDUM: 01/18/18 1107 Chest X-Ray 01/19/18 05:55 IMPRESSION: Endotracheal tube tip as above. Slight improvement in aeration involving the left lung with continued opacification particularly along the left base. Continued compression of parenchyma in the right base with areas of hyperinflation. Electronically Signed: Judy Finley MD at 5:34 EDT , Service support , Chest X-Ray 01/22/18 06:16 IMPRESSION: Endotracheal tube is in a high position and should be advanced 4 cm. Nasogastric tube is in adequate position. Persistent left pulmonary infiltrates and pleural effusion. There appears to be interval worsening in the left upper lung field. Electronically Signed: Bala Eng MD at 7:30 EDT , Service support , Chest CT 01/22/18 10:31 IMPRESSION: Infiltrates in the left upper lobe and left lower lobe with volume loss. Small left pleural effusion. There has been improvement as compared to prior study. Electronically Signed: Ross Babcock MD at 11:38 EDT Tel [phone], Service support , Medical Necessity - Tobacco Use Smoking Status: Current every day smoker Tobacco Use: Cigarettes Assessment/Plan All Active Problems (Last Reviewed 06/17/17 @ 09:09 by Antionette Lua) Severe sepsis (Acute) PNA (pneumonia) (Acute) COPD (chronic obstructive pulmonary disease) (Acute) BRENDA (acute kidney injury) (Acute) NSTEMI (non-ST elevated myocardial infarction) (Acute) Erectile dysfunction (Acute) Diabetes type 2, controlled (Acute) Testicular hypofunction (Acute) RECOMMENDATIONS: 1. Wean oxygen as tolerated 2. Walking oximetry prior to discharge 3. Continue diuresis at current levels 4. Continue scheduled bronchodilators and wean steroids over the next 8-10 days 5. Await results of endoscopy IMPRESSIONS: 1. Acute hypoxic respiratory failure secondary to severe Legionella pneumonia leading to presumptive COPD exacerbation Patient's respiratory status continues to improve. Secretions are improving. Continue to wean oxygen as tolerated. Patient will need a walking oximetry prior to discharge. Cannot exclude the need for supplemental oxygen at discharge, but anticipate recovery back to room air with time. Patient should follow-up in our office 2 weeks after discharge from an ECF. The patient will need to follow-up in the pulmonary medicine clinic so that a repeat CT chest can be completed in 6-8 weeks for further evaluation of the patient's left hilum. If there is concern for an underlying lung mass, will proceed with setting the patient up for bronchoscopy and specifically EBUS. However, at this time, he will be treated with antibiotics. 2. Severe sepsis secondary to Legionella pneumonia RESOLVED > the patient has been adequately volume resuscitated and is currently hemodynamically stable. We will plan to continue antibiotics per ID recommendations. 3. Atrial fibrillation/flutter RESOLVED > the patient was noted to be in atrial flutter with an elevated heart rate on January 17. He was placed on amiodarone and subsequently converted back to normal sinus rhythm. 4. History of tobacco dependence The patient does have an extensive smoking history and we are currently working under the assumption that he has obstructive lung disease. However, smoking cessation is strongly advisable. Nicotine replacement therapy can be offered while he is admitted to the hospital. The patient should ideally follow up in the pulmonary medicine clinic so that baseline PFTs can be obtained. 5. Troponin elevation/heart failure with preserved ejection fraction The patient's echocardiogram did reveal evidence of stage I diastolic dysfunction with preserved ejection fraction. Troponin elevation is likely secondary to demand ischemia in the setting of #1/2. 6. Acute kidney injury RESOLVED > likely prerenal in etiology. Continue to monitor urine output. No current indication for renal replacement therapy. 7. Anemia Patient responded appropriately to packed red blood cells. Melena has been noted. Patient to have an EGD and colonoscopy today with anesthesia support. 8. Hypertension/hyperlipidemia/neuropathy Complicates care, management, recovery and prognosis. Okay to continue home medications from my perspective. Code Visit Inpatient E&M: 61921 Subs Hosp L2
--- NOTE | 2018-01-29 08:39 | CPS ---
pt refused vest therapy
--- NOTE | 2018-01-29 08:49 | NURSING ---
Primary RN aware of VSA.
--- NOTE | 2018-01-29 11:49 | CPS ---
PT REFUSED VEST THERAPY
--- NOTE | 2018-01-29 11:55 | CASEMGMT ---
Social Work Spoke with Valentina at [facility] and precert has been obtained. SW informed physician who states pt will be having two procedures today and then will determine d/c date. KIMBERLY met with pt in room and informed that insurance approval has been obtained and pt can go to [facility] when pt is medically ready. Pt agreeable. Phone call to Valentina at [facility] and informed that d/c date is pending procedures and outcomes. SW will continue to follow for SNF placement. Plan: [facility], when medically ready [facility]
--- NOTE | 2018-01-29 16:41 | PN_ITS ---
Patient Problems: Active and Suspected Problems (Last Reviewed 06/17/17 @ 09:09 by Antionette Lua) Severe sepsis (Acute) PNA (pneumonia) (Acute) COPD (chronic obstructive pulmonary disease) (Acute) BRENDA (acute kidney injury) (Acute) NSTEMI (non-ST elevated myocardial infarction) (Acute) Subjective: Patient had EGD and colonoscopy in afternoon today. Discussed with Dr. Singh regarding the findings. Patient seen and examined in recovery room. Vitals/I&O's: Vital Signs Temp Pulse Resp BP Pulse Ox 98.3 F 77 18 117/67 93 01/29/18 12:40 01/29/18 12:40 01/29/18 12:40 01/29/18 12:40 01/29/18 12:40 Oxygen Flow Rate (L/min) [ 2 AMBULATION with Oxygen] Oxygen Flow Rate (L/min) 2 Oxygen Delivery Method Nasal Cannula Weight: 182 lb 1.629 oz Body Mass Index (BMI) 28.1 Intake and Output for Last 24 Hours 01/27/18 01/28/18 01/29/18 23:59 23:59 23:59 Intake Total 1556 / 1556 5451 / 5451 50 / 50 Output Total 1825 / 1825 450 / 450 Balance -269 / -269 5001 / 5001 50 / 50 General: Alert, Oriented x3, Cooperative HEENT: Atraumatic, PERRLA, EOMI, Normocephalic Neck: Supple, No JVD, Negative Carotid Bruits Lungs: Clear to auscultation, No rhonchi, No wheeze, No rales, Diminished Cardiovascular: Regular rate, Regular Rhythm, Normal S1, Normal S2, No murmurs Abdomen: Bowel Sounds Present, Soft, Non Tender, Non-Distended Extremities: Capillary Refill Less than 3 Seconds, Edema Skin: No rashes, No breakdown Musculoskeletal: No Tenderness to Palpation of Joints or Extremities, Arthritic Changes, Muscle Wasting Neurological: Cranial nerves II-XII grossly intact, Neuro grossly intact Psych/Mental Status: Normal Affect, Appropriate Laboratory Results 01/29/18 05:40: WBC 14.7 H, RBC 3.11 L, Hgb 9.5 L, Hct 28.7 L, MCV 92.3, MCH 30.5, MCHC 33.1, RDW 15.7 H, RDW Differential 47.7 H, Plt Count 348, MPV 10.1, Immature Gran % (Auto) 0.400, Neut % (Auto) 78.3 H, Lymph % (Auto) 14.2 L, Jessamine % (Auto) 5.7, Eos % (Auto) 1.3, Baso % (Auto) 0.1, Absolute Neuts (auto) 11.5 H, Absolute Lymphs (auto) 2.10, Total Counted Not Reportable 01/29/18 05:40: Sodium 143, Potassium 3.8, Chloride 108 H, Carbon Dioxide 28.0, Anion Gap 7, BUN 19 H, Creatinine 0.72, Estim Creat Clear Calc 101.60, Est GFR (MDRD) Af Amer 141, Est GFR (MDRD) Non-Af 117, BUN/Creatinine Ratio 26.4 H, Glucose 77, Calcium 8.1 L Current Medications Acetaminophen (Tylenol) 650 mg PO Q4H PRN PRN PRN Reason: FEVER Last Admin: 01/23/18 18:41 Dose: 650 mg Al Hydroxide/Mg Hydroxide (Mylanta Ii) 30 ml PO Q6H PRN PRN PRN Reason: Gastric burning Albuterol Sulfate (Ventolin Aerosols) 2.5 mg INHALATION Q2H PRN PRN PRN Reason: SHORTNESS OF BREATH Last Admin: 01/24/18 19:23 Dose: 2.5 mg Amiodarone HCl (Cordarone) 200 mg PO DAILY [facility] Last Admin: 01/28/18 09:17 Dose: 200 mg Atorvastatin Calcium (Lipitor) 40 mg PO HS [facility] [place] Last Admin: 01/28/18 23:09 Dose: 40 mg Furosemide (Lasix) 20 mg PO BID@1000,1800 [facility] Last Admin: 01/28/18 17:02 Dose: 20 mg [facility]in) [facility] Last Admin: 01/28/18 07:34 Dose: 100 mg Sodium Chloride () 250 mls @ 15 mls/hr IV .[id number] PRN PRN Reason: SALINE FLUSH Ipratropium Mckinney (Atrovent) 0.5 mg INHALATION Q4H.RT [facility] Last Admin: 01/29/18 15:30 Dose: Not Given Magnesium Hydroxide (Milk Of Magnesia) 30 ml PO DAILY PRN PRN PRN Reason: Constipation Metoprolol Tartrate (Lopressor (Beta Femi)) 50 mg PO BID [facility] Last Admin: 01/28/18 23:10 Dose: 50 mg Nutritional Formula (Lactose Free) (Ensure Enlive) 120 ml PO 4X/DAY [facility] [place] Last Admin: 01/29/18 14:02 Dose: Not Given Nystatin (Nystatin) 500,000 unit PO 4X/DAY [facility] Last Admin: 01/29/18 14:02 Dose: Not Given Ondansetron HCl (Zofran) 4 mg IV Q8H PRN PRN PRN Reason: NAUSEA Pantoprazole Sodium (Protonix) 40 mg PO BID [facility] Last Admin: 01/28/18 23:17 Dose: 40 mg Prednisone () 30 mg PO DAILY@0800 [facility] [place]; Taper Stop: 02/05/18 07:59 Last Admin: 01/28/18 07:34 Dose: 30 mg Promethazine HCl (Phenergan) 12.5 mg IV Q6H PRN PRN PRN Reason: NAUSEA/VOMITING Sodium Chloride () 5 - 30 ml IV UD PRN PRN Reason: SALINE FLUSH Last Admin: 01/28/18 02:42 Dose: 5 ml Medical Necessity - Tobacco Use Smoking Status: Current every day smoker Tobacco Use: Cigarettes Assessment/Plan All Active Problems (Last Reviewed 06/17/17 @ 09:09 by Antionette Lua) Severe sepsis (Acute) PNA (pneumonia) (Acute) COPD (chronic obstructive pulmonary disease) (Acute) BRENDA (acute kidney injury) (Acute) NSTEMI (non-ST elevated myocardial infarction) (Acute) Erectile dysfunction (Acute) Diabetes type 2, controlled (Acute) Testicular hypofunction (Acute) 67-year-old male with past medical history of hypertension, hyperlipidemia, obesity, chronic nicotine dependency, suspect underlying COPD admitted on 01/15/2018 with fever, chills, worsening weakness and found to have Legionella pneumonia. He was intubated on 01/17/18 and has been on mechanical ventilation since. Extubated on . 1. Acute on chronic anemia secondary to GI bleed, hemoglobin is 6.8 to 9 g%. Had 2 units of PRBC transfusion. 2. Possibility of GI bleed, probably middle GI tract bleeding: Patient had significant anemia that improved after PRBC transfusion. Dr. Singh consult reviewed and appreciated. No major cause of bleeding was found in the EGD and colonoscopy. EGD shows scattered minimal gastric body inflammation and nonsevere esophagitis with no bleeding. Colonoscopy shows 3 medium polyps in sigmoid colon, removed by snare. Diverticulosis in the sigmoid colon and descending colon. Otherwise normal Mild hypokalemia: Potassium replaced 3. Acute hypoxic respiratory failure secondary to Legionella pneumonia/presumptive COPD exacerbation, s/p extubation : Encourage use of incentive spirometer, acapella, continue with aggressive pulmonary toileting. COPD exacerbation has much improved. 4. Severe sepsis secondary to Legionella pneumonia, resolved. 5. Legionella pneumonia, ID consulted, completed antibiotics. Sputum culture and bronchial lavage grew yeast, not carried albicans. On nystatin swish and swallow. 6. Presumptive COPD exacerbation, improving, on prednisone po taper, continue with breathing treatments. Patient had a smoking history of since teenage about 45-50 pack years of smoking. No baseline PFT. 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 Presumed obstructive lung disease 7. Acute on chronic diastolic heart failure with fluid overload: BNP on 01/17 was 318. Improved with diuresis, remains euvolemic on po lasix bid, urine output is good, continue with Lasix 40 mg p.o. twice daily. Slight troponin less secondary to demand ischemia. Patient has heart failure with preserved EF. 8. Acute NSTEMI, type II secondary to demand ischemia, cardiology was consulted, on aspirin, statin, Plavix 9. Episode of Atrial flutter, converted, in NSR, on oral amiodarone, plan to continue for 1 month and discontinue in the outpatient 10. BRENDA secondary to severe sepsis/dehydration, resolved. 11. Type II DM, blood sugars fairly controlled, on Lantus as well as insulin sliding scale with Accu-Cheks 12. DVT prophylaxis -SCDs Laboratory Results 01/29/18 05:40: WBC 14.7 H, RBC 3.11 L, Hgb 9.5 L, Hct 28.7 L, MCV 92.3, MCH 30.5, MCHC 33.1, RDW 15.7 H, RDW Differential 47.7 H, Plt Count 348, MPV 10.1, Immature Gran % (Auto) 0.400, Neut % (Auto) 78.3 H, Lymph % (Auto) 14.2 L, Jessamine % (Auto) 5.7, Eos % (Auto) 1.3, Baso % (Auto) 0.1, Absolute Neuts (auto) 11.5 H, Absolute Lymphs (auto) 2.10, Total Counted Not Reportable 01/29/18 05:40: Sodium 143, Potassium 3.8, Chloride 108 H, Carbon Dioxide 28.0, Anion Gap 7, BUN 19 H, Creatinine 0.72, Estim Creat Clear Calc 101.60, Est GFR (MDRD) Af Amer 141, Est GFR (MDRD) Non-Af 117, BUN/Creatinine Ratio 26.4 H, Glucose 77, Calcium 8.1 L Clinical Impression(s) from Imaging Studies Chest CT 01/15/18 12:44 IMPRESSION: There is a large amount of consolidation in the left upper lobe and lingula which is centrally dense with an air bronchograms. Although this may represent an infiltrate. An underlying left hilar mass with surrounding consolidated lung should be excluded. Recommend consideration for bronchoscopy. Small left effusion lower lobe atelectasis. Cardiomegaly cardiac artery disease Reactive and/or metastatic lymphadenopathy. Hyperinflated appearance of the right lung overall pattern of underlying chronic obstructive pulmonary disease. Inhomogeneous appearance of the liver which may represent fatty infiltration of the liver with sparing however further evaluation is recommended with an ultrasound or contrasted study of the abdomen and pelvis when possible. Chest CT 01/22/18 10:31 IMPRESSION: Infiltrates in the left upper lobe and left lower lobe with volume loss. Small left pleural effusion. There has been improvement as compared to prior study. Code Visit Inpatient E&M: 72267 Subs Hosp L3
--- NOTE | 2018-01-29 16:51 | OP.ENDO_ITS ---
Patient Name: Emerson Otoole Procedure Date: 01/29/2018 4:07 PM Date of : 1955 Age: 62 Procedure: Upper GI endoscopy Indications: Anemia Providers: Wyatt Vargas MD Medicines: Monitored Anesthesia Care Patient Profile: This is a 62 year old male. Refer to note in patient chart for documentation of history and physical. Complications: No immediate complications. Procedure: Pre-Anesthesia Assessment: - Prior to the procedure, a History and Physical was performed, and patient medications and allergies were reviewed. The patient is competent. The risks and benefits of the procedure and the sedation options and risks were discussed with the patient. All questions were answered and informed consent was obtained. Patient identification and proposed procedure were verified by the physician and the nurse in the procedure room. Mental Status Examination: alert and oriented. Airway Examination: normal oropharyngeal airway and neck mobility. Respiratory Examination: clear to auscultation. CV Examination: normal. Prophylactic Antibiotics: The patient does not require prophylactic antibiotics. Prior Anticoagulants: The patient has taken no previous anticoagulant or antiplatelet agents. ASA Grade Assessment: III - A patient with severe systemic disease. After reviewing the risks and benefits, the patient was deemed in satisfactory condition to undergo the procedure. The anesthesia plan was to use monitored anesthesia care (MAC). Immediately prior to administration of medications, the patient was re-assessed for adequacy to receive sedatives. The heart rate, respiratory rate, oxygen saturations, blood pressure, adequacy of pulmonary ventilation, and response to care were monitored throughout the procedure. The physical status of the patient was re-assessed after the procedure. After obtaining informed consent, the endoscope was passed under direct vision. Throughout the procedure, the patient's blood pressure, pulse, and oxygen saturations were monitored continuously. The gastroscope was introduced through the mouth, and advanced to the jejunum. The upper GI endoscopy was accomplished without difficulty. The patient tolerated the procedure well. Scope In: 4:19:27 PM Scope Out: 4:22:44 PM Total Procedure Duration Time 0 hours 3 minutes 17 seconds Findings: The examined jejunum was normal. The examined duodenum was normal. Scattered minimal inflammation was found in the gastric body. Biopsies were taken with a cold forceps for histology. Non-severe esophagitis with no bleeding was found. Biopsies were taken with a cold forceps for histology. Impression: - Normal examined jejunum. - Normal examined duodenum. - Gastritis. Biopsied. - Non-severe reflux esophagitis. Biopsied. Recommendation: - Continue present medications. Procedure Code(s): --- Professional --- 97481, Esophagogastroduodenoscopy, flexible, transoral; with biopsy, single or multiple CPT copyright 2017 [employer]. All rights reserved. The codes documented in this report are preliminary and upon radiologic technology program director review may be revised to meet current compliance requirements. Wyatt Vargas MD 01/29/2018 4:51:10 PM This report has been signed electronically. Number of Addenda: 0 Note Initiated On: 01/29/2018 4:07 PM
--- NOTE | 2018-01-29 16:55 | OP.ENDO_ITS ---
Patient Name: Emerson Otoole Procedure Date: 01/29/2018 4:24 PM Date of : 1955 Age: 62 Procedure: Colonoscopy Indications: Iron deficiency anemia secondary to chronic blood loss Providers: Wyatt Vargas MD Medicines: Monitored Anesthesia Care Patient Profile: This is a 62 year old male. Refer to note in patient chart for documentation of history and physical. Last Colonoscopy: none. The patient's first colonoscopy is today. Complications: No immediate complications. Procedure: Pre-Anesthesia Assessment: - Prior to the procedure, a History and Physical was performed, and patient medications and allergies were reviewed. The patient is competent. The risks and benefits of the procedure and the sedation options and risks were discussed with the patient. All questions were answered and informed consent was obtained. Patient identification and proposed procedure were verified by the physician and the nurse in the procedure room. Mental Status Examination: alert and oriented. Airway Examination: normal oropharyngeal airway and neck mobility. Respiratory Examination: clear to auscultation. CV Examination: normal. Prophylactic Antibiotics: The patient does not require prophylactic antibiotics. Prior Anticoagulants: The patient has taken no previous anticoagulant or antiplatelet agents. ASA Grade Assessment: III - A patient with severe systemic disease. After reviewing the risks and benefits, the patient was deemed in satisfactory condition to undergo the procedure. The anesthesia plan was to use monitored anesthesia care (MAC). Immediately prior to administration of medications, the patient was re-assessed for adequacy to receive sedatives. The heart rate, respiratory rate, oxygen saturations, blood pressure, adequacy of pulmonary ventilation, and response to care were monitored throughout the procedure. The physical status of the patient was re-assessed after the procedure. After I obtained informed consent, the scope was passed under direct vision. Throughout the procedure, the patient's blood pressure, pulse, and oxygen saturations were monitored continuously. The Colonoscope was introduced through the anus and advanced to the cecum, identified by appendiceal orifice and ileocecal valve. The colonoscopy was performed without difficulty. The patient tolerated the procedure well. The quality of the bowel preparation was good. Scope In: 4:25:47 PM Scope Withdrawal Time 0 hours 10 minutes 43 seconds Scope Out: 4:45:05 PM Total Procedure Duration Time 0 hours 19 minutes 18 seconds Findings: The perianal and digital rectal examinations were normal. Three sessile polyps were found in the sigmoid colon. The polyps were medium in size. These polyps were removed with a hot snare. Resection and retrieval were complete. A few small-mouthed diverticula were found in the sigmoid colon and descending colon. The exam was otherwise without abnormality. The retroflexed view of the distal rectum and anal verge was normal and showed no anal or rectal abnormalities. Impression: - Three medium polyps in the sigmoid colon, removed with a hot snare. Resected and retrieved. - Diverticulosis in the sigmoid colon and in the descending colon. - The examination was otherwise normal. - The distal rectum and anal verge are normal on retroflexion view. Recommendation: - Return patient to hospital [facility]atic[facility]. - Resume regular diet. - Continue present medications. - Repeat colonoscopy in 3 years for surveillance based on pathology results. - Return to my office in 1 week. Procedure Code(s): --- Professional --- 58882, Colonoscopy, flexible; with removal of tumor(s), polyp(s), or other lesion(s) by snare technique CPT copyright 2017 [employer]. All rights reserved. The codes documented in this report are preliminary and upon medical insurance coder review may be revised to meet current compliance requirements. Wyatt Vargas MD 01/29/2018 4:54:35 PM This report has been signed electronically. Number of Addenda: 0 Note Initiated On: 01/29/2018 4:24 PM
[2018-01-29] MEDS: Gabapentin 100 MG Capsule PO (17:31)
[2018-01-29] MEDS: predniSONE 20 MG Tablet PO (17:31)
[2018-01-29] MEDS: Amiodarone 200 MG Tablet PO (17:32)
[2018-01-29] MEDS: Furosemide 20 MG Tablet PO (17:32)
[2018-01-29] MEDS: Pantoprazole Sodium 40 MG Tablet PO (17:33)
[2018-01-29] MEDS: NYSTATIN 500,000 UNIT/5 ML UDC 500000 UNIT PO ×2 (17:33→20:59)
[2018-01-29] MEDS: Metoprolol Tartrate 50 MG Tablet PO (17:33)
--- NOTE | 2018-01-29 19:57 | CPS ---
PATIENT REFUSED CHEST VEST AT TIME OF VISIT.
[2018-01-29] MEDS: Atorvastatin Calcium 40 MG Tablet PO (20:59)
--- NOTE | 2018-01-29 23:01 | CPS ---
patient refused at time of visit
[2018-01-30] VITALS (11 sets, daily range): BP systolic 108–131; BP diastolic 66–75; PULSE 62–104; RESP 16–20; TEMP 36.5–36.8; O2SAT 93–97
[2018-01-30] MEDS: Ipratropium 0.5 MG/2.5 ML SOLUTION INHALATION ×2 (03:33→07:15)
[2018-01-30 06:54] LABS: Absolute Lymphocyte Count 1.37 X10^3/ul (0.83-4.51); Absolute Neutrophil Count 11.1 X10^3/uL (2.0-7.7); Basophil# 0.01 X10^3/uL; Basophil% 0.1 % (0-1); Eosinophil# 0.11 X10^3/uL; Eosinophils% 0.8 % (0-5); Hematocrit 30.4 % (40-54); Lymphocyte # 1.37 X10^3/ul (4.0); Lymphocyte % 10.3 % (19-41); Mean Corp Hgb Conc 32.9 g/gl (32-36); Mean Corpuscular Hgb 30.3 pg (27.0-32.0); Mean Corpuscular Volume 92.1 fL (80-94); Mean Platelet Vol. 9.9 fl (6.2-12.0); Monocyte% 5.3 % (0-10); Neutrophil # 11.05 X10^3/uL (2.7-7.7); Neutrophil % 83.2 % (47-70); Platelet Count 344 K/mm3 (150-450); RBC Distribution Width CV 16.1 % (11.6-14.6); RBC Distribution Width SD 48.8 fl (35.1-43.9); White Blood Count 13.3 K/mm3 (4.4-11.0)
[2018-01-30 07:01] LABS: POSITIVE COUNT NO; POSITIVE DIFFERENTIAL NO; POSITIVE MORPHOLOGY NO
[2018-01-30 07:20] LABS: Anion Gap 9 (5-15); BUN 22 mg/dL (7-18); BUN/Creat Ratio 25.2 RATIO (10-20); Calcium,Total 8.3 mg/dL (8.5-10.1); Chloride 104 mmol/L (98-107); Creatinine, Serum 0.87 mg/dL (0.70-1.30); EST Glomerular Filtration Rate 94 mL/min (>60); Est Glom Filt Rate - Afr Amer 113 mL/min (>60); Estimated Creatinine Clearance 84.08 ml/min; Glucose 116 mg/dL (74-106); Potassium 4.1 mmol/L (3.5-5.1); Sodium Level 141 mmol/L (136-145)
--- NOTE | 2018-01-30 07:38 | PCM.PROGNOTE ---
Patient Problems: Active and Suspected Problems (Last Reviewed 06/17/17 @ 09:09 by Antionette Lua) Severe sepsis (Acute) PNA (pneumonia) (Acute) COPD (chronic obstructive pulmonary disease) (Acute) BRENDA (acute kidney injury) (Acute) NSTEMI (non-ST elevated myocardial infarction) (Acute) Subjective: The patient was seen and examined at the bedside this morning. Events from the last 24 hours have been reviewed. The patient is currently afebrile, hemodynamically stable and maintaining appropriate oxygen saturations on 2 L/min via nasal cannula. Hemoglobin remained stable this morning at 10 g/dL. Upper endoscopy completed yesterday revealed minimal gastric body inflammation and nonsevere esophagitis without an active source of bleeding identified. Subsequent lower endoscopy then revealed 3 sessile polyps within the sigmoid colon which were resected and minimal small mouth diverticula noted in the sigmoid and descending colons. Objective: The patient's most recent lab work, culture data and imaging studies have all been personally reviewed. CT chest without contrast obtained yesterday revealed bilateral emphysematous changes along with evidence of consolidation in the left upper lobe and lingula with corresponding groundglass changes extending into the left lower lobe. There was extensive mediastinal lymphadenopathy noted. It was noted that the left pulmonary artery was encased in either consolidation or a possible underlying lung mass. Urine Legionella antigen was noted to be positive. Streptococcus antigen was negative. Blood and urine cultures have shown no growth to date. Respiratory cultures are pending. Surface echocardiogram revealed normal LV size and function with evidence of stage I diastolic dysfunction. - Physical Exam General: Alert, Cooperative, No apparent distress HEENT: Atraumatic, PERRLA, Normocephalic Oral: No Gingival or Mucosal Lesions/ Ulcerations Neck: Supple, No Nodes, Trachea Midline Lungs: No rhonchi, No wheeze, No rales, Diminished Cardiovascular: Regular rate, Regular Rhythm, Normal S1, Normal S2, No murmurs Abdomen: Bowel Sounds Present, Soft, Non Tender Extremities: No clubbing, No cyanosis, No edema Skin: - - No significant change from previous. Musculoskeletal: No Tenderness to Palpation of Joints or Extremities Lymphatic: No Cervical, Supraclavicular, or Inguinal Adenopathy Neurological: Cranial nerves II-XII grossly intact, Neuro grossly intact Psych/Mental Status: Alert and oriented to time, place, person, mood and affect Vital Signs Temp Pulse Resp BP Pulse Ox 97.7 F L 64 16 131/71 H 97 01/30/18 04:17 01/30/18 04:17 01/30/18 04:17 01/30/18 04:17 01/30/18 04:20 Oxygen Flow Rate (L/min) [ 2 AMBULATION with Oxygen] Oxygen Flow Rate (L/min) 2 Oxygen Delivery Method Nasal Cannula Weight: 182 lb 1.629 oz Body Mass Index (BMI) 28.1 Intake and Output for Last 24 Hours 01/28/18 01/29/18 01/30/18 23:59 23:59 23:59 Intake Total 5451 / 5451 750 / 750 480 / 480 Output Total 450 / 450 350 / 350 1000 / 1000 Balance 5001 / 5001 400 / 400 -520 / -520 Laboratory Tests Past 24 Hrs 01/30/18 01/30/18 06:35 06:35 WBC 13.3 H RBC 3.30 L Hgb 10.0 L Hct 30.4 L MCV 92.1 MCH 30.3 MCHC 32.9 RDW 16.1 H RDW Differential 48.8 H Plt Count 344 MPV 9.9 Immature Gran % (Auto) 0.300 Neut % (Auto) 83.2 H Lymph % (Auto) 10.3 L [place] % (Auto) 5.3 Eos % (Auto) 0.8 Baso % (Auto) 0.1 Absolute Neuts (auto) 11.1 H Absolute Lymphs (auto) 1.37 Total Counted Not Reportable Sodium 141 Potassium 4.1 Chloride 104 Carbon Dioxide 28.0 Anion Gap 9 BUN 22 H Creatinine 0.87 Estim Creat Clear Calc 84.08 Est GFR (MDRD) Af Amer 113 Est GFR (MDRD) Non-Af 94 BUN/Creatinine Ratio 25.2 H Glucose 116 H Calcium 8.3 L Clinical Impression(s) from Imaging Studies Chest X-Ray 01/15/18 09:45 IMPRESSION: Near complete opacification left lung machuca sparing only the upper lobe at the level of the aortic knob and above. Differential considerations include pleural fluid, atelectasis/scarring, pneumonia or underlying mass. Clinical correlation follow-up recommended. Results discussed with Attending Physician 01/15/2018 approximate 1235 hours. If clinically indicated, recommend follow-up chest study after treatment to demonstrate complete clearing if clinically indicated. Electronically Signed: Montrell Cardenas at 12:39 EDT Tel , Service support , Chest CT 01/15/18 12:44 IMPRESSION: There is a large amount of consolidation in the left upper lobe and lingula which is centrally dense with an air bronchograms. Although this may represent an infiltrate. An underlying left hilar mass with surrounding consolidated lung should be excluded. Recommend consideration for bronchoscopy. Small left effusion lower lobe atelectasis. Cardiomegaly cardiac artery disease Reactive and/or metastatic lymphadenopathy. Hyperinflated appearance of the right lung overall pattern of underlying chronic obstructive pulmonary disease. Inhomogeneous appearance of the liver which may represent fatty infiltration of the liver with sparing however further evaluation is recommended with an ultrasound or contrasted study of the abdomen and pelvis when possible. Electronically Signed: Mickie Saldivar MD at 15:10 EDT Tel , Service support , Chest X-Ray 01/17/18 06:53 IMPRESSION: Persistent left lung infiltrate no change or improvement. Follow-up to clearing recommended. Electronically Signed: Karen Howard MD at 8:16 EDT , Service support , Chest X-Ray 01/17/18 10:14 IMPRESSION: In the interval since prior study there is been placement of a GI tube which extends through the gastroesophageal junction enters into the region of the fundus the stomach and terminates in the region of the body of the stomach. Unchanged left lung opacity. Electronically Signed: Karen Howard MD at 11:18 EDT , Service support , Chest X-Ray 01/18/18 06:56 IMPRESSION: The endotracheal tube is high in position. It should be advanced by approximately 8 cm. The left hemithorax is now completely opacified. N.B. : The above information has been verbally conveyed by Karen Howard MD to Nurse Kevin Mckeon NP, on 01/18/2018 08:39:15 (ET). Electronically Signed: Karen Howard MD at 8:26 EDT , Service support , ADDENDUM: 01/18/18 0846 Chest X-Ray 01/18/18 08:40 IMPRESSION: Endotracheal tube appears slightly lower in position with the inferior tip just above the midclavicular level which should be repositions and rechecked radiographically. Increased air within the larynx region. Clinical correlation recommended. Moderate improved aeration left upper lobe. No change right lung base medial heterogeneous opacity, may represent atelectasis or pneumonia. Electronically Signed: Montrell Cardenas at 10:41 EDT Tel , Service support , ADDENDUM: 01/18/18 1107 Chest X-Ray 01/19/18 05:55 IMPRESSION: Endotracheal tube tip as above. Slight improvement in aeration involving the left lung with continued opacification particularly along the left base. Continued compression of parenchyma in the right base with areas of hyperinflation. Electronically Signed: Judy Finley MD at 5:34 EDT , Service support , Chest X-Ray 01/22/18 06:16 IMPRESSION: Endotracheal tube is in a high position and should be advanced 4 cm. Nasogastric tube is in adequate position. Persistent left pulmonary infiltrates and pleural effusion. There appears to be interval worsening in the left upper lung field. Electronically Signed: Bala Eng MD at 7:30 EDT , Service support , Chest CT 01/22/18 10:31 IMPRESSION: Infiltrates in the left upper lobe and left lower lobe with volume loss. Small left pleural effusion. There has been improvement as compared to prior study. Electronically Signed: Ross Babcock MD at 11:38 EDT Tel [phone], Service support , Medical Necessity - Tobacco Use Smoking Status: Current every day smoker Tobacco Use: Cigarettes Assessment/Plan All Active Problems (Last Reviewed 06/17/17 @ 09:09 by Antionette Lua) Severe sepsis (Acute) PNA (pneumonia) (Acute) COPD (chronic obstructive pulmonary disease) (Acute) BRENDA (acute kidney injury) (Acute) NSTEMI (non-ST elevated myocardial infarction) (Acute) Erectile dysfunction (Acute) Diabetes type 2, controlled (Acute) Testicular hypofunction (Acute) RECOMMENDATIONS: 1. Wean oxygen as tolerated 2. Walking oximetry prior to discharge 3. Continue diuresis at current levels 4. Continue scheduled bronchodilators and wean steroids over the next 8-10 days 5. Please have the patient follow-up in the pulmonary medicine clinic within 2 weeks of his discharge from the hospital. IMPRESSIONS: 1. Acute hypoxic respiratory failure secondary to severe Legionella pneumonia leading to presumptive COPD exacerbation Patient's respiratory status continues to improve. Secretions are improving. Continue to wean oxygen as tolerated. Patient will need a walking oximetry prior to discharge. Cannot exclude the need for supplemental oxygen at discharge, but anticipate recovery back to room air with time. Patient should follow-up in our office 2 weeks after discharge from an F. A repeat CT chest can be completed in 6-8 weeks for further evaluation of the patient's left hilum. If there is concern for an underlying lung mass, will proceed with setting the patient up for bronchoscopy and specifically EBUS. However, at this time, he will be treated with antibiotics. 2. Severe sepsis secondary to Legionella pneumonia RESOLVED > the patient has been adequately volume resuscitated and is currently hemodynamically stable. We will plan to continue antibiotics per ID recommendations. 3. Atrial fibrillation/flutter RESOLVED > the patient was noted to be in atrial flutter with an elevated heart rate on January 17. He was placed on amiodarone and subsequently converted back to normal sinus rhythm. 4. History of tobacco dependence The patient does have an extensive smoking history and we are currently working under the assumption that he has obstructive lung disease. However, smoking cessation is strongly advisable. Nicotine replacement therapy can be offered while he is admitted to the hospital. The patient should ideally follow up in the pulmonary medicine clinic so that baseline PFTs can be obtained. 5. Troponin elevation/heart failure with preserved ejection fraction The patient's echocardiogram did reveal evidence of stage I diastolic dysfunction with preserved ejection fraction. Troponin elevation is likely secondary to demand ischemia in the setting of #1/2. 6. Acute kidney injury RESOLVED > likely prerenal in etiology. Continue to monitor urine output. No current indication for renal replacement therapy. 7. Anemia Patient responded appropriately to packed red blood cells. Melena has been noted. EGD and colonoscopy have been completed. Continue PPI. 8. Hypertension/hyperlipidemia/neuropathy Complicates care, management, recovery and prognosis. Okay to continue home medications from my perspective. This note was generated with [employer] dictation software. It may contain incorrect words, spelling, and punctuation that were not noted in checking the note before signing. Code Visit Inpatient E&M: 93960 Subs Hosp L2
--- NOTE | 2018-01-30 07:41 | PN_ITS ---
Patient Problems: Active and Suspected Problems (Last Reviewed 06/17/17 @ 09:09 by Antionette Lua) Severe sepsis (Acute) PNA (pneumonia) (Acute) COPD (chronic obstructive pulmonary disease) (Acute) BRENDA (acute kidney injury) (Acute) NSTEMI (non-ST elevated myocardial infarction) (Acute) Subjective: The patient was seen and examined at the bedside this morning. Events from the last 24 hours have been reviewed. The patient is currently afebrile, hemodynamically stable and maintaining appropriate oxygen saturations on 2 L/min via nasal cannula. Hemoglobin remained stable this morning at 10 g/dL. Upper endoscopy completed yesterday revealed minimal gastric body inflammation and nonsevere esophagitis without an active source of bleeding identified. Subsequent lower endoscopy then revealed 3 sessile polyps within the sigmoid colon which were resected and minimal small mouth diverticula noted in the sigmoid and descending colons. Objective: The patient's most recent lab work, culture data and imaging studies have all been personally reviewed. CT chest without contrast obtained yesterday revealed bilateral emphysematous changes along with evidence of consolidation in the left upper lobe and lingula with corresponding groundglass changes extending into the left lower lobe. There was extensive mediastinal lymphadenopathy noted. It was noted that the left pulmonary artery was encased in either consolidation or a possible underlying lung mass. Urine Legionella antigen was noted to be p ositive. Streptococcus antigen was negative. Blood and urine cultures have shown no growth to date. Respiratory cultures are pending. Surface echocardiogram revealed normal LV size and function with evidence of stage I diastolic dysfunction. - Physical Exam General: Alert, Cooperative, No apparent distress HEENT: Atraumatic, PERRLA, Normocephalic Oral: No Gingival or Mucosal Lesions/ Ulcerations Neck: Supple, No Nodes, Trachea Midline Lungs: No rhonchi, No wheeze, No rales, Diminished Cardiovascular: Regular rate, Regular Rhythm, Normal S1, Normal S2, No murmurs Abdomen: Bowel Sounds Present, Soft, Non Tender Extremities: No clubbing, No cyanosis, No edema Skin: - - No significant change from previous. Musculoskeletal: No Tenderness to Palpation of Joints or Extremities Lymphatic: No Cervical, Supraclavicular, or Inguinal Adenopathy Neurological: Cranial nerves II-XII grossly intact, Neuro grossly intact Psych/Mental Status: Alert and oriented to time, place, person, mood and affect Vital Signs Temp Pulse Resp BP Pulse Ox 97.7 F L 64 16 131/71 H 97 01/30/18 04:17 01/30/18 04:17 01/30/18 04:17 01/30/18 04:17 01/30/18 04:20 Oxygen Flow Rate (L/min) [ 2 AMBULATION with Oxygen] Oxygen Flow Rate (L/min) 2 Oxygen Delivery Method Nasal Cannula Weight: 182 lb 1.629 oz Body Mass Index (BMI) 28.1 Intake and Output for Last 24 Hours 01/28/18 01/29/18 01/30/18 23:59 23:59 23:59 Intake Total 5451 / 5451 750 / 750 480 / 480 Output Total 450 / 450 350 / 350 1000 / 1000 Balance 5001 / 5001 400 / 400 -520 / -520 Laboratory Tests Past 24 Hrs 01/30/18 01/30/18 06:35 06:35 WBC 13.3 H RBC 3.30 L Hgb 10.0 L Hct 30.4 L MCV 92.1 MCH 30.3 MCHC 32.9 RDW 16.1 H RDW Differential 48.8 H Plt Count 344 MPV 9.9 Immature Gran % (Auto) 0.300 Neut % (Auto) 83.2 H Lymph % (Auto) 10.3 L [place] % (Auto) 5.3 Eos % (Auto) 0.8 Baso % (Auto) 0.1 Absolute Neuts (auto) 11.1 H Absolute Lymphs (auto) 1.37 Total Counted Not Reportable Sodium 141 Potassium 4.1 Chloride 104 Carbon Dioxide 28.0 Anion Gap 9 BUN 22 H Creatinine 0.87 Estim Creat Clear Calc 84.08 Est GFR (MDRD) Af Amer 113 Est GFR (MDRD) Non-Af 94 BUN/Creatinine Ratio 25.2 H Glucose 116 H Calcium 8.3 L Clinical Impression(s) from Imaging Studies Chest X-Ray 01/15/18 09:45 IMPRESSION: Near complete opacification left lung machuca sparing only the upper lobe at the level of the aortic knob and above. Differential considerations include pleural fluid, atelectasis/scarring, pneumonia or underlying mass. Clinical correlation follow-up recommended. Results discussed with Attending Physician 01/15/2018 approximate 1235 hours. If clinically indicated, recommend follow-up chest study after treatment to demonstrate complete clearing if clinically indicated. Electronically Signed: Montrell Cardenas, at 12:39 EDT Tel , Service support , Chest CT 01/15/18 12:44 IMPRESSION: There is a large amount of consolidation in the left upper lobe and lingula which is centrally dense with an air bronchograms. Although this may represent an infiltrate. An underlying left hilar mass with surrounding consolidated lung should be excluded. Recommend consideration for bronchoscopy. Small left effusion lower lobe atelectasis. Cardiomegaly cardiac artery disease Reactive and/or metastatic lymphadenopathy. Hyperinflated appearance of the right lung overall pattern of underlying chronic obstructive pulmonary disease. Inhomogeneous appearance of the liver which may represent fatty infiltration of the liver with sparing however further evaluation is recommended with an ultrasound or contrasted study of the abdomen and pelvis when possible. Electronically Signed: Mickie Saldivar MD at 15:10 EDT Tel , Service support , Chest X-Ray 01/17/18 06:53 IMPRESSION: Persistent left lung infiltrate no change or improvement. Follow-up to clearing recommended. Electronically Signed: Karen Howard MD at 8:16 EDT , Service support , Chest X-Ray 01/17/18 10:14 IMPRESSION: In the interval since prior study there is been placement of a GI tube which extends through the gastroesophageal junction enters into the region of the fundus the stomach and terminates in the region of the body of the stomach. Unchanged left lung opacity. Electronically Signed: Karen Howard MD at 11:18 EDT , Service support , Chest X-Ray 01/18/18 06:56 IMPRESSION: The endotracheal tube is high in position. It should be advanced by approximately 8 cm. The left hemithorax is now completely opacified. N.B. : The above information has been verbally conveyed by Karen Howard MD to Nurse Kevin Mckeon NP, on 01/18/2018 08:39:15 (ET). Electronically Signed: Karen Howard MD at 8:26 EDT , Service support , ADDENDUM: 01/18/18 0846 Chest X-Ray 01/18/18 08:40 IMPRESSION: Endotracheal tube appears slightly lower in position with the inferior tip just above the midclavicular level which should be repositions and rechecked radiographically. Increased air within the larynx region. Clinical correlation recommended. Moderate improved aeration left upper lobe. No change right lung base medial heterogeneous opacity, may represent atelectasis or pneumonia. Electronically Signed: Montrell Cardenas at 10:41 EDT Tel , Service support , ADDENDUM: 01/18/18 1107 Chest X-Ray 01/19/18 05:55 IMPRESSION: Endotracheal tube tip as above. Slight improvement in aeration involving the left lung with continued opacification particularly along the left base. Continued compression of parenchyma in the right base with areas of hyperinflation. Electronically Signed: Judy Finley MD at 5:34 EDT , Service support , Chest X-Ray 01/22/18 06:16 IMPRESSION: Endotracheal tube is in a high position and should be advanced 4 cm. Nasogastric tube is in adequate position. Persistent left pulmonary infiltrates and pleural effusion. There appears to be interval worsening in the left upper lung field. Electronically Signed: Bala Eng MD at 7:30 EDT , Service support , Chest CT 01/22/18 10:31 IMPRESSION: Infiltrates in the left upper lobe and left lower lobe with volume loss. Small left pleural effusion. There has been improvement as compared to prior study. Electronically Signed: Ross Babcock MD at 11:38 EDT Tel [phone], Service support , Medical Necessity - Tobacco Use Smoking Status: Current every day smoker Tobacco Use: Cigarettes Assessment/Plan All Active Problems (Last Reviewed 06/17/17 @ 09:09 by Antionette Lua) Severe sepsis (Acute) PNA (pneumonia) (Acute) COPD (chronic obstructive pulmonary disease) (Acute) BRENDA (acute kidney injury) (Acute) NSTEMI (non-ST elevated myocardial infarction) (Acute) Erectile dysfunction (Acute) Diabetes type 2, controlled (Acute) Testicular hypofunction (Acute) RECOMMENDATIONS: 1. Wean oxygen as tolerated 2. Walking oximetry prior to discharge 3. Continue diuresis at current levels 4. Continue scheduled bronchodilators and wean steroids over the next 8-10 days 5. Please have the patient follow-up in the pulmonary medicine clinic within 2 weeks of his discharge from the hospital. IMPRESSIONS: 1. Acute hypoxic respiratory failure secondary to severe Legionella pneumonia leading to presumptive COPD exacerbation Patient's respiratory status continues to improve. Secretions are improving. Continue to wean oxygen as tolerated. Patient will need a walking oximetry prior to discharge. Cannot exclude the need for supplemental oxygen at discharge, but anticipate recovery back to room air with time. Patient should follow-up in our office 2 weeks after discharge from an [facility]. A repeat CT chest can be completed in 6-8 weeks for further evaluation of the patient's left hilum. If there is concern for an underlying lung mass, will proceed with setting the patient up for bronchoscopy and specifically EBUS. However, at this time, he will be treated with antibiotics. 2. Severe sepsis secondary to Legionella pneumonia RESOLVED > the patient has been adequately volume resuscitated and is currently hemodynamically stable. We will plan to continue antibiotics per ID recommendations. 3. Atrial fibrillation/flutter RESOLVED > the patient was noted to be in atrial flutter with an elevated heart rate on January 17. He was placed on amiodarone and subsequently converted back to normal sinus rhythm. 4. History of tobacco dependence The patient does have an extensive smoking history and we are currently working under the assumption that he has obstructive lung disease. However, smoking cessation is strongly advisable. Nicotine replacement therapy can be offered while he is admitted to the hospital. The patient should ideally follow up in the pulmonary medicine clinic so that baseline PFTs can be obtained. 5. Troponin elevation/heart failure with preserved ejection fraction The patient's echocardiogram did reveal evidence of stage I diastolic dysfunction with preserved ejection fraction. Troponin elevation is likely secondary to demand ischemia in the setting of #1/2. 6. Acute kidney injury RESOLVED > likely prerenal in etiology. Continue to monitor urine output. No current indication for renal replacement therapy. 7. Anemia Patient responded appropriately to packed red blood cells. Melena has been noted. EGD and colonoscopy have been completed. Continue PPI. 8. Hypertension/hyperlipidemia/neuropathy Complicates care, management, recovery and prognosis. Okay to continue home medications from my perspective. This note was generated with [employer] dictation software. It may contain incorrect words, spelling, and punctuation that were not noted in checking the note before signing. Code Visit Inpatient E&M: 40600 Subs Hosp L2
[2018-01-30] MEDS: Gabapentin 100 MG Capsule PO (08:53)
[2018-01-30] MEDS: Amiodarone 200 MG Tablet PO (08:54)
[2018-01-30] MEDS: predniSONE 20 MG Tablet PO (08:54)
[2018-01-30] MEDS: Pantoprazole Sodium 40 MG Tablet PO (08:55)
[2018-01-30] MEDS: Furosemide 20 MG Tablet PO (08:55)
[2018-01-30] MEDS: Metoprolol Tartrate 50 MG Tablet PO (08:55)
[2018-01-30] MEDS: NYSTATIN 500,000 UNIT/5 ML UDC 500000 UNIT PO (08:56)
--- NOTE | 2018-01-30 09:17 | PCM.TXEXTCAR ---
- Diet 01/29/18 17:26 Diet: Regular Diet Is pt able to select menu?: Yes Diet Comments: pt is not a diabetic - Routine Orders/Code Status Suppository Type: Dulcolax 10mg Suppository Frequency: Daily PRN Routine Lab Work: CBC - weekly, next on 02/06/18, BMP - Therapies Weight Bearing: Full weight bearing Extremity Affected:: Bilateral Lower Physical Therapy: Eval and Treat Occupational Therapy: Eval and Treat - Allergies/Procedures Done in Hospital Allergies/Adverse Reactions: Allergies No Known Allergies Allergy (Verified 01/15/18 09:30) - Type of Care/Length of Stay Estimated LOS: Convalescent Care Less Than 30 days Type of Care Needed: Skilled Rehab Potential: Good Prognosis: Good - Additional Orders/Day of Discharge Additional Orders: The patient will need to follow-up in the pulmonary medicine clinic so that a repeat CT chest can be completed in 6-8 weeks for further evaluation of the patient's left hilum. If there is concern for an underlying lung mass,need for bronchoscopy and specifically EBUS. Day of Discharge: 01/30/18 - Dietary and Speech Recommendations Dietitian Recommendations/Changes: Rec resume cardiac/mech soft diet as tolerated post endoscopy today. - Follow Up Care Primary Care Physician: NOT,DEFINED [NON-STAFF] - Please follow up with your Primary Care Physician in: in 2 weeks Please Follow Up With: Naresh Walton DO When: in 2 weeks Please Follow Up With: Kenny Devries MD When: in 2-3 weeks Please Follow Up With: Wyatt Vargas MD When: in 2-3 weeks
--- NOTE | 2018-01-30 09:22 | DS.PCM_ITS ---
Discharge Date and Diagnosis Date of Admission: 01/15/18 Date of Discharge: 01/30/18 - Primary Discharge Diagnosis Active and Suspected Problems (Last Reviewed 06/17/17 @ 09:09 by Antionette Lua) Severe sepsis (Acute) Left upper lobe and left lower lobe, multilobar legionella pneumonia(Acute) COPD (chronic obstructive pulmonary disease) (Acute) BRENDA (acute kidney injury) (Acute) NSTEMI (non-ST elevated myocardial infarction) (Acute) - Secondary Discharge Diagnosis Chronic Problems (Last Reviewed 06/17/17 @ 09:09 by Antionette Lua) HLD (hyperlipidemia) (Chronic) Hypertension (Chronic) Hospital Course and Treatment Summary of Care Provided: The patient is a 62-year-old male with past medical history of hypertension, hyperlipidemia, obesity, chronic nicotine dependency, suspect underlying COPD admitted on 01/15/2018 with fever, chills, worsening weakness and found to have Legionella pneumonia. He was intubated on 01/17/18 and has been on mechanical ventilation since. Extubated on . 1. Acute on chronic anemia secondary to GI bleed, hemoglobin is 6.8 to 9 g%. Had 2 units of PRBC transfusion. Afterwards, H&H remained stable, last one 02/06.4. 2. Possibility of GI bleed, probably middle GI tract bleeding: Patient had significant anemia that improved after PRBC transfusion. Dr. Singh consult reviewed and appreciated. No major cause of bleeding was found in the EGD and colonoscopy. EGD shows scattered minimal gastric body inflammation and nonsevere esophagitis with no bleeding. Colonoscopy shows 3 medium polyps in sigmoid colon, removed by snare. Diverticulosis in the sigmoid colon and descending colon. Otherwise normal Mild hypokalemia: Potassium replaced and corrected 3. Acute hypoxic respiratory failure secondary to Legionella pneu monia/presumptive COPD exacerbation, s/p extubation : Encourage use of incentive spirometer, acapella, continue with aggressive pulmonary toileting. COPD exacerbation has much improved. 4. Severe sepsis secondary to Legionella pneumonia; present on admission, resolved. 5. Left upper lobe and left lower lobe, multilobar legionella pneumonia, present on admission: ID consulted, completed antibiotics of Levaquin and Zosyn. Sputum culture and bronchial lavage grew yeast, not carried albicans. On nystatin swish and swallow. 6. Presumptive COPD exacerbation, improving, on prednisone po taper, continue with breathing treatments. Patient had a smoking history of since teenage about 45-50 pack years of smoking. No baseline PFT. 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 Presumed obstructive lung disease 7. Acute on chronic diastolic heart failure with fluid overload: BNP on 01/17 was 318. Improved with diuresis, remains euvolemic on po lasix bid, urine output is good, continue with Lasix 40 mg p.o. twice daily. Slight troponin less secondary to demand ischemia. Patient has heart failure with preserved EF. 8. Acute NSTEMI, type II secondary to demand ischemia, cardiology was consulted, on aspirin, statin, Plavix 9. Episode of Atrial flutter, converted, in NSR, on oral amiodarone, plan to continue for 1 month and discontinue in the outpatient 10. BRENDA secondary to severe sepsis/dehydration, resolved. 11. Type II DM, blood sugars fairly controlled, on Lantus as well as insulin sliding scale with Accu-Cheks 12. DVT prophylaxis -SCDs Discharge medication reconciliation done. Patient was discharged on bronchodilator, tapering dose of prednisone, metoprolol amiodarone and other medications. Discharge follow-up instructions discussed with the patient. Discharge process was discussed with the patient, his and other family members including brother present in the room. Total time spent, exact 35 minutes on discharge meds reconciliation, examination, review of imaging and blood test and discussion with the patient on follow-up instructions. Objective: General: Alert, Oriented x3, Cooperative HEENT: Atraumatic, PERRLA, EOMI, Normocephalic Neck: Supple, No JVD, Negative Carotid Bruits Lungs: Clear to auscultation, No rhonchi, No wheeze, No rales, air entry diminished bilaterally diffuse. Expiratory phase prolonged Cardiovascular: Regular rate, Regular Rhythm, Normal S1, Normal S2, No murmurs Abdomen: Bowel Sounds Present, Soft, Non Tender, Non-Distended, no guarding/rigidity Extremities: Capillary Refill Less than 3 Seconds, Edema Skin: No rashes, No breakdown Musculoskeletal: No Tenderness to Palpation of Joints or Extremities, Arthritic Changes, Muscle Wasting Neurological: Cranial nerves II-XII grossly intact, Neuro grossly intact Psych/Mental Status: Normal Affect, Appropriate - Physical Exam Vital Signs Temp Pulse Resp BP Pulse Ox 97.8 F 90 20 H 108/66 95 01/30/18 08:50 01/30/18 08:55 01/30/18 08:50 01/30/18 08:50 01/30/18 08:50 Oxygen Flow Rate (L/min) [ 2 AMBULATION with Oxygen] Oxygen Flow Rate (L/min) 2 Oxygen Delivery Method Nasal Cannula Weight: 182 lb 1.629 oz Body Mass Index (BMI) 28.1 Intake and Output for Last 24 Hours 01/28/18 01/29/18 01/30/18 23:59 23:59 23:59 Intake Total 5451 / 5451 750 / 750 480 / 480 Output Total 450 / 450 350 / 350 1000 / 1000 Balance 5001 / 5001 400 / 400 -520 / -520 Laboratory Tests Past 24 Hrs 01/30/18 01/30/18 06:35 06:35 WBC 13.3 H RBC 3.30 L Hgb 10.0 L Hct 30.4 L MCV 92.1 MCH 30.3 MCHC 32.9 RDW 16.1 H RDW Differential 48.8 H Plt Count 344 MPV 9.9 Immature Gran % (Auto) 0.300 Neut % (Auto) 83.2 H Lymph % (Auto) 10.3 L [place] % (Auto) 5.3 Eos % (Auto) 0.8 Baso % (Auto) 0.1 Absolute Neuts (auto) 11.1 H Absolute Lymphs (auto) 1.37 Total Counted Not Reportable Sodium 141 Potassium 4.1 Chloride 104 Carbon Dioxide 28.0 Anion Gap 9 BUN 22 H Creatinine 0.87 Estim Creat Clear Calc 84.08 Est GFR (MDRD) Af Amer 113 Est GFR (MDRD) Non-Af 94 BUN/Creatinine Ratio 25.2 H Glucose 116 H Calcium 8.3 L Home Medications: Medications to take at Discharge atorvastatin 40 mg tablet 40 mg PO QDAY 06/05/17 citalopram 40 mg tablet 40 mg PO QDAY tab 06/05/17 coenzyme Q10 100 mg capsule 100 mg PO QDAY 06/05/17 omega-3 fatty acids 1,000 mg capsule 1,000 mg PO QDAY 06/05/17 Gabapentin [Neurontin] 100 mg PO DAILY 01/15/18 Acetaminophen [Tylenol Tablet] 650 mg PO Q4H PRN PRN tablet 01/30/18 Albuterol Aerosols [Ventolin Aerosols] 2.5 mg INHALATION Q2H PRN PRN vial.neb. 01/30/18 Amiodarone HCl [Cordarone] 200 mg PO DAILY tablet 01/30/18 Furosemide [Lasix] 20 mg PO BID@1000,1800 tablet 01/30/18 Ipratropium [Atrovent Aerosols] 0.5 mg INHALATION Q4H.RT solution 01/30/18 Mag Hydrox/Al Hydrox/Simeth [Mylanta II] 30 ml PO Q6H PRN PRN udc 01/30/18 Metoprolol Tartrate [Lopressor (beta [place])] 50 mg PO BID tablet 01/30/18 Nystatin 500,000 unit PO 4X/DAY udc 01/30/18 Pantoprazole Sodium [Protonix] 40 mg PO DAILY tablet 01/30/18 Potassium Chloride [K-Dur] 40 meq PO DAILYCM tablet 01/30/18 Prednisone See Protocol PO DAILY #11 tab 01/30/18 Following Prescrptions Were Given to Patient: Prednisone See Protocol PO DAILY #11 tab Primary Care Physician: NOT,DEFINED [NON-STAFF] - Please follow up with your Primary Care Physician in: in 2 weeks Please Follow Up With: Naresh Walton DO When: in 2 weeks Please Follow Up With: Kenny Devries MD When: in 2-3 weeks Please Follow Up With: Wyatt Vargas MD When: in 2-3 weeks Medical Necessity - Tobacco Use Smoking Status: Current every day smoker Tobacco Use: Cigarettes Meaningful Use Info Meaningful Use Diagnoses (Choose all that apply): None applicable Code Visit Inpatient E&M: 43323 Disch Hosp
--- NOTE | 2018-01-30 09:42 | NURSING ---
Report called to Kriss at [facility].
--- NOTE | 2018-01-30 09:49 | CASEMGMT ---
Patient is ready for discharge. Faxed orders to [facility]. Completed convalescent on HENS. Called [facility] and arranged transport via [facility] van for 1130a. SW notified patient and family, RN, and left message for Ami at [facility]. Plan: d/c to [facility] under skilled level of care on a convalescent stay. [facility] transported via [facility]c van. Kiah BLISS MSW
--- NOTE | 2018-01-30 11:37 | CASEMGMT ---
[facility] came to transport patient, but they do not transport new oxygen patient's as they have no O2 tanks. SW called [facility] and the earliest they could be here would be 3p. SW called [facility] and left a message letting them know this information. SW also spoke with patient and told him there was miscommunication on SW's part and transport has been set up with [facility]. He thanked for the assistance. Plan: [facility] under skilled level of care. [facility] transported via van. Kiah BLISS GENERAL OPERATOR
--- NOTE | 2018-01-30 18:42 | PCM.PN.SRG ---
Subjective: no complaints - Physical Exam General: Alert, Oriented x3, Cooperative Abdomen: Bowel Sounds Present, Soft, Non Tender Vital Signs Temp Pulse Resp BP Pulse Ox 98.3 F 79 17 124/75 H 96 01/30/18 13:45 01/30/18 13:45 01/30/18 13:45 01/30/18 13:45 01/30/18 13:45 Oxygen Flow Rate (L/min) [ 2 AMBULATION with Oxygen] Oxygen Flow Rate (L/min) 2 Oxygen Delivery Method Nasal Cannula Weight: 82.6 kg Body Mass Index (BMI) 28.1 Intake and Output for Last 24 Hours 01/28/18 01/29/18 01/30/18 23:59 23:59 23:59 Intake Total 5451 / 5451 750 / 750 680 / 680 Output Total 450 / 450 350 / 350 1300 / 1300 Balance 5001 / 5001 400 / 400 -620 / -620 Laboratory Tests Past 24 Hrs 01/30/18 01/30/18 06:35 06:35 WBC 13.3 H RBC 3.30 L Hgb 10.0 L Hct 30.4 L MCV 92.1 MCH 30.3 MCHC 32.9 RDW 16.1 H RDW Differential 48.8 H Plt Count 344 MPV 9.9 Immature Gran % (Auto) 0.300 Neut % (Auto) 83.2 H Lymph % (Auto) 10.3 L Brule % (Auto) 5.3 Eos % (Auto) 0.8 Baso % (Auto) 0.1 Absolute Neuts (auto) 11.1 H Absolute Lymphs (auto) 1.37 Total Counted Not Reportable Sodium 141 Potassium 4.1 Chloride 104 Carbon Dioxide 28.0 Anion Gap 9 BUN 22 H Creatinine 0.87 Estim Creat Clear Calc 84.08 Est GFR (MDRD) Af Amer 113 Est GFR (MDRD) Non-Af 94 BUN/Creatinine Ratio 25.2 H Glucose 116 H Calcium 8.3 L Medical Necessity - Tobacco Use Smoking Status: Current every day smoker Tobacco Use: Cigarettes Assessment/Plan All Active Problems (Last Reviewed 06/17/17 @ 09:09 by Antionette Lua) Severe sepsis (Acute) PNA (pneumonia) (Acute) COPD (chronic obstructive pulmonary disease) (Acute) BRENDA (acute kidney injury) (Acute) NSTEMI (non-ST elevated myocardial infarction) (Acute) Erectile dysfunction (Acute) Diabetes type 2, controlled (Acute) Testicular hypofunction (Acute) significant drop in hemoglobin, anemia, questionable GI bleed versus anemia of acute disease versus hemolysis Upper endoscopy demonstrated mild gastritis and Mild distal esophagitis but hadno signs of recent or significant GI bleed. Colonoscopy demonstrated 3 adenomatous polyps. Okay for patient for discharge. Please a patient of all my office for pathology results in one week.
== END 2018-01-30 15:41 | disposition skilled nursing facility (03) | DRG 853 ==
LOC: ED 09:43 → ICU 10:59 → PCU 01-25 11:18
PROVIDERS: Hospitalist; Internal Medicine; Internal Medicine Cardiovascular Disease; Internal Medicine Critical Care Medicine; Physician Assistant; Surgery; Admitting Provider Family Medicine; Emergency Provider Emergency Medicine; Family Provider Family Medicine; PCP Family Medicine; Visit Provider Internal Medicine
PROC: 0BJ08ZZ Inspection of Tracheobronchial Tree, Via Natural or Artificial Opening Endoscopic (ICD-10-PCS; CPT 31622; principal; 2018-01-17 13:15)
PROC: 0DJD8ZZ Inspection of Lower Intestinal Tract, Via Natural or Artificial Opening Endoscopic (ICD-10-PCS; CPT 45378; principal; 2018-01-29 14:55)
DX: A41.89 Other specified sepsis (principal); A48.1 Legionnaires' disease; J96.01 Acute respiratory failure with hypoxia; I21.A1 Myocardial infarction type 2; I50.33 Acute on chronic diastolic (congestive) heart failure; N17.9 Acute kidney failure, unspecified; K92.2 Gastrointestinal hemorrhage, unspecified; J44.1 Chronic obstructive pulmonary disease with (acute) exacerbation; I48.92 Unspecified atrial flutter; E87.1 Hypo-osmolality and hyponatremia; R65.20 Severe sepsis without septic shock; E78.5 Hyperlipidemia, unspecified; K63.5 Polyp of colon; K20.9 Esophagitis, unspecified; K57.30 Diverticulosis of large intestine without perforation or abscess without bleeding; E87.6 Hypokalemia; E11.9 Type 2 diabetes mellitus without complications; E86.0 Dehydration; I11.0 Hypertensive heart disease with heart failure; F17.210 Nicotine dependence, cigarettes, uncomplicated; D64.9 Anemia, unspecified; E87.8 Other disorders of electrolyte and fluid balance, not elsewhere classified; D69.6 Thrombocytopenia, unspecified; G62.9 Polyneuropathy, unspecified
CPT/HCPCS: 31500; 31720; 36415; 36600; 36620; 71045; 71250; 80048; 80053; 80061; 80076; 81001; 82274; 82803; 82962; 83036; 83605; 83690; 83735; 83880; 84100; 84484; 85014; 85018; 85025; 85610; 85730; 86850; 86900; 86920; 86922; 87040; 87070; 87086; 87205; 87449; 87633; 87641; 88305; 88342; 93005; 93306; 94002; 94003; 94640; 94660; 94667; 94668; 95831; 97110; 97162; 97166; 97530; 97535; 97802; 97803; 99251; 99284; J7030; J7040; J7050; P9016; Q9957; A4216; C8929; G0463; J0330; J1940

== ENCOUNTER → 2018-02-23 12:28 | Outpatient (CLI) | payer OTHER, SELFPAY ==
--- NOTE | 2018-02-23 12:29 | CT_ITS ---
STUDY: CT CHEST WITH CONTRAST REASON FOR EXAM: Male, 62 years old. Follow-up of Legionella pneumonitis. RADIATION DOSAGE (If Supplied By Facility): CTDIvol = ( 15.86 ) mGy, DLP = ( 747.57 ) mGycm TECHNIQUE: Transaxial imaging was performed following intravenous administration of 100 ml of Isovue 300 contrast material. Multiplanar coronal and sagittal images were reformatted. Individualized dose optimization techniques were used for this CT. COMPARISON: CT of the chest dated January 22, 2018. FINDINGS: The lungs are expanded. There is residual opacity in the lingula presumably representing remnants of Legionella pneumonitis. There is also residual airspace consolidation left upper lobe with air bronchograms. There is improvement in aeration of the left upper lobe and lingula in general. There is also residual heterogeneous groundglass attenuation within the left lower lobe. The right lung appears to be clear. There is no demonstrated pleural abnormality. Normal heart and pericardium. There are calcifications of the coronary arteries. There are multiple small lymph nodes within the mediastinum, which are normal in size and morphology. Normal hilar regions. Normal enhanced pulmonary arteries. Normal aorta arch and descending thoracic aorta. There are multi-level degenerative changes of the thoracic spine. There appears to be hepatic steatosis. CT/Chest WITH Contrast IMPRESSION: Improvement in the severity of the left lower lobe, lingular and left upper lobe airspace disease since previous CT. There is residual disease and continued follow-up is suggested. Electronically Signed: Yue Bedoya MD at 3:41 EST , Service support ,
[2018-02-23 13:17] LABS: Anion Gap 8 (5-15); BUN 7 mg/dL (7-18); BUN/Creat Ratio 7.9 RATIO (10-20); Calcium,Total 8.6 mg/dL (8.5-10.1); Chloride 103 mmol/L (98-107); Creatinine, Serum 0.89 mg/dL (0.70-1.30); EST Glomerular Filtration Rate 91 mL/min (>60); Est Glom Filt Rate - Afr Amer 111 mL/min (>60); Glucose 94 mg/dL (74-106); Sodium Level 138 mmol/L (136-145)
== END ==
PROVIDERS: Family Provider Family Medicine; PCP Family Medicine; Referring Provider Nurse Practitioner Acute Care; Visit Provider Nurse Practitioner Acute Care
DX: J18.9 Pneumonia, unspecified organism (principal); N17.9 Acute kidney failure, unspecified
CPT/HCPCS: 36415; 71260; 80048; Q9967

== ENCOUNTER → 2020-05-29 07:54 | Outpatient (CLI) | payer MEDICARE, SELFPAY ==
[2018-04-05 08:48] VITALS: BMI 30.2
[2020-05-29 09:18] LABS: ALB/GLOB Ratio 1.2 RATIO (0.9-2.4); AST(SGOT) 12 U/L (15-37); Alanine Aminotransfer ALT/SGPT 24 U/L (16-61); Alkaline Phosphatase 110 U/L (45-117); Anion Gap 3 (5-15); BUN 17 mg/dL (7-18); BUN/Creat Ratio 18.8 RATIO (10-20); Calcium,Total 8.8 mg/dL (8.5-10.1); Chloride 109 mmol/L (98-107); Cholesterol 138 mg/dL (200); EST Glomerular Filtration Rate 89 mL/min (>60); Est Glom Filt Rate - Afr Amer 108 mL/min (>60); Globulin 3.3 g/dL (2.2-4.2); Glucose 110 mg/dL (74-106); High Density Lipoprotein 38 mg/dL; Potassium 4.6 mmol/L (3.5-5.1); Protein, Total 7.3 g/dL (6.4-8.2); Sodium Level 142 mmol/L (136-145); Triglycerides 135 mg/dL; Very Low Density Lipoprotein 27 mg/dL (5-40)
[2020-05-29 09:21] LABS: Hemoglobin A1c 5.9 % (3.8-5.6)
== END ==
PROVIDERS: PCP Family Medicine; Referring Provider Family Medicine; Visit Provider Family Medicine
DX: E78.5 Hyperlipidemia, unspecified (principal); I10 Essential (primary) hypertension; E11.65 Type 2 diabetes mellitus with hyperglycemia
CPT/HCPCS: 36415; 80053; 80061; 83036